=== PATIENT | male | born 1935 | race Caucasian/White ===

== ENCOUNTER 2020-01-28 09:06 | Inpatient (IN) | payer MEDICARE, OTHER ==
[2020-01-28] MEDS ORDERED: hydrALAZINE HCL 20 MG/ML 1 ML VIAL IVP STA ×2 (09:13→09:15)
--- NOTE | 2020-01-28 09:18 | ED ---
General Adult HPI - General Stated complaint: Hypertension Time Seen by Provider: 01/28/20 09:06 Source: patient, RN notes reviewed, old records reviewed - History of Present Illness Initial comments: This is an 84-year-old male who [facility] Patient was sent in because of blood pressures high. Patient was started on midodrine yesterday. Patient was also given that medicine this morning along with hydralazine and then they noted his blood pressure was 200/100 and decided to send him to the emergency department. Patient denies any headache. Patient denies numbness weakness. Patient denies blurred vision. Patient denies any chest pain difficult breathing shortest breath. Patient states he is completely asymptomatic except for the fact that his blood pressures elevated. - Related Data Allergies Allergy/AdvReac Type Severity Reaction Status Date / Time No Known Allergies Allergy Verified 01/28/20 09:20 Review of Systems ROS Statement: Those systems with pertinent positive or pertinent negative responses have been documented in the HPI. ROS Other: All systems not noted in ROS Statement are negative. General Exam - General Exam Comments Initial Comments: GENERAL: Patient is well-developed and well-nourished. Patient is nontoxic and well- hydrated and is in no acute distress. ENT: Neck is soft and supple. No significant lymphadenopathy is noted. Oropharynx is clear. Moist mucous membranes. Neck has full range of motion without eliciting any pain. EYES: The sclera were anicteric and conjunctiva were pink and moist. Extraocular movements were intact and pupils were equal round and reactive to light. Eyelids were unremarkable. PULMONARY: Unlabored respirations. Good breath sounds bilaterally. No audible rales rhonchi or wheezing was noted. CARDIOVASCULAR: There is a regular rate and rhythm without any murmurs gallops or rubs. ABDOMEN: Soft and nontender with normal bowel sounds. No palpable organomegaly was noted. There is no palpable pulsatile mass. SKIN: Skin is clear with no lesions or rashes and otherwise unremarkable. NEUROLOGIC: Patient is alert and oriented x3. Cranial nerves II through XII are grossly intact. Motor and sensory are also intact. Normal speech, volume and content. Symmetrical smile. MUSCULOSKELETAL: Normal extremities with adequate strength and full range of motion. No lower extremity swelling or edema. No calf tenderness. LYMPHATICS: No significant lymphadenopathy is noted PSYCHIATRIC: Normal psychiatric evaluation. Course Vital Signs 01/28/20 01/28/20 01/28/20 09:20 09:31 09:42 Temperature 98.1 F Pulse Rate 77 72 Pulse Rate [ 77 Left Sitting] Pulse Rate [ 79 Left Standing] Pulse Rate [ 75 Left Supine] Respiratory 18 18 16 Rate Blood Pressure 201/97 116/84 Blood Pressure 168/81 [Right Arm Sitting] Blood Pressure 111/56 [Right Arm Standing] Blood Pressure 202/95 [Right Arm Supine] O2 Sat by Pulse 98 98 99 Oximetry Medical Decision Making - Medical Decision Making The EKG shows sinus rhythm with a first-degree AV block at 74 bpm NC interval is 09/22/1943 QRS is 106 QT interval is 432 QTC is 479. Patient's EKG shows no ST segment elevation Patient's orthostatic strapped 80 point from lying to standing and then while laying in bed he was normal blood pressure and about half an hour later he was over 200 again. Because of the labile blood pressure along with an elevated troponin I spoke with Dr. Ibarra she agreed to admit the patient I admitted the patient I wrote admitting orders - Lab Data Result diagrams: 01/28/20 09:17 01/28/20 09:17 Lab Results 01/28/20 01/28/20 01/28/20 Range/Units 09:17 09:17 09:17 WBC 6.1 (3.8-10.6) k/uL RBC 3.22 L (4.30-5.90) m/uL Hgb 10.0 L (13.0-17.5) gm/dL Hct 30.3 L (39.0-53.0) % MCV 94.1 (80.0-100.0) fL MCH 31.0 (25.0-35.0) pg MCHC 32.9 (31.0-37.0) g/dL RDW 14.1 (11.5-15.5) % Plt Count 170 (150-450) k/uL Neutrophils % 70 % Lymphocytes % 21 % Monocytes % 5 % Eosinophils % 2 % Basophils % 1 % Neutrophils # 4.2 (1.3-7.7) k/uL Lymphocytes # 1.3 (1.0-4.8) k/uL Monocytes # 0.3 (0-1.0) k/uL Eosinophils # 0.1 (0-0.7) k/uL Basophils # 0.0 (0-0.2) k/uL PT 11.0 (9.0-12.0) sec INR 1.1 (<1.2) APTT 24.2 (22.0-30.0) sec Sodium 138 (137-145) mmol/L Potassium 3.5 (3.5-5.1) mmol/L Chloride 104 (98-107) mmol/L Carbon Dioxide 28 (22-30) mmol/L Anion Gap 6 mmol/L BUN 18 (9-20) mg/dL Creatinine 0.97 (0.66-1.25) mg/dL Est GFR (CKD-EPI)AfAm 83 (>60 ml/min/1.73 sqM) Est GFR (CKD-EPI)NonAf 72 (>60 ml/min/1.73 sqM) Glucose 144 H (74-99) mg/dL Calcium 8.6 (8.4-10.2) mg/dL Magnesium 1.7 (1.6-2.3) mg/dL Total Bilirubin 0.4 (0.2-1.3) mg/dL AST 31 (17-59) U/L ALT 21 (4-49) U/L Alkaline Phosphatase 87 (38-126) U/L Troponin I (0.000-0.034) ng/mL Total Protein 6.3 (6.3-8.2) g/dL Albumin 3.5 (3.5-5.0) g/dL 01/28/20 Range/Units 09:17 WBC (3.8-10.6) k/uL RBC (4.30-5.90) m/uL Hgb (13.0-17.5) gm/dL Hct (39.0-53.0) % MCV (80.0-100.0) fL MCH (25.0-35.0) pg MCHC (31.0-37.0) g/dL RDW (11.5-15.5) % Plt Count (150-450) k/uL Neutrophils % % Lymphocytes % % Monocytes % % Eosinophils % % Basophils % % Neutrophils # (1.3-7.7) k/uL Lymphocytes # (1.0-4.8) k/uL Monocytes # (0-1.0) k/uL Eosinophils # (0-0.7) k/uL Basophils # (0-0.2) k/uL PT (9.0-12.0) sec INR (<1.2) APTT (22.0-30.0) sec Sodium (137-145) mmol/L Potassium (3.5-5.1) mmol/L Chloride (98-107) mmol/L Carbon Dioxide (22-30) mmol/L Anion Gap mmol/L BUN (9-20) mg/dL Creatinine (0.66-1.25) mg/dL Est GFR (CKD-EPI)AfAm (>60 ml/min/1.73 sqM) Est GFR (CKD-EPI)NonAf (>60 ml/min/1.73 sqM) Glucose (74-99) mg/dL Calcium (8.4-10.2) mg/dL Magnesium (1.6-2.3) mg/dL Total Bilirubin (0.2-1.3) mg/dL AST (17-59) U/L ALT (4-49) U/L Alkaline Phosphatase (38-126) U/L Troponin I 0.056 H* (0.000-0.034) ng/mL Total Protein (6.3-8.2) g/dL Albumin (3.5-5.0) g/dL Disposition Clinical Impression: Labile hypertension, Elevated troponin Disposition: ADMITTED IP TO THIS HOSP Referrals: Roberto Coles MD [STAFF PHYSICIAN] - 1-2 days Time of Disposition: 10:48
[2020-01-28 09:34] LABS: Basophils % (A) 1 %; Eosinophils # (A) 0.1 k/uL (0-0.7); Eosinophils % (A) 2 %; HCT 30.3 % (39.0-53.0); Lymphocytes # (A) 1.3 k/uL (1.0-4.8); Lymphocytes % (A) 21 %; MCHC 32.9 g/dL (31.0-37.0); MCV 94.1 fL (80.0-100.0); Mean Platelet Volume 7.5; Monocytes # (A) 0.3 k/uL (0-1.0); Monocytes % (A) 5 %; Neutrophils # (A) 4.2 k/uL (1.3-7.7); Neutrophils % (A) 70 %; Platelet Count 170 k/uL (150-450); RBC 3.22 m/uL (4.30-5.90); RDW 14.1 % (11.5-15.5); WBC 6.1 k/uL (3.8-10.6)
[2020-01-28 09:43] LABS: Albumin 3.5 g/dL (3.5-5.0); Calcium 8.6 mg/dL (8.4-10.2); Magnesium 1.7 mg/dL (1.6-2.3); Potassium 3.5 mmol/L (3.5-5.1); Total Bilirubin 0.4 mg/dL (0.2-1.3); Total Protein 6.3 g/dL (6.3-8.2)
[2020-01-28 09:45] LABS: INR 1.1 (<1.2); Partial Thromboplastin Time 24.2 sec (22.0-30.0)
--- NOTE | 2020-01-28 09:52 | XR ---
EXAMINATION TYPE: XR chest 2V DATE OF EXAM: 01/28/2020 HISTORY: Chest Pain. REFERENCE: NONE. FINDINGS: There has been a midline sternotomy. There is apparent elevation right hemidiaphragm. There is mild atelectasis at the lung bases. Lungs o therwise clear. Pleural spaces are clear. The heart is not enlarged. IMPRESSION: BIBASILAR ATELECTASIS.
[2020-01-28] MEDS ORDERED: BISACODYL 10 MG SUPP RECTAL PRN (15:44)
[2020-01-28] MEDS ORDERED: FLUTICASONE 50MCG/SPRAY NASAL 16GM EA NOSTRIL PRN (15:44)
[2020-01-28] MEDS ORDERED: MAGNESIUM HYDROXIDE 2,400 MG/10 ML CUP PO PRN (15:44)
[2020-01-28] MEDS ORDERED: NA PHOS,M-B/NA PHOS,DI-BA 133 ML ENEMA RECTAL PRN (15:44)
[2020-01-28] MEDS ORDERED: ALBUTEROL HFA INHALER INHALATION PRN (15:44)
--- NOTE | 2020-01-28 16:19 | P.HPIM ---
History of Present Illness H&P Date: 01/28/20 Chief Complaint: Dizziness Mr. Porter is a 84-year-old male, who is a patient of Dr. Rush, with a past medical history of coronary artery disease, COPD, CVA/TIA, hypertension, hyperlipidemia, idiopathic orthostatic hypotension sent in from [facility] for uncontrolled hypertension along with dizziness. Patient has a known history of profound orthostatic hypotension. He states he was recently admitted at [facility] for the same complaint. He states he had an MRI Scan of the head and they did multiple tests over the and later discharged [facility] checked [facility] blood pressure 200 /100 and it was high and so they sent him here. The patient's only complaint is that he feels dizzy when he stands up. Patient denies having any loss of consciousness because of this. He states that he has been dealing with this issue for the past 3-4 years. In the emergency room patient had his blood pressure checked and it was In the emergency room the patient was checked for orthostatics and it was positive for a deep points. Patient's blood pressure was normal and he bed but often elevated in the checked it was, the systolic pressure was about 200. So because of the lab I'll blood pressure readings and mildly elevated troponins patient has been admitted to the hospital. Patient denies having any chest pain or palpitations. His only complaint is dizziness. Patient denies having any loss of consciousness. He states that when he stands and walks few steps he feels dizzy and this is his baseline. So no new complaints per se. Patient denies having any difficulty in breathing or cough. No exposure to coronavirus patients. Patient denies having abdominal pain nausea vomiting or diarrhea. Patient states that he was using compression stockings in the past that helped him, but lately as the stockings were old and not working he stopped using them for the past few months. He has records from December 2018 admission from [facility] which [facility]. At that time patient was recommended an abdominal binder and JOON hose for his orthostatic hypotension. During that visit patient had an MRI, EMG and neurology evaluation. Review of Systems REVIEW OF SYSTEMS: PSYCH: Anxious because of dizziness NEURO:No c/o weakness of the extremties, No facial droop, No speech abnormalities. VASCULAR: no edema HEMATOLOGIC: No history of easy bleeding and bruising . No recent infections . RESPIRATORY: No cough, No SOB, No chest discomfort. IMMUNE: No infections INTEGUMENT: no rashes OPHTHALMOLOGIC: No blurry vision and no eye discharge : No dysuria or hematuria CARDIAC: No chest pain , shortness of breath , paroxysmal nocturnal dyspnea MUSCULOSKELETAL : No Aches or pains in the joints or muscles. GI: No abdominal pain, Nausea or vomiting. No constipation or diarrhea. All 13 review of systems are negative except for the ones mentioned above Past Medical History Past Medical History: Coronary Artery Disease (CAD), COPD, CVA/TIA, Eye Disorder, Hyperlipidemia, Osteoarthritis (OA) Additional Past Medical History / Comment(s): anemia, idiopathic hypotension, macular degeneration, carpal tunnel syndrome, multiple mini strokes, orthostatic hypotension being managed by Dr. Campoverde anaesthetic technician for the past 4 years. Changed dosing of midodrine and fludrocortisone around over the years. History of Any Multi-Drug Resistant Organisms: None Reported Past Surgical History: Appendectomy, Coronary Bypass/CABG, Hernia Repair, Joint Replacement, Tonsillectomy Additional Past Surgical History / Comment(s): vasectomy, umbilical/hiatal hernia, bilateral knee, pinched nerve in neck surgically repaired. Additional Past Anesthesia/Blood Transfusion Reaction / Comment(s): No history of blood transfusion. Past Psychological History: No Psychological Hx Reported Smoking Status: Former smoker Past Alcohol Use History: None Reported Past Drug Use History: None Reported Medications and Allergies Home Medications Medication Instructions Recorded Confirmed Type Acetaminophen [Tylenol Arthritis] 650 mg PO Q4H PRN 01/28/20 01/28/20 History Albuterol Inhaler [Ventolin Hfa 1 puff INHALATION Q6H PRN 01/28/20 01/28/20 History Inhaler] Aspirin EC [Ecotrin Low Dose] 81 mg PO DAILY@169901/28/20 01/28/20 History Bisacodyl 10 mg RECTAL ONCE PRN 01/28/20 01/28/20 History Fludrocortisone Acetate 0.2 mg PO DAILY@0801/28/20 01/28/20 History Fluticasone Nasal [place] [Flonase 1 spr EA NOSTRIL DAILY PRN 01/28/20 01/28/20 History Nasal [place]] Lutein 20 mg PO DAILY@169901/28/20 01/28/20 History Magnesium Hydroxide [Milk of 2,400 mg PO ONCE PRN 01/28/20 01/28/20 History Magnesia] Midodrine HCl 15 mg PO AC-TID 01/28/20 01/28/20 History Multivitamins, Thera [Multivitamin 1 tab PO DAILY@1700 01/28/20 01/28/20 History (formulary)] Na Phos,M-B/Na Phos,Di-Ba [Fleet 133 ml RECTAL ONCE PRN 01/28/20 01/28/20 Hist ory Adult] Sertraline HCl [Zoloft] 50 mg PO DAILY@0800 01/28/20 01/28/20 History Simvastatin 40 mg PO HS@2100 01/28/20 01/28/20 History hydrALAZINE HCL [Apresoline] 25 mg PO Q8HR 01/28/20 01/28/20 History Allergies Allergy/AdvReac Type Severity Reaction Status Date / Time No Known Allergies Allergy Verified 01/28/20 11:41 Physical Exam Vitals: Vital Signs Temp Pulse Pulse Pulse Pulse Resp BP 01/28/20 12:16 01/28/20 12:09 97.6 F 70 16 01/28/20 11:49 71 16 211/98 01/28/20 10:51 71 16 189/97 01/28/20 09:42 72 16 116/84 01/28/20 09:31 77 79 75 18 01/28/20 09:20 98.1 F 77 18 201/97 BP BP BP BP BP Pulse Ox 01/28/20 12:16 102/53 01/28/20 12:09 235/99 97 01/28/20 11:49 97 01/28/20 10:51 99 01/28/20 09:42 99 01/28/20 09:31 168/81 111/56 202/95 98 01/28/20 09:20 98 Intake and Output 01/28/20 01/28/20 01/28/20 06:59 14:59 22:59 Other: Weight 80.286 kg PHYSICAL EXAM GEN. APPEARANCE: alert, in no apparent distress HEAD EXAM: atraumatic, normocephalic, normal inspection EYE EXAM: normal appearance, PERRL, EOMI. Absent: scleral icterus, conjunctival injection, periorbital swelling ENT EXAM: normal exam, mucous membranes moist NECK EXAM: normal inspection. Absent: tenderness, meningismus, full ROM, lymphadenopathy RESPIRATORY EXAM: normal lung sounds bilaterally. Absent: respiratory distress, wheezes, rales, rhonchi, stridor CARDIOVASCULAR EXAM: regular rate, normal rhythm, normal heart sounds. GI/ABDOMINAL EXAM: soft, normal bowel sounds. Absent: distended, tenderness, guarding, rebound, rigid EXTREMITIES EXAM: normal inspection, full ROM, normal capillary refill. Absent: tenderness, pedal edema, joint swelling, calf tenderness NEUROLOGICAL EXAM: alert, oriented X3, no focal neurological deficits PSYCHIATRIC EXAM: normal affect, normal mood SKIN EXAM: warm, dry, intact, normal color. Absent: rash Results CBC & Chem 7: 01/28/20 09:17 01/28/20 09:17 Labs: Abnormal Lab Results - Last 24 Hours (Table) 01/28/20 01/28/20 01/28/20 Range/Units 09:17 09:17 09:17 RBC 3.22 L (4.30-5.90) m/uL Hgb 10.0 L (13.0-17.5) gm/dL Hct 30.3 L (39.0-53.0) % Glucose 144 H (74-99) mg/dL Troponin I 0.056 H* (0.000-0.034) ng/mL Thrombosis Risk Factor Assmnt - Choose All That Apply Other Risk Factors: Yes Each Risk Factor Represents 3 Points: Age 75 years or older Thrombosis Risk Factor Assessment Total Risk Factor Score: 3 Thrombosis Risk Factor Assessment Level: Moderate Risk Assessment and Plan Assessment: ASSESSMENT Dizziness due to Profound orthostatic hypotension Elevated troponin Known history of idiopathic orthostatic hypotension History of coronary artery disease CVA/TIA Hyperlipidemia Multiple joint osteoarthritis History of joint replacement PLAN: Patient orthostatics have been repeated, with sleeping patient's blood pressure was 1 80 x 80 and after making him stand for 2 minutes he was dizzy, repeat blood pressure was 140 x 70. Patient has workup done recently at [facility] for the same so we will try to get the records from [facility]. Patient has mild elevation in troponins, cardiology has been consulted. We will hold off Midodrin and hydralazine for now. We will have thigh-high compression stockings to help with the blood pressure. Patient to continue with fall precautions as he is at increased risk to have a fall due to his dizziness. Rest of his home medications have been restarted. Further recommendations to follow depending on the progress of the patient.
[2020-01-28] MEDS: ASPIRIN 81 MG PO SCH (18:38)
[2020-01-28] MEDS: MULTIVITAMINS, THERA 1 EACH TAB PO SCH (18:38)
[2020-01-28] MEDS: ATORVASTATIN 20 MG TAB PO SCH (20:29)
[2020-01-29 06:13] LABS: Basophils % (A) 1 %; Eosinophils # (A) 0.1 k/uL (0-0.7); Eosinophils % (A) 3 %; HCT 28.6 % (39.0-53.0); HGB 9.7 gm/dL (13.0-17.5); Lymphocytes # (A) 1.3 k/uL (1.0-4.8); Lymphocytes % (A) 26 %; MCH 31.7 pg (25.0-35.0); MCHC 33.9 g/dL (31.0-37.0); MCV 93.4 fL (80.0-100.0); Mean Platelet Volume 8.7; Monocytes # (A) 0.3 k/uL (0-1.0); Monocytes % (A) 7 %; Neutrophils # (A) 3.1 k/uL (1.3-7.7); Neutrophils % (A) 62 %; Platelet Count 167 k/uL (150-450); RBC 3.06 m/uL (4.30-5.90); RDW 14.3 % (11.5-15.5)
[2020-01-29 06:31] LABS: Calcium 8.7 mg/dL (8.4-10.2); Potassium 3.8 mmol/L (3.5-5.1)
[2020-01-29] MEDS: ENOXAPARIN 40 MG/0.4 ML SYRINGE SQ SCH (08:27)
[2020-01-29] MEDS: SERTRALINE 50 MG TAB PO SCH (08:27)
[2020-01-29] MEDS: FLUDROCORTISONE 0.1 MG TAB PO SCH (10:47)
--- NOTE | 2020-01-29 11:40 | P.PN ---
Subjective Progress Note Date: 01/29/20 Principal diagnosis: Dizziness Mr. Porter is a 84-year-old male, who is a patient of Dr. Rush, with a past medical history of coronary artery disease, COPD, CVA/TIA, hypertension, hyperlipidemia, idiopathic orthostatic hypotension sent in from [facility] for uncontrolled hypertension along with dizziness. Patient has a known history of profound orthostatic hypotension. He states he was recently admitted at [facility] for the same complaint. He states he had an MRI Scan of the head and they did multiple tests over the and later discharged him to [facility]. [facility] they checked his blood pressure 200 /100 and it was high and so they sent him here. The patient's only complaint is that he feels dizzy when he stands up. Patient denies having any loss of consciousness because of this. He states that he has been dealing with this issue for the past 3-4 years. In the emergency room patient had his blood pressure checked and it was In the emergency room the patient was checked for orthostatics and it was positive for a deep points. Patient's blood pressure was normal and he bed but often elevated in the checked it was, the systolic pressure was about 200. So because of the lab I'll blood pressure readings and mildly elevated troponins patient has been admitted to the hospital. Patient denies having any chest pain or palpitations. His only complaint is dizziness. Patient denies having any loss of consciousness. He states that when he stands and walks few steps he feels dizzy and this is his baseline. So no new complaints per se. Patient denies having any difficulty in breathing or cough. No exposure to coronavirus patients. Patient denies having abdominal pain nausea vomiting or diarrhea. Patient states that he was using compression stockings in the past that helped him, but lately as the stockings were old and not working he stopped using them for the past few months. On 01/29/2020 - patient is comfortably sitting in a chair by the bedside. He still complains of the dizziness which happens when he changes his position. Patient complains of pain in the right side of his face and around the temporomandibular joint that started this morning. Patient denies having any ear ache. Patient denies having any fevers chills or rigors. No headache or visual changes. She states that his tremors are worsening gradually. Patient denies having any chest pain or palpitations. No cough or difficulty in br eathing.Pain denies having nausea vomiting or diarrhea. No dysuria or hematuria. On reviewing his vitals patient's blood pressure sitting 155/93 and supine 200 / 1 05. Troponins have been 0.056, 0.068, 0.06. Active Medications Albuterol Sulfate (Ventolin Hfa Inhaler) 1 puff INHALATION Q6H PRN PRN Reason: Shortness Of Breath Aspirin (Aspirin) 81 mg PO DAILY@1700 [facility] Last Admin: 01/28/20 18:38 Dose: 81 mg Documented by: Atorvastatin Calcium (Lipitor) 20 mg PO HS@2100 [facility] Last Admin: 01/28/20 20:29 Dose: 20 mg Documented by: Bisacodyl (Dulcolax) 10 mg RECTAL ONCE PRN PRN Reason: Constipation Enoxaparin Sodium (Lovenox) 40 mg SQ DAILY [facility] Last Admin: 01/29/20 08:27 Dose: 40 mg Documented by: Fludrocortisone Acetate (Florinef) 0.2 mg PO DAILY@0800 [facility] Last Admin: 01/29/20 10:47 Dose: Not Given Documented by: Fluticasone Propionate (Flonase Nasal [place]) 1 spray EA NOSTRIL DAILY PRN PRN Reason: Allergy Symptoms Magnesium Hydroxide (Milk Of Magnesia) 2,400 mg PO ONCE PRN PRN Reason: Constipation Multivitamins (Theragran) 1 each PO DAILY@1700 [facility] Last Admin: 01/28/20 18:38 Dose: 1 each Documented by: Sertraline HCl (Zoloft) 50 mg PO DAILY@0800 [facility] Last Admin: 01/29/20 08:27 Dose: 50 mg Documented by: Sodium Biphosphate/Sodium Phosphate (Fleet Adult) 133 ml RECTAL ONCE PRN PRN Reason: Constipation Objective - Vital Signs Vital signs: Vital Signs Temp 98.2 F 01/29/20 10:54 Pulse 74 01/29/20 10:54 Resp 16 01/29/20 10:54 BP 130/74 01/29/20 10:54 Pulse Ox 98 01/29/20 08:00 Intake & Output 01/28/20 01/29/20 01/29/20 18:59 06:59 18:59 Intake Total 417 120 Output Total 400 400 250 Balance 17 -280 -250 Weight 80.286 kg 80.4 kg Intake: Oral 417 120 Output: Urine 400 400 250 Other: Voiding Method Urinal Urinal # Voids 2 - Exam PHYSICAL EXAM GEN. APPEARANCE: alert, in no apparent distress HEAD EXAM: atraumatic, normocephalic, normal inspection; mild tenderness over the right-sided temporomandibular joint. EYE EXAM: normal appearance, PERRL, EOMI. Absent: scleral icterus, conjunctival injection, periorbital swelling NECK EXAM: normal inspection. No JVD. No thyromegaly. RESPIRATORY EXAM: normal lung sounds bilaterally. No wheeze or crackles. CARDIOVASCULAR EXAM: regular rate, normal rhythm, normal heart sounds. GI/ABDOMINAL EXAM: soft, normal bowel sounds. Nondistended. Nontender. No guarding or rigidity. EXTREMITIES EXAM: No pedal edema. NEUROLOGICAL EXAM: alert, oriented X3, no focal neurological deficits PSYCHIATRIC EXAM: normal affect, normal mood - Labs CBC & Chem 7: 01/29/20 05:55 01/29/20 05:55 Labs: Abnormal Lab Results - Last 24 Hours (Table) 01/28/20 01/28/20 01/29/20 Range/Units 14:50 20:53 05:55 RBC 3.06 L (4.30-5.90) m/uL Hgb 9.7 L (13.0-17.5) gm/dL Hct 28.6 L (39.0-53.0) % Carbon Dioxide (22-30) mmol/L Troponin I 0.068 H* 0.062 H* (0.000-0.034) ng/mL 01/29/20 Range/Units 05:55 RBC (4.30-5.90) m/uL Hgb (13.0-17.5) gm/dL Hct (39.0-53.0) % Carbon Dioxide 33 H (22-30) mmol/L Troponin I (0.000-0.034) ng/mL Assessment and Plan Assessment: ASSESSMENT Dizziness due to Profound orthostatic hypotension Elevated troponin Pain over the right temporomandibular joint Known history of idiopathic orthostatic hypotension History of coronary artery disease CVA/TIA Hyperlipidemia Multiple joint osteoarthritis History of joint replacement PLAN: Patient orthostatics have been repeated and is still positive. Patient has workup done recently at [facility] for the same. Patient has mild elevation in troponins. We will hold off Midodrin and hydralazine for now. Patient has thigh-high compression stockings in place. Still waiting for reports from [facility]. Tylenol when necessary for pain over the temporomandibular joint. Patient to continue with fall precautions as he is at increased risk to have a fall due to his dizziness. Rest of his home medications have been restarted. Further recommendations to follow depending on the progress of the patient.
--- NOTE | 2020-01-29 11:51 | CONS ---
SARITA Tiernye is an 84-year-old gentleman who is admitted to hospital secondary to severe uncontrolled hypertension. The patient has had issues with dizziness for the last several years and has had idiopathic orthostatic hypotension and had recently been worked up at [facility]. I do not have all the records on him. He was told essentially that his workup was negative. He is at the [facility], apparently for inpatient rehab for dizziness. He has had elevated blood pressures for several days in a row due to which he is sent to the hospital. He denies chest pain, difficulty breathing, leg edema, palpitations, or syncope. There is no history of PND or orthopnea. The patient was worked up at [facility] and was told that he needed to use JOON hoses, which he stopped using for unclear reasons. At the time of my evaluation, he does have uncontrolled hypertension and does have orthostatic changes. But is able to sit in bed and seems comfortable at rest. Patient has known coronary artery disease and apparently underwent bypass surgery many years ago. Has COPD, CVA and dyslipidemia. PAST SURGICAL HISTORY: Significant for bypass surgery, anemia, idiopathic hypertension, macular degeneration. MEDICATIONS: At home include Tylenol, aspirin, Florinef, simvastatin, hydralazine, and Zoloft. ALLERGIES: There are no known drug allergies. FAMILY HISTORY: Negative for premature coronary artery disease. SOCIAL HISTORY: Negative for current smoking, EtOH abuse, or drug abuse. REVIEW OF SYSTEMS: HEENT: Unremarkable. CARDIAC: As described above. RESPIRATORY: As described above. GI: Negative. GENITOURINARY: Negative. ALLERGY/IMMUNOLOGY: Negative. SKIN: Negative. MUSCULOSKELETAL: As described above. PSYCHOSOCIAL: Negative. ENDOCRINE: Negative. DERMATOLOGICAL: Negative. ONCOLOGICAL Negative. EXPENDITURE REQUISITION CLERK: Negative. PHYSICAL EXAMINATION: On exam, patient is comfortable at rest. Afebrile. Heart rate is 66 beats per minute. Blood pressure is 200/105 and drops to 137/66 on standing up without any significant change in the heart rate. There is no jugular venous distention. Carotid upstroke is normal. Chest exam reveals good air entry bilaterally. Heart exam reveals first and second heart sounds. No gallop. No murmur. Abdomen is soft. Exam of extremities did not reveal any edema. Peripheral pulses are palpable. LABS: Show that the potassium is 3.8, creatinine is 0.9, hemoglobin is 9.7. The EKG showed sinus rhythm with nonspecific ST-T wave changes. Tropes are in the donaldson zone at 0.05, 0.06 and 0.06 without any definite pattern to it. Hodge virus is negative. ASSESSMENT: 1. Uncontrolled hypertension. 2. Idiopathic orthostatic hypotension. 3. Coronary artery disease, status post angioplasty. PLAN: I am going to resume the medications that the patient was on at home. I am going to resume the hydralazine that he was on and increase the dose as needed and we have to continue with the Florinef that he is on and if necessary, will resume the midodrine. We really have to carefully balance orthostatic hypotension and uncontrolled hypertension. I am going to accept elevated systolic blood pressures on him, so that he does not have significant orthostatic orthostatic symptoms, especially given the fact that the patient has had multiple falls. YANI / JOSHUA: [id number] /
[2020-01-29 13:02] VITALS: BMI 26.2
[2020-01-29] MEDS: MULTIVITAMINS, THERA 1 EACH TAB PO SCH (16:58)
[2020-01-29] MEDS: ASPIRIN 81 MG PO SCH (16:58)
[2020-01-29] MEDS: hydrALAZINE HCL 25 MG TAB PO SCH ×2 (16:58→21:01)
[2020-01-29] MEDS: ATORVASTATIN 20 MG TAB PO SCH (21:01)
[2020-01-30] MEDS: FLUDROCORTISONE 0.1 MG TAB PO SCH (09:23)
[2020-01-30] MEDS: hydrALAZINE HCL 25 MG TAB PO SCH ×3 (09:23→21:50)
[2020-01-30] MEDS: SERTRALINE 50 MG TAB PO SCH (09:23)
[2020-01-30] MEDS: ENOXAPARIN 40 MG/0.4 ML SYRINGE SQ SCH (09:23)
--- NOTE | 2020-01-30 11:40 | PN ---
PROGRESS NOTE Niall is an an 84-year-old gentleman that is admitted to hospital with orthostatic hypotension. He continues to feel dizzy when he gets up and walks around and continues to have orthostatic changes. This morning his blood pressure is around 157/75. He is currently on aspirin, Lipitor, Florinef, hydralazine 25 t.i.d. PHYSICAL EXAM: Shows that he continues to have orthostatic changes. There is no jugular venous distention. Chest exam reveals good air entry bilaterally. Heart exam reveals first and second heart sounds. No gallop. Exam of the extremities did not reveal any edema. Peripheral pulses are felt. ASSESSMENT: Orthostatic hypotension syndrome. PLAN: I will continue him on his current medications. Will accept poorly-controlled blood pressures given the orthostatic hypotension. Ambulate him. Continue physical therapy. Hopefully home tomorrow. YANI / HOLLYN: [id number] /
[2020-01-30] MEDS: ACETAMINOPHEN TAB 325 MG TAB PO PRN ×2 (12:01→21:50)
--- NOTE | 2020-01-30 15:28 | P.PN ---
Subjective Progress Note Date: 01/30/20 Principal diagnosis: Dizziness Mr. Porter is a 84-year-old male, who is a patient of Dr. Rush, with a past medical history of coronary artery disease, COPD, CVA/TIA, hypertension, hyperlipidemia, idiopathic orthostatic hypotension sent in from [facility] for uncontrolled hypertension along with dizziness. Patient has a known history of profound orthostatic hypotension. He states he was recently admitted at [facility] for the same complaint. He states he had an MRI Scan of the head and they did multiple tests over the and later discharged him to [facility]. In the intermediate they checked his blood pressure 200 /100 and it was high and so they sent him here. The patient's only complaint is that he feels dizzy when he stands up. Patient denies having any loss of consciousness because of this. He states that he has been dealing with this issue for the past 3-4 years. In the emergency room patient had his blood pressure checked and it was In the emergency room the patient was checked for orthostatics and it was positive for a deep points. Patient's blood pressure was normal and he bed but often elevated in the checked it was, the systolic pressure was about 200. So because of the lab I'll blood pressure readings and mildly elevated troponins patient has been admitted to the hospital. Patient denies having any chest pain or palpitations. His only complaint is dizziness. Patient denies having any loss of consciousness. He states that when he stands and walks few steps he feels dizzy and this is his baseline. So no new complaints per se. Patient denies having any difficulty in breathing or cough. No exposure to coronavirus patients. Patient denies having abdominal pain nausea vomiting or diarrhea. Patient states that he was using compression stockings in the past that helped him, but lately as the stockings were old and not working he stopped using them for the past few months. On 01/29/2020 - patient is comfortably sitting in a chair by the bedside. He still complains of the dizziness which happens when he changes his position. Patient complains of pain in the right side of his face and around the temporomandibular joint that started this morning. Patient denies having any ear ache. Patient denies having any fevers chills or rigors. No headache or visual changes. She states that his tremors are worsening gradually. Patient denies having any chest pain or palpitations. No cough or difficulty in br eathing.Pain denies having nausea vomiting or diarrhea. No dysuria or hematuria. On reviewing his vitals patient's blood pressure sitting 155/93 and supine 200 / 1 05. Troponins have been 0.056, 0.068, 0.06. 01/30/2020 Patient is seen and evaluated in follow-up and continues to have some dizziness and orthostatic changes along with hypertension. Patient was reinitiated on Florinef and hydralazine. Cardiology following closely. Patient denies any right-sided facial pain this morning. No reports of chest pain, shortness of breath, or palpitations. Is afebrile. No reports of nausea or vomiting and patient is tolerating diet. Patient states he was at [facility] recently to receive continued PT/OT therapy although was unable to initiate the therapy due to fluctuations in blood pressure. Patient states he believes he will be returning there upon discharge to resume the physical therapy orders previously noted. Patient was evaluated by PT/OT recommending continued subacute rehab to increase strength and mobility for ADLs. Social work is following to assist with discharge planning needs back to [facility] once stabilized and discharged. Will continue to monitor closely. Objective - Vital Signs Vital signs: Vital Signs Temp 97.6 F 01/30/20 08:00 Pulse 78 01/30/20 08:00 Resp 18 01/30/20 08:00 BP 186/93 01/30/20 08:00 Pulse Ox 97 01/30/20 08:00 Intake & Output 01/29/20 01/30/20 01/30/20 18:59 06:59 18:59 Intake Total 640 240 240 Output Total 250 1050 Balance 390 -810 240 Weight 80.4 kg 85 kg Intake: Oral 640 240 240 Output: Urine 250 1050 Other: Voiding Method Urinal Urinal # Voids 1 - Exam GEN. APPEARANCE: alert, in no apparent distress HEAD EXAM: atraumatic, normocephalic, normal inspection EYE EXAM: normal appearance, PERRL, EOMI. Absent: scleral icterus, conjunctival injection, periorbital swelling NECK EXAM: normal inspection. No JVD. No thyromegaly. RESPIRATORY EXAM: normal lung sounds bilaterally. No wheeze or crackles. CARDIOVASCULAR EXAM: regular rate, normal rhythm, normal heart sounds. GI/ABDOMINAL EXAM: soft, normal bowel sounds. Nondistended. Nontender. No guarding or rigidity. EXTREMITIES EXAM: No pedal edema. NEUROLOGICAL EXAM: alert, oriented X3, no focal neurological deficits PSYCHIATRIC EXAM: normal affect, normal mood - Labs CBC & Chem 7: 01/29/20 05:55 01/29/20 05:55 Assessment and Plan Assessment: Dizziness due to Profound orthostatic hypotension Elevated troponin Pain over the right temporomandibular joint, improved Known history of idiopathic orthostatic hypotension History of coronary artery disease CVA/TIA Hyperlipidemia Multiple joint osteoarthritis History of joint replacement PLAN: Patient orthostatics have been repeated and is still positive. Patient has workup done recently at [facility] for the same. Patient has mild elevation in troponins. We will hold off Midodrine for now. Florinef and hydralazine reinitiated. Patient has thigh-high compression stockings in place. Still waiting for reports from [facility]. Tylenol when necessary for pain over the temporomandibular joint. Patient to continue with fall precaut ions as he is at increased risk to have a fall due to his dizziness. Rest of his home medications have been restarted. Patient was seen and evaluated by PT/OT recommending return to subacute rehab for physical therapy for strength and mobility. Social work following. Further recommendations to follow depending on the progress of the patient. Possible discharge in 24-48 hours.
[2020-01-30] MEDS: MULTIVITAMINS, THERA 1 EACH TAB PO SCH (17:36)
[2020-01-30] MEDS: ASPIRIN 81 MG PO SCH (17:36)
[2020-01-30] MEDS: ATORVASTATIN 20 MG TAB PO SCH (21:50)
[2020-01-31 08:04] VITALS: PULSE 78; RESP 16; TEMP 98.3
[2020-01-31] MEDS: SERTRALINE 50 MG TAB PO SCH (08:08)
[2020-01-31] MEDS: FLUDROCORTISONE 0.1 MG TAB PO SCH (08:08)
[2020-01-31] MEDS: ACETAMINOPHEN TAB 325 MG TAB PO PRN (08:08)
[2020-01-31] MEDS: ENOXAPARIN 40 MG/0.4 ML SYRINGE SQ SCH (08:53)
[2020-01-31] MEDS: hydrALAZINE HCL 25 MG TAB PO SCH (08:54)
--- NOTE | 2020-01-31 11:14 | P.DS ---
Providers Date of admission: 01/28/20 10:49 Expected date of discharge: 01/31/20 Attending physician: Lashell Ibarra Consults: 01/28/20 10:48 Consult Physician Urgent Consulting Provider: [facility] Consult Reason/Comments: Labile hypertension, elevated troponin Do you want consulting provider notified?: Yes Primary care physician: [facility] Course: Final diagnosis Dizziness due to Profound orthostatic hypotension Elevated troponin Pain over the right temporomandibular joint, improved Known history of idiopathic orthostatic hypotension History of coronary artery disease CVA/TIA Hyperlipidemia Multiple joint osteoarthritis History of joint replacement Discharge disposition Patient is being discharged in a stable condition with guarded prognosis to [facility] for continued PT/OT therapy. Patient will need to follow-up with Dr. Coles in the outpatient setting. Patient will also need to follow-up with cardiology in the outpatient setting upon discharge. Total time taken is 35 minutes. History of present illness This is a 84-year-old male who was recently admitted with uncontrolled hypertension along with dizziness and was being closely monitored. Patient was found to have profound orthostatic hypotension. Patient recently underwent a full workup at [facility] and was ultimately discharged to [facility] for physical therapy for strength and mobility due to his dizziness. Cardiology evaluating the patient here. She was resumed on hydralazine and Florinef. Midodrine was discontinued. Patient continues to have fluctuations in his blood pressure although more controlled at this time and will be returning to [facility] for continued PT/OT therapy. Patient will need to follow- up with cardiology in the outpatient setting. Currently no reports of chest pain, shortness of breath, or palpitations. Patient has intermittent periods of dizziness only when standing but has improved when sitting up at the bedside first for 1-2 minutes and then proceeding with getting up. Patient is afebrile. No reports of nausea or vomiting and patient is tolerating diet. Discussed with the patient at length about getting up slowly with position changes and sitting at the side of the bilateral in the chair prior to standing to minimize the dizziness. Patient will be going to [facility] today. On exam vital signs are stable. Temp is 98.3 F, pulse is 78, respirations are 16, blood pressure 104/59, oxygen saturation is 99% on room air. Cardio S1, S2 are present. Respiratory system shows clear to auscultation. Abdomen is soft and nontender. Nervous system shows mild diffuse weakness. Please refer to medication reconciliation sheet for a list of medications. Patient Condition at Discharge: Stable Plan - Discharge Summary Discharge Rx Participant: No New Discharge Prescriptions: Continue Fluticasone Nasal [place] [Flonase Nasal [place]] 1 spr EA NOSTRIL DAILY PRN PRN Reason: Allergy Symptoms Na Phos,M-B/Na Phos,Di-Ba [Fleet Adult] 133 ml RECTAL ONCE PRN PRN Reason: Constipation Bisacodyl 10 mg RECTAL ONCE PRN PRN Reason: Constipation Albuterol Inhaler [Ventolin Hfa Inhaler] 1 puff INHALATION Q6H PRN PRN Reason: Shortness Of Breath Acetaminophen [Tylenol Arthritis] 650 mg PO Q4H PRN PRN Reason: Pain hydrALAZINE HCL [Apresoline] 25 mg PO Q8HR Simvastatin 40 mg PO HS@2100 Sertraline HCl [Zoloft] 50 mg PO DAILY@0800 Multivitamins, Thera [Multivitamin (formulary)] 1 tab PO DAILY@1700 Lutein 20 mg PO DAILY@1700 Fludrocortisone Acetate 0.2 mg PO DAILY@0800 Aspirin EC [Ecotrin Low Dose] 81 mg PO DAILY@1700 Magnesium Hydroxide [Milk of Magnesia] 2,400 mg PO ONCE PRN PRN Reason: Constipation Discontinued Midodrine HCl 15 mg PO AC-TID Discharge Medication List Acetaminophen [Tylenol Arthritis] 650 mg PO Q4H PRN 01/28/20 [History] Albuterol Inhaler [Ventolin Hfa Inhaler] 1 puff INHALATION Q6H PRN 01/28/20 [History] Aspirin EC [Ecotrin Low Dose] 81 mg PO DAILY@169901/28/20 [History] Bisacodyl 10 mg RECTAL ONCE PRN 01/28/20 [History] Fludrocortisone Acetate 0.2 mg PO DAILY@0800 01/28/20 [History] Fluticasone Nasal [place] [Flonase Nasal [place]] 1 spr EA NOSTRIL DAILY PRN 0 [History] Lutein 20 mg PO DAILY@1700 01/28/20 [History] Magnesium Hydroxide [Milk of Magnesia] 2,400 mg PO ONCE PRN 01/28/20 [History] Multivitamins, Thera [Multivitamin (formulary)] 1 tab PO DAILY@1700 01/28/20 [History] Na Phos,M-B/Na Phos,Di-Ba [Fleet Adult] 133 ml RECTAL ONCE PRN 01/28/20 [History] Sertraline HCl [Zoloft] 50 mg PO DAILY@0800 01/28/20 [History] Simvastatin 40 mg PO HS@2100 01/28/20 [History] hydrALAZINE HCL [Apresoline] 25 mg PO Q8HR 01/28/20 [History] Follow up Appointment(s)/Referral(s): Roberto Coles MD [STAFF PHYSICIAN] - 1-2 days Landon Baldwin MD [STAFF PHYSICIAN] - 1 Week Activity/Diet/Wound Care/Special Instructions: Patient is going to [facility] for continued PT/OT therapy Activity as tolerated Continue current diet Follow-up with primary care provider Follow-up with verification rep Discharge Disposition: TRANSFER TO SNF/F
[2020-01-31 12:55] VITALS: BP 163/94
--- NOTE | 2020-01-31 15:37 | PN ---
PROGRESS NOTE The patient is feeling better. He does not have orthostatic changes. Blood pressure is somewhat low in the 110 systolic. He is ambulating inside the room. Will be discharged back to the retirement. PHYSICAL EXAM: Comfortable at rest. Vital signs are stable. Chest exam reveals good air entry bilaterally. Heart exam reveals first and second heart sounds, no gallop. Exam of extremities did not reveal any edema. Peripheral pulses are felt. ASSESSMENT: Orthostatic hypotension. PLAN: Of discharge I want the patient to get the hydralazine only if his systolic blood pressure is around 140. Otherwise, hold the dose. We have to accept that this patient is going to have elevated blood pressures and not try to control the blood pressure too aggressively. He is on Florinef, which I am going to continue. If necessary, we can use midodrine also. Arrange follow up with his own geothermal electrical engineer in the outpatient center. Will be happy to see the patient in the office if the need arises. MMODL / IJN: [id number] /
== END 2020-01-31 14:19 | DRG 312 ==
LOC: EC 09:06 → 3SCARD 10:49
PROVIDERS: ADMIT Internal Medicine; ATTEND Internal Medicine
DX: I95.1 Orthostatic hypotension (principal); Z11.59 Encounter for screening for other viral diseases; J44.9 Chronic obstructive pulmonary disease, unspecified; I25.10 Atherosclerotic heart disease of native coronary artery without angina pectoris; E78.5 Hyperlipidemia, unspecified; I10 Essential (primary) hypertension; I44.0 Atrioventricular block, first degree; M19.90 Unspecified osteoarthritis, unspecified site; H35.30 Unspecified macular degeneration; G56.00 Carpal tunnel syndrome, unspecified upper limb; K59.00 Constipation, unspecified; R79.89 Other specified abnormal findings of blood chemistry; R25.1 Tremor, unspecified; M26.621 Arthralgia of right temporomandibular joint; Z71.3 Dietary counseling and surveillance; Z79.899 Other long term (current) drug therapy; Z79.82 Long term (current) use of aspirin; Z86.73 Personal history of transient ischemic attack (TIA), and cerebral infarction without residual deficits; Z95.1 Presence of aortocoronary bypass graft; Z90.49 Acquired absence of other specified parts of digestive tract; Z98.890 Other specified postprocedural states; Z96.653 Presence of artificial knee joint, bilateral; Z87.891 Personal history of nicotine dependence; Z98.61 Coronary angioplasty status
CPT/HCPCS: 36415; 71046; 80048; 80053; 83735; 84484; 85025; 85610; 85730; 87635; 93005; 99285

== ENCOUNTER 2020-04-18 04:27 | Emergency (ER) | payer MEDICARE, OTHER ==
--- NOTE | 2020-04-18 04:32 | ED ---
Fall HPI - General Stated Complaint: Fall Time Seen by Provider: 04/18/20 04:32 Source: RN notes reviewed, old records reviewed Limitations: no limitations - History of Present Illness Initial Comments: This is an 85-year-old male status post fall not on blood thinners. Patient, lightheaded after going to the bathroom tonight and fell was getting into bed and land on his right shoulder denies losing consciousness. No current chest pain or abdominal pain no headache or nausea and vomiting. 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 Fall Witnessed: yes, by family Place Fall Occurred: home Loss of Consciousness: none Prolonged Down Time?: no Symptoms Prior to Fall: none Location - Extremities: Right: Shoulder Severity: moderate Severity scale (1-10): 4 Quality: sharp Context: tripped/slipped Associated Symptoms: denies - Related Data Home Medications Medication Instructions Recorded Confirmed Acetaminophen [Tylenol Arthritis] 650 mg PO Q4H PRN 01/28/20 01/28/20 Albuterol Inhaler [Ventolin Hfa 1 puff INHALATION Q6H PRN 01/28/20 01/28/20 Inhaler] Aspirin EC [Ecotrin Low Dose] 81 mg PO DAILY@169901/28/20 01/28/20 Fludrocortisone Acetate 0.2 mg PO DAILY@0801/28/20 01/28/20 Fluticasone Nasal [place] [Flonase 1 spr EA NOSTRIL DAILY PRN 01/28/20 01/28/20 Nasal [place]] Lutein 20 mg PO DAILY@169901/28/20 01/28/20 Magnesium Hydroxide [Milk of 2,400 mg PO ONCE PRN 01/28/20 01/28/20 Magnesia] Multivitamins, Thera [Multivitamin 1 tab PO DAILY@169901/28/20 01/28/20 (formulary)] Na Phos,M-B/Na Phos,Di-Ba [Fleet 133 ml RECTAL ONCE PRN 01/28/20 01/28/20 Adult] Sertraline HCl [Zoloft] 50 mg PO DAILY@0801/28/20 01/28/20 Simvastatin 40 mg PO HS@2100 01/28/20 01/28/20 bisacodyL [Bisacodyl] 10 mg RECTAL ONCE PRN 01/28/20 01/28/20 hydrALAZINE HCL [Apresoline] 25 mg PO Q8HR 01/28/20 01/28/20 Allergies Allergy/AdvReac Type Severity Reaction Status Date / Time No Known Allergies Allergy Verified 04/18/20 04:53 Review of Systems ROS Statement: Those systems with pertinent positive or pertinent negative responses have been documented in the HPI. ROS Other: All systems not noted in ROS Statement are negative. Past Medical History Past Medical History: Coronary Artery Disease (CAD), COPD, CVA/TIA, Eye Disorder, Hyperlipidemia, Osteoarthritis (OA) Additional Past Medical History / Comment(s): anemia, idiopathic hypotension, macular degeneration, carpal tunnel syndrome, multiple mini strokes, orthostatic hypotension being managed by Dr. Campoverde clay artisan for the past 4 years. C hanged dosing of midodrine and fludrocortisone around over the years. History of Any Multi-Drug Resistant Organisms: None Reported Past Surgical History: Appendectomy, Coronary Bypass/CABG, Hernia Repair, Joint Replacement, Tonsillectomy Additional Past Surgical History / Comment(s): vasectomy, umbilical/hiatal hernia, bilateral knee, pinched nerve in neck surgically repaired. Additional Past Anesthesia/Blood Transfusion Reaction / Comment(s): No history of blood transfusion. Past Psychological History: No Psychological Hx Reported Past Alcohol Use History: None Reported Past Drug Use History: None Reported General Exam General appearance: alert, in no apparent distress Head exam: Present: atraumatic, normocephalic, normal inspection Eye exam: Present: normal appearance, PERRL, EOMI. Absent: scleral icterus, conjunctival injection, periorbital swelling ENT exam: Present: normal exam, mucous membranes moist Neck exam: Present: normal inspection. Absent: tenderness, meningismus, lymphadenopathy Respiratory exam: Present: normal lung sounds bilaterally. Absent: respiratory distress, wheezes, rales, rhonchi, stridor Cardiovascular Exam: Present: regular rate, normal rhythm, normal heart sounds. Absent: systolic murmur, diastolic murmur, rubs, gallop, clicks GI/Abdominal exam: Present: soft, normal bowel sounds. Absent: distended, tenderness, guarding, rebound, rigid Extremities exam: Present: normal inspection, full ROM, normal capillary refill, other (Mild the formation to right upper extremity right shoulder). Absent: tenderness, pedal edema, joint swelling, calf tenderness Back exam: Present: normal inspection Neurological exam: Present: alert, oriented X3, CN II-XII intact Psychiatric exam: Present: normal affect, normal mood Skin exam: Present: warm, dry, intact, normal color. Absent: rash Course Vital Signs 04/18/20 04/18/20 04:50 05:14 Temperature 97.7 F Pulse Rate 61 68 Respiratory 18 16 Rate Blood Pressure 172/96 171/91 O2 Sat by Pulse 97 98 Oximetry - Reevaluation(s) Reevaluation #1: 04/18/20 06:04 Medical records reviewed Reevaluation #2: 04/18/20 06:04 Patient's pain is improved Reevaluation #3: 04/18/20 06:05 patient able ambulate with no difficulty Medical Decision Making - Medical Decision Making 85 male status post fall. Patient has right before meals joint separation, no other injury. Patient can be discharged - Radiology Data Radiology results: report reviewed (CT brain C-spine chest x-ray x-ray of right hip and abdomen and pelvis and x-ray right shoulder show before meals separation no other traumatic injury), image reviewed Disposition Clinical Impression: Separation of right acromioclavicular joint, Fall Disposition: HOME SELF-CARE Condition: Good Instructions (If sedation given, give patient instructions): Fall Prevention for Older Adults (ED), Acromioclavicular Separation (ED) Is patient prescribed a controlled substance at d/c from ED?: No Referrals: Chinmay Martin MD [Primary Care Provider] - 1-2 days
[2020-04-18 04:53] VITALS: TEMP 97.7
[2020-04-18] MEDS ORDERED: HYDROcodone/APAP 5-325MG 1 EACH TAB PO STA (05:09)
[2020-04-18 05:15] VITALS: RESP 16
--- NOTE | 2020-04-18 05:25 | CT ---
EXAMINATION TYPE: CT brain tracee wo con DATE OF EXAM: 04/18/2020 COMPARISON: None HISTORY: fall CT DLP: 1335.5 mGycm Automated exposure control for dose reduction was used. Multiple axial sections were obtained of the brain without contrast. Multiple axial sections were obt ained from the skull base to T1 vertebra without contrast. FINDINGS: There is some cerebral cortical atrophy. There is no mass effect nor midline shift. There is no sign of intracranial hemorrhage. There is mild hypodensity in the periventricular white matter. Calvarium is intact. There is anterior bridging osteophyte formation throughout the cervical spine. There is large anterio r hypertrophic spurring at C4-5. There is no compression fracture. Vertebra have normal alignment. Th ere is mild hypertrophic cervical facet arthropathy. There is normal aeration of the temporal bones. The skull base is intact. 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 No fracture. Cerebral atrophy. No acute intracranial abnormality.
--- NOTE | 2020-04-18 05:26 | XR ---
EXAMINATION TYPE: XR chest 1V DATE OF EXAM: 04/18/2020 COMPARISON: NONE HISTORY: Fall. Pain. TECHNIQUE: Single view FINDINGS: Heart and mediastinum are within normal limits. Lungs are clear. There are sternal wires. C ostophrenic angles are clear. There is no pleural effusion or pneumothorax. IMPRESSION: No active cardiopulmonary disease.
--- NOTE | 2020-04-18 05:27 | XR ---
EXAMINATION TYPE: XR clavicle RT DATE OF EXAM: 04/18/2020 COMPARISON: NONE HISTORY: Pain TECHNIQUE: 2 views FINDINGS: There is malalignment at the right AC joint. There is 10 mm superior subluxation of the lat eral and of the right clavicle. I see no fracture. IMPRESSION: There is evidence of tear of the AC ligament and also the coracoclavicular ligament which is a change compared to the chest x-ray of 01/28/2020.
--- NOTE | 2020-04-18 05:29 | XR ---
EXAMINATION TYPE: XR shoulder complete RT DATE OF EXAM: 04/18/2020 COMPARISON: NONE HISTORY: Fall. Shoulder pain TECHNIQUE: 3 views FINDINGS: There is moderate narrowing of the glenohumeral joint space. There is malalignment of the A C joint related to ligamentous tear and 1 cm inferior displacement of the acromion. The scapula appea rs intact. The right upper ribs appear intact. IMPRESSION: Osteoarthritis. AC ligament tear.
--- NOTE | 2020-04-18 06:01 | XR ---
EXAMINATION TYPE: XR Hip RT and AP Pelvis DATE OF EXAM: 04/18/2020 COMPARISON: NONE HISTORY: Fall. Pain. TECHNIQUE: 3 views FINDINGS: Pelvic ring is intact. The proximal right femur is intact. There is acetabular hypertrophic spurring. Sacroiliac joints are intact. IMPRESSION: No acute abnormality of the pelvis and right hip. No fracture seen.
[2020-04-18 06:32] VITALS: BP 176/89; PULSE 61
== END 2020-04-18 07:32 | disposition home or self-care (01) ==
LOC: EC 04:27
DX: S43.101A Unspecified dislocation of right acromioclavicular joint, initial encounter (principal); I25.10 Atherosclerotic heart disease of native coronary artery without angina pectoris; J44.9 Chronic obstructive pulmonary disease, unspecified; E78.5 Hyperlipidemia, unspecified; M19.90 Unspecified osteoarthritis, unspecified site; H35.30 Unspecified macular degeneration; Z79.82 Long term (current) use of aspirin; Z96.653 Presence of artificial knee joint, bilateral; Z79.899 Other long term (current) drug therapy; Z79.51 Long term (current) use of inhaled steroids; Z86.73 Personal history of transient ischemic attack (TIA), and cerebral infarction without residual deficits; Z95.1 Presence of aortocoronary bypass graft; W06.XXXA Fall from bed, initial encounter
CPT/HCPCS: 70450; 71045; 72125; 73502; 99284

== ENCOUNTER 2021-03-07 12:55 | Inpatient (IN) | payer MEDICARE, OTHER ==
[2021-03-07] MEDS ORDERED: SODIUM CHLORIDE 0.9% 1,000 ML IV STA (13:15)
--- NOTE | 2021-03-07 13:19 | ED ---
General Adult HPI - General Stated complaint: Dizziness Time Seen by Provider: 03/07/21 12:56 Source: patient, RN notes reviewed Limitations: no limitations - History of Present Illness Initial comments: Patient is a pleasant 85-year-old male presenting to the emergency department following near syncopal episode. Patient states he has some chronic dizziness that is fairly unchanged for him. Patient did have an episode today where he fell gently onto the bed. Patient states that occasionally does happen as well. Patient had physical therapist at his house who check blood pressure and was concerned that it was low. Patient states no change in oral intake. No isolated area of weakness. Patient states he did feel like she was about to pass out earlier. Patient never lost consciousness. No headache or confusion. No isolated area of weakness. No chest pain or dyspnea. No abdominal or back pain - Related Data Home Medications Medication Instructions Recorded Confirmed Aspirin EC [Ecotrin Low Dose] 81 mg PO HS 01/28/20 03/07/21 Lutein 20 mg PO HS 01/28/20 03/07/21 Multivitamins, Thera [Multivitamin 1 tab PO DAILY 01/28/20 03/07/21 (formulary)] Sertraline HCl [Zoloft] 50 mg PO DAILY 01/28/20 03/07/21 Simvastatin 40 mg PO HS@2100 01/28/20 03/07/21 hydrALAZINE HCL [Apresoline] 12.5 - 25 mg PO DAILY PRN 01/28/20 03/07/21 Ferrous Sulfate [Feosol] 325 mg PO HS 03/07/21 03/07/21 NIFEdipine [NIFEdipine ER] 30 mg PO DIRECTED 03/07/21 03/07/21 Super Vitamin C 1 tab PO DAILY 03/07/21 03/07/21 carvediloL [Coreg] 6.25 mg PO BID 03/07/21 03/07/21 hydroCHLOROthiazide [Hydrodiuril] 12.5 mg PO BID 03/07/21 03/07/21 Allergies Allergy/AdvReac Type Severity Reaction Status Date / Time No Known Allergies Allergy Verified 03/07/21 14:05 Review of Systems ROS Statement: Those systems with pertinent positive or pertinent negative responses have been documented in the HPI. ROS Other: All systems not noted in ROS Statement are negative. Constitutional: Denies: fever Eyes: Denies: eye pain ENT: Denies: ear pain Respiratory: Denies: cough Cardiovascular: Denies: chest pain Endocrine: Denies: fatigue Gastrointestinal: Denies: abdominal pain, vomiting Genitourinary: Denies: dysuria Musculoskeletal: Denies: back pain Skin: Denies: rash Neurological: Reports: as per HPI. 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 Changed dosing of midodrine and fludrocortisone around over the years. History of Any Multi-Drug Resistant Organisms: None Reported Past Surgical History: Appendectomy, Coronary Bypass/CABG, Hernia Repair, Joint Replacement, Tonsillectomy Additional Past Surgical History / Comment(s): vasectomy, umbilical/hiatal hernia, bilateral knee, pinched nerve in neck surgically repaired. Additional Past Anesthesia/Blood Transfusion Reaction / Comment(s): No history of blood transfusion. Past Psychological History: No Psychological Hx Reported Past Alcohol Use History: None Reported Past Drug Use History: None Reported General Exam Limitations: no limitations General appearance: alert, in no apparent distress Head exam: Present: normocephalic Eye exam: Present: normal appearance, PERRL, EOMI. Absent: nystagmus ENT exam: Present: normal oropharynx Neck exam: Present: normal inspection Respiratory exam: Present: normal lung sounds bilaterally Cardiovascular Exam: Present: regular rate, normal rhythm Expanded Peripheral pulses: 2+: Radial (R), Radial (L), Dorsalis Pedis (R), Dorsalis Pedis (L) GI/Abdominal exam: Present: soft. Absent: tenderness Extremities exam: Present: normal inspection Neurological exam: Present: alert, oriented X3, CN II-XII intact. Absent: motor sensory deficit Expanded Neurological exam: Present: protecting the airway Speech: Present: fluid speech Motor strength exam: RUE: 5, LUE: 5, RLE: 5, LLE: 5 Eye Response: (4) open spontaneously Motor Response: (6) obeys commands Verbal Response: (5) oriented Psychiatric exam: Present: normal affect, normal mood Skin exam: Present: normal color Course Vital Signs 03/07/21 03/07/21 03/07/21 13:00 13:26 14:00 Temperature 98.2 F Pulse Rate 63 59 L Respiratory 18 18 Rate Blood Pressure 164/84 174/83 Blood Pressure 130/69 [Left Arm Sitting] Blood Pressure 97/49 [Left Arm Standing] Blood Pressure 164/84 [Left Arm Supine] O2 Sat by Pulse 99 99 Oximetry 03/07/21 14:44 Temperature Pulse Rate Respiratory Rate Blood Pressure Blood Pressure 172/83 [Left Arm Sitting] Blood Pressure 94/50 [Left Arm Standing] Blood Pressure 200/87 [Left Arm Supine] O2 Sat by Pulse Oximetry - Reevaluation(s) Reevaluation #1: 03/07/21 13:15 Patient is orthostatic positive. 1 L fluid bolus ordered EKG Findings - EKG Comments: EKG Findings:: Sinus rhythm with a rate of 62. For screening AV block with a WA of 370. QRS 100. QT 440. QTc 446. Normal axis. Normal QRS. No acute ST change. Medical Decision Making - Medical Decision Making Patient remains significantly orthostatic following fluid bolus. Patient reevaluated and updated. Case discussed with Dr. Sierra, covering hospital call, who will admit. Cardiology consult will be placed. - Lab Data Result diagrams: 03/07/21 12:59 03/07/21 12:59 Lab Results 03/07/21 03/07/21 03/07/21 Range/Units 12:59 12:59 12:59 WBC 6.7 (3.8-10.6) k/uL RBC 3.36 L (4.30-5.90) m/uL Hgb 9.8 L (13.0-17.5) gm/dL Hct 30.0 L (39.0-53.0) % MCV 89.4 (80.0-100.0) fL MCH 29.2 (25.0-35.0) pg MCHC 32.7 (31.0-37.0) g/dL RDW 15.6 H (11.5-15.5) % Plt Count 189 (150-450) k/uL MPV 6.7 Neutrophils % 66 % Lymphocytes % 25 % Monocytes % 6 % Eosinophils % 1 % Basophils % 1 % Neutrophils # 4.4 (1.3-7.7) k/uL Lymphocytes # 1.7 (1.0-4.8) k/uL Monocytes # 0.4 (0-1.0) k/uL Eosinophils # 0.1 (0-0.7) k/uL Basophils # 0.0 (0-0.2) k/uL PT 11.3 (9.0-12.0) sec INR 1.1 (<1.2) APTT 24.6 (22.0-30.0) sec Sodium 137 (137-145) mmol/L Potassium 4.2 (3.5-5.1) mmol/L Chloride 103 (98-107) mmol/L Carbon Dioxide 27 (22-30) mmol/L Anion Gap 7 mmol/L BUN 26 H (9-20) mg/dL Creatinine 1.06 (0.66-1.25) mg/dL Est GFR (CKD-EPI)AfAm 74 (>60 ml/min/1.73 sqM) Est GFR (CKD-EPI)NonAf 64 (>60 ml/min/1.73 sqM) Glucose 107 H (74-99) mg/dL Calcium 8.6 (8.4-10.2) mg/dL Magnesium 1.8 (1.6-2.3) mg/dL Total Bilirubin 0.2 (0.2-1.3) mg/dL AST 20 (17-59) U/L ALT 12 (4-49) U/L Alkaline Phosphatase 88 (38-126) U/L Troponin I (0.000-0.034) ng/mL Total Protein 6.1 L (6.3-8.2) g/dL Albumin 3.4 L (3.5-5.0) g/dL 03/07/21 Range/Units 12:59 WBC (3.8-10.6) k/uL RBC (4.30-5.90) m/uL Hgb (13.0-17.5) gm/dL Hct (39.0-53.0) % MCV (80.0-100.0) fL MCH (25.0-35.0) pg MCHC (31.0-37.0) g/dL RDW (11.5-15.5) % Plt Count (150-450) k/uL MPV Neutrophils % % Lymphocytes % % Monocytes % % Eosinophils % % Basophils % % Neutrophils # (1.3-7.7) k/uL Lymphocytes # (1.0-4.8) k/uL Monocytes # (0-1.0) k/uL Eosinophils # (0-0.7) k/uL Basophils # (0-0.2) k/uL PT (9.0-12.0) sec INR (<1.2) APTT (22.0-30.0) sec Sodium (137-145) mmol/L Potassium (3.5-5.1) mmol/L Chloride (98-107) mmol/L Carbon Dioxide (22-30) mmol/L Anion Gap mmol/L BUN (9-20) mg/dL Creatinine (0.66-1.25) mg/dL Est GFR (CKD-EPI)AfAm (>60 ml/min/1.73 sqM) Est GFR (CKD-EPI)NonAf (>60 ml/min/1.73 sqM) Glucose (74-99) mg/dL Calcium (8.4-10.2) mg/dL Magnesium (1.6-2.3) mg/dL Total Bilirubin (0.2-1.3) mg/dL AST (17-59) U/L ALT (4-49) U/L Alkaline Phosphatase (38-126) U/L Troponin I <0.012 (0.000-0.034) ng/mL Total Protein (6.3-8.2) g/dL Albumin (3.5-5.0) g/dL - Radiology Data Radiology results: report reviewed (Computed tomography scan of the brain shows atrophy, stable findings.), image reviewed (Chest x-ray shows no acute process) Disposition Clinical Impression: Orthostatic hypotension, Near syncope Disposition: ADMITTED IP TO THIS HOSP Is patient prescribed a controlled substance at d/c from ED?: No Referrals: Chinmay Martin MD [Primary Care Provider] - 1-2 days Decision Time: 15:11
[2021-03-07 13:45] LABS: Albumin 3.4 g/dL (3.5-5.0); Calcium 8.6 mg/dL (8.4-10.2); INR 1.1 (<1.2); Magnesium 1.8 mg/dL (1.6-2.3); Partial Thromboplastin Time 24.6 sec (22.0-30.0); Potassium 4.2 mmol/L (3.5-5.1); Prothrombin Time 11.3 sec (9.0-12.0); Total Bilirubin 0.2 mg/dL (0.2-1.3); Total Protein 6.1 g/dL (6.3-8.2)
--- NOTE | 2021-03-07 13:46 | CT ---
EXAMINATION TYPE: CT brain wo con DATE OF EXAM: 03/07/2021 COMPARISON: 04/18/2020 INDICATION: Weakness and Hypertension per patient. DLP: 1161.4 mGycm, Automated exposure control for dose reduction was used. CONTRAST: None CT of the brain is performed utilizing 3 mm thick sections through the posterior fossa and 3 mm thick sections through the remaining calvarium. Study is performed within 24 hours of arrival to the hosp ital. No abnormal hyperdensity is present to suggest an acute intracranial hemorrhage. No mass lesion is evident. No acute infarcts are evident. Mild periventricular white matter hypodensity is present likely on the basis of chronic white matter ischemic changes. Ventricles and sulci are minimally prominent for the patient age. Paranasal sinuses and mastoid air cells within the [id number] are clear. IMPRESSIONS: 1. Mild age-related atrophy with periventricular white matter ischemic changes. Findings appear sta ble from comparison.
--- NOTE | 2021-03-07 13:48 | XR ---
EXAMINATION TYPE: XR chest 2V DATE OF EXAM: 03/07/2021 COMPARISON: 04/18/2020 INDICATION: Syncope TECHNIQUE: Frontal and lateral views of the chest are obtained. FINDINGS: The heart size is normal. The pulmonary vasculature is normal. The lungs are clear. There is chronic elevation of the right diaphragm. Sternotomy wires are in the midline. Chronic separation of the right acromioclavicular junction is evident. IMPRESSION: 1. No acute pulmonary process.
[2021-03-07 14:12] LABS: Basophils % (A) 1 %; Eosinophils # (A) 0.1 k/uL (0-0.7); Eosinophils % (A) 1 %; HGB 9.8 gm/dL (13.0-17.5); Lymphocytes # (A) 1.7 k/uL (1.0-4.8); Lymphocytes % (A) 25 %; MCH 29.2 pg (25.0-35.0); MCHC 32.7 g/dL (31.0-37.0); MCV 89.4 fL (80.0-100.0); Mean Platelet Volume 6.7; Monocytes # (A) 0.4 k/uL (0-1.0); Monocytes % (A) 6 %; Neutrophils # (A) 4.4 k/uL (1.3-7.7); Neutrophils % (A) 66 %; Platelet Count 189 k/uL (150-450); RBC 3.36 m/uL (4.30-5.90); RDW 15.6 % (11.5-15.5); WBC 6.7 k/uL (3.8-10.6)
[2021-03-07] MEDS ORDERED: NALOXONE 0.4 MG/ML 1 ML VIAL IV PRN (15:11)
[2021-03-07] MEDS: SODIUM CHLORIDE 0.9% 1,000 ML IV SCH (15:23)
[2021-03-07 15:26] LABS: Appearance,Urine Clear (Clear); Bilirubin,Urine Negative (Negative); Blood,Urine Negative (Negative); Color,Urine Yellow; Glucose,Urine (UA) Negative (Negative); Ketones,Urine Negative (Negative); Leukocyte Esterase,Urine Negative (Negative); Nitrite,Urine Negative (Negative); PH, Urine 6.5 (5.0-8.0); Protein,Urine Trace (Negative); Specific Gravity,Urine 1.011 (1.001-1.035); Urobilinogen,Urine <2.0 mg/dL (<2.0)
[2021-03-07] MEDS: ATORVASTATIN 20 MG TAB PO SCH (20:02)
[2021-03-07] MEDS: carvediloL 6.25 MG TAB PO SCH (20:02)
[2021-03-07] MEDS: FERROUS SULFATE 325 MG TAB PO SCH (20:02)
[2021-03-07] MEDS: ASPIRIN 81 MG PO SCH (20:02)
--- NOTE | 2021-03-07 22:55 | HP ---
HISTORY AND PHYSICAL DATE OF SERVICE: 03/07/2021 CHIEF COMPLAINT: Dizziness and fall. HISTORY OF PRESENT ILLNESS: This 85-year-old gentleman with a past medical history of long-standing orthostatic hypotension, history of CAD, COPD, CVA, TIA, hypertension, hyperlipidemia, being followed Dr. Martin in the outpatient setting was recently admitted with syncope and orthostatic hypotension. Currently the patient was sitting outside not in the sun, but the patient got up and had felt dizziness and patient passed out almost for 3-4 minutes. He was [facility] to [facility] and was admitted for further evaluation and treatment. There is no history of any fever, rigors, chills. There is no history any headache. No history of seizures at this time. The blood pressure on admission was found to be 170/83 on lying and falling to 94/50 on standing up. There is no history of chest pain or palpitation. PAST MEDICAL HISTORY: History of orthostatic hypotension, history of CAD, COPD, CVA, TIA, hypertension, hyperlipidemia. MEDICATIONS ARE: HydroDIURIL 12.5 mg b.i.d. Apresoline, Coreg, vitamin C, simvastatin, Zoloft, multivitamins, lutein, iron sulfate, Ecotrin. ALLERGIES: None. FAMILY HISTORY: No history of any heart disease or strokes in the family. SOCIAL HISTORY: Previous history of smoking. No history of current smoking or alcohol intake. REVIEW OF SYSTEMS: ENT No history of diminished hearing or vision. CARDIOVASCULAR As mentioned earlier. RESPIRATORY As mentioned earlier. GI No nausea, vomiting, or diarrhea. No dysuria or hematuria. NERVOUS As mentioned earlier. ALLERGY/IMMUNOLOGY No asthma or hayfever. MUSCULOSKELETAL As mentioned earlier. HEMATOLOGY/ONCOLOGY Negative. ENDOCRINE As mentioned earlier. CONSTITUTIONAL As mentioned earlier. DERMATOLOGY Negative. RHEUMATOLOGY Negative, PSYCHIATRY Negative. PHYSICAL EXAMINATION: Patient is alert, oriented x2. Pulse 56, blood pressure 170/83 on lying and 94/50 on standing. HEENT: Conjunctivae normal. Oral mucosa moist. NECK: No jugular venous distention. No lymph node enlargement. CARDIOVASCULAR: S1, S2, muffled. No S3, no S4, RESPIRATORY: Diminished breath sounds at the bases. A few rhonchi, no crackles. ABDOMEN: Soft, nontender. No mass palpable. LEGS: No edema, no swelling. NERVOUS SYSTEM: Higher functions mentioned earlier. Moves all four limbs. No focal motor or sensory deficits. LYMPHATICS: No lymph node in neck or axilla. SKIN: No rash. JOINTS: No active deforming arthropathy. LABS: WBC 6.7, hemoglobin 9.8, sodium 137, potassium 4.2, glucose 107, albumin 3.4. ASSESSMENT: 1. Dizziness and syncope possibly secondary to orthostatic hypotension. 2. Hypertension. 3. History of coronary artery disease. 4. Chronic obstructive pulmonary disease. 5. Cerebrovascular accident, transient ischemic attack. 6. Hyperlipidemia. 7. History of DJD. 8. History of macular degeneration. 9. History of carpal tunnel syndrome. 10.History of TIAs. 11.History of appendectomy. 12.First degree AV block. 13.History of CAD, CABG. RECOMMENDATIONS: In this 85-year-old gentleman who presented with multiple complex medical issues, at this time I recommend to continue the current management and symptomatic treatment. Otherwise, I recommend hold nifedipine as well as vasodilators and diuretics. I would recommend to add Florinef to the current regimen and continue to monitor. Cardiology consultation. Resume the rest of medications. Cautious IV fluids. Prognosis guarded because of multiple complex medical issues. Further recommendations to follow. The patient also had a CT brain and chest x-ray which were both unremarkable. The EKG which I reviewed personally, also showed some sinus rhythm with 1st degree AV block. MMODL / IJN: [id number] /
[2021-03-07] MEDS: ACETAMINOPHEN TAB 325 MG TAB PO PRN (23:18)
[2021-03-07] MEDS: amLODIPine 5 MG TAB PO SCH (23:18)
[2021-03-08] MEDS: PANTOPRAZOLE 40 MG TABLET PO SCH (06:23)
[2021-03-08] MEDS: SODIUM CHLORIDE 0.9% 1,000 ML IV SCH ×2 (06:23→16:27)
[2021-03-08] MEDS: carvediloL 6.25 MG TAB PO SCH ×2 (06:23→16:26)
[2021-03-08 08:34] LABS: Basophils % (A) 0 %; Eosinophils # (A) 0.1 k/uL (0-0.7); Eosinophils % (A) 2 %; HCT 26.2 % (39.0-53.0); HGB 9.1 gm/dL (13.0-17.5); Lymphocytes # (A) 1.2 k/uL (1.0-4.8); Lymphocytes % (A) 23 %; MCH 30.8 pg (25.0-35.0); MCHC 34.6 g/dL (31.0-37.0); MCV 89.2 fL (80.0-100.0); Mean Platelet Volume 7.1; Monocytes # (A) 0.3 k/uL (0-1.0); Monocytes % (A) 5 %; Neutrophils # (A) 3.6 k/uL (1.3-7.7); Neutrophils % (A) 68 %; Platelet Count 171 k/uL (150-450); RBC 2.94 m/uL (4.30-5.90); RDW 15.3 % (11.5-15.5); WBC 5.2 k/uL (3.8-10.6)
[2021-03-08 08:51] LABS: African American GFR (CKD) >90 (>60 ml/min/1.73 sqM); Anion Gap 4 mmol/L; Blood Urea Nitrogen 19 mg/dL (9-20); Calcium 8.3 mg/dL (8.4-10.2); Carbon Dioxide 26 mmol/L (22-30); Chloride 107 mmol/L (98-107); Glucose 117 mg/dL (74-99); Non-African American GFR(CKD) 80 (>60 ml/min/1.73 sqM); Potassium 4.3 mmol/L (3.5-5.1); Sodium 137 mmol/L (137-145)
[2021-03-08] MEDS: amLODIPine 5 MG TAB PO SCH (09:31)
[2021-03-08] MEDS: SERTRALINE 50 MG TAB PO SCH (09:31)
[2021-03-08] MEDS: ASCORBIC ACID 500 MG TAB PO SCH (09:31)
[2021-03-08] MEDS: MULTIVITAMINS, THERA 1 EACH TAB PO SCH (09:31)
--- NOTE | 2021-03-08 10:54 | P.CRDCN ---
History of Present Illness Consult date: 03/08/21 Consult reason: sycope Chief complaint: Dizziness, syncope History of present illness: This is a pleasant 85-year-old gentleman with documented history of coronary artery disease and prior bypass surgery, hypertension, anemia, orthostatic hypotension for several years, prior CVA, hyperlipidemia, presented to the hospital following a syncopal episode. According to the patient, he was standing up beside his bed, became dizzy and fell forward onto the bed. Woke up very shortly after. Patient denies having any chest discomfort, he denies hurting himself with a fall. His EKG on presentation here showed a normal sinus rhythm with a first-degree AV block. Chest x-ray did not reveal any acute process. CAT scan of the brain showed mild age-related atrophy, no acute changes noted. Orthostatic blood pressures were obtained, blood pressure 168/70 lying 130/78 sitting 86/45 standing heart rate in the 50s to 60s during that time. He is afebrile. Laboratory data was reviewed admission labs, white blood cell count 6.7, hemoglobin 9.6, platelet count 203. Sodium 140, potassium 4.5, BUN 25 and creatinine 1.2. This morning's labs, white blood cell count 5.2, hemoglobin 9.1, platelet count 171. Sodium 137, potassium 4.3, BUN 19, creatinine 0.8. At the time of my examination this morning, patient is quite comfortable, denies any dizziness or lightheadedness. 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 Changed dosing of midodrine and fludrocortisone around over the years. History of Any Multi-Drug Resistant Organisms: None Reported Past Surgical History: Appendectomy, Coronary Bypass/CABG, Hernia Repair, Joint Replacement, Tonsillectomy Additional Past Surgical History / Comment(s): vasectomy, umbilical/hiatal hernia, bilateral knee, pinched nerve in neck surgically repaired, aneurysm repair Additional Past Anesthesia/Blood Transfusion Reaction / Comment(s): No history of blood transfusion. Past Psychological History: No Psychological Hx Reported Smoking Status: Never smoker Past Alcohol Use History: None Reported Past Drug Use History: None Reported Medications and Allergies Home Medications Medication Instructions Recorded Confirmed Type Aspirin EC [Ecotrin Low Dose] 81 mg PO HS 01/28/20 03/07/21 History Lutein 20 mg PO HS 01/28/20 03/07/21 History Multivitamins, Thera [Multivitamin 1 tab PO DAILY 01/28/20 03/07/21 History (formulary)] Sertraline HCl [Zoloft] 50 mg PO DAILY 01/28/20 03/07/21 History Simvastatin 40 mg PO HS@2100 01/28/20 03/07/21 History hydrALAZINE HCL [Apresoline] 12.5 - 25 mg PO DAILY PRN 01/28/20 03/07/21 History Ferrous Sulfate [Feosol] 325 mg PO HS 03/07/21 03/07/21 History NIFEdipine [NIFEdipine ER] 30 mg PO DIRECTED 03/07/21 03/07/21 History Super Vitamin C 1 tab PO DAILY 03/07/21 03/07/21 History carvediloL [Coreg] 6.25 mg PO BID 03/07/21 03/07/21 History hydroCHLOROthiazide [Hydrodiuril] 12.5 mg PO BID 03/07/21 03/07/21 History Allergies Allergy/AdvReac Type Severity Reaction Status Date / Time No Known Allergies Allergy Verified 03/07/21 14:05 Physical Exam Vitals: Vital Signs Temp Pulse Pulse Resp BP BP BP 03/08/21 09:29 147/70 88/54 03/08/21 09:25 98.2 F 58 L 16 147/70 03/08/21 04:00 98.1 F 66 16 03/08/21 02:00 16 03/07/21 23:05 62 16 130/78 86/45 03/07/21 20:00 97.6 F 62 16 03/07/21 14:44 172/83 94/50 03/07/21 14:00 59 L 18 174/83 03/07/21 13:26 130/69 97/49 03/07/21 13:00 98.2 F 63 18 164/84 BP Pulse Ox 03/08/21 09:29 03/08/21 09:25 99 06/19/21 04:00 145/64 99 06/19/21 02:00 03/07/21 23:05 168/70 03/07/21 20:00 175/79 95 03/07/21 14:44 200/87 03/07/21 14:00 99 03/07/21 13:26 164/84 03/07/21 13:00 99 Intake and Output 03/07/21 03/08/21 03/08/21 22:59 06:59 14:59 Intake Total 465 240 Output Total 200 1400 Balance 265 -1400 240 Intake: Intake, IV Titration 75 Amount Sodium Chloride 0.9% 1, 75 000 ml @ 75 mls/hr IV . [id number] MARTÍN Rx#:[id number] Oral 390 240 Output: Urine 200 1400 Other: Voiding Method Urinal Weight 70.307 kg 72 kg PHYSICAL EXAMINATION: GENERAL: 85-year-old gentleman in no acute distress at the time of my examination HEENT: Head is atraumatic, normocephalic. Pupils equal, round. Sclera anicteric. Conjunctiva are clear. Mucous membranes of the mouth are moist. Neck is supple. There is no elevated jugular venous pressure. No carotid bruit is heard. HEART EXAMINATION: Heart S1, S2 normal. No murmur or gallop heard. CHEST EXAMINATION: Lungs are clear to auscultation and precussion. No chest wall tenderness is noted on palpation or with deep breathing. ABDOMEN: Soft, nontender. Bowel sounds are heard. No organomegaly noted. EXTREMITIES: 2+ peripheral pulses with no evidence of peripheral edema and no calf tenderness noted. NEUROLOGIC patient is awake, alert and oriented 3 . . Results 03/08/21 08:01 03/08/21 08:01 Cardiac Enzymes 03/07/21 03/07/21 Range/Units 12:59 12:59 AST 20 (17-59) U/L Troponin I <0.012 (0.000-0.034) ng/mL Coagulation 03/07/21 Range/Units 12:59 PT 11.3 (9.0-12.0) sec APTT 24.6 (22.0-30.0) sec CBC 03/07/21 03/08/21 Range/Units 12:59 08:01 WBC 6.7 5.2 (3.8-10.6) k/uL RBC 3.36 L 2.94 L (4.30-5.90) m/uL Hgb 9.8 L 9.1 L (13.0-17.5) gm/dL Hct 30.0 L 26.2 L (39.0-53.0) % Plt Count 189 171 (150-450) k/uL Comprehensive Metabolic Panel 03/07/21 03/08/21 Range/Units 12:59 08:01 Sodium 137 137 (137-145) mmol/L Potassium 4.2 4.3 (3.5-5.1) mmol/L Chloride 103 107 (98-107) mmol/L Carbon Dioxide 27 26 (22-30) mmol/L BUN 26 H 19 (9-20) mg/dL Creatinine 1.06 0.85 (0.66-1.25) mg/dL Glucose 107 H 117 H (74-99) mg/dL Calcium 8.6 8.3 L (8.4-10.2) mg/dL AST 20 (17-59) U/L ALT 12 (4-49) U/L Alkaline Phosphatase 88 (38-126) U/L Total Protein 6.1 L (6.3-8.2) g/dL Albumin 3.4 L (3.5-5.0) g/dL Current Medications Generic Name Dose Route Start Last Admin Trade Name Freq PRN Reason Stop Dose Admin Acetaminophen 650 mg 03/07/21 23:03 03/07/21 23:18 Acetaminophen Tab 325 Mg Tab PO 650 mg Q6HR PRN Administration Fever and/ or Pain Amlodipine Besylate 5 mg 03/07/21 21:30 03/08/21 09:31 Amlodipine 5 Mg Tab PO 5 mg DAILY MARTÍN Administration Ascorbic Acid 500 mg 03/08/21 09:00 03/08/21 09:31 Ascorbic Acid 500 Mg Tab PO 500 mg DAILY MARTÍN Administration Aspirin 81 mg 03/07/21 21:00 03/07/21 20:02 Aspirin 81 Mg PO 81 mg HS MARTÍN Administration Atorvastatin Calcium 20 mg 03/07/21 21:00 03/07/21 20:02 Atorvastatin 20 Mg Tab PO 20 mg HS@2100 MARTÍN Administration Carvedilol 6.25 mg 03/07/21 20:00 03/08/21 06:23 Carvedilol 6.25 Mg Tab PO 6.25 mg BID-W/MEALS MARTÍN Administration Ferrous Sulfate 325 mg 06/18/21 21:00 03/07/21 20:02 Ferrous Sulfate 325 Mg Tab PO 325 mg HS MARTÍN Administration Folic Acid 1 mg 03/08/21 12:00 Folic Acid 1 Mg Tab PO DAILY@1200 MARTÍN Sodium Chloride 1,000 mls @ 75 mls/hr 03/07/21 15:15 03/08/21 06:23 Saline 0.9% IV 75 mls/hr .[id number] MARTÍN Administration Multivitamins 1 each 03/08/21 09:00 03/08/21 09:31 Multivitamins, Thera 1 Each Tab PO 1 each DAILY MARTÍN Administration Naloxone HCl 0.2 mg 03/07/21 15:11 Naloxone 0.4 Mg/Ml 1 Ml Vial IV Q2M PRN Opioid Reversal Pantoprazole Sodium 40 mg 03/08/21 07:30 03/08/21 06:23 Pantoprazole 40 Mg Tablet PO 40 mg [id number] MARTÍN Administration Sertraline HCl 50 mg 03/08/21 09:00 03/08/21 09:31 Sertraline 50 Mg Tab PO 50 mg DAILY MARTÍN Administration Thiamine HCl 100 mg 03/08/21 12:00 Thiamine 100 Mg Tab PO DAILY@1200 MARTÍN Intake and Output 03/07/21 03/08/21 03/08/21 22:59 06:59 14:59 Intake Total 465 240 Output Total 200 1400 Balance 265 -1400 240 Intake: Intake, IV Titration 75 Amount Sodium Chloride 0.9% 1, 75 000 ml @ 75 mls/hr IV . [id number] MARTÍN Rx#:[id number] Oral 390 240 Output: Urine 200 1400 Other: Voiding Method Urinal Weight 70.307 kg 72 kg 03/08/21 08:01 03/08/21 08:01 EKG Interpretations (text) EKG shows normal sinus rhythm with first-degree AV block Assessment and Plan Plan: Assessment and plan #1 syncope, likely secondary to orthostatic hypotension #2 history of orthostatic hypotension for which the patient had a workup and follows at [facility] #3 coronary artery disease with prior bypass surgery #4 COPD #5 prior CVA #6 hyperlipidemia Plan From cardiology's perspective, we'll recommend to start the patient on Florinef, he had been on previously with a good effect. We'll also encourage the patient to wear bilateral JOON hose stockings during the day, and to occasionally increase the salt intake. We will also obtain an echocardiogram with Doppler study. Further recommendations to follow. DNP note has been reviewed, I agree with a documented findings and plan of care. Patient was seen and examined.
[2021-03-08 12:10] VITALS: BMI 23.4
[2021-03-08] MEDS: FOLIC ACID 1 MG TAB PO SCH (12:43)
[2021-03-08] MEDS: THIAMINE 100 MG TAB PO SCH (12:43)
[2021-03-08] MEDS: FLUDROCORTISONE 0.1 MG TAB PO SCH (12:44)
--- NOTE | 2021-03-08 16:16 | PN ---
PROGRESS NOTE DATE OF SERVICE: 03/08/2021 INTERVAL HISTORY: This 84-year-old gentleman admitted with dizziness and fall has significant orthostatic hypotension. The blood pressure is actually falling almost like 50 points. Hemoglobin 9.1 from 9.8 yesterday. The patient is dehydrated. The patient was given IV fluids and Florinef was being initiated. Added salt was also recommended. The medication being adjusted. has been held at this time. PAST MEDICAL HISTORY: Reviewed. REVIEW OF SYSTEMS: CARDIOVASCULAR: No angina. RESPIRATORY: As mentioned earlier. GI: As mentioned earlier. : No dysuria. NERVOUS SYSTEM: No numbness or weakness. CURRENT MEDICATIONS: Reviewed include Tylenol, Norvasc, vitamin C, aspirin, Lipitor, Coreg, iron sulfate. Doses reviewed. PHYSICAL EXAMINATION: GENERAL: Patient is alert and oriented times three. VITAL SIGNS: Pulse 62, blood pressure 145/78, respirations 16, temperature 97.9, pulse ox 100% on room air. HEENT: Conjunctivae normal. NECK: No jugular venous distention. No carotid bruits. No lymph node enlargement. RESPIRATORY: Breath sounds diminished at the bases. No rhonchi, no crackles. HEART: S1 and S2, muffled. ABDOMEN: Soft, no tenderness. No masses palpable. EXTREMITIES: No edema, no swelling. NERVOUS: No focal deficits. LABS: WBC 5.9, hemoglobin 9.1. ASSESSMENT: 1. Syncope and dizziness secondary to severe orthostatic hypotension with failure of outpatient treatment. 2. Hypertension. 3. History of coronary artery disease. 4. Chronic obstructive pulmonary disease. 5. Anemia, normocytic anemia of chronic disease, rule out blood loss anemia. 6. Cerebrovascular accident, transient ischemic attack. 7. Hyperlipidemia. 8. History of degenerative joint disease. 9. History of macular degeneration. 10.History of carpal tunnel syndrome. 11.History of TIA. 12.History of appendectomy. 13.First-degree AV block in the EKG. 14.History of CAD, CABG. 15.NO CODE, NO CPR, NO VENT. RECOMMENDATIONS AND DISCUSSION: I recommend to continue current management and continue symptomatic treatment. Otherwise at this time, add Florinef to the current regimen. Monitor blood pressure closely. Continue with cautious IV fluids and 2D echo has been taken. Closely follow with Cardiology. Guarded prognosis. Further recommendations to follow. MMODL / IJN: [id number] / YASHIRA
[2021-03-08] MEDS: ATORVASTATIN 20 MG TAB PO SCH (19:44)
[2021-03-08] MEDS: FERROUS SULFATE 325 MG TAB PO SCH (19:44)
[2021-03-08] MEDS: ASPIRIN 81 MG PO SCH (19:44)
[2021-03-09] MEDS: PANTOPRAZOLE 40 MG TABLET PO SCH (06:34)
[2021-03-09] MEDS: carvediloL 6.25 MG TAB PO SCH (06:34)
[2021-03-09] MEDS: SODIUM CHLORIDE 0.9% 1,000 ML IV SCH (06:35)
[2021-03-09] MEDS: SERTRALINE 50 MG TAB PO SCH (08:52)
[2021-03-09] MEDS: MULTIVITAMINS, THERA 1 EACH TAB PO SCH (08:52)
[2021-03-09] MEDS: FLUDROCORTISONE 0.1 MG TAB PO SCH (08:52)
[2021-03-09] MEDS: amLODIPine 5 MG TAB PO SCH (08:52)
[2021-03-09] MEDS: ASCORBIC ACID 500 MG TAB PO SCH (08:52)
--- NOTE | 2021-03-09 09:00 | ECHOF ---
Referral Reason:syncope MEASUREMENTS -------- HEIGHT: 175.3 cm WEIGHT: 71.7 kg BP: 147/70 RVIDd: 4.2 cm (< 3.3) IVSd: 1.6 cm (0.6 - 1.1) LVIDd: 4.6 cm (3.9 - 5.3) LVPWd: 1.5 cm (0.6 - 1.1) IVSs: 1.8 cm LVIDs: 3.3 cm LVPWs: 1.7 cm LAESV Index (A-L): 37.15 ml/m Ao Diam: 3.0 cm (2.0 - 3.7) AV Cusp: 2.0 cm (1.5 - 2.6) LA Diam: 4.5 cm (2.7 - 3.8) MV EXCURSION: 14.991 mm (> 18.000) MV EF SLOPE: 68 mm/s (70 - 150) EPSS: 1.3 cm MV E Bill: 0.58 m/s MV DecT: 290 ms MV A Bill: 1.20 m/s MV E/A Ratio: 0.48 RAP: 5.00 mmHg RVSP: 34.18 mmHg FINDINGS -------- Sinus rhythm. This was a technically good study. The left ventricular size is normal. There is moderate concentric left ventricular hypertrophy. O verall left ventricular systolic function is normal with, an EF between 55 - 60 %. The right ventricle is moderately enlarged. LA is moderately dilated 34-39 ml/m2 The right atrial size is normal. Interatrial and interventricular septum intact. There is mild aortic valve sclerosis. There is no evidence of aortic regurgitation. There is no e vidence of aortic stenosis. [id number] mitral regurgitation is present. Mild tricuspid regurgitation present. There is no evidence of pulmonary hypertension. The right v entricular systolic pressure, as measured by Doppler, is 34.18mmHg. There is no pulmonic regurgitation present. The aortic root size is normal. IVC Not well visulized. There is no pericardial effusion. CONCLUSIONS -------- 1. The left ventricular size is normal. 2. There is moderate concentric left ventricular hypertrophy. 3. Overall left ventricular systolic function is normal with, an EF between 55 - 60 %. 4. The right ventricle is moderately enlarged. 5. LA is moderately dilated 34-39 ml/m2 6. There is mild aortic valve sclerosis. 7. Gxwb-qw-bxclxdvy mitral regurgitation is present. 8. Mild tricuspid regurgitation present. [employer] SAL[employer]: Era Dyson RDCS
[2021-03-09] MEDS: FOLIC ACID 1 MG TAB PO SCH (11:48)
[2021-03-09] MEDS: THIAMINE 100 MG TAB PO SCH (11:48)
--- NOTE | 2021-03-09 13:35 | P.PN ---
Subjective Progress Note Date: 03/09/21 HISTORY OF PRESENT ILLNESS: This is a pleasant 85-year-old gentleman with documented history of coronary artery disease and prior bypass surgery, hypertension, anemia, ort hostatic hypotension for several years, prior CVA, hyperlipidemia, presented to the hospital following a syncopal episode. According to the patient, he was standing up beside his bed, became dizzy and fell forward onto the bed. Woke up very shortly after. Patient denies having any chest discomfort, he denies hurting himself with a fall. His EKG on presentation here showed a normal sinus rhythm with a first-degree AV block. Chest x-ray did not reveal any acute process. CAT scan of the brain showed mild age-related atrophy, no acute changes noted. Orthostatic blood pressures were obtained, blood pressure 168/70 lying 130/78 sitting 86/45 standing heart rate in the 50s to 60s during that time. He is afebrile. Laboratory data was reviewed admission labs, white blood cell count 6.7, hemoglobin 9.6, platelet count 203. Sodium 140, potassium 4.5, BUN 25 and creatinine 1.2. This morning's labs, white blood cell count 5.2, hemoglobin 9.1, platelet count 171. Sodium 137, potassium 4.3, BUN 19, creatinine 0.8. At the time of my examination this morning, patient is quite comfortable, denies any dizziness or lightheadedness. 03/09/2021 Patient examined this morning at the bedside. Patient denies chest pain or pressure. He denies shortness of breath. He denies any further dizziness or lightheadedness. Echocardiogram reveals ejection fraction 55-60%, [id number] mitral regurgitation, and mild tricuspid regurgitation. Orthostatic blood pressures obtained today are unremarkable. PHYSICAL EXAM: VITAL SIGNS: Reviewed. GENERAL: Well-developed in no acute distress. NECK: Supple. No JVD or thyromegaly LUNGS: Respirations even and unlabored. Lungs essentially clear to auscultation bilaterally. HEART: Regular rate and rhythm. S1 and S2 heard. EXTREMITIES: Normal range of motion. No clubbing or cyanosis. Peripheral pulses intact. No lower extremity edema ASSESSMENT: Syncope, likely secondary to orthostatic hypotension History of orthostatic hypotension Coronary artery disease with previous CABG COPD History of CVA Hyperlipidemia PLAN: Patient has been started on Florinef. Continue additional cardiac medications Bilateral knee-high JOON hose May increase salt intake Continue to monitor orthostatic blood pressures Further recommendations pending patient course Nurse practitioner note has been reviewed by physician. Signing provider agrees with the documented findings, assessment, and plan of care. Objective - Vital Signs Vital signs: Vital Signs Temp 97.9 F 03/09/21 08:50 Pulse 63 03/09/21 11:42 Resp 16 03/09/21 11:42 BP 187/81 03/09/21 11:42 Pulse Ox 100 03/09/21 11:42 Intake & Output 03/08/21 03/09/21 03/09/21 18:59 06:59 18:59 Intake Total 480 240 Output Total 1000 2100 600 Balance -520 -2100 -360 Weight 72 kg 73.3 kg Intake: Oral 480 240 Output: Urine 1000 2100 600 Other: Voiding Method Urinal Urinal Urinal # Voids 2 # Bowel Movements 1 3 - Labs CBC & Chem 7: 03/08/21 08:01 03/08/21 08:01
--- NOTE | 2021-03-09 15:16 | PN ---
PROGRESS NOTE DATE OF SERVICE: 03/09/2021 INTERVAL HISTORY: This 85-year-old gentleman admitted with syncope and dizziness, significant orthostatic hypotension. Currently the blood pressure is 187/70 on standing and dropping to 163 on standing. The patient was closely monitored at this time. Hemoglobin is 9.1, 9.8 on admission. Patient closely monitored. Cardiology following the patient closely. Medication adjustments are being carried out. PAST MEDICAL HISTORY: Reviewed. REVIEW OF SYSTEMS: Cardiovascular system as mentioned. ( ). CURRENT MEDICATIONS: Reviewed include Tylenol, Norvasc, vitamin C, aspirin, Lipitor, Coreg, iron sulfate p.r.n., folic acid, multivitamins and Narcan. PHYSICAL EXAMINATION: GENERAL: Patient is alert, oriented x3. VITAL SIGNS: Pulse is 60, blood pressure 187/70 as mentioned earlier, orthostatic hypotension, respiration 18, temperature 97.2 pulse ox 100% on room air. LUNGS: Normal respirations in the bases. No rhonchi, no crackles. ABDOMEN: Soft, nontender. EXTREMITIES: No edema. LAB STUDIES: WBC 5.2, hemoglobin 10.1. ASSESSMENT: 1. Syncope with dizziness secondary to severe orthostatic hypotension with failure of outpatient treatment. 2. Hypertension. 3. History of coronary artery disease. 4. Chronic obstructive pulmonary disease. 5. Anemia, normocytic anemia of chronic disease. Rule out acute blood loss anemia. 6. Cerebrovascular accident, transient ischemic attack. 7. Hyperlipidemia. 8. History of degenerative joint disease. 9. History of macular edema. 10.Complex history of transient ischemic attack. 11.First-degree AV block in the ED. 12.History of coronary artery disease, chronic artery bypass graft. PLAN: NO CPR, NO VENT. Continue current management and treatment. I would increase the dose of Norvasc to 10 mg daily and Coreg to 12.5 mg b.i.d. p.o. b.i.d. IV fluids will be continued and the patient is on IV fluids also. We will stop the IV fluids. Closely follow with Cardiology. Guarded prognosis because of multiple complex medical issues. Further recommendations to follow. Anemia needs some workup which can be done as an outpatient. The patient is extremely keen on going home at this time but however explained the diagnosis and because of present prognosis implications to the patient and if the patient is stable, could be discharged in the next 24 hours. MMODL / IJN: [id number] /
[2021-03-09] MEDS: carvediloL 12.5 MG TAB PO SCH (16:53)
[2021-03-09] MEDS: ACETAMINOPHEN TAB 325 MG TAB PO PRN (20:07)
[2021-03-09] MEDS: ATORVASTATIN 20 MG TAB PO SCH (20:07)
[2021-03-09] MEDS: ASPIRIN 81 MG PO SCH (20:07)
[2021-03-09] MEDS: FERROUS SULFATE 325 MG TAB PO SCH (20:07)
[2021-03-10 03:21] VITALS: RESP 18
[2021-03-10] MEDS: PANTOPRAZOLE 40 MG TABLET PO SCH (06:13)
[2021-03-10] MEDS: carvediloL 12.5 MG TAB PO SCH (06:13)
[2021-03-10] MEDS: ASCORBIC ACID 500 MG TAB PO SCH (08:40)
[2021-03-10] MEDS: MULTIVITAMINS, THERA 1 EACH TAB PO SCH (08:40)
[2021-03-10] MEDS: FLUDROCORTISONE 0.1 MG TAB PO SCH (08:40)
[2021-03-10] MEDS: SERTRALINE 50 MG TAB PO SCH (08:40)
[2021-03-10] MEDS ORDERED: amLODIPine 10 MG TAB PO SCH (09:00)
[2021-03-10] MEDS ORDERED: amLODIPine 5 MG TAB PO SCH (09:00)
--- NOTE | 2021-03-10 10:12 | P.PN ---
Subjective This is a pleasant 85-year-old male past medical history significant for coronary artery disease s/p bypass grafting 2001, hypertension, chronic orthostatic hypotension, CVA, dyslipidemia and chronic anemia. He follows with a senior developer out of town. He is seen and examined sitting up in bed in no acute distress. He denies symptoms of chest pain, shortness of breath, dizziness or palpitations. Blood pressure 136/62 heart rate 75 afebrile maintaining oxygen saturation on room air. Currently maintained on amlodipine 10 mg daily, aspirin 81 mg daily, florinef 01. mg daily and carvedilol 12.5 mg twice a day. Telemetry tracings reveal sinus mechanism. Pt is agitated and demanding to go home today. GENERAL: Well-appearing, well-nourished and in no acute distress. NECK: Supple without JVD or thyromegaly. LUNGS: Breath sounds clear to auscultation bilaterally. Respiration equal and unlabored. No wheezes, rales or rhonchi. HEART: Regular rate and rhythm with systolic ejection murmur at the base, no rubs or gallops. S1 and S2 heard. EXTREMITIES: Normal range of motion, no edema. No clubbing or cyanosis. Peripheral pulses intact. ASSESSMENT Syncope Orthostatic hypotension Coronary artery disease status post bypass grafting 2001 Hypertension Dyslipidemia COPD Mitral regurgitation PLAN Decrease amlodipine to 5 mg daily. Decrease Coreg to 6.25 mg twice a day. Encourage JOON hose use and rising slowly from sitting to standing. Clinically stable from a cardiac perspective. Follow up with his primary senior developer upon discharge. Nurse Practitioner note has been reviewed, I agree with a documented findings and plan of care. Patient was seen and examined. Objective - Vital Signs Vital signs: Vital Signs Temp 98.4 F 03/10/21 03:20 Pulse 75 03/10/21 03:20 Resp 18 03/10/21 03:20 BP 136/62 03/10/21 03:20 Pulse Ox 98 03/10/21 03:20 Intake & Output 03/09/21 03/10/21 03/10/21 18:59 06:59 18:59 Intake Total 720 600 Output Total 600 500 Balance 120 -500 600 Weight 71.9 kg Intake: Oral 720 600 Output: Urine 600 500 Other: Voiding Method Urinal Urinal # Voids 1 # Bowel Movements 3 - Labs CBC & Chem 7: 03/08/21 08:01 03/08/21 08:01
[2021-03-10 10:33] VITALS: BP 163/77; PULSE 65; TEMP 98.9
--- NOTE | 2021-03-10 14:46 | P.DS ---
Providers Date of admission: 03/07/21 15:11 Expected date of discharge: 03/10/21 Attending physician: David Sierra Consults: 03/07/21 15:11 Consult Physician Urgent Consulting Provider: Sobeida Yeboah Consult Reason/Comments: near syncope, orthostatic Do you want consulting provider notified?: Yes Primary care physician: Chinmay Martin Hospital Course: Final diagnosis Syncope with dizziness secondary to severe orthostatic hypotension with failure of outpatient treatment Hypertension History of coronary artery disease Chronic obstructive pulmonary disease Anemia, normocytic anemia of chronic disease. Ruled out acute blood loss anemia Cerebrovascular accident, transient ischemic attack Hyperlipidemia history of degenerative joint disease history of macular edema Complex history of transient ischemic attack First-degree AV block in the ED History of coronary artery disease, coronary artery bypass graft No code Discharge disposition Patient is being discharged in a stable condition with guarded prognosis to home. Patient will follow-up with Dr. Chinmay Martin upon discharge. Patient will also be following up with his shield cleaner upon discharge. Total time taken is greater than 35 minutes. Hospital course This is an 85-year-old male who was recently admitted with syncope and dizziness, significant orthostatic hypotension and was being closely monitored. Patient was seen and evaluated by cardiology making medication adjustments and patient will continue on Norvasc 5 mg daily along with Coreg twice daily. Patient instructed to obtain orthostatic vitals in the home setting and keep a diary for primary care along with cardiology follow-up. Patient is adamant about leaving and would like to be discharged today. Patient instructed to get up slowly when lying and sit at the side of the bed or out of the chair before getting up. Currently no reports of chest pain, shortness of breath, or palpitations. Patient is afebrile. No reports of nausea or vomiting and patient is tolerating diet. Patient will be discharged to home today. On exam vital signs are stable. Cardio S1, S2 are muffled. Respiratory shows diminished breath sounds at the bases with no wheezing or rhonchi noted. Abdomen is soft and nontender. Nervous system shows no focal deficits. Please refer to medication reconciliation sheet for a list of medications. Patient Condition at Discharge: Stable Plan - Discharge Summary Discharge Rx Participant: No New Discharge Prescriptions: New amLODIPine [Norvasc] 5 mg PO DAILY 30 Days #30 tab Acetaminophen Tab [Tylenol] 650 mg PO Q6HR PRN tab PRN Reason: Fever And/ Or Pain Thiamine [Vitamin B-1] 100 mg PO DAILY@1200 30 Days #30 tab Fludrocortisone [Florinef] 0.1 mg PO DAILY 30 Days #30 tab Folic Acid 1 mg PO DAILY@1200 30 Days #30 tab Continue hydrALAZINE HCL [Apresoline] 12.5 - 25 mg PO DAILY PRN PRN Reason: Blood Pressure - High Simvastatin 40 mg PO HS@2100 Sertraline HCl [Zoloft] 50 mg PO DAILY Multivitamins, Thera [Multivitamin (formulary)] 1 tab PO DAILY Lutein 20 mg PO HS Aspirin EC [Ecotrin Low Dose] 81 mg PO HS Ferrous Sulfate [Iron (65 MG Elemental)] 325 mg PO HS Super Vitamin C 1 tab PO DAILY carvediloL [Coreg] 6.25 mg PO BID Discontinued NIFEdipine [NIFEdipine ER] 30 mg PO DIRECTED hydroCHLOROthiazide [Hydrodiuril] 12.5 mg PO BID Discharge Medication List Aspirin EC [Ecotrin Low Dose] 81 mg PO HS 01/28/20 [History] Lutein 20 mg PO HS 01/28/20 [History] Multivitamins, Thera [Multivitamin (formulary)] 1 tab PO DAILY 01/28/20 [History] Sertraline HCl [Zoloft] 50 mg PO DAILY 01/28/20 [History] Simvastatin 40 mg PO HS@2100 01/28/20 [History] hydrALAZINE HCL [Apresoline] 12.5 - 25 mg PO DAILY PRN 01/28/20 [History] Ferrous Sulfate [Iron (65 MG Elemental)] 325 mg PO HS 03/07/21 [History] Super Vitamin C 1 tab PO DAILY 03/07/21 [History] carvediloL [Coreg] 6.25 mg PO BID 03/07/21 [History] Acetaminophen Tab [Tylenol] 650 mg PO Q6HR PRN tab 03/10/21 [Rx] Fludrocortisone [Florinef] 0.1 mg PO DAILY 30 Days #30 tab 03/10/21 [Rx] Folic Acid 1 mg PO DAILY@1200 30 Days #30 tab 03/10/21 [Rx] Thiamine [Vitamin B-1] 100 mg PO DAILY@1200 30 Days #30 tab 03/10/21 [Rx] amLODIPine [Norvasc] 5 mg PO DAILY 30 Days #30 tab 03/10/21 [Rx] Follow up Appointment(s)/Referral(s): [facility], [NON-STAFF] - Chinmay Martin MD [Primary Care Provider] - 1-2 days (please call office when you get home to make follow up appointment) Patient Instructions/Handouts: Hypotension (ED) Activity/Diet/Wound Care/Special Instructions: Follow-up with primary care provider upon discharge Activity Limited until follow-up follow up with a shield cleaner outpatient contiue current medications Continue heart healthy diet Discharge Disposition: HOME SELF-CARE
[2021-03-10] MEDS ORDERED: carvediloL 6.25 MG TAB PO SCH (17:30)
== END 2021-03-10 13:10 | disposition home or self-care (01) | DRG 312 ==
LOC: EC 12:55 → 3SCARD 15:11
PROVIDERS: ADMIT Internal Medicine; ATTEND Internal Medicine
DX: I95.1 Orthostatic hypotension (principal); E86.0 Dehydration; I25.10 Atherosclerotic heart disease of native coronary artery without angina pectoris; J44.9 Chronic obstructive pulmonary disease, unspecified; Z86.73 Personal history of transient ischemic attack (TIA), and cerebral infarction without residual deficits; M19.90 Unspecified osteoarthritis, unspecified site; H35.30 Unspecified macular degeneration; Z87.891 Personal history of nicotine dependence; Z95.1 Presence of aortocoronary bypass graft; Z20.822 Contact with and (suspected) exposure to COVID-19; I44.0 Atrioventricular block, first degree; E78.5 Hyperlipidemia, unspecified; D63.8 Anemia in other chronic diseases classified elsewhere; I10 Essential (primary) hypertension; I34.0 Nonrheumatic mitral (valve) insufficiency; Z90.49 Acquired absence of other specified parts of digestive tract; Z79.82 Long term (current) use of aspirin; Z79.899 Other long term (current) drug therapy
CPT/HCPCS: 36415; 70450; 71046; 80048; 80053; 81003; 83735; 84484; 85025; 85610; 85730; 87635; 93005; 93306; 96360; 96361; 99285

== ENCOUNTER → 2021-06-17 | Outpatient (CLI) | payer MEDICARE, OTHER ==
--- NOTE | 2021-06-17 14:25 | CT ---
EXAMINATION TYPE: CT cervical spine wo con DATE OF EXAM: 06/17/2021 COMPARISON: 04/18/2020 HISTORY: cervicalgia CT DLP: [address] of the cervical spine was performed with bone and soft tissue window settings submitted . Coronal and sagittal reconstruction is obtained. There is normal alignment and prevertebral soft tissues. I do not see evidence for fracture or subluxation. Severe multilevel degenerative disc dise ase extending from C3-4 through C7-T1. There is fusion at C5-6 which may be postoperative in nature o r congenital. Large anterior osteophytes are noted. Posterior disc bulge with hard disc noted at C3-4 and C4-5 resulting in mild central stenosis and bilateral foraminal encroachment at each of these le vels. The lung apices are clear IMPRESSION: No evidence for fracture or subluxation of the cervical spine. Degenerative changes as n oted.
== END | disposition home or self-care (01) ==
LOC: RADCTMAIN 13:55
PROVIDERS: ATTEND Physical Medicine & Rehabilitation
DX: M50.221 Other cervical disc displacement at C4-C5 level (principal); M47.812 Spondylosis without myelopathy or radiculopathy, cervical region
CPT/HCPCS: 72125

== ENCOUNTER → 2021-10-20 | Outpatient (CLI) | payer MEDICARE, OTHER ==
[2021-10-20 09:32] VITALS: BP 159/78; PULSE 80; RESP 18; TEMP 97.4
--- NOTE | 2021-10-20 09:38 | P.PN ---
Subjective Progress Note Date: 10/20/21 Principal diagnosis: A 86 yr old male with a history of severe and chronic neck pain secondary to cervical degenerative disc diseases and spondylosis with facet arthropathy presents today for evaluation . Pain level is 5-6/10 but waxes and wanes in intensity to 10/10. Pain is dull/ achy/ sharp/ shooting in the lower half of his cervical spine without radiation . No provocative factors. Pain is alleviated with medications like Tylenol, topicals, injections, heat, physical therapy, rest and a home-based exercise regimen. Interventional pain procedures completed include ABRAHAM Patient denies any side effects of the medication(s), denies excessive drowsiness or sleepiness, denies suicidal ideation and reports that the current pain medication is helping to control the pain and improve activities of daily living. Patient denies any motor or sensory deficits. Patient denies any fever or night sweats, denies any change in the bowel movements or urination. Physical Examination: -Constitutional: Cooperative. Not in acute distress . -HEENT: Neck is supple. No lymphadenopathy. No thyromegaly. Normal thyroid size. Eyes: No ptosis , no icterus, no photophobia. ENT: No auditory deficits. Normal oropharynx. No Thrush. - Respiratory: Chest clear to auscultations bilaterally. No wheezing. No rhonchi. - Cardiovascular: Regular rate and rhythm. S1 / S2 , no S3 , no S4. - Gastrointestinal: Abdomen soft no tenderness. Bowel sounds positive in all four quadrants. No organomegaly. - Genitourinary: Deferred. - Neurologic: Cranial nerve II to XII intact. No focal neurological deficits. - Psychatric: Alert & oriented x 3. Matching mood & appropriate affect. Judgment and insight intact. - Lymphatic: No Lymphadenopathy. - Musculoskeletal: Cervical spine: Muscle bulk/ tone/ strength in the bilateral upper extremities age appropriate Lateral flexion grossly limited bilaterally due to pain and stiffness Vertebral body tenderness over C4 to C7 Facet loading test cervical area positive. Spurling test positive Distraction test positive Lumbar spine: Motor bulk/ tone/ strength lower extremities , thigh and legs : 5/5 Deep tendon reflexes : Normal Knee Jerk. Normal Ankle Jerk . Lumbar Facet Loading Test positive Straight Leg Raise: positive at 30 degree right side/ left side Kd test: positive right side / left side Range of motion: Range of motion in flexion of the lumbar spine <60 degrees Range of motion: Extension of the lumbar spine <20 degrees Severe tenderness over the Sacroiliac joint: right side / left side Assessment and plan: Chronic neck pain secondary to cervical degenerative disc disease , spondylosis with facet arthropathy without myelopathy Recommendation of ABRAHAM C4 to C5 and C5 to C6 Risk benefits of procedure discussed and patient verbalized understanding May need a series of 3 based on response to procedure Stop taking aspirin 3 days prior to procedure All patient questions answered MAPS reviewed and it was appropriate. I have spent 31 minutes on patient care today. Dr Wills was available by phone for the evaluation of this patient. The time was used to review the medical records including relevant urine studies and Prescription history (MAPs), review of the available imaging, evaluation and examination of the patient, coordination of care with the medical staff and if applicable referring physicians, as well as creation of the medical record Objective - Vital Signs Vital signs: Vital Signs Temp 97.4 F L 10/20/21 09:26 Pulse 80 10/20/21 09:26 Resp 18 10/20/21 09:26 BP 159/78 10/20/21 09:26 Pulse Ox 98 10/20/21 09:26 PQRS Measure Charge Sheet Mode of Arrival: Ambulatory, Walker - Pain Location Neck Non-Pharmacological Interventions: Home Exercise, Inactivity, Stretching Pharmacological Interventions: PRN Medication PQRS Narrative: Smoking Status Former smoker Blood Pressure 159/78 Pain Intensity [Neck] 6 Scale Used Numeric (1 - 10) Hx Alcohol Use (MH) No Home Medications: Ambulatory Orders Aspirin EC [Ecotrin Low Dose] 81 mg PO HS 01/28/20 Lutein 20 mg PO HS 01/28/20 Sertraline HCl [Zoloft] 50 mg PO DAILY 01/28/20 Simvastatin 40 mg PO HS 01/28/20 Ferrous Sulfate [Iron (65 MG Elemental)] 325 mg PO HS 03/07/21 Acetaminophen Tab [Tylenol] 650 mg PO Q6HR PRN tab 03/10/21 Folic Acid 1 mg PO DAILY@1200 30 Days #30 tab 03/10/21 Thiamine [Vitamin B-1] 100 mg PO DAILY@1200 30 Days #30 tab 03/10/21 amLODIPine [Norvasc] 5 mg PO DAILY 30 Days #30 tab 03/10/21 Ascorbic Acid [Vitamin C] 500 mg PO DAILY 10/14/21 Hydralazine (Unknown Dose) 1 tab PO DIRECTED PRN 10/14/21 Multivit-Min/FA/Lycopen/Lutein [Centrum Silver Tablet] 1 each PO DAILY 10/14/21
== END ==
LOC: PNWHC3 08:47
PROVIDERS: ATTEND Physician Assistant Medical
DX: G89.29 Other chronic pain (principal); M50.30 Other cervical disc degeneration, unspecified cervical region; M47.812 Spondylosis without myelopathy or radiculopathy, cervical region; I25.10 Atherosclerotic heart disease of native coronary artery without angina pectoris; J44.9 Chronic obstructive pulmonary disease, unspecified; Z86.73 Personal history of transient ischemic attack (TIA), and cerebral infarction without residual deficits; E78.5 Hyperlipidemia, unspecified; M19.90 Unspecified osteoarthritis, unspecified site; Z87.891 Personal history of nicotine dependence; Z95.1 Presence of aortocoronary bypass graft; Z79.82 Long term (current) use of aspirin; Z79.899 Other long term (current) drug therapy
CPT/HCPCS: 99211

== ENCOUNTER → 2021-11-18 | Day surgery (SDC) | payer MEDICARE, OTHER ==
[~2021-11-18] MED LIST: DEXAMETHASONE SOD PHOSPHATE 10 MG/ML 1 ML VIAL ONE; IOPAMIDOL M200 10 ML VIAL ONE; IV FLUID CONTINUATION 1,000 ML IV ONE; LACTATED RINGERS 1,000 ML IV ONE; LACTATED RINGERS 1,000 ML IV SCH; LIDOCAINE 1% (10MG/ML) FOR IV START INTRADERMA ONE; MIDAZOLAM 2 MG/2 ML VIAL ONE; fentaNYL (PF) 50 MCG/ML 2 ML AMP ONE
[2021-11-18 11:19] VITALS: RESP 16; TEMP 97.6
--- NOTE | 2021-11-18 11:52 | P.PCN ---
Date of Procedure: 11/18/21 Description of Procedure: Pre- and Post-operative Diagnosis: Cervical radiculopathy Procedure: C5-C6 Inter-Laminar Cervical Epidural Steroid Injection under biplanar fluoroscopy Surgeon: Beth Angulo Anesthesia: Local: 1% Lidocaine, IV sedation : Midazolam 1 mg, and fentanyl 50 g. Complications: None. Estimated blood loss: None Specimens removed: None Fluoroscopic image: saved to electronic medical records. Indications for Procedure: The patient has been suffering from neck pain and pain radiating to the upper extremity . Inadequate pain control with pharmacologic regimen. An inter-laminar approach cervical epidural steroid injection was scheduled for the patient. Procedure and Findings: The patient was seen and examined in the holding area. The written informed consent was obtained after explaining the risks, benefits, alternatives of the procedure to the patient. The patient was brought to the procedure room and was placed in the prone position on the operating table. A pillow was placed under the upper chest. Standard anesthesia monitoring was done through out the procedure. Timeout was completed. The skin preparation was done with ChloraPrep 1 and draping was done in usual sterile fashion. Sterile technique was observed throughout the procedure. Under fluoroscopic guidance, the C5-C6 inter-laminar space was identified. 3 ml of 1% Lidocaine was injected with a 25 gauge needle to achieve adequate local anesthesia of the skin and subcutaneous tissue. A 18 gauge, 3.5 inch Tuohy type epidural needle was placed and gradually advanced up to the epidural space using loss of resistance technique and fluoroscopic guidance. Lateral, oblique fluoroscopic views confirm the needle position. No paresthesia was noted. A negative aspiration was confirmed and then 1 ml of Isovue-200 was injected. A good dye spread was seen in the epidural space and it was negative for any intrathecal, intraneural or intravascular spread. A total of 5 ml solution containing 10 mg Dexamethasone, and 4 ml preservative-free Normal Saline was injected slowly with intermittent aspiration. The needle was removed intact, area was cleaned and bandage was applied. Disposition : The patient tolerated the procedure very well. The patient was transferred to the recovery room and remained stable until discharged home. The patient was given detailed discharge instructions for bleeding, infection, increased pain at the injection site, and was advised to seek immediate medical attention should significant side effects develop. The patient will be followed up with our Pain [facility] within 4 weeks for follow-up visit.
[2021-11-18 12:34] VITALS: BP 188/81; PULSE 61
--- NOTE | 2021-11-18 13:12 | FL ---
Fluoroscopy HISTORY: Pain 8 seconds fluoroscopy time supplied to the referring clinician. 4 intraoperative C-arm images docume nt the procedure. See dictated report from anesthesia.
== END | disposition home or self-care (01) ==
LOC: ORPAIN 10:56
DX: M54.12 Radiculopathy, cervical region (principal)
CPT/HCPCS: 62321; J2250; J1100; J3010; Q9966; 99152

== ENCOUNTER → 2021-12-04 | Outpatient (CLI) | payer MEDICARE, OTHER ==
[2021-12-04 10:25] VITALS: BP 167/81; PULSE 67; RESP 18; TEMP 97.9
--- NOTE | 2021-12-04 10:28 | P.PN ---
Subjective Progress Note Date: 12/04/21 Principal diagnosis: A 86 yr old male with a history of severe and chronic neck pain secondary to cervical degenerative disc diseases and spondylosis with facet arthropathy presents today for evaluation status post ABRAHAM C4-C5, C5-C6 #1. She states he expressively 2% pain relief for one day status post procedure. Neck pain has been present for 3 years, currently at 5 out of 10 in intensity, constant, sharp, pressure, achy-type sensation in the top of his neck with radiation of pain to the shoulders bilaterally and the upper extremities. Pain has no provocative factors per patient. Pain is alleviated with medication, injections, heat, wearing a soft c-collar, massage therapy which was ineffective and rest. Patient has not tried physical therapy and does not want to try chiropractic treatments. Interventional pain procedures completed include ABRAHAM C4-C5, C5-C6 #1 Patient is currently on Tylenol PM Patient denies any side effects of the medication(s), denies excessive drowsiness or sleepiness, denies suicidal ideation and reports that the current pain medication is helping to control the pain and improve activities of daily living. Patient denies any motor or sensory deficits. Patient denies any fever or night sweats, denies any change in the bowel movements or urination. Physical Examination: -Constitutional: Cooperative. Not in acute distress . -HEENT: Neck is supple. No lymphadenopathy. No thyromegaly. Normal thyroid size. Eyes: No ptosis , no icterus, no photophobia. ENT: No auditory deficits. Normal oropharynx. No Thrush. - Respiratory: Chest clear to auscultations bilaterally. No wheezing. No rhonchi. - Cardiovascular: Regular rate and rhythm. S1 / S2 , no S3 , no S4. - Gastrointestinal: Abdomen soft no tenderness. Bowel sounds positive in all four quadrants. No organomegaly. - Genitourinary: Deferred. - Neurologic: Cranial nerve II to XII intact. No focal neurological deficits. - Psychatric: Alert & oriented x 3. Matching mood & appropriate affect. Judgment and insight intact. - Lymphatic: No Lymphadenopathy. - Musculoskeletal: Cervical spine: Muscle bulk/ tone/ strength in the bilateral upper extremities normal. Jump reflex over BL C4-C5, C5-C6 with accompanying mild muscle spasms Facet loading test cervical area positive. Lumbar spine: Motor bulk/ tone/ strength lower extremities , thigh and legs : 5/5 Deep tendon reflexes : Normal Knee Jerk. Normal Ankle Jerk . Vertebral body tenderness to palpation over Lumbar Facet Loading Test positive Straight Leg Raise: positive at 30 degrees right side/ left side Gaenslen's Test positive Sacral spine : Severe tenderness over the Sacroiliac joint: right side / left side Range of motion: Flexion of the lumbar spine <60 degrees Range of motion: Extension of the lumbar spine <20 degrees Gaenslen's Test positive Kd test: positive right side / left side Assessment and plan: Chronic neck pain secondary to cervical degenerative disc disease , spondylosis with facet arthropathy without myelopathy Recommendation of FB/ MBB of BL C3-C5. May need a series of injections, up through RFA if indicated, to maintain optimal pain relief. Risks, benefits of procedure discussed and pt verbalized understanding. Denies anticoagulant use a medical history of diabetes. All patient questions answered MAPS reviewed and it was appropriate. I have spent 31 minutes on patient care today. Dr Wills was available by phone for the evaluation of this patient. The time was used to review the medical records including relevant urine studies and Prescription history (MAPs), review of the available imaging, evaluation and examination of the patient, coordination of care with the medical staff and if applicable referring physicians, as well as creation of the medical record PQRS Measure Charge Sheet Mode of Arrival: Ambulatory, Walker PQRS Narrative: Smoking Status Former smoker Blood Pressure 167/81 Pain Intensity [Bilateral 5 Upper Neck] Scale Used Numeric (1 - 10) Hx Alcohol Use (MH) No Home Medications: Ambulatory Orders Aspirin EC [Ecotrin Low Dose] 81 mg PO HS 01/28/20 Lutein 20 mg PO HS 01/28/20 Sertraline HCl [Zoloft] 50 mg PO HS 01/28/20 Simvastatin 40 mg PO HS 01/28/20 Ferrous Sulfate [Iron (65 MG Elemental)] 325 mg PO HS 03/07/21 Acetaminophen Tab [Tylenol] 650 mg PO Q6HR PRN tab 03/10/21 Folic Acid 1 mg PO DAILY@1200 30 Days #30 tab 03/10/21 Thiamine [Vitamin B-1] 100 mg PO DAILY@1200 30 Days #30 tab 03/10/21 Ascorbic Acid [Vitamin C] 500 mg PO DAILY 10/14/21 Hydralazine (Unknown Dose) 1 tab PO DIRECTED PRN 10/14/21 Multivit-Min/FA/Lycopen/Lutein [Centrum Silver Tablet] 1 each PO DAILY 10/14/21
== END ==
LOC: PNWHC3 09:07
PROVIDERS: ATTEND Specialist
DX: M50.30 Other cervical disc degeneration, unspecified cervical region (principal); M47.812 Spondylosis without myelopathy or radiculopathy, cervical region; E11.9 Type 2 diabetes mellitus without complications; Z87.891 Personal history of nicotine dependence
CPT/HCPCS: 99211

== ENCOUNTER 2021-12-25 09:20 | Day surgery (SDC) | payer MEDICARE, OTHER ==
[2021-12-23 15:45] VITALS: BMI 23.6
[2021-12-25] MEDS ORDERED: LACTATED RINGERS 1,000 ML IV SCH (09:22)
[2021-12-25] MEDS ORDERED: LIDOCAINE 1% (10MG/ML) FOR IV START INTRADERMA PRN (09:22)
[2021-12-25 09:34] VITALS: TEMP 97.5
[2021-12-25] MEDS ORDERED: LACTATED RINGERS 1,000 ML IV ONE (09:34)
[2021-12-25] MEDS ORDERED: hydrALAZINE HCL 20 MG/ML 1 ML VIAL ONE (10:52)
[2021-12-25] MEDS ORDERED: MIDAZOLAM 2 MG/2 ML VIAL ONE (10:52)
[2021-12-25] MEDS ORDERED: fentaNYL (PF) 50 MCG/ML 2 ML AMP ONE (10:52)
[2021-12-25] MEDS ORDERED: methylPREDNISolone ACETATE 40 MG/ML 1 ML VIAL ONE (10:52)
[2021-12-25] MEDS ORDERED: ROPIVACAINE 5MG/ML 20ML VIAL ONE (10:52)
--- NOTE | 2021-12-25 11:22 | P.PCN ---
Date of Procedure: 12/25/21 Procedure(s) Performed: PREOPERATIVE DIAGNOSIS: 1-Cervical Spondylosis with Facet Arthropathy.without myelopathy. 2-cervical degenerative disc disease POSTOPERATIVE DIAGNOSIS: Same as preoperative diagnosis. PROCEDURES: Diagnostic bilateral C3, C4 , C5 , medial branch blocks, with fl uoroscopic guidance (fluoroscopy images available in radiology department ) ( to target the facet joint at bilateral C3-4 , C4- 5 )#1 st ANESTHESIA: moderate sedation with Versed 1 mg , and fentanyl 50 micrograms EBL: Minimal PROCEDURE INDICATION: The patient with neck pain secondary to cervical arthropathy unresponsive to more conservative treatments. PROCEDURE DESCRIPTION / TECHNIQUE: The patient was seen and identified in the preoperative area. Risks, benefits, complications, and alternatives were discuss ed with the patient, the patient agreed to proceed with the procedure and signed the consent. IV was started. Vital signs remained stable throughout the procedure. Patient was taken to the OR and time out was completed. The patient was placed in the prone position on the procedure table. A pillow was placed under the patients chest to increase the cervical interlaminar space. The cervical area w as prepped and draped in the usual sterile fashion. Critical pause was taken. Vital signs were closely monitored during the procedure. Conscious sedation was used during the procedure to decrease patients anxiety. Using cross-table lateral fluoroscopy, the centroid of the trapezoid of right C3, C4 , C5 was identified, marked, and localized with 1% lidocaine 1 ml at each level for skin and Sub Q infiltrations . Subsequently, a 25G 3 spinal needle was advanced guided by fluoroscopy to the centroid of the trapezoid of Right C3, C4 , C5, . [place] tip position was confirmed at the centroid of the trapezoids of Right C3 , C4 , C5 with anteroposterior fluoroscopy. Subsequently, 1.5 ml of preservative-free Ropivacaine 0.5% mixed with Depo- Medrol 20 mg and half ml of the mixture was injected after negative aspiration for blood and CSF. [place] was then removed intact the same procedure was repeated at the left C3 , C4 , C5 levels. COMPLICATIONS: No acute complications. DISPOSITION / PLANS: The patient was placed in a supine position and transferred to the recovery area in a stable condition for observation and was discharged from the recovery room after meeting discharge criteria. Home discharge instructions given to the patient by the staff. The patient was reexamined prior to discharge. The patient will schedule a follow up in the clinic in 2-4 weeks.
[2021-12-25] MEDS ORDERED: IV FLUID CONTINUATION 1,000 ML IV ONE ×2 (11:24)
--- NOTE | 2021-12-25 11:46 | FL ---
EXAMINATION TYPE: FL guided pain mgmt statistic DATE OF EXAM: 12/25/2021 HISTORY: Fluoroscopy time 7 seconds of fluoroscopy provided. IMPRESSION: 1. Fluoroscopy time.
[2021-12-25 12:01] VITALS: BP 162/74; PULSE 74; RESP 16
== END 2021-12-25 12:22 | disposition home or self-care (01) ==
LOC: ORPAIN 09:20
PROVIDERS: ATTEND Specialist
DX: M47.812 Spondylosis without myelopathy or radiculopathy, cervical region (principal); M50.30 Other cervical disc degeneration, unspecified cervical region
CPT/HCPCS: 64490; 64491; J2250; J0360; J1030; J3010; J2795; 99152

== ENCOUNTER → 2022-01-15 | Outpatient (CLI) | payer MEDICARE, OTHER ==
[2022-01-15 09:33] VITALS: BP 135/73; PULSE 72; RESP 18; TEMP 97.5
--- NOTE | 2022-01-15 09:40 | P.PN ---
Subjective Progress Note Date: 01/15/22 Principal diagnosis: A 86 yr old male with a history of severe and chronic neck pain secondary to cervical degenerative disc diseases and spondylosis with facet arthropathy presents today for evaluation status post facet blocks of the medial branches bilateral C4-C5, C5-C6 #1. He states he experienced 20% pain relief status post procedure. Pain level waxes and wanes throughout the day based on activity but is currently at 6 out of 10, dull, achy in the mid to lower aspects of his cervical spine and has been unchanged for the last 4 years. Denies radiation of pain. Pain is provoked by extension. Pain is alleviated with medications, injections, heat, massage therapy 1 month ago, repositioning and rest. Interventional pain procedures completed include ABRAHAM, FB of the MBs C3-5 #1. Patient is currently on Tylenol OTC. Patient denies any side effects of the medication(s), denies excessive drowsiness or sleepiness, denies suicidal ideation and reports that the current pain medication is helping to control the pain and improve activities of daily living. Patient denies any motor or sensory deficits. Patient denies any fever or night sweats, denies any change in the bowel movements or urination. Physical Examination: -Constitutional: Cooperative. Not in acute distress . -HEENT: Neck is supple. No lymphadenopathy. No thyromegaly. Normal thyroid size. Eyes: No ptosis , no icterus, no photophobia. ENT: No auditory deficits. Normal oropharynx. No Thrush. - Respiratory: Chest clear to auscultations bilaterally. No wheezing. No rhonchi. - Cardiovascular: Regular rate and rhythm. S1 / S2 , no S3 , no S4. - Gastrointestinal: Abdomen soft no tenderness. Bowel sounds positive in all four quadrants. No organomegaly. - Genitourinary: Deferred. - Neurologic: Cranial nerve II to XII intact. No focal neurological deficits. - Psychatric: Alert & oriented x 3. Matching mood & appropriate affect. Judgment and insight intact. - Lymphatic: No Lymphadenopathy. - Musculoskeletal: Cervical spine: Muscle bulk/ tone/ strength in the bilateral upper extremities normal. Vertebral body tenderness to palpation over C5 Facet loading test cervical area positive. Lumbar spine: Motor bulk/ tone/ strength lower extremities , thigh and legs : 5/5 Deep tendon reflexes : Normal Knee Jerk. Normal Ankle Jerk . Vertebral body tenderness to palpation over Lumbar Facet Loading Test positive Straight Leg Raise: positive at 30 degrees right side/ left side Gaenslen's Test positive Sacral spine : Severe tenderness over the Sacroiliac joint: right side / left side Range of motion: Flexion of the lumbar spine <60 degrees Range of motion: Extension of the lumbar spine <20 degrees Gaenslen's Test positive Kd test: positive right side / left side Assessment and plan: Chronic neck pain secondary to cervical degenerative disc disease , spondylosis with facet arthropathy without myelopathy Patient exhibited non-optimal pain relief status post procedure. We will not recommend repeat of procedure at this time. Recommendation of CLAIRE TFESI C4-C5 #1. Risks, benefits of procedure discussed and patient verbalized understanding. Denies anticoagulant use and medical history of diabetes. All patient questions answered MAPS reviewed and it was appropriate. I have spent 31 minutes on patient care today. Dr Wills was available by phone for the evaluation of this patient. The time was used to review the medical records including relevant urine studies and Prescription history (MAPs), review of the available imaging, evaluation and examination of the patient, coordination of care with the medical staff and if applicable referring physicians, as well as creation of the medical record Objective - Vital Signs Vital signs: Vital Signs Temp 97.5 F L 01/15/22 09:22 Pulse 72 01/15/22 09:22 Resp 18 01/15/22 09:22 BP 135/73 01/15/22 09:22 Pulse Ox 97 01/15/22 09:22 PQRS Measure Charge Sheet Mode of Arrival: Walker - Pain Location Bilateral Lower Neck Non-Pharmacological Interventions: Elevation, Heat, Massage Pharmacological Interventions: Block, PRN Medication PQRS Narrative: Smoking Status Former smoker Blood Pressure 135/73 Pain Intensity [Bilateral 5 Lower Neck] Scale Used Numeric (1 - 10) Hx Alcohol Use (MH) No Home Medications: Ambulatory Orders Aspirin EC [Ecotrin Low Dose] 81 mg PO HS 01/28/20 Lutein 20 mg PO HS 01/28/20 Sertraline HCl [Zoloft] 50 mg PO HS 01/28/20 Simvastatin 40 mg PO HS 01/28/20 Ferrous Sulfate [Iron (65 MG Elemental)] 325 mg PO HS 03/07/21 Acetaminophen Tab [Tylenol] 650 mg PO Q6HR PRN tab 03/10/21 Folic Acid 1 mg PO DAILY@1200 30 Days #30 tab 03/10/21 Thiamine [Vitamin B-1] 100 mg PO DAILY@1200 30 Days #30 tab 03/10/21 Ascorbic Acid [Vitamin C] 500 mg PO DAILY 10/14/21 Multivit-Min/FA/Lycopen/Lutein [Centrum Silver Tablet] 1 each PO DAILY 10/14/21 Fludrocortisone [Florinef] 0.1 mg PO DAILY 12/23/21 Midodrine HCl 5 mg PO TID 12/23/21
== END ==
LOC: PNWHC3 09:06
PROVIDERS: ATTEND Specialist
DX: M47.812 Spondylosis without myelopathy or radiculopathy, cervical region (principal); M50.30 Other cervical disc degeneration, unspecified cervical region; G89.29 Other chronic pain; Z87.891 Personal history of nicotine dependence
CPT/HCPCS: 99211

== ENCOUNTER 2022-01-22 08:57 | Inpatient (IN) | payer MEDICARE, OTHER ==
[2022-01-22] MEDS ORDERED: SODIUM CHLORIDE 0.9% 500 ML 500 ML IV ONE (09:48)
--- NOTE | 2022-01-22 10:09 | ED ---
General Adult HPI - General Chief complaint: Dizziness Stated complaint: Dizzines, Fall Time Seen by Provider: 01/22/22 09:35 Source: patient, family, EMS, RN notes reviewed, old records reviewed Mode of arrival: EMS Limitations: no limitations - History of Present Illness Initial comments: This is an 86-year-old male presents emergency Department with a past medical history significant for hypotension. Patient's been recently started on Minodrine. Patient states yesterday he was very wobbly on his feet a little bit dizzy today continued fell. Patient states hit the right side of his head. Patient states he has a little bit of right-sided neck pain as well per patient denies any numbness weakness. Patient denies chest pain palpitations difficulty breathing shortness of breath per patient. His any abdominal pain patient denies any nausea vomiting diarrhea per patient states he has no extremity pain. - Related Data Home Medications Medication Instructions Recorded Confirmed Aspirin EC [Ecotrin Low Dose] 81 mg PO DAILY 01/28/20 01/22/22 Lutein 20 mg PO DAILY 01/28/20 01/22/22 Sertraline HCl [Zoloft] 50 mg PO DAILY 01/28/20 01/22/22 Simvastatin 40 mg PO HS 01/28/20 01/22/22 Ferrous Sulfate [Iron (65 MG 325 mg PO DAILY 03/07/21 01/22/22 Elemental)] Ascorbic Acid [Vitamin C] 500 mg PO DAILY 10/14/21 01/22/22 Multivit-Min/FA/Lycopen/Lutein 1 tab PO DAILY 10/14/21 01/22/22 [Centrum Silver Tablet] Fludrocortisone [Florinef] 0.1 mg PO DAILY 12/23/21 01/22/22 Midodrine HCl 15 mg PO TID 12/23/21 01/22/22 Cholecalciferol [Vitamin D3 (25 25 mcg PO DAILY 01/22/22 01/22/22 Mcg = 1000 Iu)] Folic Acid 1 mg PO DAILY 01/22/22 01/22/22 Allergies Allergy/AdvReac Type Severity Reaction Status Date / Time No Known Allergies Allergy Verified 01/22/22 11:18 Review of Systems ROS Statement: Those systems with pertinent positive or pertinent negative responses have been documented in the HPI. ROS Other: All systems not noted in ROS Statement are negative. Past Medical History Past Medical History: Coronary Artery Disease (CAD), COPD, CVA/TIA, Eye Disorder, Hyperlipidemia, Osteoarthritis (OA) Additional Past Medical History / Comment(s): Anemia, idiopathic/orthostatic hypotension, macular degeneration, carpal tunnel syndrome, multiple mini strokes. ooc. lightheadness, AAA History of Any Multi-Drug Resistant Organisms: None Reported Past Surgical History: Appendectomy, Coronary Bypass/CABG, Hernia Repair, Joint Replacement, Tonsillectomy Additional Past Surgical History / Comment(s): CABG X1, vasectomy, umbilical/hiatal hernia repairs, bilateral knee replacements, pinched nerve in neck surgically repaired, abdominal aortic aneurysm repair. Past Anesthesia/Blood Transfusion Reactions: No Reported Reaction Additional Past Anesthesia/Blood Transfusion Reaction / Comment(s): No reactions to previous blood transfusion. Past Psychological History: No Psychological Hx Reported Smoking Status: Never smoker Past Alcohol Use History: None Reported Past Drug Use History: None Reported - Past Family History Mother Family Medical History: No Reported History General Exam - General Exam Comments Initial Comments: GENERAL: Patient is well-developed and well-nourished. Patient is nontoxic and well- hydrated and is in mild distress. ENT: Neck is soft and supple. No significant lymphadenopathy is noted. Oropharynx is clear. Moist mucous membranes. Neck has full range of motion without eliciting any pain. EYES: The sclera were anicteric and conjunctiva were pink and moist. Extraocular movements were intact and pupils were equal round and reactive to light. Eyelids were unremarkable. PULMONARY: Unlabored respirations. Good breath sounds bilaterally. No audible rales rhonchi or wheezing was noted. CARDIOVASCULAR: There is a regular rate and rhythm without any murmurs gallops or rubs. ABDOMEN: Soft and nontender with normal bowel sounds. SKIN: Skin is clear with no lesions or rashes and otherwise unremarkable. NEUROLOGIC: Patient is alert and oriented x3. Cranial nerves II through XII are grossly intact. Motor and sensory are also intact. Normal speech, volume and content. Symmetrical smile. Finger to nose testing is normal bilaterally MUSCULOSKELETAL: Normal extremities with adequate strength and full range of motion. No lower extremity swelling or edema. No calf tenderness. LYMPHATICS: No significant lymphadenopathy is noted PSYCHIATRIC: Normal psychiatric evaluation. Limitations: no limitations Course Vital Signs 01/22/22 01/22/22 01/22/22 09:34 09:48 10:51 Temperature 98.7 F Pulse Rate 66 62 Pulse Rate [ 68 Right Sitting Pulse Oximetery ] Pulse Rate [ 74 Right Standing Pulse Oximetery ] Pulse Rate [ 68 Right Supine Pulse Oximetery ] Respiratory 16 16 Rate Blood Pressure 145/77 206/91 Blood Pressure 146/72 [Right Arm Sitting] Blood Pressure 97/57 [Right Arm Standing] Blood Pressure 201/85 [Right Arm Supine] O2 Sat by Pulse 100 98 Oximetry 01/22/22 11:15 Temperature Pulse Rate 60 Pulse Rate [ Right Sitting Pulse Oximetery ] Pulse Rate [ Right Standing Pulse Oximetery ] Pulse Rate [ Right Supine Pulse Oximetery ] Respiratory 16 Rate Blood Pressure 185/88 Blood Pressure [Right Arm Sitting] Blood Pressure [Right Arm Standing] Blood Pressure [Right Arm Supine] O2 Sat by Pulse 98 Oximetry Medical Decision Making - Medical Decision Making EKG shows sinus rhythm at 66 bpm IN interval 340 QRS is 93 QT intervals 416 QTC is 429. Patient's EKG shows no ST segment elevation however there is some ST segment depression in leads V3 V4 V5 and V6. CT of brain and C-spine are negative. Chest x-ray shows no acute abnormality [facility] the [facility] admitted the patient wrote admitting orders - Lab Data Result diagrams: 01/22/22 09:50 01/22/22 09:50 Lab Results 01/22/22 01/22/22 01/22/22 Range/Units 09:50 09:50 09:50 WBC 6.1 (3.8-10.6) k/uL RBC 4.27 L (4.30-5.90) m/uL Hgb 13.4 (13.0-17.5) gm/dL Hct 40.9 (39.0-53.0) % MCV 95.9 (80.0-100.0) fL MCH 31.5 (25.0-35.0) pg MCHC 32.8 (31.0-37.0) g/dL RDW 14.3 (11.5-15.5) % Plt Count 148 L (150-450) k/uL MPV 7.1 Neutrophils % 81 % Lymphocytes % 12 % Monocytes % 4 % Eosinophils % 1 % Basophils % 1 % Neutrophils # 4.9 (1.3-7.7) k/uL Lymphocytes # 0.7 L (1.0-4.8) k/uL Monocytes # 0.2 (0-1.0) k/uL Eosinophils # 0.0 (0-0.7) k/uL Basophils # 0.0 (0-0.2) k/uL PT (9.0-12.0) sec INR (<1.2) APTT (22.0-30.0) sec Sodium 142 (137-145) mmol/L Potassium 3.5 (3.5-5.1) mmol/L Chloride 106 (98-107) mmol/L Carbon Dioxide 28 (22-30) mmol/L Anion Gap 8 mmol/L BUN 26 H (9-20) mg/dL Creatinine 1.52 H (0.66-1.25) mg/dL Est GFR (CKD-EPI)AfAm 48 (>60 ml/min/1.73 sqM) Est GFR (CKD-EPI)NonAf 41 (>60 ml/min/1.73 sqM) Glucose 112 H (74-99) mg/dL Calcium 8.6 (8.4-10.2) mg/dL Magnesium 1.9 (1.6-2.3) mg/dL Total Bilirubin 0.6 (0.2-1.3) mg/dL AST 24 (17-59) U/L ALT 15 (4-49) U/L Alkaline Phosphatase 85 (38-126) U/L Troponin I 0.025 (0.000-0.034) ng/mL Total Protein 6.9 (6.3-8.2) g/dL Albumin 3.8 (3.5-5.0) g/dL 01/22/22 Range/Units 10:48 WBC (3.8-10.6) k/uL RBC (4.30-5.90) m/uL Hgb (13.0-17.5) gm/dL Hct (39.0-53.0) % MCV (80.0-100.0) fL MCH (25.0-35.0) pg MCHC (31.0-37.0) g/dL RDW (11.5-15.5) % Plt Count (150-450) k/uL MPV Neutrophils % % Lymphocytes % % Monocytes % % Eosinophils % % Basophils % % Neutrophils # (1.3-7.7) k/uL Lymphocytes # (1.0-4.8) k/uL Monocytes # (0-1.0) k/uL Eosinophils # (0-0.7) k/uL Basophils # (0-0.2) k/uL PT 11.8 (9.0-12.0) sec INR 1.1 (<1.2) APTT 20.6 L (22.0-30.0) sec Sodium (137-145) mmol/L Potassium (3.5-5.1) mmol/L Chloride (98-107) mmol/L Carbon Dioxide (22-30) mmol/L Anion Gap mmol/L BUN (9-20) mg/dL Creatinine (0.66-1.25) mg/dL Est GFR (CKD-EPI)AfAm (>60 ml/min/1.73 sqM) Est GFR (CKD-EPI)NonAf (>60 ml/min/1.73 sqM) Glucose (74-99) mg/dL Calcium (8.4-10.2) mg/dL Magnesium (1.6-2.3) mg/dL Total Bilirubin (0.2-1.3) mg/dL AST (17-59) U/L ALT (4-49) U/L Alkaline Phosphatase (38-126) U/L Troponin I (0.000-0.034) ng/mL Total Protein (6.3-8.2) g/dL Albumin (3.5-5.0) g/dL Disposition Clinical Impression: Orthostatic hypotension, Renal insufficiency Disposition: ADMITTED IP TO THIS HOSP Referrals: Chinmay Martin MD [Primary Care Provider] - 1-2 days Time of Disposition: 12:05
--- NOTE | 2022-01-22 10:17 | CT ---
EXAMINATION TYPE: CT brain tracee lowery DATE OF EXAM: 01/22/2022 COMPARISON: 06/17/21 HISTORY: dizziness, fall CT DLP: 1360.[address] of the brain was performed. The ventricles, basal cisterns and sulci overlying the cerebral convexities demonstrate enlargement. There is no evidence for intracranial hemorrhage or sulcal effacement. There is decreased attenuatio n about the periventricular white matter and deep white matter of both cerebral hemispheres, compatib le with chronic small vessel ischemia. No mass effects are seen. If symptoms persist consider MRI. Osseous calvarium is intact. IMPRESSION: 1. Age related atrophic and chronic small vessel ischemic change without acute intracranial process seen at this time. CT Cervical Spine: Unenhanced CT of the cervical spine was performed with bone and soft tissue window settings submitted . Coronal and sagittal reconstruction is obtained. There is normal alignment and prevertebral soft tissues. No evidence for acute cervical fracture . Scattered degenerative disc disease and spondylosis. Biapical scarring. IMPRESSION: 1. No evidence for acute fracture or subluxation of the cervical spine.
[2022-01-22 10:18] LABS: Basophils % (A) 1 %; Eosinophils % (A) 1 %; HCT 40.9 % (39.0-53.0); HGB 13.4 gm/dL (13.0-17.5); Lymphocytes # (A) 0.7 k/uL (1.0-4.8); Lymphocytes % (A) 12 %; MCH 31.5 pg (25.0-35.0); MCHC 32.8 g/dL (31.0-37.0); MCV 95.9 fL (80.0-100.0); Mean Platelet Volume 7.1; Monocytes # (A) 0.2 k/uL (0-1.0); Monocytes % (A) 4 %; Neutrophils # (A) 4.9 k/uL (1.3-7.7); Neutrophils % (A) 81 %; Platelet Count 148 k/uL (150-450); RBC 4.27 m/uL (4.30-5.90); RDW 14.3 % (11.5-15.5); WBC 6.1 k/uL (3.8-10.6)
--- NOTE | 2022-01-22 10:21 | XR ---
EXAMINATION TYPE: XR chest 2V DATE OF EXAM: 01/22/2022 COMPARISON: Chest x-ray March 07, 2021 HISTORY: Fall injury with right-sided pain. TECHNIQUE: Frontal and lateral views of the chest are obtained. FINDINGS: Overlying sternal wires and mediastinal clips are redemonstrated. There is chronic parench ymal change without suspicious focal air space opacity, pleural effusion, or pneumothorax seen. Calci fication lateral left mid lung redemonstrated. The cardiac silhouette size is stable and within amara l limits. The osseous structures are demineralized. Advanced degenerative changes right glenohumera l joint redemonstrated. Numerous surgical clips epigastric region posteriorly extending inferiorly ar e redemonstrated. Chronic right AC joint separation redemonstrated. IMPRESSION: Chronic changes without acute pulmonary process. No significant change from prior.
[2022-01-22 10:30] LABS: Albumin 3.8 g/dL (3.5-5.0); Calcium 8.6 mg/dL (8.4-10.2); Magnesium 1.9 mg/dL (1.6-2.3); Potassium 3.5 mmol/L (3.5-5.1); Total Bilirubin 0.6 mg/dL (0.2-1.3); Total Protein 6.9 g/dL (6.3-8.2)
[2022-01-22 11:28] LABS: INR 1.1 (<1.2); Prothrombin Time 11.8 sec (9.0-12.0)
[2022-01-22 11:36] LABS: Partial Thromboplastin Time 20.6 sec (22.0-30.0)
[2022-01-22] MEDS ORDERED: SODIUM CHLORIDE 0.9% 1,000 ML IV ONE ×2 (11:53→12:05)
--- NOTE | 2022-01-22 13:55 | HP ---
HISTORY AND PHYSICAL CHIEF COMPLAINTS: Dizziness and fall and orthostatic hypotension. HISTORY OF PRESENT ILLNESS: This 86-year-old gentleman with a past medical history of CAD and COPD is also obtaining treatment for orthostatic hypotension. The patient apparently had significant dizziness and had a fall. The patient recently started on midodrine. The patient also complains of some right-sided neck pain and shoulder pain. The patient came to [facility] and was admitted for further evaluation and treatment. His blood pressure was found to be 146/72 and was dropping to 97/57. Supine blood pressure was actually 201/85. There is no history of any fever, rigors or chills. No history of , palpitations. PAST MEDICAL HISTORY: COPD, hypertension, orthostatic hypotension. MEDICATIONS: Medications prior to admission are reviewed and include simvastatin, Zoloft. Doses and the rest of the medications are reviewed. ALLERGIES: NONE. FAMILY HISTORY: No history of any heart disease or stroke in the family. SOCIAL HISTORY: No history of smoking. REVIEW OF SYSTEMS: Fourteen-point review of systems negative except as mentioned earlier. PHYSICAL EXAMINATION: Blood pressure as mentioned earlier. Pulse 68, respiration 20. HEENT: Conjunctivae normal. Oral mucosa moist. NECK: No jugular venous distention. CARDIOVASCULAR: S1, S2 muffled. RESPIRATION: Breath sounds diminished at the bases. A few scattered rhonchi. ABDOMEN: Soft, nontender. LEGS: No edema. No swelling. NERVOUS SYSTEM: Diffusely weak. SKIN: No ulcer, rash, bleeding. JOINTS: No active deforming arthropathy. LABS: Creatinine is 1.52. ASSESSMENT: 1. Severe orthostatic hypotension and syncope. 2. Orthostatic hypotension. 3. Chronic obstructive pulmonary disease. 4. History of cerebrovascular accident. RECOMMENDATIONS AND DISCUSSION: In this 86-year-old gentleman who presented with multiple complex medical issues, we will monitor the patient closely. Continue the IV fluids. I would also recommend cardiology consultation. Monitor blood pressure closely. Resume the home medications. Prognosis guarded. Discussed with the patient and family, who understand and agree. Further recommendations to follow. MMPABLOL / HOLLYN: [id number] / YASHIRA
[2022-01-22] MEDS: SERTRALINE 50 MG TAB PO SCH (14:10)
--- NOTE | 2022-01-22 14:30 | P.CRDCN ---
History of Present Illness Consult date: 01/22/22 History of present illness: HISTORY OF PRESENT ILLNESS: This is a 86 year old male with a past medical history significant for coronary artery disease with previous CABG, hypertension, orthostatic hypotension for several years, CVA, hyperlipidemia and syncope. Patient follows in the office with Dr. Baldwin but was last seen in the office in January 2020. We have been asked to see the patient in consultation for orthostatic hypotension and fall. Patient examined at the bedside. * EKG reveals sinus mechanism with ST depression in precordial leads, similar to EKG from 2020 * Chest xray chronic changes without acute pulmonary process. * Laboratory data: WBC 6.1. Hemoglobin 13.4. Platelet count 148. Sodium 142. Potassium 3.5. BUN 26. Creatinine 1.52. Magnesium 1.9. * Current home cardiac medications include aspirin 81mg daily, Florinef 0.1mg daily, midodrine 15mg TID, simvastatin 40mg HS * Most recent echocardiogram obtained in February 2021 revealed ejection fraction 55-60%, mild to moderate mitral regurgitation, mild tricuspid regurgitation REVIEW OF SYSTEMS: At the time of my exam: CONSTITUTIONAL: Denies fever or chills. HEENT: Denies blurred vision, vision changes, or eye pain. Denies hemoptysis CARDIOVASCULAR: Denies chest pain. Denies orthopnea. Denies PND. Denies palpitations RESPIRATORY: Denies shortness of breath. GASTROINTESTINAL: Denies abdominal pain. Denies nausea or vomiting. HEMATOLOGIC: Denies bleeding disorders. GENITOURINARY: Denies any blood in urine. SKIN: Denies pruitis. Denies rash. PHYSICAL EXAM: VITAL SIGNS: Reviewed. GENERAL: Well-developed in no acute distress. HEENT: Head is normocephalic. Pupils are equal, round. Sclerae anicteric. Mucous membranes of the mouth are moist. Neck supple. No JVD or thyromegaly LUNGS: Respirations even and unlabored. Lungs essentially clear to auscultation bilaterally. HEART: Regular rate and rhythm. S1 and S2 heard. ABDOMEN: Soft. Nondistended. Nontender. EXTREMITIES: Normal range of motion. No clubbing or cyanosis. Peripheral pulses intact. No lower extremity edema NEUROLOGIC: Awake and alert. Oriented x 3. ASSESSMENT: S/P Fall Chronic orthostatic hypotension Hypertension History of CVA Hyperlipidemia History of syncope PLAN: [] Nurse practitioner note has been reviewed by physician. Signing provider agrees with the documented findings, assessment, and plan of care. Past Medical History Past Medical History: Coronary Artery Disease (CAD), COPD, CVA/TIA, Eye Disorder, Hyperlipidemia, Osteoarthritis (OA) Additional Past Medical History / Comment(s): Anemia, idiopathic/orthostatic hypotension, macular degeneration, carpal tunnel syndrome, multiple mini strokes. ooc. lightheadness, AAA History of Any Multi-Drug Resistant Organisms: None Reported Past Surgical History: Appendectomy, Coronary Bypass/CABG, Hernia Repair, Joint Replacement, Tonsillectomy Additional Past Surgical History / Comment(s): CABG X1, vasectomy, umbilical/hiatal hernia repairs, bilateral knee replacements, pinched nerve in neck surgically repaired, abdominal aortic aneurysm repair. Past Anesthesia/Blood Transfusion Reactions: No Reported Reaction Additional Past Anesthesia/Blood Transfusion Reaction / Comment(s): No reactions to previous blood transfusion. Past Psychological History: No Psychological Hx Reported Smoking Status: Never smoker Past Alcohol Use History: None Reported Past Drug Use History: None Reported - Past Family History Mother Family Medical History: No Reported History Medications and Allergies Home Medications Medication Instructions Recorded Confirmed Type Aspirin EC [Ecotrin Low Dose] 81 mg PO DAILY 01/28/20 01/22/22 History Lutein 20 mg PO DAILY 01/28/20 01/22/22 History Sertraline HCl [Zoloft] 50 mg PO DAILY 01/28/20 01/22/22 History Simvastatin 40 mg PO HS 01/28/20 01/22/22 History Ferrous Sulfate [Iron (65 MG 325 mg PO DAILY 03/07/21 01/22/22 History Elemental)] Ascorbic Acid [Vitamin C] 500 mg PO DAILY 10/14/21 01/22/22 History Multivit-Min/FA/Lycopen/Lutein 1 tab PO DAILY 10/14/21 01/22/22 History [Centrum Silver Tablet] Fludrocortisone [Florinef] 0.1 mg PO DAILY 12/23/21 01/22/22 History Midodrine HCl 15 mg PO TID 12/23/21 01/22/22 History Cholecalciferol [Vitamin D3 (25 25 mcg PO DAILY 01/22/22 01/22/22 History Mcg = 1000 Iu)] Folic Acid 1 mg PO DAILY 01/22/22 01/22/22 History Allergies Allergy/AdvReac Type Severity Reaction Status Date / Time No Known Allergies Allergy Verified 01/22/22 11:18 Physical Exam Vitals: Vital Signs Temp Pulse Pulse Pulse Pulse Resp BP 01/22/22 11:15 60 16 185/88 01/22/22 10:51 62 16 206/91 01/22/22 09:48 68 74 68 01/22/22 09:34 98.7 F 66 16 145/77 BP BP BP Pulse Ox 01/22/22 11:15 98 01/22/22 10:51 98 01/22/22 09:48 146/72 97/57 201/85 01/22/22 09:34 100 Intake and Output 01/21/22 01/22/22 01/22/22 22:59 06:59 14:59 Other: Weight 72.575 kg Results 01/22/22 09:50 01/22/22 09:50 Cardiac Enzymes 01/22/22 01/22/22 Range/Units 09:50 09:50 AST 24 (17-59) U/L Troponin I 0.025 (0.000-0.034) ng/mL Coagulation 01/22/22 Range/Units 10:48 PT 11.8 (9.0-12.0) sec APTT 20.6 L (22.0-30.0) sec CBC 01/22/22 Range/Units 09:50 WBC 6.1 (3.8-10.6) k/uL RBC 4.27 L (4.30-5.90) m/uL Hgb 13.4 (13.0-17.5) gm/dL Hct 40.9 (39.0-53.0) % Plt Count 148 L (150-450) k/uL Comprehensive Metabolic Panel 01/22/22 Range/Units 09:50 Sodium 142 (137-145) mmol/L Potassium 3.5 (3.5-5.1) mmol/L Chloride 106 (98-107) mmol/L Carbon Dioxide 28 (22-30) mmol/L BUN 26 H (9-20) mg/dL Creatinine 1.52 H (0.66-1.25) mg/dL Glucose 112 H (74-99) mg/dL Calcium 8.6 (8.4-10.2) mg/dL AST 24 (17-59) U/L ALT 15 (4-49) U/L Alkaline Phosphatase 85 (38-126) U/L Total Protein 6.9 (6.3-8.2) g/dL Albumin 3.8 (3.5-5.0) g/dL Current Medications Generic Name Dose Route Start Last Admin Trade Name Freq PRN Reason Stop Dose Admin Ascorbic Acid 500 mg 01/23/22 09:00 Ascorbic Acid 500 Mg Tab PO DAILY [facility] Aspirin 81 mg 01/23/22 09:00 Aspirin 81 Mg PO DAILY [facility] Atorvastatin Calcium 20 mg 01/22/22 21:00 Atorvastatin 20 Mg Tab PO HS [facility] Cholecalciferol 25 mcg 01/23/22 09:00 Cholecalciferol 25 Mcg (1000 Iu) Tablet PO DAILY [facility] Ferrous Sulfate 325 mg 01/23/22 09:00 Ferrous Sulfate 325 Mg Tab PO DAILY [facility] Fludrocortisone Acetate 0.1 mg 01/23/22 09:00 Fludrocortisone 0.1 Mg Tab PO DAILY [facility] Folic Acid 1 mg 01/23/22 09:00 Folic Acid 1 Mg Tab PO DAILY [facility] Sodium Chloride 1,000 mls @ 75 mls/hr 01/22/22 12:05 Saline 0.9% IV 01/23/22 01:24 .[id number] Midodrine 15 mg 01/22/22 17:30 Midodrine 5 Mg Tab PO AC-TID [facility] Multivitamins 1 each 01/23/22 09:00 Multivitamins, Thera 1 Each Tab PO DAILY [facility] Sertraline HCl 50 mg 01/22/22 13:45 Sertraline 50 Mg Tab PO DAILY [facility] Intake and Output 01/21/22 01/22/22 01/22/22 22:59 06:59 14:59 Other: Weight 72.575 kg Patient Weight 01/23/22 06:59 Weight 72.575 kg 01/22/22 09:50 01/22/22 09:50
[2022-01-22] MEDS: MIDODRINE 5 MG TAB PO SCH (18:55)
--- NOTE | 2022-01-22 19:45 | CA ---
Transthoracic Echo Report Name: Niall Porter Age: 86 Gender: M : 1935 Exam Date: 01/22/2022 14:56 Exam Location: [facility] Ht (in): 69 Wt (lb): 160 Ordering Physician: Zoltan Wynn MD Attending/Referring Phys: Housing Case Manager Lina Guerrero RDCS Procedure CPT: Indications: Hypotension Cardiac Hx: COPD, CAD, CVA, TIA Technical Quality: Good Contrast 1: N/A Total Dose (mL): Contrast 2: Total Dose (mL): MEASUREMENTS (Male / Female) Normal Values 2D ECHO LV Diastolic Diameter PLAX 4.9 cm 4.2 - 5.9 / 3.9 - 5.3 cm LV Systolic Diameter PLAX 4.1 cm IVS Diastolic Thickness 1.4 cm 0.6 - 1.0 / 0.6 - 0.9 cm LVPW Diastolic Thickness 1.3 cm 0.6 - 1.0 / 0.6 - 0.9 cm LV Relative Wall Thickness 0.6 RV Internal Dim ED PLAX 3.3 cm LA Systolic Diameter LX 3.8 cm 3.0 - 4.0 / 2.7 - 3.8 cm LA Volume 82.0 cm??? 18 - 58 / 22 - 52 cm??? M-MODE Aortic Root Diameter MM 2.9 cm LA Systolic Diameter MM 4.9 cm LA Ao Ratio MM 1.7 MV E Point Septal Separation 1.1 cm AV Cusp Separation MM 1.6 cm DOPPLER MV E' Velocity 2.7 cm/s TR Peak Velocity 269.7 cm/s TR Peak Gradient 29.1 mmHg Right Ventricular Systolic Press 32.9 mmHg FINDINGS Left Ventricle Left ventricular ejection fraction is estimated at 50-55%. Moderately increased left ventricular wall thickness. Right Ventricle Normal right ventricular size and function. Right ventricular systolic pressure within normal limits. Right Atrium Normal right atrial size. Left Atrium Severely increased left atrial volume. Mitral Valve Mild mitral regurgitation. Aortic Valve Trileaflet aortic valve. Tricuspid Valve [id number] tricuspid regurgitation. Pulmonic Valve Pulmonic valve not well visualized. Pericardium Normal pericardium. Aorta Normal size aortic root and proximal ascending aorta. CONCLUSIONS Left ventricular hypertrophy with preserved systolic function Previewed by: Dr. German Hinton MD (Electronically Signed) Final Date: 22 Jan 2022 19:44
[2022-01-22] MEDS: ATORVASTATIN 20 MG TAB PO SCH (21:32)
[2022-01-22] MEDS ORDERED: amLODIPine 2.5 MG TAB PO STA (22:21)
[2022-01-22] MEDS: ACETAMINOPHEN TAB 325 MG TAB PO PRN (22:30)
[2022-01-23 07:38] LABS: Basophils % (A) 0 %; Eosinophils # (A) 0.1 k/uL (0-0.7); Eosinophils % (A) 1 %; HCT 31.1 % (39.0-53.0); Lymphocytes # (A) 1.1 k/uL (1.0-4.8); Lymphocytes % (A) 20 %; MCH 31.7 pg (25.0-35.0); MCHC 33.1 g/dL (31.0-37.0); MCV 95.9 fL (80.0-100.0); Mean Platelet Volume 7.8; Monocytes # (A) 0.3 k/uL (0-1.0); Monocytes % (A) 6 %; Neutrophils # (A) 4.1 k/uL (1.3-7.7); Neutrophils % (A) 71 %; Platelet Count 153 k/uL (150-450); RBC 3.24 m/uL (4.30-5.90); RDW 14.1 % (11.5-15.5); WBC 5.7 k/uL (3.8-10.6)
[2022-01-23 07:43] LABS: HGB 10.3 gm/dL (13.0-17.5)
[2022-01-23] MEDS: CHOLECALCIFEROL 25 MCG (1000 IU) TABLET PO SCH (08:40)
[2022-01-23] MEDS: ASCORBIC ACID 500 MG TAB PO SCH (08:40)
[2022-01-23] MEDS: FLUDROCORTISONE 0.1 MG TAB PO SCH (08:40)
[2022-01-23] MEDS: FOLIC ACID 1 MG TAB PO SCH (08:40)
[2022-01-23] MEDS: FERROUS SULFATE 325 MG TAB PO SCH (08:40)
[2022-01-23] MEDS: SERTRALINE 50 MG TAB PO SCH (08:40)
[2022-01-23] MEDS: MULTIVITAMINS, THERA 1 EACH TAB PO SCH (08:41)
[2022-01-23] MEDS: ASPIRIN 81 MG PO SCH (08:41)
[2022-01-23] MEDS ORDERED: NON FORMULARY DRUG (Lutein [Lutein] 20 MG Capsule) PO SCH (09:00)
[2022-01-23] MEDS: MIDODRINE 5 MG TAB PO SCH ×2 (09:19→17:21)
[2022-01-23 10:13] LABS: Albumin 3.4 g/dL (3.5-5.0); Calcium 8.2 mg/dL (8.4-10.2); Potassium 3.8 mmol/L (3.5-5.1); Total Bilirubin 0.8 mg/dL (0.2-1.3); Total Protein 6.1 g/dL (6.3-8.2)
--- NOTE | 2022-01-23 11:38 | P.CRDCN ---
History of Present Illness History of present illness: HISTORY OF PRESENT ILLNESS: This is a 86 year old male with a past medical history significant for coronary artery disease with previous CABG, hypertension, orthostatic hypotension for several years, TIA, hyperlipidemia and syncope. Patient used to follow with Dr. Galicia in [place], currently follows with his group. We have been asked to see the patient in consultation for orthostatic hypotension and fall. Patient presents the emergency department with complaints of falls at home. He states that he has been dealing with this for 4+ years. He states 5/4 night, he was walking around his house, felt lightheaded and fell. He did not lose consciousness. He had 2 more episodes of this the next day and presented to the ER. Patient with severe orthostatic hypotension, has been treated with midodrine, Florinef, Lutein at home. He has been managing this outpatient for many years. Also has been seen at [facility] but he states nothing was done at that time. He denies any chest pain, palpitations, nausea, vomiting, diaphoresis, fever, cough, chills. Continues to have falls. On admission, patient found to be in acute kidney injury, improved with IV fluids. DIAGNOSTICS: * EKG reveals sinus mechanism with ST depression in precordial leads, similar to EKG from 2020 * Chest xray chronic changes without acute pulmonary process. * Laboratory data: WBC 6.1. Hemoglobin 13.4. Platelet count 148. Sodium 142. Potassium 3.5. BUN 26. Creatinine 1.52. Magnesium 1.9. * Current home cardiac medications include aspirin 81mg daily, Florinef 0.1mg daily, midodrine 15mg TID, simvastatin 40mg HS * Most recent echocardiogram obtained in February 2021 revealed ejection fraction 55-60%, mild to moderate mitral regurgitation, mild tricuspid regurgitation * Echocardiogram this admission revealed an EF of 5055%, mild mitral regurgitation, severely increased left atrial volume, mild to moderate tricuspid regurgitation REVIEW OF SYSTEMS: At the time of my exam: CONSTITUTIONAL: Denies fever or chills. HEENT: Denies blurred vision, vision changes, or eye pain. Denies hemoptysis CARDIOVASCULAR: Denies chest pain. Denies orthopnea. Denies PND. Denies palpitations RESPIRATORY: Denies shortness of breath. GASTROINTESTINAL: Denies abdominal pain. Denies nausea or vomiting. HEMATOLOGIC: Denies bleeding disorders. GENITOURINARY: Denies any blood in urine. SKIN: Denies pruitis. Denies rash. PHYSICAL EXAM: VITAL SIGNS: Reviewed. GENERAL: Well-developed in no acute distress. HEENT: Head is normocephalic. Pupils are equal, round. Sclerae anicteric. Mucous membranes of the mouth are moist. Neck supple. No JVD LUNGS: Respirations even and unlabored. Lungs essentially clear to auscultation bilaterally. HEART: Regular rate and rhythm. S1 and S2 heard. ABDOMEN: Soft. Nondistended. Nontender. EXTREMITIES: Normal range of motion. No clubbing or cyanosis. Peripheral pulses intact. No lower extremity edema NEUROLOGIC: Awake and alert. Oriented x 3. ASSESSMENT: S/P Fall Acute kidney injury, improved Chronic severe orthostatic hypotension Hypertension History of TIA Hyperlipidemia History of syncope PLAN: Recommend decrease midodrine to 10mg TID Continue home cardiac medications JOON Hose Unfortunately if we add and try to control his blood pressures more tightly, there is a concern that patient will have worsening hypotension Increase activity as tolerated If patient remains stable, ok to discharge per primary Follow up closely either with Dr. Galicia group, or Dr. Baldwin in the office who he has seen in 2020. Nurse practitioner note has been reviewed by physician. Signing provider agrees with the documented findings, assessment, and plan of care. Past Medical History Past Medical History: Coronary Artery Disease (CAD), COPD, CVA/TIA, Eye Disorder, Hyperlipidemia, Osteoarthritis (OA) Additional Past Medical History / Comment(s): Anemia, idiopathic/orthostatic hypotension, macular degeneration, carpal tunnel syndrome, multiple mini strokes. ooc. lightheadness, AAA History of Any Multi-Drug Resistant Organisms: None Reported Past Surgical History: Appendectomy, Coronary Bypass/CABG, Hernia Repair, Joint Replacement, Tonsillectomy Additional Past Surgical History / Comment(s): CABG X1, vasectomy, umbilical/hiatal hernia repairs, bilateral knee replacements, pinched nerve in neck surgically repaired, abdominal aortic aneurysm repair. Past Anesthesia/Blood Transfusion Reactions: No Reported Reaction Additional Past Anesthesia/Blood Transfusion Reaction / Comment(s): No reactions to previous blood transfusion. Past Psychological History: No Psychological Hx Reported Smoking Status: Never smoker Past Alcohol Use History: None Reported Past Drug Use History: None Reported - Past Family History Mother Family Medical History: No Reported History Medications and Allergies Home Medications Medication Instructions Recorded Confirmed Type Aspirin EC [Ecotrin Low Dose] 81 mg PO DAILY 01/28/20 01/22/22 History Lutein 20 mg PO DAILY 01/28/20 01/22/22 History Sertraline HCl [Zoloft] 50 mg PO DAILY 01/28/20 01/22/22 History Simvastatin 40 mg PO HS 01/28/20 01/22/22 History Ferrous Sulfate [Iron (65 MG 325 mg PO DAILY 03/07/21 01/22/22 History Elemental)] Ascorbic Acid [Vitamin C] 500 mg PO DAILY 10/14/21 01/22/22 History Multivit-Min/FA/Lycopen/Lutein 1 tab PO DAILY 10/14/21 01/22/22 History [Centrum Silver Tablet] Fludrocortisone [Florinef] 0.1 mg PO DAILY 12/23/21 01/22/22 History Midodrine HCl 15 mg PO TID 12/23/21 01/22/22 History Cholecalciferol [Vitamin D3 (25 25 mcg PO DAILY 01/22/22 01/22/22 History Mcg = 1000 Iu)] Folic Acid 1 mg PO DAILY 01/22/22 01/22/22 History Allergies Allergy/AdvReac Type Severity Reaction Status Date / Time No Known Allergies Allergy Verified 01/22/22 11:18 Physical Exam Vitals: Vital Signs Temp Pulse Pulse Pulse Pulse Resp BP 01/22/22 11:15 60 16 185/88 01/22/22 10:51 62 16 206/91 01/22/22 09:48 68 74 68 01/22/22 09:34 98.7 F 66 16 145/77 BP BP BP Pulse Ox 01/22/22 11:15 98 01/22/22 10:51 98 01/22/22 09:48 146/72 97/57 201/85 01/22/22 09:34 100 Intake and Output 01/21/22 01/22/22 01/22/22 22:59 06:59 14:59 Other: Weight 72.575 kg Results 01/23/22 07:11 01/23/22 07:11 Cardiac Enzymes 01/22/22 01/22/22 Range/Units 09:50 09:50 AST 24 (17-59) U/L Troponin I 0.025 (0.000-0.034) ng/mL Coagulation 01/22/22 Range/Units 10:48 PT 11.8 (9.0-12.0) sec APTT 20.6 L (22.0-30.0) sec CBC 01/22/22 Range/Units 09:50 WBC 6.1 (3.8-10.6) k/uL RBC 4.27 L (4.30-5.90) m/uL Hgb 13.4 (13.0-17.5) gm/dL Hct 40.9 (39.0-53.0) % Plt Count 148 L (150-450) k/uL Comprehensive Metabolic Panel 01/22/22 Range/Units 09:50 Sodium 142 (137-145) mmol/L Potassium 3.5 (3.5-5.1) mmol/L Chloride 106 (98-107) mmol/L Carbon Dioxide 28 (22-30) mmol/L BUN 26 H (9-20) mg/dL Creatinine 1.52 H (0.66-1.25) mg/dL Glucose 112 H (74-99) mg/dL Calcium 8.6 (8.4-10.2) mg/dL AST 24 (17-59) U/L ALT 15 (4-49) U/L Alkaline Phosphatase 85 (38-126) U/L Total Protein 6.9 (6.3-8.2) g/dL Albumin 3.8 (3.5-5.0) g/dL Current Medications Generic Name Dose Route Start Last Admin Trade Name Freq PRN Reason Stop Dose Admin Ascorbic Acid 500 mg 01/23/22 09:00 Ascorbic Acid 500 Mg Tab PO DAILY [facility] Aspirin 81 mg 01/23/22 09:00 Aspirin 81 Mg PO DAILY [facility] Atorvastatin Calcium 20 mg 01/22/22 21:00 Atorvastatin 20 Mg Tab PO [facility] Cholecalciferol 25 mcg 01/23/22 09:00 Cholecalciferol 25 Mcg (1000 Iu) Tablet PO DAILY [facility] Ferrous Sulfate 325 mg 01/23/22 09:00 Ferrous Sulfate 325 Mg Tab PO DAILY [facility] Fludrocortisone Acetate 0.1 mg 01/23/22 09:00 Fludrocortisone 0.1 Mg Tab PO DAILY [facility] Folic Acid 1 mg 01/23/22 09:00 Folic Acid 1 Mg Tab PO DAILY [facility] Sodium Chloride 1,000 mls @ 75 mls/hr 01/22/22 12:05 01/22/22 14:11 Saline 0.9% IV 01/23/22 01:24 75 mls/hr .[id number] ONE Administration Midodrine 15 mg 01/22/22 17:30 Midodrine 5 Mg Tab PO AC-TID [facility] Multivitamins 1 each 01/23/22 09:00 Multivitamins, Thera 1 Each Tab PO DAILY [facility] Sertraline HCl 50 mg 01/22/22 13:45 01/22/22 14:10 Sertraline 50 Mg Tab PO 50 mg DAILY [facility] Administration Intake and Output 01/21/22 01/22/22 01/22/22 22:59 06:59 14:59 Other: Weight 72.575 kg Patient Weight 01/23/22 06:59 Weight 72.575 kg 01/22/22 09:50 01/22/22 09:50
--- NOTE | 2022-01-23 15:51 | P.PN ---
Subjective Progress Note Date: 01/23/22 This is a pleasant 86-year-old male who was recently admitted with significant orthostatic hypotension. Patient had significant dizziness and fall and had been recently started on midodrine. Patient's blood pressures continued to be extremely elevated with readings 200 systolic and then will drop significantly when performing orthostatics. PT/OT to evaluate the patient. Patient also being evaluated by cardiology and 2-D echo is ordered. Patient is afebrile and denies chest pain or shortness of breath. Patient continues with some extreme hypertension and recommending possible beta marco. Patient does follow with Dr. Galicia out of [facility] cardiology and has been being followed for quite some time for this. Orthostatic hypotension. Recommend repeat labs in a.m. Review of systems: Constitutional: No reports of fatigue, fever, or chills Cardiovascular: No reports of chest pain or palpitations Respiratory: No reports of shortness of breath or cough GI: No reports of nausea, no reports of of vomiting : No reports of dysuria or retention Neurovascular: reports of generalized weakness All medications have been reviewed Active Medications Acetaminophen (Acetaminophen Tab 325 Mg Tab) 650 mg PO Q6HR PRN PRN Reason: Fever and/ or Pain Last Admin: 01/22/22 22:30 Dose: 650 mg Documented by: Ascorbic Acid (Ascorbic Acid 500 Mg Tab) 500 mg PO DAILY [facility] Last Admin: 01/23/22 08:40 Dose: 500 mg Documented by: Aspirin (Aspirin 81 Mg) 81 mg PO DAILY [facility] Last Admin: 01/23/22 08:41 Dose: 81 mg Documented by: Atorvastatin Calcium (Atorvastatin 20 Mg Tab) 20 mg PO HS [facility] Last Admin: 01/22/22 21:32 Dose: 20 mg Documented by: Cholecalciferol (Cholecalciferol 25 Mcg (1000 Iu) Tablet) 25 mcg PO DAILY [facility] Last Admin: 01/23/22 08:40 Dose: 25 mcg Documented by: Ferrous Sulfate (Ferrous Sulfate 325 Mg Tab) 325 mg PO DAILY [facility] Last Admin: 01/23/22 08:40 Dose: 325 mg Documented by: Fludrocortisone Acetate (Fludrocortisone 0.1 Mg Tab) 0.1 mg PO DAILY [facility] Last Admin: 01/23/22 08:40 Dose: 0.1 mg Documented by: Folic Acid (Folic Acid 1 Mg Tab) 1 mg PO DAILY [facility] Last Admin: 01/23/22 08:40 Dose: 1 mg Documented by: Midodrine (Midodrine 5 Mg Tab) 10 mg PO AC-TID MARTÍN Multivitamins (Multivitamins, Thera 1 Each Tab) 1 each PO DAILY [facility] Last Admin: 01/23/22 08:41 Dose: 1 each Documented by: Sertraline HCl (Sertraline 50 Mg Tab) 50 mg PO DAILY [facility] Last Admin: 01/23/22 08:40 Dose: 50 mg Documented by: PHYSICAL EXAMINATION: GENERAL: The patient is alert and oriented x3, Well developed, well nourished. HEENT: Pupils are round and equally reacting to light. EOMI. no scleral icterus. No conjunctival pallor. Normocephalic, atraumatic. No pharyngeal erythema. No thyromegaly. CARDIOVASCULAR: S1 and S2 muffled PULMONARY: diminished breath sounds bilaterally with no wheezing or rhonchi noted. ABDOMEN: soft. Nontender on exam. obese. non-distended, normoactive bowel sounds. No palpable organomegaly. MUSCULOSKELETAL: No joint swelling or deformity. EXTREMITIES: No cyanosis, clubbing, or pedal edema. NEUROLOGICAL: Gross neurological examination did not reveal any focal deficits. Diffuse weakness SKIN: No rashes. Assessment: Severe orthostatic hypotension and syncope. Orthostatic hypotension Chronic obstructive pulmonary disease Gait dysfunction with falls. History of CVA GI prophylaxis DVT prophylaxis No code Plan: Recommend to continue with current medications and management. Patient has been seen and evaluated by PT/OT therapy. Cardiology also following and ordered a 2- D echo which shows left ventricular hypertrophy with preserved systolic function, some mild to moderate tricuspid regurgitation, mild mitral regurgitation, severely increased left atrial volume, EF estimated at 50-55%. Patient continues with extreme hypertension and cardiology following and recommending to hold hypertensive medications at this time as they are concerned with worsening hypotension. Patient does follow with Dr. Galicia out of [place] for cardiology. Recommend repeat labs and close monitoring. Due to multiple complex medical issues, prognosis is guarded. Further recommendations to follow based on the clinical course of the patient. The impression and plan of care has been dictated by Maryanne Whittaker, nurse practitioner as directed. MD Amber I have performed a history and examination and MDM of this patient, discussed the same with the dictator, and agree with the dictator's assessment and plan as written ,documented as a scribe. Based on total visit time, I have performed more than 50% of the visit. Any additional findings or plans will be noted. Objective - Vital Signs Vital signs: Vital Signs Temp 98.0 F 01/23/22 07:53 Pulse 68 01/23/22 08:00 Resp 18 01/23/22 08:00 BP 233/98 01/23/22 07:50 Pulse Ox 100 01/23/22 07:53 Intake & Output 01/22/22 01/23/22 01/23/22 18:59 06:59 18:59 Intake Total 660 Output Total 1250 770 Balance -1250 -110 Weight 72.575 kg 72.575 kg Intake: Oral 660 Output: Urine 1250 770 Other: Voiding Method Toilet Toilet Urinal Urinal - Labs CBC & Chem 7: 01/23/22 07:11 01/23/22 07:11 Labs: Abnormal Lab Results - Last 24 Hours (Table) 01/23/22 01/23/22 Range/Units 07:11 07:11 RBC 3.24 L (4.30-5.90) m/uL Hgb 10.3 L D (13.0-17.5) gm/dL Hct 31.1 L (39.0-53.0) % Calcium 8.2 L (8.4-10.2) mg/dL Total Protein 6.1 L (6.3-8.2) g/dL Albumin 3.4 L (3.5-5.0) g/dL
[2022-01-23] MEDS: ATORVASTATIN 20 MG TAB PO SCH (20:10)
[2022-01-23 21:16] VITALS: RESP 18
[2022-01-23] MEDS: ACETAMINOPHEN TAB 325 MG TAB PO PRN (21:42)
[2022-01-24 08:48] VITALS: BP 172/76; TEMP 98.5
[2022-01-24] MEDS: ASCORBIC ACID 500 MG TAB PO SCH (08:49)
[2022-01-24] MEDS: CHOLECALCIFEROL 25 MCG (1000 IU) TABLET PO SCH (08:49)
[2022-01-24] MEDS: MULTIVITAMINS, THERA 1 EACH TAB PO SCH (08:49)
[2022-01-24] MEDS: FOLIC ACID 1 MG TAB PO SCH (08:49)
[2022-01-24] MEDS: SERTRALINE 50 MG TAB PO SCH (08:49)
[2022-01-24] MEDS: FLUDROCORTISONE 0.1 MG TAB PO SCH (08:49)
[2022-01-24] MEDS: FERROUS SULFATE 325 MG TAB PO SCH (08:49)
[2022-01-24] MEDS: ASPIRIN 81 MG PO SCH (08:50)
--- NOTE | 2022-01-24 09:28 | P.PN ---
Subjective Progress Note Date: 01/24/22 Principal diagnosis: Syncope The patient is an 86-year-old gentleman with a past medical history significant for recurrent fall as well as known chronic severe orthostatic hypotension was admitted to the hospital with a fall. He was seen this morning. He seems to be stable overall. The pressure continues to be elevated. For that reason moderate and was on hold. He reports no pain in the chest and no shortness of breath. He has been maintaining normal sinus mechanism. He underwent an echo which revealed normal left ventricular systolic function with no significant valvular abnormalities. I did have a discussion with the patient about his condition and I told him that this is very heart condition to treat and there is no medication can cure it. At this point the patient Discharged home with holding midodrine and he needs to follow-up with his money manager as an outpatient. Objective - Vital Signs Vital signs: Vital Signs Temp 98.5 F 01/24/22 08:00 Pulse 68 01/24/22 08:00 Resp 18 01/24/22 08:00 BP 172/76 01/24/22 08:00 Pulse Ox 98 01/24/22 08:00 Intake & Output 01/23/22 01/24/22 01/24/22 18:59 06:59 18:59 Intake Total 1260 10 Output Total 770 175 Balance 490 -165 Intake: IV 10 0.9 10 Oral 1260 Output: Urine 770 175 Other: Voiding Method Toilet Toilet Urinal Urinal # Voids 1 1 - Constitutional General appearance: Present: no acute distress - Respiratory Respiratory: bilateral: diminished - Cardiovascular Rhythm: regular Heart sounds: normal: S1, S2 - Labs CBC & Chem 7: 01/23/22 07:11 01/23/22 07:11 Labs: Abnormal Lab Results - Last 24 Hours (Table) 01/23/22 Range/Units 07:11 Calcium 8.2 L (8.4-10.2) mg/dL Total Protein 6.1 L (6.3-8.2) g/dL Albumin 3.4 L (3.5-5.0) g/dL Assessment and Plan Assessment: Assessment #1 chronic severe orthostatic hypotension #2 history of TIA #3 multiple comorbid conditions Plan #1 the patient is stable to be discharged and follow-up with his money manager #2 hold midodrine in view of the elevated blood pressure
[2022-01-24 09:40] VITALS: PULSE 70
--- NOTE | 2022-01-24 20:03 | DS ---
DISCHARGE SUMMARY FINAL DIAGNOSIS: 1. Severe orthostatic hypotension and syncope. 2. Orthostatic hypotension history. 3. Chronic obstructive pulmonary disease. 4. Gait dysfunction. 5. History of cerebrovascular accident. DISCHARGE DISPOSITION: The patient will be discharged in stable condition with guarded prognosis. Cardiology cleared the patient for discharge. HISTORY OF PRESENT ILLNESS: This 86-year-old gentleman with a past medical history of multiple medical problems was admitted with significant orthostatic hypotension and hypertension. Midodrine was stopped, treated symptomatically. Patient improved significantly. On exam, vitals are stable. CARDIOVASCULAR: S1, S2 muffled. ABDOMEN: Soft. NERVOUS SYSTEM: No focal deficit. Please refer to the discharge medication reconciliation sheet for left of home medications. Cardiology recommended stopping the midodrine. Follow up with primary physician. Follow up with Cardiology as recommended. Once again, the patient will be discharged in stable condition with guarded prognosis. YANI / JOSHUA: [id number] /
== END 2022-01-24 13:35 | disposition home or self-care (01) | DRG 312 ==
LOC: EC 08:57 → 5NMEDONC 12:06 → 3SCARD 13:44
PROVIDERS: ADMIT Hospitalist; ATTEND Hospitalist
DX: I95.1 Orthostatic hypotension (principal); N17.9 Acute kidney failure, unspecified; E78.5 Hyperlipidemia, unspecified; J44.9 Chronic obstructive pulmonary disease, unspecified; I10 Essential (primary) hypertension; I25.10 Atherosclerotic heart disease of native coronary artery without angina pectoris; D64.9 Anemia, unspecified; M19.90 Unspecified osteoarthritis, unspecified site; G56.00 Carpal tunnel syndrome, unspecified upper limb; H35.30 Unspecified macular degeneration; M54.2 Cervicalgia; R29.6 Repeated falls; M25.511 Pain in right shoulder; R26.9 Unspecified abnormalities of gait and mobility; Z79.82 Long term (current) use of aspirin; Z79.52 Long term (current) use of systemic steroids; Z79.899 Other long term (current) drug therapy; Z90.49 Acquired absence of other specified parts of digestive tract; Z87.19 Personal history of other diseases of the digestive system; Z86.73 Personal history of transient ischemic attack (TIA), and cerebral infarction without residual deficits; Z95.1 Presence of aortocoronary bypass graft; Z96.653 Presence of artificial knee joint, bilateral; Z90.89 Acquired absence of other organs; Z98.52 Vasectomy status; Z95.828 Presence of other vascular implants and grafts; Z86.79 Personal history of other diseases of the circulatory system; Z98.890 Other specified postprocedural states; W19.XXXA Unspecified fall, initial encounter
CPT/HCPCS: 36415; 70450; 71046; 72125; 80053; 82533; 83735; 84484; 85025; 85610; 85730; 93005; 93306; 96360; 96361; 99285

== ENCOUNTER 2022-02-19 09:16 | Day surgery (SDC) | payer MEDICARE, OTHER ==
[2022-02-18 10:27] VITALS: BMI 23.6
[~2022-02-19 09:16] MED LIST changes: -DEXAMETHASONE SOD PHOSPHATE 10 MG/ML 1 ML VIAL ONE; -IOPAMIDOL M200 10 ML VIAL ONE; -IV FLUID CONTINUATION 1,000 ML IV ONE; -LACTATED RINGERS 1,000 ML IV ONE; -LIDOCAINE 1% (10MG/ML) FOR IV START INTRADERMA ONE; +LIDOCAINE 1% (10MG/ML) FOR IV START INTRADERMA PRN; -MIDAZOLAM 2 MG/2 ML VIAL ONE; -fentaNYL (PF) 50 MCG/ML 2 ML AMP ONE
[2022-02-19 09:54] VITALS: RESP 16; TEMP 98.3
[2022-02-19] MEDS ORDERED: IOPAMIDOL M200 10 ML VIAL ONE (09:54)
[2022-02-19] MEDS ORDERED: MIDAZOLAM 2 MG/2 ML VIAL ONE (09:54)
[2022-02-19] MEDS ORDERED: fentaNYL (PF) 50 MCG/ML 2 ML AMP ONE (09:54)
[2022-02-19] MEDS ORDERED: hydrALAZINE HCL 20 MG/ML 1 ML VIAL ONE (09:54)
[2022-02-19] MEDS ORDERED: DEXAMETHASONE SOD PHOSPHATE 10 MG/ML 1 ML VIAL ONE (09:54)
--- NOTE | 2022-02-19 10:21 | P.PCN ---
Date of Procedure: 02/19/22 Procedure(s) Performed: PREOPERATIVE DIAGNOSIS: 1-cervical radiculopathy .2-cervical spondylosis with cervical facet arthropathy. 3-cervical degenerative disc disease POSTOPERATIVE DIAGNOSIS: Same as preoperative diagnoses. PROCEDURE 1. Transforaminal epidural steroid injection under fluoroscopic guidance at bilateral C4-5 level. (Fluoroscopy images stored on file in the radiology Department ) 2. Cervical epidurogram . ANESTHESIA: Local with 1% lidocaine 3 ml , moderate sedation with intravenous Versed 1 mg and fentanyle 50 micrograms. EBL: Minimal PROCEDURE INDICATION: The patient with low back pain and radiculopathy symptoms unresponsive to conservative treatment. PROCEDURE DESCRIPTION / TECHNIQUE: The patient was seen and identified in the preoperative area. Risks, benefits, complications, and alternatives were discussed with the patient. The patient agreed to proceed with the procedure and signed the consent. IV was started, and vital signs were stable. Patient was taken to the OR and time out was completed. The patient was placed in the supine position on procedure table . The neck area was prepped and draped in the usual sterile fashion. Critical pause was taken. Vital signs were closely monitored during the procedure. Conscious sedation was used during the procedure to decrease patient s anxiety. Using oblique fluoroscopy, the chin of the `Jacky dog at right C4-5 level was identified, and the skin and deeper tissues just below was localized with 1% lidocaine. Subsequently, a 25-gauge 2.5-inch spinal needle was advanced under a tunneled view fluoroscopic guidance just underneath the chin of the `Mingo dog at the right C 4-5 Under lateral fluoroscopy, the needle was then advanced to the posterior border of the interforaminal space. After negative aspiration of CSF and blood and with no paresthesias, 1 mL Isovue 200 contrast dye was injected excellent epidurogram and outlining of the nerve root Subsequently, 2 mL of block solution containing 7.5 mg Dexamethasone and 1 mL of 0.9% normal saline PF was injected. Needle was removed and the same procedure was repeated at the left C4-5 level . At the end of the procedure, skin was cleansed, and bandages were applied. COMPLICATIONS:none DISPOSITION / PLANS: The patient was placed in a supine position and transferred to the recovery area in a stable condition for observation. There was no evidence of lower extremity motor or sensory deficit after the procedure. Patient was discharged from the recovery room after meeting discharge criteria. Home discharge instructions were given to the patient by the staff. The patient was reexamined prior to discharge.
[2022-02-19] MEDS ORDERED: IV FLUID CONTINUATION 1,000 ML IV ONE (10:37)
[2022-02-19 10:52] VITALS: BP 152/71; PULSE 69
--- NOTE | 2022-02-19 22:20 | FL ---
Fluoroscopy HISTORY: Pain 20 seconds fluoroscopy time supplied to the referring clinician. 3 intraoperative C-arm images docum ent the procedure. See dictated report from anesthesia.
== END 2022-02-19 10:55 | disposition home or self-care (01) ==
LOC: ORPAIN 09:16
PROVIDERS: ATTEND Specialist
DX: M47.22 Other spondylosis with radiculopathy, cervical region (principal); M47.812 Spondylosis without myelopathy or radiculopathy, cervical region
CPT/HCPCS: 64483; J2250; J0360; J1100; J3010; Q9966; 99152

== ENCOUNTER → 2022-03-12 | Outpatient (CLI) | payer MEDICARE, OTHER ==
[2022-03-12 11:13] VITALS: BP 200/100; PULSE 67; RESP 18
--- NOTE | 2022-03-12 11:21 | P.PAINPG ---
PQRS Measure Charge Sheet Comment: A 86 yr old male with a history of severe and chronic neck pain secondary to cervical degenerative disc diseases and spondylosis with facet arthropathy presents today for evaluation s/p BL TFESI C4-C5. He states he experienced 50% pain relief for 2 days status post procedure. Pain level is currently at 4 out of 10 in intensity, lifting, achy in the mid to lower aspects of his cervical spine which is accompanied with cracking and grinding with movements such as flexion, rotation and extension. Pain shoots towards the bilateral shoulders. Pain is alleviated with medications, injections, home stretching regimen, use of a walker for ambulation, use of a soft cervical collar at bedtime, repositioning and rest. Patient also has elevated blood pressure reading today initially at 200/100. Patient denies dizziness, headache or vision changes. He states he does follow up with a ear specialist and is on blood pressure medication but is unaware of the name of it. States he does take it daily. Advised patient to go downstairs to the ER for hypertensive urgency. Dangers of elevated blood pressure discussed and patient acknowledged understanding. Interventional pain procedures completed include ABRAHAM C4-C5, C5-C6 x 1. BL TFESI C4-C5 x 1. Patient is currently on Tylenol OTC Patient denies any side effects of the medication(s), denies excessive drowsiness or sleepiness, denies suicidal ideation and reports that the current pain medication is helping to control the pain and improve activities of daily living. Patient denies any motor or sensory deficits. Patient denies any fever or night sweats, denies any change in the bowel movements or urination. Physical Examination: -Constitutional: Cooperative. Not in acute distress . - Neurologic: Cranial nerve II to XII intact. No focal neurological deficits. - Psychatric: Alert & oriented x 3. Matching mood & appropriate affect. Judgment and insight intact. - Musculoskeletal: Cervical spine: Muscle bulk/ tone/ strength in the bilateral upper extremities normal Vertebral body tenderness to palpation over C3-C7 as well as paraspinal TTP R>L Spurling test positive Distraction test positive Facet loading test positive Thoracic spine Muscle bulk / tone/ strength in the bilateral paraspinal muscles normal Vertebral body tender to palpation over Facet loading test positive Lumbar spine: Motor bulk/ tone/ strength lower extremities , thigh and legs : 5/5 Deep tendon reflexes : Normal Knee Jerk. Normal Ankle Jerk . Vertebral body tenderness to palpation over Lumbar Facet Loading Test positive Straight Leg Raise: positive at 30 degrees right side/ left side Gaenslen's Test positive Sacral spine : Severe tenderness over the Sacroiliac joint: right side / left side Range of motion: Flexion of the lumbar spine <60 degrees Range of motion: Extension of the lumbar spine <20 degrees Gaenslen's Test positive Apollo's Test positive Kd test: positive right side / left side Thigh Thrust Test Sacral Thrust Test Assessment and plan: Chronic low back pain secondary to lumbar degenerative disc disease , lumbar spondylosis with facet arthropathy without myelopathy Recommendation of TPIs of the BL C2-C7. Risks, benefits of procedure discussed and pt verbalized understanding. Denies anticoagulant use or medical history of diabetes. Also advised pt that he should consider following up with his orthopedic surgeon for additional treatment options. All patient questions answered I have spent less than 30 minutes on patient care today. Dr Wills was available by phone for the evaluation of this patient. The time was used to review the medical records including relevant urine studies and Prescription history (MAPs), review of the available imaging, evaluation and examination of the patient, coordination of care with the medical staff and if applicable referring physicians, as well as creation of the medical record PQRS Narrative: Smoking Status Former smoker Hx Alcohol Use (MH) No Home Medications: Ambulatory Orders Aspirin EC [Ecotrin Low Dose] 81 mg PO DAILY 01/28/20 Lutein 20 mg PO DAILY 01/28/20 Sertraline HCl [Zoloft] 50 mg PO DAILY 01/28/20 Simvastatin 40 mg PO HS 01/28/20 Ferrous Sulfate [Iron (65 MG Elemental)] 325 mg PO DAILY 03/07/21 Ascorbic Acid [Vitamin C] 1,000 mg PO DAILY 10/14/21 Multivit-Min/FA/Lycopen/Lutein [Centrum Silver Tablet] 1 tab PO DAILY 10/14/21 Fludrocortisone [Florinef] 0.1 mg PO DAILY 12/23/21 Cholecalciferol [Vitamin D3 (25 Mcg = 1000 Iu)] 25 mcg PO DAILY 01/22/22 Folic Acid 1 mg PO DAILY 01/22/22 Thiamine [Vitamin B-1] 100 mg PO DAILY 02/18/22 Controlled Substance Measures - Controlled Substance Measures Is patient prescribed a controlled substance at discharge?: No
== END ==
LOC: PNWHC3 09:32
PROVIDERS: ATTEND Specialist
DX: M51.36 Other intervertebral disc degeneration, lumbar region (principal); M47.816 Spondylosis without myelopathy or radiculopathy, lumbar region; G89.29 Other chronic pain; Z87.891 Personal history of nicotine dependence
CPT/HCPCS: 99211

== ENCOUNTER 2022-04-21 08:34 | Day surgery (SDC) | payer MEDICARE, OTHER ==
[2022-04-21 09:07] VITALS: TEMP 97.4
[2022-04-21] MEDS ORDERED: MIDAZOLAM 2 MG/2 ML VIAL ONE (09:43)
[2022-04-21] MEDS ORDERED: ROPIVACAINE 5MG/ML 20ML VIAL ONE (09:43)
[2022-04-21] MEDS ORDERED: fentaNYL (PF) 50 MCG/ML 2 ML AMP ONE (09:43)
[2022-04-21] MEDS ORDERED: methylPREDNISolone ACETATE 40 MG/ML 1 ML VIAL ONE (09:43)
[2022-04-21] MEDS ORDERED: IV FLUID CONTINUATION 1,000 ML IV ONE (10:00)
--- NOTE | 2022-04-21 10:02 | P.PCN ---
Date of Procedure: 04/21/22 Procedure(s) Performed: PREOPERATIVE DIAGNOSIS: 1-Cervical Spondylosis with Facet Arthropathy.without myelopathy. 2-cervical degenerative disc disease. 3-myofascial pain syndrome cervical paraspinal muscles POSTOPERATIVE DIAGNOSIS: Same as preoperative diagnosis. PROCEDURES: Trigger point injections cervical paraspinal muscles C2 to C7 Billaterally ( 5 trigger points injected on the right side cervical paraspinal muscles and 5 on the left side cervical paraspinal muscles ANESTHESIA: moderate sedation with Versed 1 mg , and fentanyl 50 micrograms (sedation started at 09:45, and finished at 09:56 ) EBL: Minimal PROCEDURE INDICATION: The patient with neck pain secondary to cervical arthropathy unresponsive to more conservative treatments. PROCEDURE DESCRIPTION / TECHNIQUE: The patient was seen and identified in the preoperative area. Risks, benefits, complications, and alternatives were discussed with the patient, the patient agreed to proceed with the procedure and signed the consent. IV was started. Vital signs remained stable throughout the procedure. Patient taken to the procedure room placed in sitting position all the standard monitors applied, then total of 5 trigger point injected on the right side cervical paraspinal muscles from C2 to C7 ,and 5 trigger point injected on the left side cervical paraspinal muscles from C2 to C7, using 25-gauge needle and 2 mL of the mixture of ropivacaine 0.5% mixed with 40 mg of Depo-Medrol mixed together and 2 mL of the mixture was injected at each trigger point total of 20 ML of the medication was used, injection done after negative aspiration and there was no paresthesia during the injection COMPLICATIONS: No acute complications. DISPOSITION / PLANS: The patient was placed in a supine position and transferred to the recovery area in a stable condition for observation and was discharged from the recovery room after meeting discharge criteria. Home discharge instructions given to the patient by the staff. The patient was reexamined prior to discharge. The patient will schedule a follow up in the clinic in 2-4 weeks.
[2022-04-21] MEDS ORDERED: hydrALAZINE HCL 20 MG/ML 1 ML VIAL ONE (10:38)
[2022-04-21] MEDS ORDERED: hydrALAZINE HCL 20 MG/ML 1 ML VIAL IVP ONE (10:39)
[2022-04-21 10:41] VITALS: RESP 17
[2022-04-21 11:10] VITALS: BP 181/75; PULSE 60
== END 2022-04-21 11:25 | disposition home or self-care (01) ==
LOC: ORPAIN 08:34
PROVIDERS: ATTEND Specialist
DX: M79.18 Myalgia, other site (principal); M47.812 Spondylosis without myelopathy or radiculopathy, cervical region; M50.30 Other cervical disc degeneration, unspecified cervical region; I10 Essential (primary) hypertension
CPT/HCPCS: 96374; 20553; J2250; J0360; J1030; J3010; J2795; 99152

== ENCOUNTER → 2022-05-21 | Outpatient (CLI) | payer MEDICARE, OTHER ==
[2022-05-21 14:45] VITALS: BP 125/74; PULSE 71; RESP 18
--- NOTE | 2022-05-21 15:05 | P.PAINPG ---
PQRS Measure Charge Sheet Comment: A 87 yr old male with a history of severe and chronic neck pain secondary to cervical degenerative disc diseases and spondylosis with facet arthropathy without myelopathy presents today for evaluation s/p TPIs of BL C2-C7. Pt states he received 60% pain relief x 4 days s/p procedure. Pain level is currently at 6/10 in intensity, constant, localized in mid cervical spine, dull/ achy in character w shooting towards the shoulders BL. Pain is provoked by hyperextension. Pain is alleviated with medications (Tylenol), heat, injections in the past, home stretching regimen, repositioning and rest. Interventional pain procedures completed include TPIs BL C2-C7. Patient is currently on Tylenol OTC Patient denies any side effects of the medication(s), denies excessive drowsiness or sleepiness, denies suicidal ideation and reports that the current pain medication is helping to control the pain and improve activities of daily living. Patient denies any motor or sensory deficits. Patient denies any fever or night sweats, denies any change in the bowel movements or urination. Physical Examination: -Constitutional: Cooperative. Not in acute distress . - Neurologic: Cranial nerve II to XII intact. No focal neurological deficits. - Psychatric: Alert & oriented x 3. Matching mood & appropriate affect. Judgment and insight intact. - Musculoskeletal: Cervical spine: Muscle bulk/ tone/ strength in the bilateral upper extremities normal Vertebral body tenderness to palpation over C6 Spurling test positive Distraction test positive Facet loading test positive Thoracic spine Muscle bulk / tone/ strength in the bilateral paraspinal muscles normal Vertebral body tender to palpation over Facet loading test positive Lumbar spine: Motor bulk/ tone/ strength lower extremities , thigh and legs : 5/5 Deep tendon reflexes : Normal Knee Jerk. Normal Ankle Jerk . Vertebral body tenderness to palpation over Lumbar Facet Loading Test positive Straight Leg Raise: positive at 30 degrees right side/ left side Gaenslen's Test positive Sacral spine : Severe tenderness over the Sacroiliac joint: right side / left side Range of motion: Flexion of the lumbar spine <60 degrees Range of motion: Extension of the lumbar spine <20 degrees Gaenslen's Test positive Apollo's Test positive Kd test: positive right side / left side Thigh Thrust Test Sacral Thrust Test Assessment and plan: Chronic neck pain secondary to cervical degenerative disc disease , spondylosis with facet arthropathy without myelopathy Recommendation of Spinal neurostimulator placement. Pt watching video on implantable device. Made aware that he will need a behavioral health evaluation to determine if device is the right choice for him. Pt states he had an implantable device in his "back about a year ago" which was ineffective and it was subsequently removed. Also discussed with pt that he may need to follow up with his orthopedic surgeon for additional treatment options. Discussed medication management but pt was disinterested at this time. Risks, benefits of procedure discussed and pt verbalized understanding. Denies anticoagulant use or medical history of diabetes. Pt watched instructional video but was disinterested at this time. Stated he will try massage therapy and may return to our clinic on an as needed basis. All patient questions answered MAPS reviewed and it was appropriate. I have spent less than 30 minutes on patient care today. Dr Wills was available by phone for the evaluation of this patient. The time was used to review the medical records including relevant urine studies and Prescription history (MAPs), review of the available imaging, evaluation and examination of the patient, coordination of care with the medical staff and if applicable referring physicians, as well as creation of the medical record - Pain Location Neck Non-Pharmacological Interventions: Heat, Home Exercise, Inactivity, Position/Reposition, Stretching Pharmacological Interventions: Block, Epidural, PRN Medication PQRS Narrative: Smoking Status Former smoker Hx Alcohol Use (MH) No Home Medications: Ambulatory Orders Aspirin EC [Ecotrin Low Dose] 81 mg PO DAILY 01/28/20 Lutein 20 mg PO DAILY 01/28/20 Sertraline HCl [Zoloft] 50 mg PO DAILY 01/28/20 Simvastatin 40 mg PO HS 01/28/20 Ferrous Sulfate [Iron (65 MG Elemental)] 325 mg PO DAILY 03/07/21 Ascorbic Acid [Vitamin C] 1,000 mg PO DAILY 10/14/21 Multivit-Min/FA/Lycopen/Lutein [Centrum Silver Tablet] 1 tab PO DAILY 10/14/21 Cholecalciferol [Vitamin D3 (25 Mcg = 1000 Iu)] 25 mcg PO DAILY 01/22/22 Folic Acid 1 mg PO DAILY 01/22/22 Thiamine [Vitamin B-1] 100 mg PO DAILY 02/18/22 Controlled Substance Measures - Controlled Substance Measures Is patient prescribed a controlled substance at discharge?: No
== END ==
LOC: PNWHC3 14:14
PROVIDERS: ATTEND Specialist
DX: M50.30 Other cervical disc degeneration, unspecified cervical region (principal); M47.812 Spondylosis without myelopathy or radiculopathy, cervical region; G89.29 Other chronic pain; Z87.891 Personal history of nicotine dependence
CPT/HCPCS: 99211

== ENCOUNTER → 2022-10-13 | Outpatient (CLI) | payer MEDICARE, OTHER ==
--- NOTE | 2022-10-13 13:11 | CT ---
EXAMINATION TYPE: CT lumbar spine wo con DATE OF EXAM: 10/13/2022 12:56 PM COMPARISON: None HISTORY: Spondylosis without myelopathy or radiculopathy CT DLP: 498.50 mGycm Automated exposure control for dose reduction was used. Unenhanced CT of the lumbar spine was performed. Bone and soft tissue window settings are submitted as well as coronal and sagittal reconstructions. L1-L2: Mild degenerative disc space narrowing. No significant disc bulging. No central stenosis or di sc herniation. Mild facet joint arthropathy. No foraminal encroachment. Ventral spondylosis identifie d. L2-L3: Moderate degenerative disc space narrowing. Circumferential disc bulge greatest posteriorly. E ffacement of the ventral thecal sac with hypertrophy of the ligamentum flavum and facet joint arthrop athy resulting in mild central stenosis. Mild bilateral neural foraminal encroachment. Large ventral spurs. L3-L4: Moderate degenerative disc space narrowing. Circumferential disc bulge greatest posteriorly. E ffacement of the ventral thecal sac with hypertrophy of the ligamentum flavum and facet joint arthrop athy resulting in mild central stenosis. Mild bilateral neural foraminal encroachment. Large ventral spurs. L4-L5: Severe degenerative disc space narrowing. Posterior disc bulge. Effacement ventral thecal sac with hypertrophy of the ligamentum flavum and moderate to severe facet joint arthropathy resulting in [id number] central stenosis. Bilateral neural foraminal encroachment. Ventral spondylosis. L5-S1: Moderate to severe degenerative disc space narrowing. Large anterior bridging spur. Posterior disc bulge with encapsulating spur resulting in disc endplate complex. Bilateral lateral recess steno sis without central stenosis. Mild bilateral neural foraminal encroachment. No evidence for fracture or malalignment. Aortic stent graft in place. IMPRESSION: 1. Multilevel degenerative disc disease. 2. Multilevel central stenosis as discussed above.
== END | disposition home or self-care (01) ==
LOC: RADCTMAIN 12:17
PROVIDERS: ATTEND Physical Medicine & Rehabilitation
DX: M51.36 Other intervertebral disc degeneration, lumbar region (principal); M48.061 Spinal stenosis, lumbar region without neurogenic claudication; M47.816 Spondylosis without myelopathy or radiculopathy, lumbar region; M47.812 Spondylosis without myelopathy or radiculopathy, cervical region; M48.02 Spinal stenosis, cervical region
CPT/HCPCS: 72131

== ENCOUNTER 2023-05-02 17:52 | Inpatient (IN) | payer MEDICARE, OTHER ==
[2023-05-02] MEDS ORDERED: KETOROLAC 15 MG/ML 1 ML VIAL IM STA (18:05)
[2023-05-02] MEDS ORDERED: KETOROLAC 15 MG/ML 1 ML VIAL IVP STA (18:05)
[2023-05-02] MEDS ORDERED: ACETAMINOPHEN TAB 500 MG TAB PO STA (19:00)
--- NOTE | 2023-05-02 19:20 | XR ---
EXAMINATION TYPE: XR knee complete bilateral DATE OF EXAM: 05/02/2023 6:40 PM INDICATION: Patient age:Male; 88 years old; Reason for study: nahum knee pain; PHH. COMPARISON: None. TECHNIQUE: The Bilateral knee(s) was examined in Frontal, lateral and oblique projections. FINDINGS: Bilateral knee arthroplasty changes. Hardware appears intact. No evidence for fracture. The re is a fabella bilaterally. Atherosclerosis of the arterial vasculature. Moderate Left knee joint ef fusion. Small right knee joint effusion. IMPRESSION: Post arthroplasty changes bilaterally without evidence of fracture or hardware loosening. There are joint effusions bilaterally.
--- NOTE | 2023-05-02 19:37 | CT ---
EXAMINATION TYPE: CT ChestAbdPelvis wo con CT DLP: 609.6 mGycm, Automated exposure control for dose reduction was used. DATE OF EXAM: 05/02/2023 6:55 PM COMPARISON: CT 10/13/2022 CLINICAL INDICATION:Male, 88 years old with history of fall, chest pain with cough; PHH, rib pain fol lowing fall Technique: Multiple axial images of the chest, abdomen, and pelvis were obtained. Two-dimensional cor onal and sagittal reconstructions were obtained. Contrast used: None Oral contrast used: without Oral Contrast Findings: CHEST: LUNGS/ PLEURA: Scattered calcified granulomas are seen throughout the lungs. No evidence for focal co nsolidation, pneumothorax or pleural effusion. There is an elevated right diaphragm. Calcified plaqui ng noted along the pleura bilaterally. Trachea atelectasis in the right lung base AIRWAY: Patent and unremarkable. HEART: Size within normal limits. Atherosclerosis of the coronary arteries. MEDIASTINUM: No gross evidence of adenopathy. VASCULATURE: No aortic aneurysm. MUSCULOSKELETAL: There is degeneration changes of the shoulders with joint joint bone articulation of the right shoulder. Wires are present. No displaced rib fracture visualized. SOFT TISSUES/LYMPH NODES: Unremarkable. LOWER NECK: No significant findings. ABDOMEN: ABDOMEN LIVER: Suspected granulomas within the liver. GALLBLADDER AND BILE DUCTS: Gallstones are present. PANCREAS: Unremarkable. SPLEEN: Unremarkable. ADRENAL GLANDS: Unremarkable. KIDNEYS AND URETERS: Right lower renal pole 14 mm indeterminate cysts measuring 43 Hounsfield units. PELVIS BLADDER: Unremarkable REPRODUCTIVE: Unremarkable. ABDOMEN & PELVIS STOMACH AND BOWEL: No evidence of bowel obstruction. Colonic diverticula. Surgical clips in the upper abdomen are present. PERITONEUM: No evidence of pneumoperitoneum or free fluid. High density material seen within the left pelvis is unchanged from priors CT. Unclear if this is a vascular structure and now measures up to 5 .0 cm, previously 4.5 cm on 10/13/2022. VASCULATURE: Aortobiiliac stent graft present. A forementioned possible vascular structure in the pel vis is mildly increased in size from September 2022. MUSCULOSKELETAL: Multilevel degeneration changes of the spine with disc space narrowing osteophytes, Schmorl's nodes and facet joint arthropathy. Pseudoarticulation of the spinous processes in the lumba r spine. LYMPH NODES: No gross evidence for lymphadenopathy. SOFT TISSUE/ABDOMINAL WALL: Left upper anterior abdominal wall edema. IMPRESSION: 1. No evidence for acute fracture 2. Edema in the left upper abdomen subcutaneous tissues anteriorly correlate for point of trauma. 3. Calcifications along the pulmonary pleura. Correlate for asbestos exposure. 4. Aortobiiliac stent graft in place. 5. Cholelithiasis. 6. Colonic diverticulosis. 7. Metallic density within the left pelvis with round morphology which may represent a vascular stru cture in the pelvis. If not recently performed consider outpatient nonemergent CTA of the pelvis. Cor relation prior imaging at outside institution is recommended. This is mildly increased from 10/13/2022 . 8. Indeterminate right renal cyst measuring complaint 4 cm. MRI renal mass protocol recommended for complete characterization.
--- NOTE | 2023-05-02 19:43 | ED ---
General Adult HPI - General Chief complaint: Extremity Injury, Lower Stated complaint: Bilateral knee pain Time Seen by Provider: 05/02/23 18:00 Source: patient, EMS Mode of arrival: EMS Limitations: no limitations - History of Present Illness Initial comments: 8-year-old male presenting to the ED with a chief complaint of bilateral knee pain. Patient states yesterday twisted his R knee and route to the ground. Was able to catch himself. Denies head injury at this time. Now notes pain of the right knee. Denies any other injury at this time. Today, states that he stood up too fast while getting [place] of the car [place] and he started to get dizzy twisted his opposite knee. At this time, family was able to catch him and he did not fall to the ground. Now notes pain of bilateral. Also notes chest pain when he coughs. Notes history of dizziness when standing up too fast and notes that this is not new. Denies chest pain or shortness of breath. No other complaints. - Related Data Home Medications Medication Instructions Recorded Confirmed Aspirin EC [Ecotrin Low Dose] 81 mg PO DAILY 01/28/20 05/21/22 Lutein 20 mg PO DAILY 01/28/20 05/21/22 Sertraline HCl [Zoloft] 50 mg PO DAILY 01/28/20 05/21/22 Simvastatin 40 mg PO HS 01/28/20 05/21/22 Ferrous Sulfate [Iron (65 MG 325 mg PO DAILY 03/07/21 05/21/22 Elemental)] Ascorbic Acid [Vitamin C] 1,000 mg PO DAILY 10/14/21 05/21/22 Multivit-Min/FA/Lycopen/Lutein 1 tab PO DAILY 10/14/21 05/21/22 [Centrum Silver Tablet] Cholecalciferol [Vitamin D3 (25 25 mcg PO DAILY 01/22/22 05/21/22 Mcg = 1000 Iu)] Folic Acid 1 mg PO DAILY 01/22/22 05/21/22 Thiamine [Vitamin B-1] 100 mg PO DAILY 02/18/22 05/21/22 Previous Rx's Medication Instructions Recorded Ibuprofen [Motrin] 600 mg PO Q8HR PRN #20 tab 05/02/23 Allergies Allergy/AdvReac Type Severity Reaction Status Date / Time No Known Allergies Allergy Verified 05/21/22 14:47 Review of Systems ROS Statement: Those systems with pertinent positive or pertinent negative responses have been documented in the HPI. ROS Other: All systems not noted in ROS Statement are negative. Past Medical History Past Medical History: Coronary Artery Disease (CAD), COPD, CVA/TIA, Eye Disorder, Hyperlipidemia, Osteoarthritis (OA) Additional Past Medical History / Comment(s): Anemia, idiopathic/orthostatic hypotension, macular degeneration, carpal tunnel syndrome, multiple mini strokes. occ. lightheadness., some sob., AAA with surgery (2020)., hospitalized 01/22/22 to 01/24/22 for hypotension and fall. History of Any Multi-Drug Resistant Organisms: None Reported Past Surgical History: Appendectomy, Coronary Bypass/CABG, Hernia Repair, Joint Replacement, Tonsillectomy Additional Past Surgical History / Comment(s): CABG X1 2001, vasectomy, umbilical/hiatal hernia repairs, bilateral knee replacements, pinched nerve in neck surgically repaired, abdominal aortic aneurysm repair-january 2021 Past Anesthesia/Blood Transfusion Reactions: No Reported Reaction Additional Past Anesthesia/Blood Transfusion Reaction / Comment(s): HX BLOOD TRANSFUSION JANUARY 2021 WITH AAA SURGERY-NO REACTION Past Psychological History: No Psychological Hx Reported Smoking Status: Former smoker Past Alcohol Use History: None Reported Past Drug Use History: None Reported - Past Family History Mother Family Medical History: No Reported History General Exam Limitations: no limitations General appearance: alert, in no apparent distress Head exam: Present: atraumatic, normocephalic Neck exam: Present: normal inspection, other (No Midline cervical spinal tenderness to palpation.) Respiratory exam: Present: normal lung sounds bilaterally Cardiovascular Exam: Present: regular rate, normal rhythm GI/Abdominal exam: Present: soft Extremities exam: Present: normal inspection (No obvious deformities.), other (Strength and Sensation intact of bilateral lower extremity.) Neurological exam: Present: alert, oriented X3 Skin exam: Present: warm, dry Course Vital Signs 05/02/23 17:56 Temperature 98.3 F Pulse Rate 75 Respiratory 20 Rate Blood Pressure 155/79 O2 Sat by Pulse 100 Oximetry Medical Decision Making - Medical Decision Making Was pt. sent in by a medical professional or institution (, PA, MORTGAGE LOAN CLOSER, urgent care, hospital, or half-way...) When possible be specific @ -No Did you speak to anyone other than the patient for history (EMS, parent, family, police, friend...)? What history was obtained from this source @ -No Did you review nursing and triage notes (agree or disagree)? Why? @ -I reviewed and agree with nursing and triage notes Were old charts reviewed (outside hosp., previous admission, EMS record, old EKG, old radiological studies, urgent care reports/EKG's, half-way records)? Report findings @ -No old charts were reviewed Differential Diagnosis (chest pain, altered mental status, abdominal pain women, abdominal pain men, vaginal bleeding, weakness, fever, dyspnea, syncope, headache, dizziness, GI bleed, back pain, seizure, CVA, palpatations, mental health, musculoskeletal)? @ -Differential Musculoskeletal Muscular strain, contusion, ligament sprain, fracture, arthritis, septic arthritis, bursitis, cellulitis, muscle spasm, nerve compression, DVT, arterial occlusion, herpes zoster, electrolyte abnormality, tumor.... This is not meant to be in all inclusive list EKG interpreted by me (3pts min.). @ -As above X-rays interpreted by me (1pt min.). @ -X-ray bilateral knees show bilateral effusions, no evidence of other acute process. CT interpreted by me (1pt min.). @ -CT chest abdomen and pelvis showed no acute process. U/S interpreted by me (1pt. min.). @ -None done What testing was considered but not performed or refused? (CT, X-rays, U/S, labs)? Why? @ -None What meds were considered but not given or refused? Why? @ -None Did you discuss the management of the patient with other professionals (professionals i.e. , PA, MORTGAGE LOAN CLOSER, lab, RT, psych nurse, social work instructor, river transportation worker, teacher, stream control officer, leather case finisher)? Give summary @ -No Was smoking cessation discussed for >3mins.? @ -No Was critical care preformed (if so, how long)? @ -No Were there social determinants of health that impacted care today? How? (Homelessness, low income, unemployed, alcoholism, drug addiction, transportation, low edu. Level, literacy, decrease access to med. care, intermediate, rehab)? @ -No Was there de-escalation of care discussed even if they declined (Discuss DNR or withdrawal of care, Hospice)? DNR status @ -No What co-morbidities impacted this encounter? (DM, HTN, Smoking, COPD, CAD, Cancer, CVA, ARF, Chemo, Hep., AIDS, mental health diagnosis, sleep apnea, morbid obesity)? @ -None Was patient admitted / discharged? Hospital course, mention meds given and route, prescriptions, significant lab abnormalities, going to OR and other pertinent info. @ -Discharge. CT chest and pelvis unremarkable. X-ray shows bilateral effusions no other acute process. Patient had improvement of pain here. Discharged home in stable condition. Discussed return precautions with patient verbalizes agreement. Undiagnosed new problem with uncertain prognosis? @ -No Drug Therapy requiring intensive monitoring for toxicity (Heparin, Nitro, Insulin, Cardizem)? @ -No Were any procedures done? @ -No Diagnosis/symptom? @ -Knee Effusion, bilateral Acute, or Chronic, or Acute on Chronic? @ -Acute Uncomplicated (without systemic symptoms) or Complicated (systemic symptoms)? @ -Uncomplicated Side effects of treatment? @ -No Exacerbation, Progression, or Severe Exacerbation? @ -No Poses a threat to life or bodily function? How? (Chest pain, USA, ID, pneumonia, PE, COPD, DKA, ARF, appy, cholecystitis, CVA, Diverticulitis, Homicidal, Suicidal, threat to staff... and all critical care pts) @ -No - EKG Data EKG Comments: EKG shows a sinus rhythm at 77 bpm with first-degree AV block with MS interval at [address] and T-wave changes. Unchanged from prior EKG. QRS 89, QT/QTc 363/394. Disposition Clinical Impression: Knee effusion, Fall Disposition: HOME SELF-CARE Condition: Good Instructions (If sedation given, give patient instructions): Knee Pain (ED) Additional Instructions: Please return to the Emergency Department if symptoms worsen or any other concerns. Prescriptions: Ibuprofen [Motrin] 600 mg PO Q8HR PRN #20 tab PRN Reason: Pain Is patient prescribed a controlled substance at d/c from ED?: No Referrals: Nonstaff,Physician [Primary Care Provider] - 1-2 days Time of Disposition: 21:09
[2023-05-02] MEDS ORDERED: MORPHINE SULFATE 4 MG/ML SYRINGE IM STA (19:55)
[2023-05-02] MEDS ORDERED: MORPHINE SULFATE 4 MG/ML SYRINGE IVP STA (19:55)
[2023-05-02] MEDS ORDERED: IBUPROFEN 600 MG STARTER PACK 4 TAB BTL PO STA (21:07)
[2023-05-02] MEDS ORDERED: ACET/COD 300 MG/30 MG STARTER PACK 6 TAB BTL PO STA (21:07)
[2023-05-02] MEDS ORDERED: HYDROmorphone 0.5 MG/0.5 ML SYRINGE IVP PRN (22:20)
[2023-05-02] MEDS ORDERED: ONDANSETRON 4 MG/2 ML VIAL IVP PRN (22:20)
[2023-05-02] MEDS ORDERED: NALOXONE 0.4 MG/ML 1 ML VIAL IV PRN (22:20)
[2023-05-02] MEDS ORDERED: HYDROmorphone 1 MG/ML 1 ML SYRINGE IVP PRN (22:20)
[2023-05-02] MEDS ORDERED: KETOROLAC 15 MG/ML 1 ML VIAL IVP PRN (22:20)
[2023-05-02] MEDS: SODIUM CHLORIDE 0.9% 1,000 ML IV SCH (22:32)
--- NOTE | 2023-05-03 02:37 | P.HPIM ---
History of Present Illness H&P Date: 05/02/23 Patient is a 88-year-old male with a PMH of CAD, COPD, history of CVA, hyperlipidemia, and history of abdominal aortic aneurysm status post repair who presents to the emergency room for bilateral knee pain and dizziness. The patient reports that he has been experiencing gradually worsening bilateral knee pain, which is causing difficulties with his ADLs. Yesterday, the patient reports he accidentally twisted his right knee while walking, although he was able to avoid a fall. He reports that earlier today, he had stood up too quickly while getting out of a car, causing him to lose his balance and twisting his left knee. The patient's family was nearby and were able to help him avoid a fall. He reports minimal pain at rest but 10 out of 10 pain with any weightbearing of both his knees. He reports that as a result, he has been unable to ambulate very states that the dizziness upon standing up has been happening over the past 3 years for which he has seen multiple providers with no avail. Patient had experienced chest discomfort or shortness of breath. Also denied nausea, vomiting, abdominal pain. In the emergency room a CT chest/abdomen/pelvis revealed findings consistent with diverticulosis and a L metallic dentisty in L pelvis unchanged from prior, and indeterminate R renal cyst 4 cm with MRI renal mass protocol recommended for complete characterization. EKG had revealed sinus rhythm with first-degree AV block at [address] segment depression noted in leads 2, 3, and aVF. Vital signs upon presentation were BP 155/79 with pulse 75. ED documentation reviewed and case discussed with ED provider. Review of systems: Pertinent positives and negatives as discussed in HPI, a complete review of systems was performed and all other systems are negative. Physical examination: Vital signs reviewed General: non toxic, no distress, appears at stated age, normal weight Derm: no unusual rashes/lesions, warm Head: atraumatic, normocephalic, symmetric Eyes: EOMI, no lid lag, anicteric sclera, pupils equal round reactive to light ENT: Nose and ears atraumatic Neck: No cervical lymphadenopathy, trachea midline, supple Mouth: no lip lesion, mucus membranes moist Cardiovascular: S1S2 reg, no murmur, positive dorsalis pedis pulse bilateral, no edema Lungs: CTA bilateral, no rhonchi, no rales, no accessory muscle use Abdominal: soft, nontender to palpation, no guarding Ext: muscle strength 3 out of 5 in all 4 extremities grossly, Real bandages over both knees, no gross muscle atrophy, no contractures, Neuro: CN II-XI grossly intact, no gross focal neuro deficits Psych: Alert, oriented, appropriate affect Assessment: Dizziness, suspect orthostatic as patient has a long-standing history and previously admitted in 2021 for similar complaints Bilateral knee pain Chronic conditions: CAD, COPD, hyperlipidemia, history of CVA Imaging: In the emergency room a CT chest/abdomen/pelvis revealed findings consistent with diverticulosis and a L metallic dentisty in L pelvis unchanged from prior, and indeterminate R renal cyst 4 cm with MRI renal mass protocol recommended for complete characterization. EKG had revealed sinus rhythm with first-degree AV block at [address] segment depression noted in leads 2, 3, and aVF. Data Review: Vital signs upon presentation were BP 155/79 with pulse 75 Plan: General orthostatic vital signs PT consult Fall precautions DVT prophylaxis: Lovenox subcu The patient is admitted with an anticipated less than 2 midnight stay for evaluation of dizziness CODE STATUS: Full Code Discussed with: Patient Anticipated discharge place: Home Past Medical History Past Medical History: Coronary Artery Disease (CAD), COPD, CVA/TIA, Eye Disorder, Hyperlipidemia, Osteoarthritis (OA) Additional Past Medical History / Comment(s): Anemia, idiopathic/orthostatic hypotension, macular degeneration, carpal tunnel syndrome, multiple mini strokes. occ. lightheadness., some sob., AAA with surgery (2020)., hospitalized 01/22/22 to 01/24/22 for hypotension and fall. History of Any Multi-Drug Resistant Organisms: None Reported Past Surgical History: Appendectomy, Coronary Bypass/CABG, Hernia Repair, Joint Replacement, Tonsillectomy Additional Past Surgical History / Comment(s): CABG X1 2001, vasectomy, umbilical/hiatal hernia repairs, bilateral knee replacements, pinched nerve in neck surgically repaired, abdominal aortic aneurysm repair-january 2021 Past Anesthesia/Blood Transfusion Reactions: No Reported Reaction Additional Past Anesthesia/Blood Transfusion Reaction / Comment(s): HX BLOOD TRANSFUSION JANUARY 2021 WITH AAA SURGERY-NO REACTION Past Psychological History: No Psychological Hx Reported Smoking Status: Former smoker Past Alcohol Use History: None Reported Past Drug Use History: None Reported - Past Family History Mother Family Medical History: Hyperlipidemia Medications and Allergies Home Medications Medication Instructions Recorded Confirmed Type Aspirin EC [Ecotrin Low Dose] 81 mg PO DAILY 01/28/20 05/21/22 History Lutein 20 mg PO DAILY 01/28/20 05/21/22 History Sertraline HCl [Zoloft] 50 mg PO DAILY 01/28/20 05/21/22 History Simvastatin 40 mg PO HS 01/28/20 05/21/22 History Ferrous Sulfate [Iron (65 MG 325 mg PO DAILY 03/07/21 05/21/22 History Elemental)] Ascorbic Acid [Vitamin C] 1,000 mg PO DAILY 10/14/21 05/21/22 History Multivit-Min/FA/Lycopen/Lutein 1 tab PO DAILY 10/14/21 05/21/22 History [Centrum Silver Tablet] Cholecalciferol [Vitamin D3 (25 25 mcg PO DAILY 01/22/22 05/21/22 History Mcg = 1000 Iu)] Folic Acid 1 mg PO DAILY 01/22/22 05/21/22 History Thiamine [Vitamin B-1] 100 mg PO DAILY 02/18/22 05/21/22 History Ibuprofen [Motrin] 600 mg PO Q8HR PRN #20 tab 05/02/23 Rx Allergies Allergy/AdvReac Type Severity Reaction Status Date / Time No Known Allergies Allergy Verified 05/21/22 14:47 Physical Exam Vitals: Vital Signs Temp Pulse Resp BP Pulse Ox 05/02/23 22:25 65 18 104/51 99 05/02/23 17:56 98.3 F 75 20 155/79 100 Intake and Output 05/02/23 05/02/23 05/03/23 14:59 22:59 06:59 Other: Weight 70.307 kg
[2023-05-03 03:24] LABS: INR 1.6 (<1.2); Prothrombin Time 15.7 sec (9.0-12.0)
[2023-05-03 03:29] LABS: HCT 23.9 % (39.0-53.0); HGB 7.9 gm/dL (13.0-17.5); MCH 31.5 pg (25.0-35.0); MCHC 33.2 g/dL (31.0-37.0); MCV 94.8 fL (80.0-100.0); Mean Platelet Volume 8.7; Platelet Count 75 k/uL (150-450); RBC 2.52 m/uL (4.30-5.90); RDW 14.6 % (11.5-15.5); WBC 6.7 k/uL (3.8-10.6)
[2023-05-03 04:12] LABS: African American GFR (CKD) 29 (>60 ml/min/1.73 sqM); Anion Gap 6 mmol/L; Blood Urea Nitrogen 46 mg/dL (9-20); Calcium 8.2 mg/dL (8.4-10.2); Carbon Dioxide 25 mmol/L (22-30); Chloride 105 mmol/L (98-107); Glucose 129 mg/dL (74-99); Non-African American GFR(CKD) 25 (>60 ml/min/1.73 sqM); Potassium 5.3 mmol/L (3.5-5.1); Sodium 136 mmol/L (137-145)
--- NOTE | 2023-05-03 08:55 | P.PN ---
Subjective Progress Note Date: 05/03/23 Hospital course: Patient is a very pleasant 88-year-old male with a past medical history of CAD status post CABG, AAA status post repair in 2020, hyperlipidemia, recurrent TIAs, and orthostatic hypotension. He presented to the emergency department overnight with a chief complaint of worsening dizziness/lightheadedness along with bilateral knee pain. He underwent full evaluation in the emergency department. EKG completed showing normal sinus rhythm at 77 bpm with a first- degree AV block with CT interval increased to [address] depression noted in inferior lateral leads 2, 3, aVF, and V4 through V6 upon personal review and interpretation. When comparison to EKG completed in January 2022 first- degree block was previously present however slight depression in inferior leads this new finding that was previously present in V4 through V6. Labs completed and reviewed. CBC showing acute on chronic normocytic anemia with hemoglobin of 7.9 with baseline hemoglobin around 9.5. Coagulation profile showing elevated PT of 15.7 and INR 1.6. BMP revealing hypernatremia with sodium 126, hyperkalemia with potassium of 5.3, and in acute kidney injury with BUN of 46, creatinine 2.24, and GFR of 25 along with hyperkalemia with potassium of 5.3. CT chest abdomen and pelvis was completed showing no evidence of acute fractures, erythema and left upper abdomen subcutaneous tissues anteriorly correlating for point of trauma, calcifications along the pulmonary pleura correlating for asbestos exposure, aortobiiliac stent graft in place, cholelithiasis, colonic diverticulosis, and metallic density within the left pelvis with round morphology possibly representing a vascular structure in the pelvis recommending outpatient nonemergent CTA of the pelvis, correlation prior imaging at outside institution as recommended this is mildly increased from 10/13/22, and an indeterminate right renal cyst measuring 4 cm, recommending MRI renal mass protocol for complete characterization X-ray right and left knee were completed showing post-arthroplasty changes bilaterally without evidence of fracture or hardware loosening and joint effusions bilaterally. Patient was admitted under our services to general medical unit with telemetry. Consult placed to cardiol ogy, nephrology, and orthopedic surgery. Physical exam: Patient seen and fully evaluated at the bedside this morning. He reports significant pain in bilateral knees and dizziness with standing. Patient also reports pain to left rib. In addition patient reports he has had decreased urinary output times approximately one month. Vital signs reviewed and stable. General: Nontoxic, no distress and appears stated age. Derm: Skin warm and dry, normal coloration for ethnicity. Multiple areas of Bruising on bilateral upper extremities. Moderate sized bruised left rib region. Head: Atraumatic, normocephalic and symmetric. Eyes: EOMs intact, no lid lag, and anicteric sclera Mouth: no lip lesions, mucus membranes moist Cardiovascular: regular rate and rhythm with normal S1S2, systolic murmur, positive posterior tibial pulses bilaterally, and cap refill < 2 seconds. Lungs: Respirations even, regular, and unlabored on room air. Lungs CTA bila terally, no rhonchi, no rales, no wheezing, and no accessory muscle usage. Abdominal: soft, nontender to palpation, no guarding, no appreciable organomegaly Ext: ROM intact. No gross muscle atrophy, scant edema to bilateral examination, no contractures. Moderate swelling bilateral knee is worse on right. Neuro: Speech clear, face symmetrical and CN II-XII grossly intact with no noted focal neuro deficits Psych: Alert and oriented to person, place, time, and situation. Appropriate and pleasant affect. Assessment and Plan of Care: Acute kidney injury with oliguria Hyperkalemia Acute on chronic anemia Dizziness/lightheadedness History of CAD status post CABG AAA status post repair Hyperlipidemia History of TIAs Orthostatic hypotension -Order placed for orthostatic vitals. -Order placed a consult cardiology. -Order placed for consult to nephrology. -Order placed for stat repeat labs including CBC to follow-up on acute on chronic anemia with current hemoglobin of 7.9 and baseline hemoglobin around 9.5 Along with repeat BMP to follow up on renal function as BUN 46, creatinine 2.24 and GFR of 25 with baseline creatinine of 0.9. -Order placed for bladder management to monitor for postvoid residuals/retention along with STAT urinalysis. -Order placed for renal ultrasound -Telemetry monitoring -Echocardiogram -Patient to continue with daily cardiac medication regimen with atorvastatin 20 mg daily, and midodrine 10 mg 3 times daily. Bilateral knee pain resulting in difficulty ambulating Bilateral knee effusions -Consult placed orthopedic surgery for further evaluation and possible knee aspiration. -Symptomatic care and pain management. -Consult placed PT/OT -Continue fall precautions. Data review: -EKG completed showing normal sinus rhythm at 77 bpm with a first-degree AV block with CT interval increased to [address] depression noted in inferior lateral leads 2, 3, aVF, and V4 through V6 upon personal review and interpretation. When comparison to EKG completed in January 2022 first-degree block was previously present however slight depression in inferior leads this new finding that was previously present in V4 through V6. Labs completed and reviewed. -CBC showing acute on chronic normocytic anemia with hemoglobin of 7.9 with baseline hemoglobin around 9.5. Coagulation profile showing elevated PT of 15.7 and INR 1.6. BMP revealing hypernatremia with sodium 126, hyperkalemia with potassium of 5.3, and in acute kidney injury with BUN of 46, creatinine 2.24, and GFR of 25 along with hyperkalemia with potassium of 5.3. Imaging reviewed: -CT chest abdomen and pelvis was completed showing no evidence of acute fractures, erythema and left upper abdomen subcutaneous tissues anteriorly correlating for point of trauma, calcifications along the pulmonary pleura correlating for asbestos exposure, aortobiiliac stent graft in place, cholelithiasis, colonic diverticulosis, and metallic density within the left pelvis with round morphology possibly representing a vascular structure in the pelvis recommending outpatient nonemergent CTA of the pelvis, correlation prior imaging at outside institution as recommended this is mildly increased from , and an indeterminate right renal cyst measuring 4 cm, recommending MRI renal mass protocol for complete characterization -X-ray right and left knee were completed showing post-arthroplasty changes bilaterally without evidence of fracture or hardware loosening and joint effusions bilaterally. 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 This document was prepared using boo-box dictation software. Please allow for errors in doctor assistant, while rare they do occur. I reviewed the documentation as provided by the SHELLY above, who is the original author of this note. I agree with the documented assessment and plan, with the following changes: none Objective - Vital Signs Vital signs: Vital Signs Temp 97.8 F 05/03/23 02:00 Pulse 64 05/03/23 02:00 Resp 16 05/03/23 02:00 BP 162/71 05/03/23 02:00 Pulse Ox 98 05/03/23 02:00 FiO2 Intake & Output 05/02/23 05/03/23 05/03/23 18:59 06:59 18:59 Output Total 150 Balance -150 Weight 70.307 kg 70.307 kg Output: Urine 150 - Labs CBC & Chem 7: 05/03/23 08:48 05/03/23 08:48 Labs: Abnormal Lab Results - Last 24 Hours (Table) 05/03/23 05/03/23 05/03/23 Range/Units 02:57 02:57 02:57 RBC 2.52 L (4.30-5.90) m/uL Hgb 7.9 L (13.0-17.5) gm/dL Hct 23.9 L (39.0-53.0) % Plt Count 75 L (150-450) k/uL PT 15.7 H (9.0-12.0) sec INR 1.6 H (<1.2) Sodium 136 L (137-145) mmol/L Potassium 5.3 H (3.5-5.1) mmol/L BUN 46 H (9-20) mg/dL Creatinine 2.24 H (0.66-1.25) mg/dL Glucose 129 H (74-99) mg/dL Calcium 8.2 L (8.4-10.2) mg/dL
[2023-05-03] MEDS ORDERED: ENOXAPARIN 40 MG/0.4 ML SYRINGE SQ SCH (09:00)
[2023-05-03] MEDS ORDERED: MIDODRINE 5 MG TAB PO SCH (09:00)
[2023-05-03 09:01] LABS: HCT 24.2 % (39.0-53.0); HGB 8.1 gm/dL (13.0-17.5); MCH 31.6 pg (25.0-35.0); MCHC 33.5 g/dL (31.0-37.0); MCV 94.5 fL (80.0-100.0); Mean Platelet Volume 10.4; RBC 2.56 m/uL (4.30-5.90); RDW 14.5 % (11.5-15.5); WBC 7.4 k/uL (3.8-10.6)
[2023-05-03 09:23] LABS: Platelet Count 73 k/uL (150-450)
[2023-05-03 09:30] LABS: ALT 16 U/L (4-49); AST 28 U/L (17-59); African American GFR (CKD) 27 (>60 ml/min/1.73 sqM); Albumin 3.2 g/dL (3.5-5.0); Albumin/Globulin Ratio 1.2; Alkaline Phosphatase 66 U/L (38-126); Anion Gap 3 mmol/L; Blood Urea Nitrogen 47 mg/dL (9-20); Carbon Dioxide 27 mmol/L (22-30); Chloride 105 mmol/L (98-107); Globulin 2.6 g/dL; Glucose 133 mg/dL (74-99); Non-African American GFR(CKD) 23 (>60 ml/min/1.73 sqM); Potassium 4.6 mmol/L (3.5-5.1); Sodium 135 mmol/L (137-145); Total Bilirubin 0.8 mg/dL (0.2-1.3); Total Protein 5.8 g/dL (6.3-8.2)
--- NOTE | 2023-05-03 10:14 | US ---
EXAMINATION TYPE: US renals and bladder DATE OF EXAM: 05/03/2023 Exam done portable COMPARISON: CT 2022 CLINICAL INDICATION: Male, 88 years old with history of urinary cyst, RADHA; EXAM MEASUREMENTS: Right Kidney: 8.8 x 5.2 x 4.7 cm Left Kidney: 10.2 x 5.2 x 4.2 cm Right Kidney: 1.7cm exophytic cystic area inferior pole Left Kidney: no hydronephrosis or masses seen Bladder: wnl Bilateral Jets seen: no Gallbladder: hydropic with 2.4cm stone. There is increased cortical echogenicity with decreased cortical medullary differentiation. There is no evidence for hydronephrosis at this point in time. No nephrolithiasis is seen. Simple 1. 7 cm right renal cyst.. The urinary bladder is anechoic. Bilateral ureteral jets are seen. IMPRESSION: 1. 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 2. Gallbladder is hydropic with a large gallstone. Correlate clinically for biliary obstruction.
[2023-05-03] MEDS: HEPARIN SODIUM,PORCINE 5,000 UNIT/ML 1 ML VIAL SQ SCH ×2 (10:28→20:47)
[2023-05-03] MEDS: SERTRALINE 50 MG TAB PO SCH (10:29)
[2023-05-03 11:13] LABS: Appearance,Urine Cloudy (Clear); Bilirubin,Urine Negative (Negative); Blood,Urine Moderate (Negative); Glucose,Urine (UA) Negative (Negative); Ketones,Urine Negative (Negative); Leukocyte Esterase,Urine Negative (Negative); Mucus,Urine Rare /hpf; Nitrite,Urine Negative (Negative); Protein,Urine 4+ (Negative); RBC,Urine 4 /hpf (0-5); Specific Gravity,Urine 1.024 (1.001-1.035); Urobilinogen,Urine <2.0 mg/dL (<2.0); WBC,Urine 3 /hpf (0-5)
[2023-05-03 11:14] LABS: Color,Urine Yellow
--- NOTE | 2023-05-03 11:56 | P.CRDCN ---
History of Present Illness History of present illness: HISTORY OF PRESENT ILLNESS: This is a 88-year-old male with a past medical history significant for coronary artery disease with previous CABG, AAA with previous repair in 2020, hyperlipidemia, recurrent TIAs, and orthostatic hypotension. 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 We have been asked to see the patient in consultation for dizziness and orthostatic hypotension. Patient examined at the bedside. Patient initially presented to the hospital secondary to bilateral knee pain. Patient was found to have acute kidney injury with a creatinine of 2.24. He also reports feeling dizzy. The patient has a long-standing history of orthostatic hypotension for the last 4 years. Patient has been on many different medications including Florinef and Midodine. Orthostatic blood pressures obtained reveal supine 145/67, sitting 110/60, and standing 87/46. * EKG reveals sinus mechanism with first degree AV block. ST depression noted in inferior leads and V3V6. * Laboratory data: WBC 7.4. Hemoglobin 8.1. Platelet count 73. Sodium 135. Potassium 4.6. BUN 47. Creatinine 2.38. Troponin negative 1. * Current home cardiac medications include simvastatin 40 mg at night and Midodrine 5mg TID. * Most recent echocardiogram obtained in January 2022 revealed ejection fraction 50- 55%, [id number] tricuspid regurgitation and mild mitral regurgitation REVIEW OF SYSTEMS: At the time of my exam: CONSTITUTIONAL: Denies fever or chills. HEENT: Denies blurred vision, vision changes, or eye pain. Denies hemoptysis CARDIOVASCULAR: Denies chest pain. Denies orthopnea. Denies PND. Denies palpitations RESPIRATORY: Denies shortness of breath. GASTROINTESTINAL: Denies abdominal pain. Denies nausea or vomiting. HEMATOLOGIC: Denies bleeding disorders. GENITOURINARY: Denies any blood in urine. SKIN: Denies pruitis. Denies rash. PHYSICAL EXAM: VITAL SIGNS: Reviewed. GENERAL: Well-developed in no acute distress. HEENT: Head is normocephalic. Pupils are equal, round. Sclerae anicteric. Mucous membranes of the mouth are moist. Neck supple. No JVD or thyromegaly LUNGS: Respirations even and unlabored. Lungs essentially clear to auscultation bilaterally. HEART: Regular rate and rhythm. S1 and S2 heard. Systolic murmur noted. ABDOMEN: Soft. Nondistended. Nontender. EXTREMITIES: Normal range of motion. No clubbing or cyanosis. Peripheral pulses intact. No lower extremity edema NEUROLOGIC: Awake and alert. Oriented x 3. ASSESSMENT: Bilateral knee pain Acute kidney injury Chronic severe orthostatic hypotension Dizziness Hyperlipidemia History of TIA Thrombocytopenia Anemia, etiology unknown PLAN: Obtain 2-D echo to assess cardiac structure and function Resume home cardiac medications. Hold off on adding aspirin (due to CAD) second lucia to thrombocytopenia and anemia Increase Midodrine to 10mg TID Add Florinef 0.2mg daily JOON hose to bilateral lower extremities Recommend discontinuing narcotics as they may worsen hypotension Further recommendations pending patient's course Nurse practitioner note has been reviewed by physician. Signing provider agrees with the documented findings, assessment, and plan of care. Past Medical History Past Medical History: Coronary Artery Disease (CAD), COPD, CVA/TIA, Eye Disorder, Hyperlipidemia, Osteoarthritis (OA) Additional Past Medical History / Comment(s): Anemia, idiopathic/orthostatic hypotension, macular degeneration, carpal tunnel syndrome, multiple mini strokes. occ. lightheadness., some sob., AAA with surgery (2020)., hospitalized 01/22/22 to 01/24/22 for hypotension and fall. History of Any Multi-Drug Resistant Organisms: None Reported Past Surgical History: Appendectomy, Coronary Bypass/CABG, Hernia Repair, Joint Replacement, Tonsillectomy Additional Past Surgical History / Comment(s): CABG X1 2001, vasectomy, umbilical/hiatal hernia repairs, bilateral knee replacements, pinched nerve in neck surgically repaired, abdominal aortic aneurysm repair-january 2021 Past Anesthesia/Blood Transfusion Reactions: No Reported Reaction Additional Past Anesthesia/Blood Transfusion Reaction / Comment(s): HX BLOOD TRANSFUSION JANUARY 2021 WITH AAA SURGERY-NO REACTION Past Psychological History: No Psychological Hx Reported Smoking Status: Former smoker Past Alcohol Use History: None Reported Past Drug Use History: None Reported - Past Family History Mother Family Medical History: Hyperlipidemia Medications and Allergies Home Medications Medication Instructions Recorded Confirmed Type Sertraline HCl [Zoloft] 50 mg PO DAILY 01/28/20 05/03/23 History Simvastatin 40 mg PO HS 01/28/20 05/03/23 History Ferrous Sulfate [Iron (65 MG 325 mg PO DAILY 03/07/21 05/03/23 History Elemental)] Ascorbic Acid [Vitamin C] 1,000 mg PO DAILY 10/14/21 05/03/23 History Multivit-Min/FA/Lycopen/Lutein 1 tab PO DAILY 10/14/21 05/03/23 History [Centrum Silver Tablet] Cholecalciferol [Vitamin D3 (25 25 mcg PO DAILY 01/22/22 05/03/23 History Mcg = 1000 Iu)] Ibuprofen [Motrin] 600 mg PO Q8HR PRN #20 tab 05/02/23 Rx Midodrine [ProAmatine] 5 mg PO TID 05/03/23 05/03/23 History Nitroglycerin Sl Tabs [Nitrostat] 0.4 mg SUBLINGUAL Q5M PRN 05/03/23 05/03/23 History Allergies Allergy/AdvReac Type Severity Reaction Status Date / Time No Known Allergies Allergy Verified 05/03/23 08:00 Physical Exam Vitals: Vital Signs Temp Pulse Pulse Resp BP BP Pulse Ox 05/03/23 07:00 98.0 F 61 16 117/62 100 05/03/23 02:00 97.8 F 64 16 162/71 98 05/02/23 22:25 65 18 104/51 99 05/02/23 17:56 98.3 F 75 20 155/79 100 Intake and Output 05/02/23 05/03/23 05/03/23 22:59 06:59 14:59 Intake Total 1005 Output Total 150 Balance -150 1005 Intake: Oral 1005 Output: Urine 150 Other: Weight 70.307 kg 70.307 kg Results 05/03/23 08:48 05/03/23 08:48 Cardiac Enzymes 05/03/23 05/03/23 Range/Units 08:48 08:48 AST 28 (17-59) U/L Troponin I 0.017 (0.000-0.034) ng/mL Coagulation 05/03/23 Range/Units 02:57 PT 15.7 H (9.0-12.0) sec CBC 05/03/23 05/03/23 Range/Units 02:57 08:48 WBC 6.7 7.4 (3.8-10.6) k/uL RBC 2.52 L 2.56 L (4.30-5.90) m/uL Hgb 7.9 L 8.1 L (13.0-17.5) gm/dL Hct 23.9 L 24.2 L (39.0-53.0) % Plt Count 75 L 73 L (150-450) k/uL Comprehensive Metabolic Panel 05/03/23 05/03/23 Range/Units 02:57 08:48 Sodium 136 L 135 L (137-145) mmol/L Potassium 5.3 H 4.6 (3.5-5.1) mmol/L Chloride 105 105 (98-107) mmol/L Carbon Dioxide 25 27 (22-30) mmol/L BUN 46 H 47 H (9-20) mg/dL Creatinine 2.24 H 2.38 H (0.66-1.25) mg/dL Glucose 129 H 133 H (74-99) mg/dL Calcium 8.2 L 8.0 L (8.4-10.2) mg/dL AST 28 (17-59) U/L ALT 16 (4-49) U/L Alkaline Phosphatase 66 (38-126) U/L Total Protein 5.8 L (6.3-8.2) g/dL Albumin 3.2 L (3.5-5.0) g/dL Current Medications Generic Name Dose Route Start Last Admin Trade Name Freq PRN Reason Stop Dose Admin Acetaminophen 650 mg 05/02/23 22:20 Acetaminophen Tab 325 Mg Tab PO Q6HR PRN Mild Pain or Fever > 100.5 Atorvastatin Calcium 20 mg 05/03/23 21:00 Atorvastatin 20 Mg Tab PO HS MARTÍN Heparin Sodium (Porcine) 5,000 unit 05/03/23 09:00 05/03/23 10:28 Heparin Sodium,Porcine 5,000 Unit/Ml 1 Ml Vial SQ 5,000 unit Q12HR MARTÍN Administration Hydromorphone HCl 1 mg 05/02/23 22:20 Hydromorphone 1 Mg/Ml 1 Ml Syringe IVP Q3HR PRN Severe Pain (Scale 7 to 10) Hydromorphone HCl 0.5 mg 05/02/23 22:20 Hydromorphone 0.5 Mg/0.5 Ml Syringe IVP Q3HR PRN Moderate Pain (Scale 4 to 6) Sodium Chloride 1,000 mls @ 100 mls/hr 05/02/23 22:30 05/02/23 22:32 Saline 0.9% IV 75 mls/hr .Q10H MARTÍN Administration Midodrine 5 mg 05/03/23 09:00 Midodrine 5 Mg Tab PO TID MARTÍN Naloxone HCl 0.2 mg 05/02/23 22:20 Naloxone 0.4 Mg/Ml 1 Ml Vial IV Q2M PRN Opioid Reversal Ondansetron HCl 4 mg 05/02/23 22:20 Ondansetron 4 Mg/2 Ml Vial IVP Q8HR PRN Nausea And Vomiting Sertraline HCl 50 mg 05/03/23 09:00 05/03/23 10:29 Sertraline 50 Mg Tab PO 50 mg DAILY MARTÍN Administration Intake and Output 05/02/23 05/03/23 05/03/23 22:59 06:59 14:59 Intake Total 1005 Output Total 150 Balance -150 1005 Intake: Oral 1005 Output: Urine 150 Other: Weight 70.307 kg 70.307 kg 05/03/23 08:48 05/03/23 08:48
[2023-05-03] MEDS: MIDODRINE 5 MG TAB PO SCH ×2 (12:23→17:44)
--- NOTE | 2023-05-03 12:56 | P.PN ---
Subjective Progress Note Date: 05/03/23 Objective - Vital Signs Vital signs: Vital Signs Temp 98.0 F 05/03/23 07:00 Pulse 61 05/03/23 07:00 Resp 16 05/03/23 07:00 BP 145/67 05/03/23 11:00 Pulse Ox 95 05/03/23 11:00 FiO2 Intake & Output 05/02/23 05/03/23 05/03/23 18:59 06:59 18:59 Intake Total 1005 Output Total 150 Balance -150 1005 Weight 70.307 kg 70.307 kg Intake: Oral 1005 Output: Urine 150 - Labs CBC & Chem 7: 05/03/23 08:48 05/03/23 08:48 Labs: Abnormal Lab Results - Last 24 Hours (Table) 05/03/23 05/03/23 05/03/23 Range/Units 02:57 02:57 02:57 RBC 2.52 L (4.30-5.90) m/uL Hgb 7.9 L (13.0-17.5) gm/dL Hct 23.9 L (39.0-53.0) % Plt Count 75 L (150-450) k/uL PT 15.7 H (9.0-12.0) sec INR 1.6 H (<1.2) Sodium 136 L (137-145) mmol/L Potassium 5.3 H (3.5-5.1) mmol/L BUN 46 H (9-20) mg/dL Creatinine 2.24 H (0.66-1.25) mg/dL Glucose 129 H (74-99) mg/dL Calcium 8.2 L (8.4-10.2) mg/dL Total Protein (6.3-8.2) g/dL Albumin (3.5-5.0) g/dL Urine Protein (Negative) Urine Blood (Negative) Urine Mucus (None) /hpf 05/03/23 05/03/23 05/03/23 Range/Units 08:48 08:48 10:38 RBC 2.56 L (4.30-5.90) m/uL Hgb 8.1 L (13.0-17.5) gm/dL Hct 24.2 L (39.0-53.0) % Plt Count 73 L (150-450) k/uL PT (9.0-12.0) sec INR (<1.2) Sodium 135 L (137-145) mmol/L Potassium (3.5-5.1) mmol/L BUN 47 H (9-20) mg/dL Creatinine 2.38 H (0.66-1.25) mg/dL Glucose 133 H (74-99) mg/dL Calcium 8.0 L (8.4-10.2) mg/dL Total Protein 5.8 L (6.3-8.2) g/dL Albumin 3.2 L (3.5-5.0) g/dL Urine Protein 4+ H (Negative) Urine Blood Moderate H (Negative) Urine Mucus Rare H (None) /hpf
[2023-05-03] MEDS: FLUDROCORTISONE 0.1 MG TAB PO SCH (13:14)
--- NOTE | 2023-05-03 16:49 | P.CNOR ---
History of Present Illness - [facility] Consult date: 05/03/23 Consult reason: other (Bilateral knee pain and swelling) History of present illness: The patient is an 88 y/o male who presented to the ER yesterday with dizziness and knee pain. He states he twisted his right knee. The patient is post left [place] [address] Dumont and right total knee arthro[place] [address] Dumont. He does see Dr. Lanier occasionally of his knees and has had his knee drained before. The patient states the pain in his knees are minimal at this time. He has not been out of bed yet due to the dizziness. Physical therapy has been consulted. Review of Systems Constitutional: Denies chills, Denies fatigue, Denies fever Cardiovascular: Denies shortness of breath Gastrointestinal: Denies diarrhea, Denies nausea, Denies vomiting Musculoskeletal: bilateral: knee pain, knee stiffness, knee swelling Past Medical History Past Medical History: Coronary Artery Disease (CAD), COPD, CVA/TIA, Eye Disorder, Hyperlipidemia, Osteoarthritis (OA) Additional Past Medical History / Comment(s): Anemia, idiopathic/orthostatic hypotension, macular degeneration, carpal tunnel syndrome, multiple mini strokes. occ. lightheadness., some sob., AAA with surgery (2020)., hospitalized 01/22/22 to 01/24/22 for hypotension and fall. History of Any Multi-Drug Resistant Organisms: None Reported Past Surgical History: Appendectomy, Coronary Bypass/CABG, Hernia Repair, Joint Replacement, Tonsillectomy Additional Past Surgical History / Comment(s): CABG X1 2001, vasectomy, umbilical/hiatal hernia repairs, bilateral knee replacements, pinched nerve in neck surgically repaired, abdominal aortic aneurysm repair-january 2021 Past Anesthesia/Blood Transfusion Reactions: No Reported Reaction Additional Past Anesthesia/Blood Transfusion Reaction / Comm: HX BLOOD TRANSFUSION JANUARY 2021 WITH AAA SURGERY-NO REACTION Past Psychological History: No Psychological Hx Reported Smoking Status: Former smoker Past Alcohol Use History: None Reported Past Drug Use History: None Reported - Past Family History Mother Family Medical History: Hyperlipidemia Medications and Allergies Home Medications Medication Instructions Recorded Confirmed Type Sertraline HCl [Zoloft] 50 mg PO DAILY 01/28/20 05/03/23 History Simvastatin 40 mg PO HS 01/28/20 05/03/23 History Ferrous Sulfate [Iron (65 MG 325 mg PO DAILY 03/07/21 05/03/23 History Elemental)] Ascorbic Acid [Vitamin C] 1,000 mg PO DAILY 10/14/21 05/03/23 History Multivit-Min/FA/Lycopen/Lutein 1 tab PO DAILY 10/14/21 05/03/23 History [Centrum Silver Tablet] Cholecalciferol [Vitamin D3 (25 25 mcg PO DAILY 01/22/22 05/03/23 History Mcg = 1000 Iu)] Ibuprofen [Motrin] 600 mg PO Q8HR PRN #20 tab 05/02/23 Rx Midodrine [ProAmatine] 5 mg PO TID 05/03/23 05/03/23 History Nitroglycerin Sl Tabs [Nitrostat] 0.4 mg SUBLINGUAL Q5M PRN 05/03/23 05/03/23 History Allergies Allergy/AdvReac Type Severity Reaction Status Date / Time No Known Allergies Allergy Verified 05/03/23 08:00 Physical Examination The patient is a 88 y/o male in no acute distress. He is oriented and alerted x3. Exam of the bilateral knees reveals no open wounds. 2-3+ effusion present to the bilateral knees. Slightly limited ROM bilaterally due to swelling and guarding. No calf pain or swelling. Good foot and ankle motion bilaterally. Circulatory and neurological status is intact. Results X-rays of the bilateral knees reveal good position and alignment of the total knee arthroplasties. No acute fractures seen. - Labs Labs: Abnormal Lab Results - Last 24 Hours (Table) 05/03/23 05/03/23 05/03/23 Range/Units 02:57 02:57 02:57 RBC 2.52 L (4.30-5.90) m/uL Hgb 7.9 L (13.0-17.5) gm/dL Hct 23.9 L (39.0-53.0) % Plt Count 75 L (150-450) k/uL PT 15.7 H (9.0-12.0) sec INR 1.6 H (<1.2) Sodium 136 L (137-145) mmol/L Potassium 5.3 H (3.5-5.1) mmol/L BUN 46 H (9-20) mg/dL Creatinine 2.24 H (0.66-1.25) mg/dL Glucose 129 H (74-99) mg/dL Calcium 8.2 L (8.4-10.2) mg/dL Total Protein (6.3-8.2) g/dL Albumin (3.5-5.0) g/dL Urine Protein (Negative) Urine Blood (Negative) Urine Mucus (None) /hpf 05/03/23 05/03/23 05/03/23 Range/Units 08:48 08:48 10:38 RBC 2.56 L (4.30-5.90) m/uL Hgb 8.1 L (13.0-17.5) gm/dL Hct 24.2 L (39.0-53.0) % Plt Count 73 L (150-450) k/uL PT (9.0-12.0) sec INR (<1.2) Sodium 135 L (137-145) mmol/L Potassium (3.5-5.1) mmol/L BUN 47 H (9-20) mg/dL Creatinine 2.38 H (0.66-1.25) mg/dL Glucose 133 H (74-99) mg/dL Calcium 8.0 L (8.4-10.2) mg/dL Total Protein 5.8 L (6.3-8.2) g/dL Albumin 3.2 L (3.5-5.0) g/dL Urine Protein 4+ H (Negative) Urine Blood Moderate H (Negative) Urine Mucus Rare H (None) /hpf H & H 05/03/23 05/03/23 Range/Units 02:57 08:48 Hgb 7.9 L 8.1 L (13.0-17.5) gm/dL Hct 23.9 L 24.2 L (39.0-53.0) % Coagulation 05/03/23 Range/Units 02:57 INR 1.6 H (<1.2) Result Diagrams: 05/03/23 08:48 05/03/23 08:48 Assessment and Plan (1) Status post knee replacement Current Visit: Yes Status: Acute Code(s): Z96.659 - PRESENCE OF UNSPECIFIED ARTIFICIAL KNEE JOINT SNOMED Code(s): 887617677 (2) Knee effusion Current Visit: Yes Status: Acute Code(s): M25.469 - EFFUSION, UNSPECIFIED KNEE SNOMED Code(s): 391203289 Plan: The clinical and x-ray findings were discussed with patient. The case was discussed with Dr. Cedeño. His pain is minimal at this time. He will work with physical therapy when cleared by medicine. If his pain increases with ambulation, we will consider aspirating his knees if needed. We will reevaluate the patient tomorrow.
--- NOTE | 2023-05-03 16:58 | CA ---
Transthoracic Echo Report Name: Niall Porter Age: 88 Gender: M : 1935 Exam Date: 05/03/2023 13:03 Exam Location: [facility] Ht (in): 69 Wt (lb): 155 Ordering Physician: Lissa Aranda Attending/Referring Phys: [id number], Rosi Inter Com Servicer Irais Sims [facility] Procedure CPT: Indications: dizziness Cardiac Hx: Technical Quality: Fair Contrast 1: Total Dose (mL): Contrast 2: Total Dose (mL): MEASUREMENTS (Male / Female) Normal Values 2D ECHO LV Diastolic Diameter PLAX 4.1 cm 4.2 - 5.9 / 3.9 - 5.3 cm LV Systolic Diameter PLAX 3.1 cm IVS Diastolic Thickness 1.3 cm 0.6 - 1.0 / 0.6 - 0.9 cm LVPW Diastolic Thickness 1.3 cm 0.6 - 1.0 / 0.6 - 0.9 cm LV Relative Wall Thickness 0.6 LVOT Diameter 2.1 cm Ascending Aorta Diameter 2.8 cm M-MODE Aortic Root Diameter MM 3.0 cm LA Systolic Diameter MM 3.9 cm LA Ao Ratio MM 1.3 AV Cusp Separation MM 2.3 cm DOPPLER AV Peak Velocity 165.9 cm/s AV Peak Gradient 11.0 mmHg AV Mean Velocity 125.5 cm/s AV Mean Gradient 6.8 mmHg AV Velocity Time Integral 34.3 cm LVOT Peak Velocity 133.7 cm/s LVOT Peak Gradient 7.1 mmHg LVOT Velocity Time Integral 25.9 cm LVOT Stroke Volume 89.1 cm??? LVOT Stroke Volume Index 48.1 ml/m??? LVOT Cardiac Index 3753.5 cm???/min???m??? AV Area Cont Eq vti 2.6 cm??? AV Area Cont Eq pk 2.8 cm??? LV E' Septal Velocity 11.8 cm/s TR Peak Velocity 311.3 cm/s TR Peak Gradient 38.8 mmHg Right Atrial Pressure 3.0 mmHg Pulmonary Artery Systolic Pressu 41.8 mmHg Right Ventricular Systolic Press 41.8 mmHg FINDINGS Left Ventricle Moderately increased left ventricular wall thickness. Left ventricular cavity size normal. Left ventricular ejection fraction is estimated at 50-55%. Hypokinetic basal inferoseptal wall. Hypokinetic basal inferior wall. Right Ventricle Normal right ventricular size and function. Mild pulmonary hypertension. Right Atrium Mild right atrial dilatation. Left Atrium Severe left atrial dilatation. Interatrial septal aneurysm. Mitral Valve Structurally normal mitral valve. Trace mitral regurgitation. Aortic Valve Trileaflet aortic valve. Trace aortic regurgitation. Tricuspid Valve Structurally normal tricuspid valve. Mild tricuspid regurgitation. Pulmonic Valve Structurally normal pulmonic valve. No pulmonic regurgitation. Pericardium No pericardial effusion. Aorta Normal size aortic root and proximal ascending aorta. CONCLUSIONS Normal LV function Hypokinesis involving basilar inferior wall and inferoseptum Aneurysmal interatrial septum Previewed by: Dr. Landon Baldwin MD (Electronically Signed) Final Date: 03 May 2023 16:57
[2023-05-03] MEDS: SODIUM CHLORIDE 0.9% 1,000 ML IV SCH ×2 (19:37→22:41)
[2023-05-03] MEDS: ATORVASTATIN 20 MG TAB PO SCH (20:47)
[2023-05-04] MEDS: MIDODRINE 5 MG TAB PO SCH ×3 (05:40→18:48)
[2023-05-04] MEDS: SODIUM CHLORIDE 0.9% 1,000 ML IV SCH ×2 (05:40→18:48)
[2023-05-04] MEDS: FLUDROCORTISONE 0.1 MG TAB PO SCH (07:12)
[2023-05-04] MEDS: SERTRALINE 50 MG TAB PO SCH (09:13)
[2023-05-04] MEDS: FERROUS SULFATE 325 MG TAB PO SCH (09:13)
[2023-05-04] MEDS: amLODIPine 5 MG TAB PO SCH (09:13)
[2023-05-04] MEDS: HEPARIN SODIUM,PORCINE 5,000 UNIT/ML 1 ML VIAL SQ SCH ×3 (09:14→20:41)
--- NOTE | 2023-05-04 09:41 | P.PN ---
Subjective HISTORY OF PRESENT ILLNESS: This is a 88-year-old male with a past medical history significant for coronary artery disease with previous CABG, AAA with previous repair in 2020, hyperlipidemia, recurrent TIAs, and orthostatic hypotension. 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 We have been asked to see the patient in consultation for dizziness and orthostatic hypotension. Patient examined at the bedside. Patient initially presented to the hospital secondary to bilateral knee pain. Patient was found to have acute kidney injury with a creatinine of 2.24. He also reports feeling dizzy. The patient has a long-standing history of orthostatic hypotension for the last 4 years. Patient has been on many dif ferent medications including Florinef and Midodine. Orthostatic blood pressures obtained reveal supine 145/67, sitting 110/60, and standing 87/46. * EKG reveals sinus mechanism with first degree AV block. ST depression noted in inferior leads and V3V6. * Laboratory data: WBC 7.4. Hemoglobin 8.1. Platelet count 73. Sodium 135. Potassium 4.6. BUN 47. Creatinine 2.38. Troponin negative 1. * Current home cardiac medications include simvastatin 40 mg at night and Midodrine 5mg TID. * Most recent echocardiogram obtained in January 2022 revealed ejection fraction 50- 55%, [id number] tricuspid regurgitation and mild mitral regurgitation 05/04/2023 Patient examined this morning at the bedside. Patient denies chest pain or pressure. He denies shortness of breath. He reports his dizziness has improved from yesterday. Patient remains orthostatic this morning. He is also hypertensive this morning with a systolic of 202. Echocardiogram completed revealing ejection fraction 50-55%, hypokinesis involving basilar inferior wall and inferior septum, aneurysmal intra-atrial septum. PHYSICAL EXAM: VITAL SIGNS: Reviewed. GENERAL: Well-developed in no acute distress. HEENT: Head is normocephalic. Pupils are equal, round. Sclerae anicteric. Mucous membranes of the mouth are moist. Neck supple. No JVD or thyromegaly LUNGS: Respirations even and unlabored. Lungs essentially clear to auscultation bilaterally. HEART: Regular rate and rhythm. S1 and S2 heard. Systolic murmur noted. ABDOMEN: Soft. Nondistended. Nontender. EXTREMITIES: Normal range of motion. No clubbing or cyanosis. Peripheral pulses intact. No lower extremity edema NEUROLOGIC: Awake and alert. Oriented x 3. ASSESSMENT: Bilateral knee pain Acute kidney injury Chronic severe orthostatic hypotension Dizziness Hyperlipidemia History of TIA Thrombocytopenia Anemia, etiology unknown PLAN: Continue current cardiac medications. Hold off on adding aspirin (due to CAD) secondary to thrombocytopenia and anemia Continue Midodrine and Florinef Add Norvasc 5mg dailt JOON hose to bilateral lower extremities Further recommendations pending patient's course Nurse practitioner note has been reviewed by physician. Signing provider agrees with the documented findings, assessment, and plan of care. Objective - Vital Signs Vital signs: Vital Signs Temp 98.2 F 05/04/23 06:55 Pulse 73 05/04/23 09:07 Resp 18 05/04/23 06:55 BP 202/88 05/04/23 09:07 Pulse Ox 95 05/04/23 06:55 FiO2 Intake & Output 05/03/23 05/04/23 05/04/23 18:59 06:59 18:59 Intake Total 1123 240 Output Total 200 300 Balance 923 -300 240 Intake: Oral 1123 240 Output: Urine 200 300 Other: Voiding Method Urinal # Voids 3 - Labs CBC & Chem 7: 05/03/23 08:48 05/03/23 08:48 Labs: Abnormal Lab Results - Last 24 Hours (Table) 05/03/23 Range/Units 10:38 Urine Protein 4+ H (Negative) Urine Blood Moderate H (Negative) Urine Mucus Rare H (None) /hpf
[2023-05-04 11:57] LABS: HCT 21.4 % (39.6-50.0); HGB 7.1 d/dL (13.0-17.0); MCH 31.7 pg (27.0-32.0); MCHC 33.2 d/dL (32.0-37.0); MCV 95.5 FL (80.0-97.0); Mean Platelet Volume 9.8 FL (9.5-12.2); NRBC Per 100 WBC 0 X 10*3/uL (0.00-0.01); Platelet Count 90 X 10*3/uL (140-440); RBC 2.24 X 10*6/uL (4.40-5.60); RDW 14.2 % (11.5-14.5); WBC 8.58 X 10*3/uL (4.50-10.00)
[2023-05-04 12:25] LABS: ALT 15 U/L (10-49); AST 20 U/L (14-35); Albumin 3.4 d/dL (3.8-4.9); Albumin/Globulin Ratio 1.89 Ratio (1.60-3.17); Alkaline Phosphatase 69 U/L (41-126); BUN/Creat Ratio 20.17 Ratio (12.00-20.00); Blood Urea Nitrogen 46.4 mg/dL (9.0-27.0); Calcium 8.3 mg/dL (8.7-10.3); Carbon Dioxide 24.2 mmol/L (21.6-31.8); Chloride 105 mmol/L (96-109); Globulin 1.8 d/dL (1.6-3.3); Glucose 107 mg/dL (70-110); Magnesium 2.1 mg/dL (1.5-2.4); Potassium 4.5 mmol/L (3.5-5.5); Sodium 139 mmol/L (135-145); Total Bilirubin 0.3 mg/dL (0.3-1.2); Total Protein 5.2 d/dL (6.2-8.2)
[2023-05-04] MEDS ORDERED: LIDOCAINE 2% INJ 20 MG/ML (20 ML MDV) SQ STA (12:56)
--- NOTE | 2023-05-04 13:12 | P.PN ---
Subjective Progress Note Date: 05/04/23 Principal diagnosis: Bilateral knee pain and swelling The patient is an 88 y/o male who presented to the ER yesterday with dizziness and knee pain. He states he twisted his right knee. The patient is post left [place] [address] Dumont and right total knee arthroplasty [place] [address] Dumont. He does see Dr. Lanier occasionally of his knees and has had his knee drained before. The patient states the pain in his knees are minimal at this time. He has not been out of bed yet due to the dizziness. Physical therapy has been consulted. Today, the patient states he got out of bed by himself and ripped out his IV. He states he is still dizzy. His knees are about the same today and he would like them aspirated. He denies fever and chills. Objective - Vital Signs Vital signs: Vital Signs Temp 98.2 F 05/04/23 06:55 Pulse 73 05/04/23 09:07 Resp 18 05/04/23 06:55 BP 202/88 05/04/23 09:07 Pulse Ox 95 05/04/23 06:55 FiO2 Intake & Output 05/03/23 05/04/23 05/04/23 18:59 06:59 18:59 Intake Total 1123 240 Output Total 200 300 Balance 923 -300 240 Intake: Oral 1123 240 Output: Urine 200 300 Other: Voiding Method Urinal # Voids 3 - Exam The patient is a 88 y/o male in no acute distress. He is oriented and alerted x3. Exam of the bilateral knees reveals no open wounds. 2-3+ effusion present to the bilateral knees. Slightly limited ROM bilaterally due to swelling and guarding. No calf pain or swelling. Good foot and ankle motion bilaterally. Circulatory and neurological status is intact. - Labs CBC & Chem 7: 05/04/23 06:17 05/04/23 06:17 Labs: Abnormal Lab Results - Last 24 Hours (Table) 05/04/23 05/04/23 Range/Units 06:17 06:17 RBC 2.24 L (4.40-5.60) X 10*6/uL Hgb 7.1 L (13.0-17.0) d/dL Hct 21.4 L (39.6-50.0) % Plt Count 90 L (140-440) X 10*3/uL BUN 46.4 H (9.0-27.0) mg/dL Creatinine 2.3 H (0.6-1.5) mg/dL Est GFR (CKD-EPI) 27 L (>=60) BUN/Creatinine Ratio 20.17 H (12.00-20.00) Ratio Calcium 8.3 L (8.7-10.3) mg/dL Total Protein 5.2 L (6.2-8.2) d/dL Albumin 3.4 L (3.8-4.9) d/dL Assessment and Plan (1) Status post knee replacement Current Visit: Yes Status: Acute Code(s): Z96.659 - PRESENCE OF UNSPECIFIED ARTIFICIAL KNEE JOINT SNOMED Code(s): 446061956 (2) Knee effusion Current Visit: Yes Status: Acute Code(s): M25.469 - EFFUSION, UNSPECIFIED KNEE SNOMED Code(s): 324909228 Plan: The clinical and x-ray findings were discussed with the patient. The case was discussed with Dr. Cedeño. He is still experiencing knee pain and swelling. He would like his knees aspirated today. Procedure Note: Bedside bilateral knee joint aspiration The patient agreed to the bilateral knee joint aspirations and confirmed bilateral knees. The patient's skin was cleansed with Chloraprep. 3 mL of 2% lidocaine was injected into each of the bilateral knee joints without difficulty. 18cc of bloody fluid was aspirated from the right knee and 5cc of bloody fluid was aspirated from the left knee. The patient tolerated well. A bandaid was applied to aspiration sites. Ice may be applied to the knee if he experiences pain later this evening or tomorrow. Fluid was not sent to the lab for analysis, no signs of infection noted. He will follow up with Dr. Lanier upon discharge from the hospital if he knee pain and swelling continues.
--- NOTE | 2023-05-04 13:42 | P.NPCON ---
History of Present Illness - Reason for Consult acute renal failure - History of Present Illness Patient is an 88-year-old male with history of coronary artery disease, COPD, history of CVA who was admitted to the hospital with bilateral knee pain and increased weakness and dizziness. Patient admitted to having had falls over the last few weeks on and off. No previous history of kidney diseases. Serum creatinine was 2.2 on admission and it is at 2.3 today. Previous creatinine 0.9 on 04/15/2022. Patient has history of significant orthostatic hypotension and is maintained on midodrine and Florinef. Systolic blood pressure drops from 207 on sitting to 122 on standing. Patient has had episodes of lightheadedness and falls prior to admission. Patient has been voiding. Currently with an external catheter. Ultrasound on 05/03/2023 shows no evidence of obstructive uropathy. Review of Systems As per HPI. Past Medical History Past Medical History: Coronary Artery Disease (CAD), COPD, CVA/TIA, Eye Disorder, Hyperlipidemia, Osteoarthritis (OA) Additional Past Medical History / Comment(s): Anemia, idiopathic/orthostatic hypotension, macular degeneration, carpal tunnel syndrome, multiple mini strokes. occ. lightheadness., some sob., AAA with surgery (2020)., hospitalized 01/22/22 to 01/24/22 for hypotension and fall. History of Any Multi-Drug Resistant Organisms: None Reported Past Surgical History: Appendectomy, Coronary Bypass/CABG, Hernia Repair, Joint Replacement, Tonsillectomy Additional Past Surgical History / Comment(s): CABG X1 2001, vasectomy, umbilical/hiatal hernia repairs, bilateral knee replacements, pinched nerve in neck surgically repaired, abdominal aortic aneurysm repair-january 2021 Past Anesthesia/Blood Transfusion Reactions: No Reported Reaction Additional Past Anesthesia/Blood Transfusion Reaction / Comment(s): HX BLOOD TRANSFUSION JANUARY 2021 WITH AAA SURGERY-NO REACTION Past Psychological History: No Psychological Hx Reported Smoking Status: Former smoker Past Alcohol Use History: None Reported Past Drug Use History: None Reported - Past Family History Mother Family Medical History: Hyperlipidemia Medications and Allergies Home Medications Medication Instructions Recorded Confirmed Type Sertraline HCl [Zoloft] 50 mg PO DAILY 01/28/20 05/03/23 History Simvastatin 40 mg PO HS 01/28/20 05/03/23 History Ferrous Sulfate [Iron (65 MG 325 mg PO DAILY 03/07/21 05/03/23 History Elemental)] Ascorbic Acid [Vitamin C] 1,000 mg PO DAILY 10/14/21 05/03/23 History Multivit-Min/FA/Lycopen/Lutein 1 tab PO DAILY 10/14/21 05/03/23 History [Centrum Silver Tablet] Cholecalciferol [Vitamin D3 (25 25 mcg PO DAILY 01/22/22 05/03/23 History Mcg = 1000 Iu)] Ibuprofen [Motrin] 600 mg PO Q8HR PRN #20 tab 05/02/23 Rx Midodrine [ProAmatine] 5 mg PO TID 05/03/23 05/03/23 History Nitroglycerin Sl Tabs [Nitrostat] 0.4 mg SUBLINGUAL Q5M PRN 05/03/23 05/03/23 History Allergies Allergy/AdvReac Type Severity Reaction Status Date / Time No Known Allergies Allergy Verified 05/03/23 08:00 Physical Exam Vitals: Vital Signs Temp Pulse Pulse Pulse Pulse Resp BP 05/04/23 09:07 76 73 77 05/04/23 06:55 98.2 F 82 18 05/04/23 03:03 98.0 F 87 18 185/76 05/04/23 02:08 70 16 05/03/23 20:47 70 16 05/03/23 19:39 98.3 F 69 18 05/03/23 15:00 98.3 F 70 16 117/59 BP BP BP Pulse Ox 05/04/23 09:07 207/86 122/56 202/88 05/04/23 06:55 213/89 95 05/04/23 03:03 96 05/04/23 02:08 05/03/23 20:47 05/03/23 19:39 115/63 98 05/03/23 15:00 98 Intake and Output 05/03/23 05/04/23 05/04/23 22:59 06:59 14:59 Intake Total 240 Output Total 300 Balance -300 240 Intake: Oral 240 Output: Urine 300 Other: Voiding Method Urinal Urinal # Voids 3 Patient is awake him a comfortable, no acute distress Alert oriented 3 Examination of the heart S1 and S2 Examination of the lungs bilateral breath sounds are heard Abdomen is soft nontender Examination of lower extremity shows no significant edema [employer] SUPER[employer]OR exam grossly intact Results - Lab Results Most recent lab results Calcium 8.3 mg/dL (8.7-10.3) L 05/04/23 06:17 Magnesium 2.1 mg/dL (1.5-2.4) 05/04/23 06:17 05/04/23 06:17 05/04/23 06:17 Assessment and Plan Assessment: 1. Acute kidney injury most likely related to hemodynamic instability and severe orthostatic hypotension. UA shows 4+ protein and moderate blood. Need to rule out underlying acute GN. No evidence of obstruction noted on ultrasound. Rule out urine retention. No nephrotoxic agents identified. 2. Severe orthostatic hypotension, check random cortisol level. Currently maintained on midodrine and Florinef 3. Status post fall 4. Bilateral knee effusions 5. Hyperkalemia associated with acute kidney injury, currently improved. Rule out urine retention Plan: Check bladder scan Continue with Florinef and midodrine Check random cortisol level Agree with amlodipine as well as given the significant high blood pressure on sitting and laying Check baseline serologies Thank you for the consultation. We will continue to follow the patient with you during his hospitalization.
--- NOTE | 2023-05-04 18:33 | P.PN ---
Subjective Progress Note Date: 05/04/23 Hospital course: Patient is a very pleasant 88-year-old male with a past medical history of CAD status post CABG, AAA status post repair in 2020, hyperlipidemia, recurrent TIAs, and orthostatic hypotension. He presented to the emergency department overnight with a chief complaint of worsening dizziness/lightheadedness along with bilateral knee pain. He underwent full evaluation in the emergency department. EKG completed showing normal sinus rhythm at 77 bpm with a first- degree AV block with WA interval increased to [address] depression noted in inferior lateral leads 2, 3, aVF, and V4 through V6 upon personal review and interpretation. When comparison to EKG completed in January 2022 first- degree block was previously present however slight depression in inferior leads this new finding that was previously present in V4 through V6. Labs completed and reviewed. CBC showing acute on chronic normocytic anemia with hemoglobin of 7.9 with baseline hemoglobin around 9.5. Coagulation profile showing elevated PT of 15.7 and INR 1.6. BMP revealing hypernatremia with sodium 126, hyperkalemia with potassium of 5.3, and in acute kidney injury with BUN of 46, creatinine 2.24, and GFR of 25 along with hyperkalemia with potassium of 5.3. CT chest abdomen and pelvis was completed showing no evidence of acute fractures, erythema and left upper abdomen subcutaneous tissues anteriorly correlating for point of trauma, calcifications along the pulmonary pleura correlating for asbestos exposure, aortobiiliac stent graft in place, cholelithiasis, colonic diverticulosis, and metallic density within the left pelvis with round morphology possibly representing a vascular structure in the pelvis recommending outpatient nonemergent CTA of the pelvis, correlation prior imaging at outside institution as recommended this is mildly increased from 10/13/22, and an indeterminate right renal cyst measuring 4 cm, recommending MRI renal mass protocol for complete characterization X-ray right and left knee were completed showing post-arthroplasty changes bilaterally without evidence of fracture or hardware loosening and joint effusions bilaterally. Patient was admitted under our services to general medical unit with telemetry. Consult placed to cardiol ogy, nephrology, and orthopedic surgery. Physical exam: Patient seen and fully evaluated at the bedside this morning. He states he pretty much feels the same. He continues to feel weak and tired with significant dizziness upon movement and persistent bilateral knee pain. Vital signs reviewed and stable. General: Nontoxic, no distress and appears stated age. Derm: Skin warm and dry, normal coloration for ethnicity. Multiple areas of Bruising on bilateral upper extremities. Moderate sized bruised left rib region. Head: Atraumatic, normocephalic and symmetric. Eyes: EOMs intact, no lid lag, and anicteric sclera Mouth: no lip lesions, mucus membranes moist Cardiovascular: regular rate and rhythm with normal S1S2, systolic murmur, positive posterior tibial pulses bilaterally, and cap refill < 2 seconds. Lungs: Respirations even, regular, and unlabored on room air. Lungs CTA bilaterally, no rhonchi, no rales, no wheezing, and no accessory muscle usage. Abdominal: soft, nontender to palpation, no guarding, no appreciable organomega ly Ext: ROM intact. No gross muscle atrophy, scant edema to bilateral examination, no contractures. Moderate swelling bilateral knee is worse on right. Neuro: Speech clear, face symmetrical and CN II-XII grossly intact with no noted focal neuro deficits Psych: Alert and oriented to person, place, time, and situation. Appropriate and pleasant affect. Assessment and Plan of Care: Acute kidney injury with oliguria Hyperkalemia Bicytopenia Severe orthostatic hypotension with Dizziness/lightheadedness and recurrent falls History of CAD status post CABG AAA status post repair Hyperlipidemia History of TIAs Orthostatic hypotension -Orthostatic vitals positive for significant orthostatic hypotension. -Cardiology following and started patient on Florinef 0.2 mg daily along with increasing midodrine to 10 mg 3 times daily. -This morning patient very hypertensive with blood pressure 213/89. He continues to have significant orthostatic hypotension with blood pressure dropping from 202/88 supine, to 207/86 sitting, and 122/56 upon standing. Discussed with cardiology BUTCHER ALL ROUND the possibility of decreasing Florinef, but she reports energy derivatives trader wants to continue and added on Norvasc 5 mg daily. -Patient on strict I's and O secondary to acute kidney injury with oliguria. Patient has documented output of 500 mL over the past 24 hours. -Urinalysis reviewed and was positive for protein and blood negative for i nfection. -Patient has external catheter in place, recommending continuation of bladder scans to monitor for postvoid residuals. -Nephrology consulted and appreciate recommendations. -Continue with Telemetry monitoring Bilateral knee pain resulting in difficulty ambulating Bilateral knee effusions -Consult placed orthopedic surgery for further evaluation and possible knee aspiration. -Symptomatic care and pain management. -Consult placed PT/OT -Continue fall precautions. Data review: -Morning labs reviewed. CBC showing bicytopenia with hemoglobin of 7.1 and platelet count of 90. BMP showing BUN of 46.4, creatinine 2.3, and GFR of 27. Magnesium normal findings at 2.1. -Urinalysis reviewed positive for protein and blood. -This morning patient very hypertensive with blood pressure 213/89 with continued orthostatic hypotension with blood pressure dropping from 202/88 supine, to 207/86 sitting, and 122/56 upon standing. Imaging reviewed: Renal ultrasound reviewed showing increased cortical echogenicity with reduced cortical medullary differentiation compatible with chronic medical renal disease, gallbladder hypotrophic with large gallstone. -Continue with Telemetry monitoring -Echocardiogram completed an echocardiogram report reviewed showing an EF of 50- 55% with hypokinetic basal inferior septal wall and hypokinetic basal inferior wall with aneurysmal interatrial septum. CODE STATUS: Full code DVT prophylaxis: Heparin Discussed with: Patient, RN, and cardiology BUTCHER ALL ROUND Anticipated discharge date: Clinical course to determine Anticipated discharge place: Home Patient was seen independently by Nurse Pracitioner. This document was prepared using [employer] dictation software. Please allow for errors in weight loss sales consultant, while rare they do occur. I reviewed the documentation as provided by the SHELLY above, who is the original author of this note. I agree with the documented assessment and plan, with the following changes: none Objective - Vital Signs Vital signs: Vital Signs Temp 98.2 F 05/04/23 06:55 Pulse 73 05/04/23 09:07 Resp 18 05/04/23 06:55 BP 202/88 05/04/23 09:07 Pulse Ox 95 05/04/23 06:55 FiO2 Intake & Output 05/03/23 05/04/23 05/04/23 18:59 06:59 18:59 Intake Total 1123 240 Output Total 200 300 Balance 923 -300 240 Intake: Oral 1123 240 Output: Urine 200 300 Other: Voiding Method Urinal # Voids 3 - Labs CBC & Chem 7: 05/04/23 06:17 05/04/23 06:17 Labs: Abnormal Lab Results - Last 24 Hours (Table) 05/03/23 05/03/23 05/03/23 Range/Units 08:48 08:48 10:38 RBC 2.56 L (4.30-5.90) m/uL Hgb 8.1 L (13.0-17.5) gm/dL Hct 24.2 L (39.0-53.0) % Plt Count 73 L (150-450) k/uL Sodium 135 L (137-145) mmol/L BUN 47 H (9-20) mg/dL Creatinine 2.38 H (0.66-1.25) mg/dL Glucose 133 H (74-99) mg/dL Calcium 8.0 L (8.4-10.2) mg/dL Total Protein 5.8 L (6.3-8.2) g/dL Albumin 3.2 L (3.5-5.0) g/dL Urine Protein 4+ H (Negative) Urine Blood Moderate H (Negative) Urine Mucus Rare H (None) /hpf
[2023-05-04] MEDS: ATORVASTATIN 20 MG TAB PO SCH (20:41)
[2023-05-04 21:12] LABS: Anti-DNA, DS unit <1.0 IU/mL; DNA Double-Stranded Negative (Negative)
[2023-05-04 22:28] LABS: Hepatitis B Surface Antigen Nonreactive; Hepatitis C IgG Antibody Nonreactive
[2023-05-04 22:50] LABS: % Iron Saturation 11.11 (15.00-50.00)
[2023-05-05] MEDS: SODIUM CHLORIDE 0.9% 1,000 ML IV SCH ×3 (02:44→23:44)
[2023-05-05] MEDS: MIDODRINE 5 MG TAB PO SCH ×3 (05:24→17:41)
[2023-05-05] MEDS: FERROUS SULFATE 325 MG TAB PO SCH (08:37)
[2023-05-05] MEDS: amLODIPine 5 MG TAB PO SCH (08:37)
[2023-05-05] MEDS: SERTRALINE 50 MG TAB PO SCH (08:37)
[2023-05-05] MEDS: HEPARIN SODIUM,PORCINE 5,000 UNIT/ML 1 ML VIAL SQ SCH ×2 (08:37→20:09)
--- NOTE | 2023-05-05 09:22 | P.PN ---
Subjective HISTORY OF PRESENT ILLNESS: This is a 88-year-old male with a past medical history significant for coronary artery disease with previous CABG, AAA with previous repair in 2020, hyperlipidemia, recurrent TIAs, and orthostatic hypotension. Patient follows with product marketing manager in [place]. We have been asked to see the patient in consultation for dizziness and orthostatic hypotension. Patient examined at the bedside. Patient initially presented to the hospital secondary to bilateral knee pain. Patient was found to have acute kidney injury with a creatinine of 2.24. He also reports feeling dizzy. The patient has a long-standing history of orthostatic hypotension for the last 4 years. Patient has been on many dif ferent medications including Florinef and Midodine. Orthostatic blood pressures obtained reveal supine 145/67, sitting 110/60, and standing 87/46. * EKG reveals sinus mechanism with first degree AV block. ST depression noted in inferior leads and V3V6. * Laboratory data: WBC 7.4. Hemoglobin 8.1. Platelet count 73. Sodium 135. Potassium 4.6. BUN 47. Creatinine 2.38. Troponin negative 1. * Current home cardiac medications include simvastatin 40 mg at night and Midodrine 5mg TID. * Most recent echocardiogram obtained in January 2022 revealed ejection fraction 50- 55%, [id number] tricuspid regurgitation and mild mitral regurgitation 05/04/2023 Patient examined this morning at the bedside. Patient denies chest pain or pressure. He denies shortness of breath. He reports his dizziness has improved from yesterday. Patient remains orthostatic this morning. He is also hypertensive this morning with a systolic of 202. Echocardiogram completed revealing ejection fraction 50-55%, hypokinesis involving basilar inferior wall and inferior septum, aneurysmal intra-atrial septum. 05/05/2023 Patient examined this morning at the bedside. Patient denies chest pain or pressure. He denies shortness of breath. Patient reports mild improvement in his dizziness. He remains hypertensive this morning with a blood pressure of 203/85. PHYSICAL EXAM: VITAL SIGNS: Reviewed. GENERAL: Well-developed in no acute distress. HEENT: Head is normocephalic. Pupils are equal, round. Sclerae anicteric. Mucous membranes of the mouth are moist. Neck supple. No JVD or thyromegaly LUNGS: Respirations even and unlabored. Lungs essentially clear to auscultation bilaterally. HEART: Regular rate and rhythm. S1 and S2 heard. Systolic murmur noted. ABDOMEN: Soft. Nondistended. Nontender. EXTREMITIES: Normal range of motion. No clubbing or cyanosis. Peripheral pulses intact. No lower extremity edema NEUROLOGIC: Awake and alert. Oriented x 3. ASSESSMENT: Bilateral knee pain Acute kidney injury Chronic severe orthostatic hypotension Dizziness Hyperlipidemia History of TIA Thrombocytopenia Anemia, etiology unknown PLAN: Continue current cardiac medications. Hold off on adding aspirin (due to CAD) secondary to thrombocytopenia and anemia Continue Midodrine and Florinef. Decrease Midodrine to 5mg TID Add Norvasc 5mg daily Daily orthostatic blood pressures JOON hose to bilateral lower extremities Further recommendations pending patient's course Nurse practitioner note has been reviewed by physician. Signing provider agrees with the documented findings, assessment, and plan of care. Objective - Vital Signs Vital signs: Vital Signs Temp 98.3 F 05/05/23 07:00 Pulse 71 05/05/23 07:00 Resp 16 05/05/23 07:00 BP 203/85 05/05/23 07:00 Pulse Ox 95 05/05/23 07:00 FiO2 Intake & Output 05/04/23 05/05/23 05/05/23 18:59 06:59 18:59 Intake Total 590 Output Total 700 2125 Balance -110 -2125 Intake: Oral 590 Output: Urine 700 2125 Other: Voiding Method External Catheter - Labs CBC & Chem 7: 05/04/23 06:17 05/04/23 06:17 Labs: Abnormal Lab Results - Last 24 Hours (Table) 05/04/23 05/04/23 05/04/23 Range/Units 06:17 06:17 14:00 RBC 2.24 L (4.40-5.60) X 10*6/uL Hgb 7.1 L (13.0-17.0) d/dL Hct 21.4 L (39.6-50.0) % Plt Count 90 L (140-440) X 10*3/uL BUN 46.4 H (9.0-27.0) mg/dL Creatinine 2.3 H (0.6-1.5) mg/dL Est GFR (CKD-EPI) 27 L (>=60) BUN/Creatinine Ratio 20.17 H (12.00-20.00) Ratio Calcium 8.3 L (8.7-10.3) mg/dL Iron 23 L (65-175) UG/DL TIBC 207 L (228-460) UG/DL % Saturation 11.11 L (15.00-50.00) Transferrin 148.0 L (204.0-354.0) mg/dL Total Protein 5.2 L (6.2-8.2) d/dL Albumin 3.4 L (3.8-4.9) d/dL Hep Bs Antibody (Negative) 05/04/23 Range/Units 14:14 RBC (4.40-5.60) X 10*6/uL Hgb (13.0-17.0) d/dL Hct (39.6-50.0) % Plt Count (140-440) X 10*3/uL BUN (9.0-27.0) mg/dL Creatinine (0.6-1.5) mg/dL Est GFR (CKD-EPI) (>=60) BUN/Creatinine Ratio (12.00-20.00) Ratio Calcium (8.7-10.3) mg/dL Iron (65-175) UG/DL TIBC (228-460) UG/DL % Saturation (15.00-50.00) Transferrin (204.0-354.0) mg/dL Total Protein (6.2-8.2) d/dL Albumin (3.8-4.9) d/dL Hep Bs Antibody A (Negative)
[2023-05-05 09:31] LABS: ALT 15 U/L (10-49); AST 19 U/L (14-35); Albumin 3.3 d/dL (3.8-4.9); Albumin/Globulin Ratio 1.83 Ratio (1.60-3.17); Alkaline Phosphatase 66 U/L (41-126); BUN/Creat Ratio 18.05 Ratio (12.00-20.00); Blood Urea Nitrogen 39.7 mg/dL (9.0-27.0); Calcium 8.3 mg/dL (8.7-10.3); Carbon Dioxide 23.9 mmol/L (21.6-31.8); Chloride 108 mmol/L (96-109); Globulin 1.8 d/dL (1.6-3.3); Glucose 106 mg/dL (70-110); Potassium 4.6 mmol/L (3.5-5.5); Sodium 141 mmol/L (135-145); Total Bilirubin 0.5 mg/dL (0.3-1.2); Total Protein 5.1 d/dL (6.2-8.2)
[2023-05-05 09:48] LABS: HCT 20.1 % (39.6-50.0); HGB 6.7 d/dL (13.0-17.0); MCH 31.2 pg (27.0-32.0); MCHC 33.3 d/dL (32.0-37.0); MCV 93.5 FL (80.0-97.0); Mean Platelet Volume 9.7 FL (9.5-12.2); NRBC Per 100 WBC 0 X 10*3/uL (0.00-0.01); Platelet Count 103 X 10*3/uL (140-440); RBC 2.15 X 10*6/uL (4.40-5.60); WBC 6.61 X 10*3/uL (4.50-10.00)
[2023-05-05] MEDS: FLUDROCORTISONE 0.1 MG TAB PO SCH (09:54)
[2023-05-05 10:47] LABS: Reticulocyte % 2.5 % (0.5-2.0)
[2023-05-05 11:00] LABS: HCT 21.4 % (39.0-53.0); MCH 30.9 pg (25.0-35.0); MCHC 32.6 g/dL (31.0-37.0); MCV 94.9 fL (80.0-100.0); Mean Platelet Volume 9.3; Platelet Count 107 k/uL (150-450); RBC 2.26 m/uL (4.30-5.90); RDW 14.7 % (11.5-15.5); WBC 6.3 k/uL (3.8-10.6)
[2023-05-05 11:56] LABS: Anti-Glomerular Basement Memb <1.5 U/mL (<7.0)
[2023-05-05 13:39] LABS: Immunoglobulin M <35.0 mg/dL (40.0-280.0)
[2023-05-05] MEDS ORDERED: cloNIDine HCL 0.1 MG TAB PO STA (13:44)
--- NOTE | 2023-05-05 13:48 | P.PN ---
Subjective Progress Note Date: 05/05/23 Patient is an 80-year-old male with coronary artery disease status post CABG, AAA repair in 2020, hypertension, recurrent TIAs, and orthostatic hypotension who presented to the emergency department with worsening of his dizziness and lightheadedness and bilateral knee pain. In the ER he underwent extensive evaluation. EKG demonstrated normal sinus rhythm with an increased [place] interval and mild ST segment depression, laboratory analysis was remarkable for hemoglobin 7.9 (baseline 9.5), INR 1.6, sodium 136, potassium 5.3, BUN 46, and creatinine 2.24. He was admitted and was started on IV fluids. Cardiology, nephrology, and orthopedics were consulted. He was noted to have significant orthostatic hypotension. He was also found to have bilateral knee effusions and underwent aspiration on 05/04/23. Nephrology recommended continue with Florinef and Midodrine as well as checking cortisol levels. He was found to have significant anemia. Imaging: CT chest abdomen and pelvis: No acute fracture, edema left upper abdomen, calcifications in the pulmonary pleura, aortobiiliac stent, cholelithiasis, chronic diverticulosis, metallic density in the left pelvis, indeterminate right renal cyst measuring 4 cm Renal ultrasound: Increased echogenicity consistent with medical renal disease, gallbladder is hypertrophic with large gallstones simple 1.7 cm renal cyst on the right Echocardiogram: Ejection fraction 50-55%, hypokinetic inferior septal wall, hypokinetic basilar segment, intra-atrial septum is aneurysmal. Patient seen and examined at bedside. He has struggled with orthostatic hypotension for the last 4 years, but it has never been this bad. He denies any chest pain, SOB, nausea or vomiting. Vital signs reviewed General: nontoxic, no distress, appears at stated age Cardiovascular: S1S2 reg, no murmur, positive posterior tibial pulse bilateral, Lungs: CTA bilateral, no rhonchi, no rales , no accessory muscle use Abdominal: soft, nontender to palpation, no guarding, no appreciable organomegaly Ext: no gross muscle atrophy, no edema b/l lower extremities, no contractures Neuro: CN II-XI grossly intact, no focal neuro deficits Psych: Alert, oriented, appropriate affect Assessment/Plan: Anemia him about thrombocytopenia -Baseline hemoglobin is from one year ago and is 10.2 - suspect iron deficiency - 1 unit pRBC - follow CBC - Check Retic, folate, and Vit B 12 - patient denies bleeding/blood in stool -Continue with oral iron Acute kidney injury Hyperkalemia, resolved Severe orthostatic hypotension and falls -Nephrology and cardiology recommendations -Continue Norvasc 5 mg daily secondary to severe hypertension in the supine position -Continue with Florinef 0.2 mg daily and Midrin 5 mg 3 times daily due to significant orthostatic component -Asked nursing to ensure that Johnny hose get placed on patient -Continue to follow orthostatic blood pressures -Cardiology note reviewed: Continue with Midrin, Florinef, and Norvasc -Nephrology consultation reviewed: Agree with Norvasc, check random cortisol level -IgG, IgA, ARCHIE, myeloperoxidase, double-stranded DNA, [id number] -Continue normal saline at 100 mL/h -Avoid additional nephrotoxic agents -Follow creatinine Bilateral knee pain secondary to effusions -Status post knee aspiration -PT/OT recommendations -Pain control Chronic: Lipidemia History of TIAs AAA status post repair Imaging: None review for review Data Review: Vitals reviewed from today and supine blood pressure was 192/79, standing blood pressure was 111/45. Labs reviewed remarkable for hemoglobin 6.7 (down from 7.1), platelets 107, creatinine 2.2, iron 23, TIBC 207, iron sat 11.1 DVT prophylaxis: Heparin Discussed with: Patient, nursing Anticipated discharge date: Pending Clinical Course Anticipated discharge place: [facility] This dictation was prepared using [employer] voice recognition software. Though every attempt is made to correct errors during dictation some may still exist. Objective - Vital Signs Vital signs: Vital Signs Temp 97.6 F 05/05/23 13:38 Pulse 84 05/05/23 13:38 Resp 16 05/05/23 13:38 BP 220/77 05/05/23 13:38 Pulse Ox 100 05/05/23 13:38 FiO2 Intake & Output 05/04/23 05/05/23 05/05/23 18:59 06:59 18:59 Intake Total 590 0 Output Total 700 2125 Balance -110 -2125 0 Intake: Oral 590 Blood Product 0 Unit 0 Output: Urine 700 2125 Other: Voiding Method External Catheter External Catheter - Labs CBC & Chem 7: 05/05/23 10:21 05/05/23 05:56 Labs: Abnormal Lab Results - Last 24 Hours (Table) 08/05/04/23 05/05/23 Range/Units 14:00 14:14 05:56 RBC 2.15 L (4.40-5.60) X 10*6/uL Hgb 6.7 H* (13.0-17.0) d/dL Hct 20.1 L (39.6-50.0) % Plt Count 103 L (140-440) X 10*3/uL Retic Count (0.5-2.0) % BUN (9.0-27.0) mg/dL Creatinine (0.6-1.5) mg/dL Est GFR (CKD-EPI) (>=60) Calcium (8.7-10.3) mg/dL Iron 23 L (65-175) UG/DL TIBC 207 L (228-460) UG/DL % Saturation 11.11 L (15.00-50.00) Transferrin 148.0 L (204.0-354.0) mg/dL Total Protein (6.2-8.2) d/dL Albumin (3.8-4.9) d/dL IgM <35.0 L (40.0-280.0) mg/dL Hep Bs Antibody A (Negative) Crossmatch 05/05/23 05/05/23 05/05/23 Range/Units 05:56 10:21 10:21 RBC (4.40-5.60) X 10*6/uL Hgb (13.0-17.0) d/dL Hct (39.6-50.0) % Plt Count (140-440) X 10*3/uL Retic Count 2.5 H (0.5-2.0) % BUN 39.7 H (9.0-27.0) mg/dL Creatinine 2.2 H (0.6-1.5) mg/dL Est GFR (CKD-EPI) 28 L (>=60) Calcium 8.3 L (8.7-10.3) mg/dL Iron (65-175) UG/DL TIBC (228-460) UG/DL % Saturation (15.00-50.00) Transferrin (204.0-354.0) mg/dL Total Protein 5.1 L (6.2-8.2) d/dL Albumin 3.3 L (3.8-4.9) d/dL IgM (40.0-280.0) mg/dL Hep Bs Antibody (Negative) Crossmatch See Detail 05/05/23 Range/Units 10:21 RBC 2.26 L (4.40-5.60) X 10*6/uL Hgb 7.0 L (13.0-17.0) d/dL Hct 21.4 L (39.6-50.0) % Plt Count 107 L (140-440) X 10*3/uL Retic Count (0.5-2.0) % BUN (9.0-27.0) mg/dL Creatinine (0.6-1.5) mg/dL Est GFR (CKD-EPI) (>=60) Calcium (8.7-10.3) mg/dL Iron (65-175) UG/DL TIBC (228-460) UG/DL % Saturation (15.00-50.00) Transferrin (204.0-354.0) mg/dL Total Protein (6.2-8.2) d/dL Albumin (3.8-4.9) d/dL IgM (40.0-280.0) mg/dL Hep Bs Antibody (Negative) Crossmatch
[2023-05-05 13:50] LABS: C-ANCA <1:20 Titer (<1:20)
--- NOTE | 2023-05-05 14:29 | P.PN ---
Subjective Patient is seen for follow-up for acute kidney injury. He has history of significant orthostatic hypotension and was admitted with history of falls and bilateral knee pain with increased weakness and dizziness. Patient is currently maintained on IV fluids. He is also maintained on midodrine and Florinef. Overall patient states he is feeling better. Serum creatinine staying at about 2.2 mg/dL. Previous creatinine as low as 0.9 on 04/15/2022. Hemoglobin was 6.7 g/dL. Status post 1 unit packed RBCs transfusion. Objective - Vital Signs Vital signs: Vital Signs Temp 97.9 F 05/05/23 14:08 Pulse 80 05/05/23 14:08 Resp 80 H 05/05/23 14:08 BP 201/83 05/05/23 14:08 Pulse Ox 97 05/05/23 14:08 FiO2 Intake & Output 05/04/23 05/05/23 05/05/23 18:59 06:59 18:59 Intake Total 590 118 Output Total 700 2125 445 Balance -110 -9974 -004 Intake: Oral 590 118 Blood Product 0 Unit 0 Output: Urine 700 2125 445 Other: Voiding Method External Catheter External Catheter - Exam Patient is awake him a comfortable, no acute distress Alert oriented 3 Examination of the heart S1 and S2 Examination of the lungs bilateral breath sounds are heard Abdomen is soft nontender Examination of lower extremity shows no significant edema 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 grossly intact - Labs CBC & Chem 7: 05/05/23 10:21 05/05/23 05:56 Labs: Abnormal Lab Results - Last 24 Hours (Table) 05/04/23 05/04/23 05/05/23 Range/Units 14:00 14:14 05:56 RBC 2.15 L (4.40-5.60) X 10*6/uL Hgb 6.7 H* (13.0-17.0) d/dL Hct 20.1 L (39.6-50.0) % Plt Count 103 L (140-440) X 10*3/uL Retic Count (0.5-2.0) % BUN (9.0-27.0) mg/dL Creatinine (0.6-1.5) mg/dL Est GFR (CKD-EPI) (>=60) Calcium (8.7-10.3) mg/dL Iron 23 L (65-175) UG/DL TIBC 207 L (228-460) UG/DL % Saturation 11.11 L (15.00-50.00) Transferrin 148.0 L (204.0-354.0) mg/dL Total Protein (6.2-8.2) d/dL Albumin (3.8-4.9) d/dL IgM <35.0 L (40.0-280.0) mg/dL Hep Bs Antibody A (Negative) Crossmatch 05/05/23 05/05/23 05/05/23 Range/Units 05:56 10:21 10:21 RBC (4.40-5.60) X 10*6/uL Hgb (13.0-17.0) d/dL Hct (39.6-50.0) % Plt Count (140-440) X 10*3/uL Retic Count 2.5 H (0.5-2.0) % BUN 39.7 H (9.0-27.0) mg/dL Creatinine 2.2 H (0.6-1.5) mg/dL Est GFR (CKD-EPI) 28 L (>=60) Calcium 8.3 L (8.7-10.3) mg/dL Iron (65-175) UG/DL TIBC (228-460) UG/DL % Saturation (15.00-50.00) Transferrin (204.0-354.0) mg/dL Total Protein 5.1 L (6.2-8.2) d/dL Albumin 3.3 L (3.8-4.9) d/dL IgM (40.0-280.0) mg/dL Hep Bs Antibody (Negative) Crossmatch See Detail 05/05/23 Range/Units 10:21 RBC 2.26 L (4.40-5.60) X 10*6/uL Hgb 7.0 L (13.0-17.0) d/dL Hct 21.4 L (39.6-50.0) % Plt Count 107 L (140-440) X 10*3/uL Retic Count (0.5-2.0) % BUN (9.0-27.0) mg/dL Creatinine (0.6-1.5) mg/dL Est GFR (CKD-EPI) (>=60) Calcium (8.7-10.3) mg/dL Iron (65-175) UG/DL TIBC (228-460) UG/DL % Saturation (15.00-50.00) Transferrin (204.0-354.0) mg/dL Total Protein (6.2-8.2) d/dL Albumin (3.8-4.9) d/dL IgM (40.0-280.0) mg/dL Hep Bs Antibody (Negative) Crossmatch Assessment and Plan Assessment: 1. Acute kidney injury most likely related to hemodynamic instability and severe orthostatic hypotension. UA shows 4+ protein and moderate blood. Need to rule out underlying acute GN. Baseline serologies negative thus far. No evidence of obstruction noted on ultrasound. Rule out urine retention. No nephrotoxic agents identified. 2. Severe orthostatic hypotension, check random cortisol level. Currently maintained on midodrine and Florinef 3. Status post fall 4. Bilateral knee effusions 5. Hyperkalemia associated with acute kidney injury, currently improved. Rule out urine retention Plan: Check bladder scan Continue with Florinef and midodrine Consider cosyntropin stimulation test as cortisone was 8.3 Agree with amlodipine as well as given the significant high blood pressure on sitting and laying
[2023-05-05] MEDS: ATORVASTATIN 20 MG TAB PO SCH (20:09)
[2023-05-06] MEDS: MIDODRINE 5 MG TAB PO SCH ×3 (05:52→18:46)
[2023-05-06 07:00] LABS: Anisocytosis Slight; HCT 23.9 % (39.0-53.0); HGB 8.1 gm/dL (13.0-17.5); MCH 31.2 pg (25.0-35.0); MCV 91.7 fL (80.0-100.0); Mean Platelet Volume 8.6; Platelet Count 116 k/uL (150-450); RBC 2.61 m/uL (4.30-5.90); RDW 16.2 % (11.5-15.5); WBC 5.7 k/uL (3.8-10.6)
[2023-05-06 07:14] LABS: African American GFR (CKD) 44 (>60 ml/min/1.73 sqM); Anion Gap 4 mmol/L; Blood Urea Nitrogen 36 mg/dL (9-20); Carbon Dioxide 27 mmol/L (22-30); Chloride 108 mmol/L (98-107); Glucose 96 mg/dL (74-99); Non-African American GFR(CKD) 38 (>60 ml/min/1.73 sqM); Potassium 4.5 mmol/L (3.5-5.1); Sodium 139 mmol/L (137-145)
[2023-05-06] MEDS: amLODIPine 5 MG TAB PO SCH (09:11)
[2023-05-06] MEDS: SERTRALINE 50 MG TAB PO SCH (09:11)
[2023-05-06] MEDS: FLUDROCORTISONE 0.1 MG TAB PO SCH (09:11)
[2023-05-06] MEDS: FERROUS SULFATE 325 MG TAB PO SCH (09:11)
[2023-05-06] MEDS: HEPARIN SODIUM,PORCINE 5,000 UNIT/ML 1 ML VIAL SQ SCH ×2 (09:12→20:52)
[2023-05-06] MEDS: SODIUM CHLORIDE 0.9% 1,000 ML IV SCH ×2 (09:12→18:46)
[2023-05-06] MEDS: ACETAMINOPHEN TAB 325 MG TAB PO PRN ×2 (09:24→22:13)
[2023-05-06] MEDS ORDERED: amLODIPine 5 MG TAB PO STA (09:35)
--- NOTE | 2023-05-06 10:29 | P.PN ---
Subjective HISTORY OF PRESENT ILLNESS: This is a 88-year-old male with a past medical history significant for coronary artery disease with previous CABG, AAA with previous repair in 2020, hyperlipidemia, recurrent TIAs, and orthostatic hypotension. Patient follows with requirements manager in [place]. We have been asked to see the patient in consultation for dizziness and orthostatic hypotension. Patient examined at the bedside. Patient initially presented to the hospital secondary to bilateral knee pain. Patient was found to have acute kidney injury with a creatinine of 2.24. He also reports feeling dizzy. The patient has a long-standing history of orthostatic hypotension for the last 4 years. Patient has been on many dif ferent medications including Florinef and Midodine. Orthostatic blood pressures obtained reveal supine 145/67, sitting 110/60, and standing 87/46. * EKG reveals sinus mechanism with first degree AV block. ST depression noted in inferior leads and V3V6. * Laboratory data: WBC 7.4. Hemoglobin 8.1. Platelet count 73. Sodium 135. Potassium 4.6. BUN 47. Creatinine 2.38. Troponin negative 1. * Current home cardiac medications include simvastatin 40 mg at night and Midodrine 5mg TID. * Most recent echocardiogram obtained in January 2022 revealed ejection fraction 50- 55%, [id number] tricuspid regurgitation and mild mitral regurgitation 05/04/2023 Patient examined this morning at the bedside. Patient denies chest pain or pressure. He denies shortness of breath. He reports his dizziness has improved from yesterday. Patient remains orthostatic this morning. He is also hypertensive this morning with a systolic of 202. Echocardiogram completed revealing ejection fraction 50-55%, hypokinesis involving basilar inferior wall and inferior septum, aneurysmal intra-atrial septum. 05/05/2023 Patient examined this morning at the bedside. Patient denies chest pain or pressure. He denies shortness of breath. Patient reports mild improvement in his dizziness. He remains hypertensive this morning with a blood pressure of 203/85. 05/06/2023 Patient examined this morning at the bedside. Patient is sitting up on the side of the bed eating breakfast. He denies chest pain or pressure. Denies shortness of breath. At the time of examination he denies dizziness or lightheadedness. Patient remains hypertensive this morning. The patient states he has not been out of bed yet to ambulate. PHYSICAL EXAM: VITAL SIGNS: Reviewed. GENERAL: Well-developed in no acute distress. HEENT: Head is normocephalic. Pupils are equal, round. Sclerae anicteric. Mucous membranes of the mouth are moist. Neck supple. No JVD or thyromegaly LUNGS: Respirations even and unlabored. Lungs essentially clear to auscultation bilaterally. HEART: Regular rate and rhythm. S1 and S2 heard. Systolic murmur noted. ABDOMEN: Soft. Nondistended. Nontender. EXTREMITIES: Normal range of motion. No clubbing or cyanosis. Peripheral pulses intact. No lower extremity edema NEUROLOGIC: Awake and alert. Oriented x 3. ASSESSMENT: Bilateral knee pain Acute kidney injury Chronic severe orthostatic hypotension Dizziness Hyperlipidemia History of TIA Thrombocytopenia Anemia, etiology unknown PLAN: Continue current cardiac medications. Hold off on adding aspirin (due to CAD) secondary to thrombocytopenia and anemia Continue Norvasc, Midodrine, and Florinef. Daily orthostatic blood pressures JOON hose to bilateral lower extremities. Discussed this with nursing as we have asked nursing to place JOON hose on patient every day we have seen the patient and this has not been done. Further recommendations pending patient's course Nurse practitioner note has been reviewed by physician. Signing provider agrees with the documented findings, assessment, and plan of care. Objective - Vital Signs Vital signs: Vital Signs Temp 97.8 F 05/06/23 02:46 Pulse 76 05/06/23 07:46 Resp 16 05/06/23 07:46 BP 201/86 05/06/23 07:46 Pulse Ox 95 05/06/23 07:46 FiO2 Intake & Output 05/05/23 05/06/23 05/06/23 18:59 06:59 18:59 Intake Total 428 Output Total 445 1900 Balance -17 Intake: Oral 118 Blood Product 310 Rc As-1 Unit 310 [id number] Output: Urine 445 1900 Other: Voiding Method External Catheter External Catheter # Bowel Movements 1 1 - Labs CBC & Chem 7: 05/06/23 06:34 05/06/23 06:34 Labs: Abnormal Lab Results - Last 24 Hours (Table) 05/04/23 05/05/23 05/05/23 Range/Units 14:14 10:21 10:21 RBC (4.30-5.90) m/uL Hgb (13.0-17.5) gm/dL Hct (39.0-53.0) % RDW (11.5-15.5) % Plt Count (150-450) k/uL Retic Count 2.5 H (0.5-2.0) % Chloride (98-107) mmol/L BUN (9-20) mg/dL Creatinine (0.66-1.25) mg/dL Calcium (8.4-10.2) mg/dL RBC Folate (280 - 791) ng/mL IgM <35.0 L (40.0-280.0) mg/dL Crossmatch See Detail 05/05/23 05/05/23 05/06/23 Range/Units 10:21 10:21 06:34 RBC 2.26 L 2.61 L (4.30-5.90) m/uL Hgb 7.0 L 8.1 L (13.0-17.5) gm/dL Hct 21.4 L 23.9 L (39.0-53.0) % RDW 16.2 H (11.5-15.5) % Plt Count 107 L 116 L (150-450) k/uL Retic Count (0.5-2.0) % Chloride (98-107) mmol/L BUN (9-20) mg/dL Creatinine (0.66-1.25) mg/dL Calcium (8.4-10.2) mg/dL RBC Folate 1,470 H (280 - 791) ng/mL IgM (40.0-280.0) mg/dL Crossmatch 05/06/23 Range/Units 06:34 RBC (4.30-5.90) m/uL Hgb (13.0-17.5) gm/dL Hct (39.0-53.0) % RDW (11.5-15.5) % Plt Count (150-450) k/uL Retic Count (0.5-2.0) % Chloride 108 H (98-107) mmol/L BUN 36 H (9-20) mg/dL Creatinine 1.61 H (0.66-1.25) mg/dL Calcium 8.0 L (8.4-10.2) mg/dL RBC Folate (280 - 791) ng/mL IgM (40.0-280.0) mg/dL Crossmatch
[2023-05-06] MEDS: SODIUM FERRIC GLUCONAT-SUCROSE 125 MG in SODIUM CHLORIDE 0.9% 100 ML IVPB SCH (12:23)
--- NOTE | 2023-05-06 13:15 | P.PN ---
Subjective Patient is seen for follow-up for acute kidney injury. He has history of significant orthostatic hypotension and was admitted with history of falls and bilateral knee pain with increased weakness and dizziness. Patient is currently maintained on IV fluids. He is also maintained on midodrine and Florinef. Overall patient states he is feeling better. Serum creatinine staying at about 2.2 mg/dL. Previous creatinine as low as 0.9 on 04/15/2022. Hemoglobin was 6.7 g/dL. Status post 1 unit packed RBCs transfusion yesterday. Serum creatinine improved to 1.6 mg/dL today. Objective - Vital Signs Vital signs: Vital Signs Temp 97.8 F 05/06/23 02:46 Pulse 76 05/06/23 07:46 Resp 16 05/06/23 07:46 BP 176/68 05/06/23 12:20 Pulse Ox 95 05/06/23 07:46 FiO2 Intake & Output 05/05/23 05/06/23 05/06/23 18:59 06:59 18:59 Intake Total 428 Output Total 445 1900 Balance - Intake: Oral 118 Blood Product 310 Rc As-1 Unit 310 [id number] Output: Urine 445 1900 Other: Voiding Method External Catheter External Catheter # Bowel Movements 1 1 - Exam Patient is awake him a comfortable, no acute distress Alert oriented 3 Examination of the heart S1 and S2 Examination of the lungs bilateral breath sounds are heard Abdomen is soft nontender Examination of lower extremity shows no significant edema COIN TELLER exam grossly intact - Labs CBC & Chem 7: 05/06/23 06:34 05/06/23 06:34 Labs: Abnormal Lab Results - Last 24 Hours (Table) 05/04/23 05/05/23 05/05/23 Range/Units 14:14 10:21 10:21 RBC (4.30-5.90) m/uL Hgb (13.0-17.5) gm/dL Hct (39.0-53.0) % RDW (11.5-15.5) % Plt Count (150-450) k/uL Chloride (98-107) mmol/L BUN (9-20) mg/dL Creatinine (0.66-1.25) mg/dL Calcium (8.4-10.2) mg/dL RBC Folate 1,470 H (280 - 791) ng/mL IgM <35.0 L (40.0-280.0) mg/dL Crossmatch See Detail 05/06/23 05/06/23 Range/Units 06:34 06:34 RBC 2.61 L (4.30-5.90) m/uL Hgb 8.1 L (13.0-17.5) gm/dL Hct 23.9 L (39.0-53.0) % RDW 16.2 H (11.5-15.5) % Plt Count 116 L (150-450) k/uL Chloride 108 H (98-107) mmol/L BUN 36 H (9-20) mg/dL Creatinine 1.61 H (0.66-1.25) mg/dL Calcium 8.0 L (8.4-10.2) mg/dL RBC Folate (280 - 791) ng/mL IgM (40.0-280.0) mg/dL Crossmatch Assessment and Plan Assessment: 1. Acute kidney injury most likely related to hemodynamic instability and sever e orthostatic hypotension. UA shows 4+ protein and moderate blood. Need to rule out underlying acute GN. Baseline serologies negative thus far. No evidence of obstruction noted on ultrasound. Rule out urine retention. No nephrotoxic agents identified. 2. Severe orthostatic hypotension, check random cortisol level. Currently maintained on midodrine and Florinef 3. Status post fall 4. Bilateral knee effusions 5. Hyperkalemia associated with acute kidney injury, currently improved. No ur ine retention documented. Plan: Confirm with nursing staff regarding bladder scanning Continue with Florinef and midodrine Proceed with cosyntropin stimulation test as Cortisol was borderline
[2023-05-06] MEDS ORDERED: COSYNTROPIN 0.25 MG VIAL IVP ONE (15:00)
--- NOTE | 2023-05-06 16:36 | P.PN ---
Subjective Progress Note Date: 05/06/23 (delayed charting seen at 0905) Patient is an 80-year-old male with coronary artery disease status post CABG, AAA repair in 2020, hypertension, recurrent TIAs, and orthostatic hypotension who presented to the emergency department with worsening of his dizziness and lightheadedness and bilateral knee pain. In the ER he underwent extensive evaluation. EKG demonstrated normal sinus rhythm with an increased NM interval and mild ST segment depression, laboratory analysis was remarkable for hemoglobin 7.9 (baseline 9.5), INR 1.6, sodium 136, potassium 5.3, BUN 46, and creatinine 2.24. He was admitted and was started on IV fluids. Cardiology, nephrology, and orthopedics were consulted. He was noted to have significant orthostatic hypotension. He was also found to have bilateral knee effusions and underwent aspiration on 05/04/23. Nephrology recommended continue with Florinef and Midodrine as well as checking cortisol levels. He was found to have significant anemia. Imaging: CT chest abdomen and pelvis: No acute fracture, edema left upper abdomen, calcifications in the pulmonary pleura, aortobiiliac stent, cholelithiasis, chronic diverticulosis, metallic density in the left pelvis, indeterminate right renal cyst measuring 4 cm Renal ultrasound: Increased echogenicity consistent with medical renal disease, gallbladder is hypertrophic with large gallstones simple 1.7 cm renal cyst on the right Echocardiogram: Ejection fraction 50-55%, hypokinetic inferior septal wall, hypokinetic basilar segment, intra-atrial septum is aneurysmal. Patient seen and examined at bedside. He continues to have some lightheadedness when standing, it is not as a present when lying flat. I discussed with him that we needed to do a corticotropin stim test that this will require 3 separate blood draws as well as administration of IV medication. He denies any chest pain or shortness of breath. He denies any dark tarry stools, blood in his stool, blood in his urine, abnormal bloody noses. Vital signs reviewed General: nontoxic, no distress, appears at stated age Cardiovascular: S1S2 reg, no murmur, positive posterior tibial pulse bilateral, Lungs: CTA bilateral, no rhonchi, no rales , no accessory muscle use Abdominal: soft, nontender to palpation, no guarding, no appreciable organomegaly Ext: no gross muscle atrophy, no edema b/l lower extremities, no contractures Neuro: CN II-XI grossly intact, no focal neuro deficits Psych: Alert, oriented, appropriate affect Assessment/Plan: Anemia him about thrombocytopenia, iron deficiency -Baseline hemoglobin is from one year ago and is 10.2 - IV iron X 3 ordered by nephrology - s/p 1 unit pRBC - follow CBC - Retic, folate, and Vit B 12 all within normal - patient denies bleeding/blood in stool -Continue with oral iron - follow CBC Acute kidney injury Hyperkalemia, resolved Severe orthostatic hypotension and falls with resting hypertension Low random cortisol -Agree with nephrology that we should proceed with ACTH stim test -With significant resting hypertension increase Norvasc to 10 mg. Continue to follow blood pressures -Cardiology note reviewed: Holding off adding aspirin for coronary artery disease secondary thrombocytopenia and anemia. -Nephrology note reviewed: ACtH stim test -Continue with Florinef 0.2 mg daily and Midodrin 5 mg 3 times daily due to significant orthostatic component -Johnny hose -Continue to follow orthostatic blood pressures -IgG, IgA, ARCHIE, myeloperoxidase, double-stranded DNA, [id number] -Continue normal saline at 100 mL/h -Avoid additional nephrotoxic agents -Follow creatinine Bilateral knee pain secondary to effusions -Status post knee aspiration -PT/OT recommendations -Pain control Chronic: Lipidemia History of TIAs AAA status post repair Imaging: None review for review Data Review: Vitals reviewed from this morning pulse 75-80. Resting blood pressure 201/86 with standing blood pressure 138/52. He reports he continues to feel lightheaded. Labs reviewed and remarkable for hemoglobin 8.1, platelets 116, BUN 36, creatinine 1.61 (down from 2.2), B12 282, RBC folate 1470 DVT prophylaxis: Heparin Discussed with: Patient, nursing Anticipated discharge date: Pending Clinical Course Anticipated discharge place: [facility] This dictation was prepared using [employer] voice recognition software. Though every attempt is made to correct errors during dictation some may still exist. Objective - Vital Signs Vital signs: Vital Signs Temp 96.6 F L 05/06/23 14:00 Pulse 68 05/06/23 14:00 Resp 16 05/06/23 14:00 BP 171/70 05/06/23 14:00 Pulse Ox 98 05/06/23 14:00 FiO2 Intake & Output 05/05/23 05/06/23 05/06/23 18:59 06:59 18:59 Intake Total 428 118 Output Total 445 1900 200 Balance - Intake: Oral 118 118 Blood Product 310 Rc As-1 Unit 310 [id number] Output: Urine 445 1900 200 Other: Voiding Method External Catheter External Catheter # Bowel Movements 1 1 - Labs CBC & Chem 7: 05/06/23 06:34 05/06/23 06:34 Labs: Abnormal Lab Results - Last 24 Hours (Table) 05/05/23 05/06/23 05/06/23 Range/Units 10:21 06:34 06:34 RBC 2.61 L (4.30-5.90) m/uL Hgb 8.1 L (13.0-17.5) gm/dL Hct 23.9 L (39.0-53.0) % RDW 16.2 H (11.5-15.5) % Plt Count 116 L (150-450) k/uL Chloride 108 H (98-107) mmol/L BUN 36 H (9-20) mg/dL Creatinine 1.61 H (0.66-1.25) mg/dL Calcium 8.0 L (8.4-10.2) mg/dL RBC Folate 1,470 H (280 - 791) ng/mL
[2023-05-06] MEDS: ATORVASTATIN 20 MG TAB PO SCH (20:52)
[2023-05-07] MEDS: SODIUM CHLORIDE 0.9% 1,000 ML IV SCH (06:32)
[2023-05-07] MEDS: MIDODRINE 5 MG TAB PO SCH (06:32)
[2023-05-07 06:59] LABS: Anisocytosis Slight; HCT 23.4 % (39.0-53.0); HGB 8.2 gm/dL (13.0-17.5); MCH 31.7 pg (25.0-35.0); MCHC 34.9 g/dL (31.0-37.0); MCV 91.1 fL (80.0-100.0); Mean Platelet Volume 7.7; Platelet Count 133 k/uL (150-450); RBC 2.57 m/uL (4.30-5.90); WBC 5.8 k/uL (3.8-10.6)
[2023-05-07 07:14] LABS: African American GFR (CKD) 48 (>60 ml/min/1.73 sqM); Anion Gap 4 mmol/L; Blood Urea Nitrogen 35 mg/dL (9-20); Calcium 7.9 mg/dL (8.4-10.2); Carbon Dioxide 27 mmol/L (22-30); Chloride 108 mmol/L (98-107); Glucose 95 mg/dL (74-99); Non-African American GFR(CKD) 41 (>60 ml/min/1.73 sqM); Potassium 3.8 mmol/L (3.5-5.1); Sodium 139 mmol/L (137-145)
[2023-05-07 07:25] VITALS: BP 182/70; PULSE 68; RESP 16; TEMP 97.4
[2023-05-07] MEDS: HEPARIN SODIUM,PORCINE 5,000 UNIT/ML 1 ML VIAL SQ SCH (08:37)
[2023-05-07] MEDS: FERROUS SULFATE 325 MG TAB PO SCH (08:38)
[2023-05-07] MEDS: FLUDROCORTISONE 0.1 MG TAB PO SCH (08:38)
[2023-05-07] MEDS: SODIUM FERRIC GLUCONAT-SUCROSE 125 MG in SODIUM CHLORIDE 0.9% 100 ML IVPB SCH ×2 (08:38→09:02)
[2023-05-07] MEDS: SERTRALINE 50 MG TAB PO SCH (08:38)
[2023-05-07] MEDS ORDERED: amLODIPine 10 MG TAB PO SCH (09:00)
--- NOTE | 2023-05-07 09:12 | P.DS ---
Providers Date of admission: 05/03/23 08:47 Expected date of discharge: 05/07/23 Attending physician: Everardo Slater MD Consults: 05/03/23 08:23 Consult Physician Routine Consulting Provider: Xander Tamez Consult Reason/Comments: dizziness, orthostatic hypotension Do you want consulting provider notified?: Yes 05/03/23 09:16 Consult Physician Routine Consulting Provider: Connie Cedeño Consult Reason/Comments: bilat knee pain, difficulty ambulating, bilat knee effusion Do you want consulting provider notified?: Yes 05/03/23 09:38 Consult Physician Routine Consulting Provider: Carlie Cox Consult Reason/Comments: adri, oliguria Do you want consulting provider notified?: Yes Primary care physician: Physician Nonstaff Hospital Course: Discharge Diagnosis: Anemia iron deficiency, thromboctyopenia Acute kidney injury Hyperkalemia, resolved Severe orthostatic hypotension and falls with resting hypertension Bilateral knee pain secondary to effusions Right renal cyst Lipidemia History of TIAs AAA status post repair Hospital Course: Patient is an 80-year-old male with coronary artery disease status post CABG, AAA repair in 2020, hypertension, recurrent TIAs, and orthostatic hypotension who presented to the emergency department with worsening of his dizziness and lightheadedness and bilateral knee pain. In the ER he underwent extensive evaluation. EKG demonstrated normal sinus rhythm with an increased SD interval and mild ST segment depression, laboratory analysis was remarkable for hemoglobin 7.9 (baseline 9.5), INR 1.6, sodium 136, potassium 5.3, BUN 46, and creatinine 2.24. He was admitted and was started on IV fluids. Cardiology, nephrology, and orthopedics were consulted. He was noted to have significant orthostatic hypotension. He was also found to have bilateral knee effusions and underwent aspiration on 05/04/23. Nephrology recommended continue with Florinef and Midodrine as well as checking cortisol levels. He was found to have significant anemia and had 1 unit pRBC and then received IV iron. His Hgb remained stable and he had no signs of bleeding. His hgb remained stable. His BP lability improved slight and he was determined stable for discharge. Imaging: CT chest abdomen and pelvis: No acute fracture, edema left upper abdomen, calcifications in the pulmonary pleura, aortobiiliac stent, cholelithiasis, chronic diverticulosis, metallic density in the left pelvis, indeterminate right renal cyst measuring 4 cm Renal ultrasound: Increased echogenicity consistent with medical renal disease, gallbladder is hypertrophic with large gallstones simple 1.7 cm renal cyst on the right Echocardiogram: Ejection fraction 50-55%, hypokinetic inferior septal wall, hypokinetic basilar segment, intra-atrial septum is aneurysmal. Follow-up: target systolic BP of 160, Dr. Baldwin in 2 weeks, Iron studies in 6 weeks, CBC in 1 week, compression stockings, Dr. Cox in 3 weeks Patient seen and examined at bedside. Doing better, still having some dizziness when standing but getting slightly more tolerable. He is aware of need for follow-up on iron studies. Vital signs reviewed and stable. General: nontoxic, no distress, appears at stated age Cardiovascular: S1S2 reg, no murmur, positive posterior tibial pulse bilateral, Lungs: CTA bilateral, no rhonchi, no rales , no accessory muscle use Abdominal: soft, nontender to palpation, no guarding, no appreciable organomegaly Ext: no gross muscle atrophy, no edema b/l lower extremities, no contractures Neuro: CN II-XI grossly intact, no focal neuro deficits Psych: Alert, oriented, appropriate affect A total of 37 minutes of time were spent preparing this complex discharge summary. Patient was discharged on 05/07/23. This dictation was prepared using [employer] voice recognition software. Though every attempt is made to correct errors during dictation some may still exist. Patient Condition at Discharge: Good Plan - Discharge Summary New Discharge Prescriptions: New Ibuprofen [Motrin] 600 mg PO Q8HR PRN #20 tab PRN Reason: Pain Fludrocortisone [Florinef] 0.2 mg PO DAILY tab amLODIPine [Norvasc] 10 mg PO DAILY tab Continue Simvastatin 40 mg PO HS Sertraline HCl [Zoloft] 50 mg PO DAILY Ferrous Sulfate [Iron (65 MG Elemental)] 325 mg PO DAILY Cholecalciferol [Vitamin D3 (25 Mcg = 1000 Iu)] 25 mcg PO DAILY Midodrine [ProAmatine] 5 mg PO TID Ascorbic Acid [Vitamin C] 1,000 mg PO DAILY Multivit-Min/FA/Lycopen/Lutein [Centrum Silver Tablet] 1 tab PO DAILY Nitroglycerin Sl Tabs [Nitrostat] 0.4 mg SUBLINGUAL Q5M PRN PRN Reason: Chest Pain Discharge Medication List Sertraline HCl [Zoloft] 50 mg PO DAILY 01/28/20 [History] Simvastatin 40 mg PO HS 01/28/20 [History] Ferrous Sulfate [Iron (65 MG Elemental)] 325 mg PO DAILY 03/07/21 [History] Ascorbic Acid [Vitamin C] 1,000 mg PO DAILY 10/14/21 [History] Multivit-Min/FA/Lycopen/Lutein [Centrum Silver Tablet] 1 tab PO DAILY 10/14/21 [History] Cholecalciferol [Vitamin D3 (25 Mcg = 1000 Iu)] 25 mcg PO DAILY 01/22/22 [History] Ibuprofen [Motrin] 600 mg PO Q8HR PRN #20 tab 05/02/23 [Rx] Midodrine [ProAmatine] 5 mg PO TID 05/03/23 [History] Nitroglycerin Sl Tabs [Nitrostat] 0.4 mg SUBLINGUAL Q5M PRN 05/03/23 [History] Fludrocortisone [Florinef] 0.2 mg PO DAILY tab 05/07/23 [Rx] amLODIPine [Norvasc] 10 mg PO DAILY tab 05/07/23 [Rx] Follow up Appointment(s)/Referral(s): Pedro Macdonald MD [STAFF PHYSICIAN] - As Needed (Option for new primary care doctor ) Tyrone Castro MD [REFERRING] - As Needed (Option for new primary care doctor ) Oletaff,Physician [Primary Care Provider] - 1-2 days Landon Baldwin MD [STAFF PHYSICIAN] - 3 Weeks Carlie Cox MD [STAFF PHYSICIAN] - 3 Weeks Patient Instructions/Handouts: Knee Pain (ED) Activity/Diet/Wound Care/Special Instructions: Activity: as tolerated Fall precautions Diet: regular Special Instructions: Continue to adjust Blood pressure medications to a goal systolic of 160, it has been improving from systolic of 220. Repeat iron studies in 6 weeks, he received IC iron here and 1 unit pRBC, he was taking oral iron prior to admission and was still found to be iron deficient Compression stocking during the day when ambulating CBC in 1 week Discharge Disposition: TRANSFER TO SNF/ECF
--- NOTE | 2023-05-07 09:28 | P.PN ---
Subjective HISTORY OF PRESENT ILLNESS: This is a 88-year-old male with a past medical history significant for coronary artery disease with previous CABG, AAA with previous repair in 2020, hyperlipidemia, recurrent TIAs, and orthostatic hypotension. 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 We have been asked to see the patient in consultation for dizziness and orthostatic hypotension. Patient examined at the bedside. Patient initially presented to the hospital secondary to bilateral knee pain. Patient was found to have acute kidney injury with a creatinine of 2.24. He also reports feeling dizzy. The patient has a long-standing history of orthostatic hypotension for the last 4 years. Patient has been on many dif ferent medications including Florinef and Midodine. Orthostatic blood pressures obtained reveal supine 145/67, sitting 110/60, and standing 87/46. * EKG reveals sinus mechanism with first degree AV block. ST depression noted in inferior leads and V3V6. * Laboratory data: WBC 7.4. Hemoglobin 8.1. Platelet count 73. Sodium 135. Potassium 4.6. BUN 47. Creatinine 2.38. Troponin negative 1. * Current home cardiac medications include simvastatin 40 mg at night and Midodrine 5mg TID. * Most recent echocardiogram obtained in January 2022 revealed ejection fraction 50- 55%, [id number] tricuspid regurgitation and mild mitral regurgitation 05/04/2023 Patient examined this morning at the bedside. Patient denies chest pain or pressure. He denies shortness of breath. He reports his dizziness has improved from yesterday. Patient remains orthostatic this morning. He is also hypertensive this morning with a systolic of 202. Echocardiogram completed revealing ejection fraction 50-55%, hypokinesis involving basilar inferior wall and inferior septum, aneurysmal intra-atrial septum. 05/05/2023 Patient examined this morning at the bedside. Patient denies chest pain or pressure. He denies shortness of breath. Patient reports mild improvement in his dizziness. He remains hypertensive this morning with a blood pressure of 203/85. 05/06/2023 Patient examined this morning at the bedside. Patient is sitting up on the side of the bed eating breakfast. He denies chest pain or pressure. Denies shortness of breath. At the time of examination he denies dizziness or lightheadedness. Patient remains hypertensive this morning. The patient states he has not been out of bed yet to ambulate. 05/07/2023 Patient examined this morning at the bedside. He is sitting on the side of the bed eating breakfast. Patient currently denies chest pain or pressure. He denies shortness of breath. He denies dizziness or lightheadedness. Patient received JOON hose to his bilateral lower extremities yesterday. He states that he walked to the doorway yesterday without significant dizziness. Patient's blood pressure remains elevated although improved from yesterday. His Norvasc has been increased by primary medicine. Patient's orthostatic blood pressures are also improved. PHYSICAL EXAM: VITAL SIGNS: Reviewed. GENERAL: Well-developed in no acute distress. HEENT: Head is normocephalic. Pupils are equal, round. Sclerae anicteric. Mucous membranes of the mouth are moist. Neck supple. No JVD or thyromegaly LUNGS: Respirations even and unlabored. Lungs essentially clear to auscultation bilaterally. HEART: Regular rate and rhythm. S1 and S2 heard. Systolic murmur noted. ABDOMEN: Soft. Nondistended. Nontender. EXTREMITIES: Normal range of motion. No clubbing or cyanosis. Peripheral pulses intact. No lower extremity edema NEUROLOGIC: Awake and alert. Oriented x 3. ASSESSMENT: Bilateral knee pain Acute kidney injury Chronic severe orthostatic hypotension Dizziness Hyperlipidemia History of TIA Thrombocytopenia Anemia, etiology unknown PLAN: Continue current cardiac medications Increase activity today Patient may be discharged home this afternoon from a cardiac standpoint Patient is to follow up with Dr. Baldwin in 3 weeks Nurse practitioner note has been reviewed by physician. Signing provider agrees with the documented findings, assessment, and plan of care. Objective - Vital Signs Vital signs: Vital Signs Temp 97.4 F L 05/07/23 07:24 Pulse 68 05/07/23 07:24 Resp 16 05/07/23 07:24 BP 182/70 05/07/23 07:24 Pulse Ox 97 05/07/23 07:24 FiO2 Intake & Output 05/06/23 05/07/23 05/07/23 18:59 06:59 18:59 Intake Total 340 Output Total 200 Balance 140 Intake: Oral 340 Output: Urine 200 Other: Voiding Method External Catheter # Voids 1,350 # Bowel Movements 1 - Labs CBC & Chem 7: 05/07/23 06:07 05/07/23 06:07 Labs: Abnormal Lab Results - Last 24 Hours (Table) 05/05/23 05/07/23 05/07/23 Range/Units 10:21 06:07 06:07 RBC 2.57 L (4.30-5.90) m/uL Hgb 8.2 L (13.0-17.5) gm/dL Hct 23.4 L (39.0-53.0) % RDW 16.0 H (11.5-15.5) % Plt Count 133 L (150-450) k/uL Chloride 108 H (98-107) mmol/L BUN 35 H (9-20) mg/dL Creatinine 1.50 H (0.66-1.25) mg/dL Calcium 7.9 L (8.4-10.2) mg/dL RBC Folate 1,470 H (280 - 791) ng/mL
--- NOTE | 2023-05-08 11:32 | P.PN ---
Subjective Patient is seen for follow-up for acute kidney injury. He has history of significant orthostatic hypotension and was admitted with history of falls and bilateral knee pain with increased weakness and dizziness. Patient is currently maintained on IV fluids. He is also maintained on midodrine and Florinef. Overall patient states he is feeling better. Serum creatinine staying at about 2.2 mg/dL. Previous creatinine as low as 0.9 on 04/15/2022. Hemoglobin was 6.7 g/dL. Status post 1 unit packed RBCs transfusion yesterday. Serum creatinine improved to 1.5 mg/dL today. Cosyntropin test was negative. No adrenal insufficiency. 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 Acute kidney injury most likely related to hemodynamic instability and severe orthostatic hypotension. UA shows 4+ protein and moderate blood. Need to rule out underlying acute GN. Baseline serologies negative thus far. No evidence of obstruction noted on ultrasound. Rule out urine retention. No nephrotoxic agents identified. 2. Severe orthostatic hypotension, check random cortisol level. Currently maintained on midodrine and Florinef. Cosyntropin stim test was negative. 3. Status post fall 4. Bilateral knee effusions 5. Hyperkalemia associated with acute kidney injury, currently improved. No urine retention documented. Plan: Continue with Florinef and midodrine
== END 2023-05-07 10:57 | DRG 565 ==
LOC: EC 17:52 → 6NMEDSUR 21:37 → OBSVTOIN 05-03 08:47
PROVIDERS: ADMIT Internal Medicine; ATTEND Internal Medicine
PROC: 0S9C3ZX Drainage of Right Knee Joint, Percutaneous Approach, Diagnostic (ICD-10-PCS; 2023-05-04)
PROC: 0S9D3ZX Drainage of Left Knee Joint, Percutaneous Approach, Diagnostic (ICD-10-PCS; 2023-05-04)
PROC: 30233N1 Transfusion of Nonautologous Red Blood Cells into Peripheral Vein, Percutaneous Approach (ICD-10-PCS; principal; 2023-05-05)
DX: M25.462 Effusion, left knee (principal); E87.1 Hypo-osmolality and hyponatremia; I25.3 Aneurysm of heart; K80.10 Calculus of gallbladder with chronic cholecystitis without obstruction; N17.9 Acute kidney failure, unspecified; D50.9 Iron deficiency anemia, unspecified; D69.59 Other secondary thrombocytopenia; E78.5 Hyperlipidemia, unspecified; I95.1 Orthostatic hypotension; E87.5 Hyperkalemia; I25.10 Atherosclerotic heart disease of native coronary artery without angina pectoris; I44.0 Atrioventricular block, first degree; J44.9 Chronic obstructive pulmonary disease, unspecified; N28.1 Cyst of kidney, acquired; I08.1 Rheumatic disorders of both mitral and tricuspid valves; K57.90 Diverticulosis of intestine, part unspecified, without perforation or abscess without bleeding; I10 Essential (primary) hypertension; M19.90 Unspecified osteoarthritis, unspecified site; R34 Anuria and oliguria; S89.92XA Unspecified injury of left lower leg, initial encounter; R79.1 Abnormal coagulation profile; X50.1XXA Overexertion from prolonged static or awkward postures, initial encounter; Z87.891 Personal history of nicotine dependence; R29.6 Repeated falls; Z91.81 History of falling; Z79.82 Long term (current) use of aspirin; Z79.899 Other long term (current) drug therapy; Z28.21 Immunization not carried out because of patient refusal; Z96.653 Presence of artificial knee joint, bilateral; Z95.1 Presence of aortocoronary bypass graft; Z86.73 Personal history of transient ischemic attack (TIA), and cerebral infarction without residual deficits; Z86.79 Personal history of other diseases of the circulatory system
CPT/HCPCS: 71250; 74176; 76770; 80048; 80053; 81001; 82024; 82533; 82607; 82747; 83516; 83540; 83550; 83735; 84484; 85027; 85045; 85610; 86038; 86225; 86255; 86334; 86335; 86706; 86803; 86850; 86900; 86901; 86920; 87340; 93005; 93306; 96372; 99285

== ENCOUNTER → 2023-07-22 | Outpatient (CLI) | payer MEDICARE ==
--- NOTE | 2023-07-22 14:31 | CT ---
EXAMINATION TYPE: CT brain wo con DATE OF EXAM: 07/22/2023 COMPARISON: 01/22/2022 INDICATION: LIGHT HEADED DLP: 1108.4 mGycm, Automated exposure control for dose reduction was used. CONTRAST: None CT of the brain is performed utilizing 3 mm thick sections through the posterior fossa and 3 mm thick sections through the remaining calvarium. Study is performed within 24 hours of arrival to the hosp ital. No abnormal hyperdensity is present to suggest an acute intracranial hemorrhage. No mass lesion is evident. No acute infarcts are evident. Periventricular white matter hypodensity is present compatible with ch ronic appearing white matter ischemic changes. Ventricles and sulci are mildly prominent for the patient age. Paranasal sinuses and mastoid air cells within the [id number] are clear. IMPRESSION: 1. Periventricular white matter chronic ischemic type change with mild age-related atrophy. Finding s appear stable from comparison. 2. No acute intracranial process. Follow-up MRI can be performed as clinically indicated
== END | disposition home or self-care (01) ==
LOC: RADCTMAIN 13:45
PROVIDERS: ATTEND Internal Medicine
DX: I67.82 Cerebral ischemia (principal); G31.1 Senile degeneration of brain, not elsewhere classified; R41.3 Other amnesia
CPT/HCPCS: 70450

== ENCOUNTER 2023-08-04 09:25 | Observation (INO) | payer MEDICARE, OTHER ==
[2023-08-04] MEDS ORDERED: MECLIZINE 12.5 MG TAB PO STA (09:52)
[2023-08-04] MEDS ORDERED: SODIUM CHLORIDE 0.9% 1,000 ML IV STA (09:52)
[2023-08-04 10:08] LABS: Basophils % (A) 0 %; Eosinophils % (A) 0 %; HCT 33.2 % (39.0-53.0); HGB 11.4 gm/dL (13.0-17.5); Lymphocytes # (A) 0.7 k/uL (1.0-4.8); Lymphocytes % (A) 9 %; MCH 31.6 pg (25.0-35.0); MCHC 34.3 g/dL (31.0-37.0); MCV 92.3 fL (80.0-100.0); Mean Platelet Volume 8.4; Monocytes # (A) 0.2 k/uL (0-1.0); Monocytes % (A) 3 %; Neutrophils # (A) 6.1 k/uL (1.3-7.7); Neutrophils % (A) 86 %; Platelet Count 153 k/uL (150-450); RDW 14.6 % (11.5-15.5); WBC 7.2 k/uL (3.8-10.6)
--- NOTE | 2023-08-04 10:10 | ED ---
Dizziness HPI - General Chief Complaint: Dizziness Stated Complaint: Abd Pain Time Seen by Provider: 08/04/23 09:27 Source: patient, EMS, RN notes reviewed Mode of arrival: EMS Limitations: no limitations - History of Present Illness Initial Comments: This is an 88-year-old male who presents to the emergency department for dizziness and abdominal pain. States that he got up around 2 AM to use the restroom and started to feel very dizzy and lightheaded. He had difficulty getting off of the toilet and making it back to his bed. This has happened to him several times in the past, and states that they are unsure why. Dizziness is worse with movement and positional changes. Denies any substantial dizziness when sitting still. Additionally, he has had centralized abdominal pain for the last couple of days. Reports a history of aortic aneurysms with repair in 2020 at [facility]. Unsure if the pain feels similar. This does not radiate into his back. Unsure how he would describe the pain. Also reports associated nausea. Additionally, EMS noted that his blood pressure was elevated on arrival. Patient usually has a history of hypotension and takes Midodrine. He did take his Midodrine this morning and states that his blood pressure was approximately 128/76 before EMS arrived. Denies any headaches or visual changes at this time. MD Complaint: dizziness - Related Data Home Medications Medication Instructions Recorded Confirmed Sertraline HCl [Zoloft] 50 mg PO DAILY 01/28/20 08/04/23 Simvastatin 40 mg PO HS 01/28/20 08/04/23 Ferrous Sulfate [Iron (65 MG 325 mg PO DAILY 03/07/21 08/04/23 Elemental)] Multivit-Min/FA/Lycopen/Lutein 1 tab PO DAILY 10/14/21 08/04/23 [Centrum Silver Tablet] Nitroglycerin Sl Tabs [Nitrostat] 0.4 mg SUBLINGUAL Q5M PRN 05/03/23 08/04/23 Acetaminophen Tab [Tylenol] 650 mg PO Q6H PRN 08/04/23 08/04/23 Aspirin EC [Ecotrin Low Dose] 81 mg PO DAILY 08/04/23 08/04/23 Lutein 20 mg PO DAILY 08/04/23 08/04/23 Midodrine HCl [ProAmantine] 2.5 mg PO TID 08/04/23 08/04/23 Allergies Allergy/AdvReac Type Severity Reaction Status Date / Time No Known Allergies Allergy Verified 08/04/23 12:44 Review of Systems ROS Statement: Those systems with pertinent positive or pertinent negative responses have been documented in the HPI. ROS Other: All systems not noted in ROS Statement are negative. Past Medical History Past Medical History: Coronary Artery Disease (CAD), COPD, CVA/TIA, Eye Disorder, Hyperlipidemia, Osteoarthritis (OA) Additional Past Medical History / Comment(s): Anemia, idiopathic/orthostatic hypotension, macular degeneration, carpal tunnel syndrome, multiple mini strokes. occ. lightheadness., some sob., AAA with surgery (2020)., hospitalized 01/22/22 to 01/24/22 for hypotension and fall. History of Any Multi-Drug Resistant Organisms: None Reported Past Surgical History: Appendectomy, Coronary Bypass/CABG, Hernia Repair, Joint Replacement, Tonsillectomy Additional Past Surgical History / Comment(s): CABG X1 2001, vasectomy, umbilical/hiatal hernia repairs, bilateral knee replacements, pinched nerve in neck surgically repaired, abdominal aortic aneurysm repair-january 2021 Past Anesthesia/Blood Transfusion Reactions: No Reported Reaction Additional Past Anesthesia/Blood Transfusion Reaction / Comment(s): HX BLOOD TRANSFUSION JANUARY 2021 WITH AAA SURGERY-NO REACTION Past Psychological History: No Psychological Hx Reported Smoking Status: Former smoker Past Alcohol Use History: None Reported Past Drug Use History: None Reported - Past Family History Mother Family Medical History: Hyperlipidemia General Exam Limitations: no limitations General appearance: alert, in no apparent distress Head exam: Present: atraumatic, normocephalic, normal inspection Eye exam: Present: normal appearance, PERRL, EOMI. Absent: scleral icterus, conjunctival injection, periorbital swelling Respiratory exam: Present: normal lung sounds bilaterally. Absent: respiratory distress, wheezes, rales, rhonchi, stridor Cardiovascular Exam: Present: regular rate, normal rhythm, normal heart sounds. Absent: systolic murmur, diastolic murmur, rubs, gallop, clicks GI/Abdominal exam: Present: soft, tenderness (centralized), normal bowel sounds. Absent: distended Neurological exam: Present: alert, oriented X3, CN II-XII intact, other (HINTS exam negative) Expanded Cerebellar function: Finger to Nose: Normal Motor strength exam: RUE: 5, LUE: 5, RLE: 5, LLE: 5 Psychiatric exam: Present: normal affect, normal mood Skin exam: Present: warm, dry, intact, normal color. Absent: rash Course Vital Signs 08/04/23 08/04/23 08/04/23 09:30 10:55 11:55 Temperature 97.0 F L Pulse Rate 67 64 66 Respiratory 18 18 20 Rate Blood Pressure 201/94 194/93 192/105 O2 Sat by Pulse 100 99 99 Oximetry 08/04/23 08/04/23 08/04/23 12:43 14:00 15:18 Temperature Pulse Rate 70 70 67 Respiratory 18 18 18 Rate Blood Pressure 157/80 139/61 145/83 O2 Sat by Pulse 99 98 95 Oximetry 08/04/23 08/04/23 08/04/23 18:21 18:56 19:26 Temperature Pulse Rate 67 67 74 Respiratory 18 18 14 Rate Blood Pressure 198/91 185/104 129/63 O2 Sat by Pulse 99 98 Oximetry 08/04/23 08/04/23 19:41 21:13 Temperature 97.4 F L Pulse Rate 71 Respiratory 16 Rate Blood Pressure 119/84 O2 Sat by Pulse 97 Oximetry Medical Decision Making - Medical Decision Making This is an 88-year-old male who presents to the emergency department for dizziness. Was pt. sent in by a medical professional or institution? @ -No Did you speak to anyone other than the patient for history? @ -No Did you review nursing and triage notes? @ -Yes, and I agree, it is accurate with regards to the patient's symptoms. Were old charts reviewed? @ -No Differential Diagnosis? @ -Differential Dizziness: Benign paroxysmal positional Vertigo, Menieres disease, otitis media, acoustic neuroma, vertebrobasilar insufficiency, cerebellar stroke, encephalitis, hypovolemic, arrhythmia, coronary artery syndrome, anemia, this is not meant to be an all-inclusive list EKG interpreted by me (3pts min.)? @ -EKG interpreted by me demonstrating the following: Sinus rhythm. Ventricular rate 69 beats per minute, WV interval 320 ms, QRS duration 94 ms, QTC 444 ms. X-rays interpreted by me (1pt min.)? @ -Chest x-ray obtained. My interpretation identifies a density in the right upper lobe. CT interpreted by me (1pt min.)? @ -CT angiogram of the abdomen and pelvis obtained. My interpretation identifies no evidence of bowel wall thickening or free air. U/S interpreted by me (1pt. min.)? @ -Not obtained. What testing was considered but not performed? (CT, X-rays, U/S, labs)? Why? @ -None What meds were considered but not given? Why? @ -None Did you discuss the management of the patient with other professionals? @ -Dr. Jay spoke at length with Dr. Mcmullen, vascular surgery, regarding the patient's CTA findings and possible endovascular leak. She advised that this can likely just be monitored at this point without the need for any emergent intervention. I spoke with Dr. Macdonald, who accepts the patient for admission. Did you reconcile home meds? @ -No Was smoking cessation discussed for >3mins.? @ -No Was critical care preformed (if so, how long)? @ -No Were there social determinants of health that impacted care today? How? (Homelessness, low income, unemployed, alcoholism, drug addiction, transportation, low edu. Level, literacy, decrease access to med. care, penitentiary, rehab)? @ -No Was there de-escalation of care discussed even if they declined? (Discuss DNR or withdrawal of care, Hospice)? @ -No What co-morbidities impacted this encounter? (DM, HTN, Smoking, COPD, CAD, Cancer, CVA, Hep., AIDS, mental health diagnosis, sleep apnea, morbid obesity)? @ -CAD, COPD, hypotension Was patient admitted / discharged? @ -Admitted. Lab work obtained and found to be nonactionable. Urinalysis negative for signs of infection. Patient was not exhibiting any significant dizziness in the examination room when laying in bed. HINTS exam was negative and he had no neurological deficits. He was hypertensive on arrival with a BP of 201/94. He was given a dose of hydralazine, 10mg, and his pressure improved to 139/61 Chest x-ray obtained demonstrating a right upper lobe pulmonary nodule or mass. Given the acute onset abdominal pain and history of AAA repair, CTA of the abdomen and pelvis was obtained. This identified a subtle curvilinear density posteriorly just below the stent bifurcation on the aortobiliac endocvascular stent graft, and a subtle endoleak could not be excluded. 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 He was also found to have a hydropic gallbladder with a 2.3 cm gallstone and no surrounding inflammation. Case discussed with Dr. Jay, ED attending, who spoke at length with Dr. Mcmullen, vascular surgery. She advised that there would likely not need to be anything done with regards to the possib le subtle endoleak, however that finding cannot be ignored. She is willing to see the patient for consult as well for further evaluation. Given the acute onset hypertension with dizziness and possible endovascular leak, patient was admitted to medicine for further evaluation and management with vascular consult. Undiagnosed new problem with uncertain prognosis? @ -None Drug Therapy requiring intensive monitoring for toxicity (Heparin, Nitro, Insulin, Cardizem)? @ -None Were any procedures done? @ -None Diagnosis/symptom? @ -Hypertension, dizziness, abdominal pain Acute, or Chronic, or Acute on Chronic? @ -Acute Uncomplicated (without systemic symptoms) or Complicated (systemic symptoms)? @ -Complicated Side effects of treatment? @ -None Exacerbation, Progression, or Severe Exacerbation] @ -Not applicable Poses a threat to life or bodily function? @ -Yes, uncontrolled hypertension can lead to heart attacks and strokes. This case was discussed in detail with the attending ED physician, Dr. Jay. Presentation, findings, and treatment plan discussed in detail as well. - Lab Data Result diagrams: 08/04/23 15:20 08/04/23 15:20 Lab Results 08/04/23 08/04/23 08/04/23 Range/Units 09:57 09:57 09:57 WBC 7.2 (3.8-10.6) k/uL RBC 3.60 L (4.30-5.90) m/uL Hgb 11.4 L (13.0-17.5) gm/dL Hct 33.2 L (39.0-53.0) % MCV 92.3 (80.0-100.0) fL MCH 31.6 (25.0-35.0) pg MCHC 34.3 (31.0-37.0) g/dL RDW 14.6 (11.5-15.5) % Plt Count 153 (150-450) k/uL MPV 8.4 Neutrophils % 86 % Lymphocytes % 9 % Monocytes % 3 % Eosinophils % 0 % Basophils % 0 % Neutrophils # 6.1 (1.3-7.7) k/uL Lymphocytes # 0.7 L (1.0-4.8) k/uL Monocytes # 0.2 (0-1.0) k/uL Eosinophils # 0.0 (0-0.7) k/uL Basophils # 0.0 (0-0.2) k/uL Sodium 138 (137-145) mmol/L Potassium 3.9 (3.5-5.1) mmol/L Chloride 102 (98-107) mmol/L Carbon Dioxide 23 (22-30) mmol/L Anion Gap 13 mmol/L BUN 23 H (9-20) mg/dL Creatinine 0.97 (0.66-1.25) mg/dL Est GFR (CKD-EPI)AfAm 81 (>60 ml/min/1.73 sqM) Est GFR (CKD-EPI)NonAf 70 (>60 ml/min/1.73 sqM) Glucose 157 H (74-99) mg/dL Plasma Lactic Acid Nilay 1.3 (0.7-2.0) mmol/L Calcium 8.9 (8.4-10.2) mg/dL Total Bilirubin 0.6 (0.2-1.3) mg/dL AST 23 (17-59) U/L ALT 18 (4-49) U/L Alkaline Phosphatase 97 (38-126) U/L Troponin I (0.000-0.034) ng/mL Total Protein 6.9 (6.3-8.2) g/dL Albumin 4.0 (3.5-5.0) g/dL Urine Color Urine Appearance (Clear) Urine pH (5.0-8.0) Ur Specific Towner (1.001-1.035) Urine Protein (Negative) Urine Glucose (UA) (Negative) Urine Ketones (Negative) Urine Blood (Negative) Urine Nitrite (Negative) Urine Bilirubin (Negative) Urine Urobilinogen (<2.0) mg/dL Ur Leukocyte Esterase (Negative) Urine RBC (0-5) /hpf Urine WBC (0-5) /hpf Ur Squamous Epith Cells (0-4) /hpf Hyaline Casts (0-2) /lpf Urine Mucus (None) /hpf 08/04/23 08/04/23 Range/Units 09:57 11:46 WBC (3.8-10.6) k/uL RBC (4.30-5.90) m/uL Hgb (13.0-17.5) gm/dL Hct (39.0-53.0) % MCV (80.0-100.0) fL MCH (25.0-35.0) pg MCHC (31.0-37.0) g/dL RDW (11.5-15.5) % Plt Count (150-450) k/uL MPV Neutrophils % % Lymphocytes % % Monocytes % % Eosinophils % % Basophils % % Neutrophils # (1.3-7.7) k/uL Lymphocytes # (1.0-4.8) k/uL Monocytes # (0-1.0) k/uL Eosinophils # (0-0.7) k/uL Basophils # (0-0.2) k/uL Sodium (137-145) mmol/L Potassium (3.5-5.1) mmol/L Chloride (98-107) mmol/L Carbon Dioxide (22-30) mmol/L Anion Gap mmol/L BUN (9-20) mg/dL Creatinine (0.66-1.25) mg/dL Est GFR (CKD-EPI)AfAm (>60 ml/min/1.73 sqM) Est GFR (CKD-EPI)NonAf (>60 ml/min/1.73 sqM) Glucose (74-99) mg/dL Plasma Lactic Acid Nilay (0.7-2.0) mmol/L Calcium (8.4-10.2) mg/dL Total Bilirubin (0.2-1.3) mg/dL AST (17-59) U/L ALT (4-49) U/L Alkaline Phosphatase (38-126) U/L Troponin I 0.015 (0.000-0.034) ng/mL Total Protein (6.3-8.2) g/dL Albumin (3.5-5.0) g/dL Urine Color Colorless Urine Appearance Clear (Clear) Urine pH 6.0 (5.0-8.0) Ur Specific Towner 1.018 (1.001-1.035) Urine Protein 2+ H (Negative) Urine Glucose (UA) Negative (Negative) Urine Ketones Trace H (Negative) Urine Blood Negative (Negative) Urine Nitrite Negative (Negative) Urine Bilirubin Negative (Negative) Urine Urobilinogen <2.0 (<2.0) mg/dL Ur Leukocyte Esterase Negative (Negative) Urine RBC 3 (0-5) /hpf Urine WBC 1 (0-5) /hpf Ur Squamous Epith Cells <1 (0-4) /hpf Hyaline Casts 1 (0-2) /lpf Urine Mucus Rare H (None) /hpf - Radiology Data Radiology results: report reviewed, image reviewed Disposition Clinical Impression: Hypertension, Dizziness, Endoleak post endovascular aneurysm repair Disposition: ADMITTED IP TO THIS HOSP
[2023-08-04 10:31] LABS: ALT 18 U/L (4-49); AST 23 U/L (17-59); African American GFR (CKD) 81 (>60 ml/min/1.73 sqM); Alkaline Phosphatase 97 U/L (38-126); Anion Gap 13 mmol/L; Blood Urea Nitrogen 23 mg/dL (9-20); Calcium 8.9 mg/dL (8.4-10.2); Carbon Dioxide 23 mmol/L (22-30); Chloride 102 mmol/L (98-107); Glucose 157 mg/dL (74-99); Non-African American GFR(CKD) 70 (>60 ml/min/1.73 sqM); Potassium 3.9 mmol/L (3.5-5.1); Sodium 138 mmol/L (137-145); Total Bilirubin 0.6 mg/dL (0.2-1.3); Total Protein 6.9 g/dL (6.3-8.2)
--- NOTE | 2023-08-04 10:43 | XR ---
EXAMINATION TYPE: XR chest 2V DATE OF EXAM: 08/04/2023 COMPARISON: 01/22/2022 TECHNIQUE: PA and lateral views submitted. HISTORY: Dizziness FINDINGS: There is a nodular appearing density in the right upper lobe. Pulmonary mass in the differential diag nosis. Punctate pleural-based and calcified granuloma are noted. Underlying COPD with elevated right hemidiaphragm. There is a chronic grade 3 AC joint separation on the right with bilateral AC joint ar thropathy and glenohumeral joint arthropathy on the right. Postmedian sternotomy wires. Atherosclerot ic change aorta. Surgical clips seen in the epigastrium. IMPRESSION: 1. There is a lobulated right upper lobe pulmonary nodule or mass measuring 2 cm. 2. No acute infiltrate or overt failure.
[2023-08-04] MEDS ORDERED: hydrALAZINE HCL 20 MG/ML 1 ML VIAL IVP STA (11:45)
--- NOTE | 2023-08-04 11:48 | CT ---
EXAMINATION TYPE: CT angio abdomen pelvis DATE OF EXAM: 08/04/2023 COMPARISON: 05/02/2023 HISTORY: 88-year-old male Abdominal pain, History of AAA TECHNIQUE: Contiguous axial scanning of the abdomen and pelvis before and after administration of 100 ml Isovue 300 IV contrast. A delayed scan was also performed due to indwelling Tulsita biiliac endova scular stent graft. Coronal/sagittal reconstructions performed. 3-D reconstructions generated on a de dicated independent workstation. CT DLP: 1523.4 mGycm Automated exposure control for dose reduction was used. FINDINGS: Median sternotomy wires are present. Heart normal size without pericardial effusion. Hodge ry artery calcifications. Chronic pleural-parenchymal thickening and scarring at the posterior right base. No pleural effusion. The scan triggered early with IV contrast initially still within the right side of the heart. Because of this early triggering, an arterial phase scan could not be obtained. Surgical material at GE junction. There appears to be a tiny hiatal hernia. Unchanged calcification, likely calcified granuloma at the right hepatic dome. Portal venous system i s patent. No biliary ductal dilatation. Gallbladder hydropic measuring 5.8 cm wide. There is a 2.3 cm gallstone. No surrounding gallbladder i nflammation. Adrenal glands, kidneys, spleen, and atrophic pancreas show no gross abnormality. No dilated small bowel, free fluid, or free air. No mesenteric or retroperitoneal lymphadenopathy. Generalized colonic diverticulosis. Redundant sigmoid colon. No pericolonic inflammatory change. Scat tered mild stool. Aortobiiliac endovascular stent graft is redemonstrated. Mediastinal caliber 5.0 x 4.5 cm. This in co mparison to 4.9 x 4.4 cm, previously, not significantly changed. On postcontrast images, very subtle curvilinear density is noted posteriorly just below the stent bif urcation, axial image 43 and 47. Unable to exclude a subtle endoleak. Stented right common iliac artery remains mildly aneurysmal at 2.2 cm, unchanged. Ectatic right internal iliac artery at 1.4 cm is unchanged. Previous coiling within the left internal iliac artery with a large saccular aneurysm measuring 5.3 x 5.1 cm versus 5.1 x 5.0 cm, previously. On postcontrast images, there is contrast extending into thi s mostly thrombosed aneurysm. Bladder is urine distended. Prostate gland measures 5.4 cm wide. No abnormal fluid collection in the pelvis or pelvic lymphadenopathy. Bones: Moderate degenerative change of the hips. Degenerative bony ankylosis SI joints. Extensive DIS H is present throughout the visualized spine. IMPRESSION: 1. PREVIOUS ABDOMINAL AORTOBIILIAC ENDOVASCULAR STENT GRAFT. GRAND [place]AGE SAC CALIBER 5.0 X 4.5 CM (VERSUS 4.9 X 4.4 CM, PREVIOUSLY). FAIRLY STABLE IN THE INTERVAL. HOWEVER, ON POSTCONTRAST IMAGES, UNABLE TO EXCLUDE A SMALL ENDOLEAK. 2. PREVIOUS VASCULAR COILING IN THE REGION OF THE LEFT INTERNAL ILIAC ARTERY BUT WITH AN ADJACENT LAR GE SACCULAR ANEURYSM STABLE TO MINIMALLY LARGER AT 5.3 X 5.1 CM (VERSUS 5.1 X 5.0 CM, PREVIOUSLY). TH ERE SEEMS TO BE SOME CONTINUED CONTRAST/BLOOD FLOW INTO THIS ANEURYSM. 3. GENERALIZED COLONIC DIVERTICULOSIS WITHOUT ACUTE DIVERTICULITIS. 4. SURGICAL MATERIAL AT THE GE JUNCTION WITH A TINY HIATAL HERNIA. CORRELATE TO PATIENT'S PRIOR MEDINA RGERY. 5. HYDROPIC GALLBLADDER WITH A 2.3 CM GALLSTONE. NO SURROUNDING INFLAMMATION. HYDROPIC CHANGES LIKELY DUE TO FASTING STATE. CLINICALLY CORRELATE. EXTENSIVE DISH THROUGHOUT THE VISUALIZED SPINE.
[2023-08-04 11:57] LABS: Appearance,Urine Clear (Clear); Bilirubin,Urine Negative (Negative); Blood,Urine Negative (Negative); Color,Urine Colorless; Glucose,Urine (UA) Negative (Negative); Hyaline Casts,Urine 1 /lpf (0-2); Ketones,Urine Trace (Negative); Leukocyte Esterase,Urine Negative (Negative); Mucus,Urine Rare /hpf; Nitrite,Urine Negative (Negative); Protein,Urine 2+ (Negative); RBC,Urine 3 /hpf (0-5); Specific Gravity,Urine 1.018 (1.001-1.035); Squamous Epithelial Cell,Urine <1 /hpf (0-4); Urobilinogen,Urine <2.0 mg/dL (<2.0); WBC,Urine 1 /hpf (0-5)
[2023-08-04] MEDS ORDERED: NALOXONE 0.4 MG/ML 1 ML VIAL IV PRN (13:55)
[2023-08-04] MEDS ORDERED: ONDANSETRON 4 MG/2 ML VIAL IVP PRN (13:55)
[2023-08-04] MEDS ORDERED: ACETAMINOPHEN TAB 325 MG TAB PO PRN ×2 (13:55→14:52)
[2023-08-04] MEDS ORDERED: NITROGLYCERIN SL TABS 0.4 MG TAB SUBLINGUAL PRN (14:52)
--- NOTE | 2023-08-04 14:56 | P.HPIM ---
History of Present Illness H&P Date: 08/04/23 Chief Complaint: Orthostatic hypotension HISTORY OF PRESENT ILLNESS: This is an 88-year-old male with a previous medical history significant for coronary artery disease status post coronary artery bypass graft with VARELA to LAD 2001, idiopathic orthostatic hypertension, mixed hyperlipidemia, iron deficiency anemia, enlarged prostate, memory loss due to vascular dementia, anxiety and depressive disorder, macular degeneration, patient presented to the emergency department at [facility] today after he has had an episode of vertigo with the orthostatic hypotension that that led the patient after he woke up from sleep in the morning to fall onto the trejo to the left side he complained of increased nausea and vomiting and had headache he came to the emergency department for evaluation, initially he stated his blood pressure in the morning was 128/70 by the time EMS was called his blood pressure was 190/100 patient was brought into the emergency department at [facility], he was given treatment in the emergency department to bring his blood p ressure down, because of his elevated blood pressure initially ended up going for CT angiography of the abdomen and pelvis since the patient had a history of abdominal aortic aneurysm status post endovascular repair that was done by Dr. Gee at [facility] back in 2001, this is showed an evidence of previous abdominal aorto iliac endovascular stent graft with the pilot station aneurysm of 5.04.5 cm versus 4.94.4 cm previously appears to be fairly stable with possible endovascular leak, also there is a vascular coil in the region of the left internal iliac artery with a previous large saccular aneurysm stable at 5.310 5.1 cm versus 5.1 5.0 cm previously also there is generalized diverticulo sis without evidence of diverticulitis, there is also hydropic gallbladder with 2.3 cm gallstone without any evidence of surrounding inflammation patient was admitted to hospital for eval you should've ask her surgery and monitor the patient very closely. REVIEW OF SYSTEMS: Constitutional: No documented fever, no chills, no night sweats. No weight change. No weakness, fatigue or lethargy. No daytime sleepiness. HEENT: positive for headache. No blurred vision or double vision, no loss of vi rufino. No loss of Hearing, no ringing in the ears, positive for dizziness. No nasal drainage or congestion. No epistaxis. No sore throat. Lungs: No shortness of breath, no cough, no sputum production. No wheezing. Reports dyspnea with activity. Cardiovascular: No chest pain, no lower extremity edema. No palpitations. No paroxysmal nocturnal dyspnea. No orthopnea. No lightheadedness or dizziness. No syncopal episodes. Abdominal: Reports abdominal pain. positive for nausea, one episode of vomiting. No diarrhea. No constipation. No bloody or tarry stools reports loss of appetite. Genitourinary: No dysuria, increased frequency, urgency. No urinary retention. Musculoskeletal: No myalgias. No muscle weakness, positive for gait dysfunction, no frequent falls. positive for back pain. No neck pain. Integumentary: No wounds, no lesions. No rash or pruritus. No unusual bruisin g. No change in hair or nails. Neurologic: No aphasia. No facial droop. No change in mentation. No head injury. No headache. No paralysis. No paresthesia. Psychiatric: mild anxiety. No mood swings. Endocrine: No abnormal blood sugars. No weight change. PAST MEDICAL HISTORY: Coronary artery disease status post coronary artery bypass graft 1 with VARELA to 2001 Abdominal aortic aneurysm status post aortoiliac endovascular stent graft placement that was done by Dr. Gee at [facility] 2020 Orthostatic hypotension Mixed hyperlipidemia Iron deficiency anemia Enlarged prostate Memory loss due to vascular dementia Macular degeneration Osteoarthritis TIA COPD Macular degeneration Spondylosis of the lumbar spine. DISH PAST SURGICAL HISTORY: CABG 1 with VARELA to LAD 2001 Left knee replacement 1991 Right knee replacement 1995 Right inguinal hernia repair Fifth vertebra neck surgery 1989 Bilateral hernia repair Umbilical hernia repair 2019 Pneumothorax 1961 Colonoscopy 2012 Aortoiliac endovascular stent graft for abdominal aortic aneurysm [address] Gee at [facility] left internal iliac artery coil for saccular aneurysm. SOCIAL HISTORY: Patient used to smoke about pack every day since the age of 13 and quit in 1967, he denies any alcohol ingestion, he denies any drug use or abuse, he lives with his , FAMILY HISTORY: Father at age of 40 with a car accident mother at the age of 36 from unknown cause patient has one sister alive 90-year-old, patient has one son with goiter post thyroidectomy, patient has 3 daughters 1 with osteoarthritis and hypothyroidism. PHYSICAL EXAMINATION: General: 88-year-old male sitting up in bed in no apparent distress HEENT: Head is atraumatic, normocephalic, pupils were equal round reactive to light and recommendation, extraocular muscle movement were intact, sclera nonicteric, conjunctivae were pale, mucous membranes of the mouth are somewhat dry. Neck: Supple, no JVP, normal carotid upstroke bilaterally, no lymphadenopathy. Chest: Decreased breath sounds at the bases, few rhonchi, no expiratory wheezes, no chest wall tenderness, no intercostal retractions. Heart: First heart sound is normal, second heart sound is normal there is systolic ejection murmur 2/6 located in the left sternal border. Abdomen: Soft, nontender, nondistended, positive bowel sounds. Extremities: There is no edema no calf tenderness DP +1 bilaterally. Neurologic examination: Patient is awake alert and oriented x3, cranial nerves II-12 appear grossly intact, muscle power were 5 out of 5 in upper extremities and 5 out of 5 in bilateral lower extremities, deep tendon reflexes normal bilaterally. ASSESSMENT AND PLAN: 1. Orthostatic hypotension with presyncopal episode. And clear etiology, pat ient is to be maintained on Midrin 2.5 mg orally 3 times every day, monitor the patient very closely, patient does not appear to have any neuro deficits at this time, no evidence of any CVA/TIA at this point in time, we'll continue to monitor the patient very closely, we will hold off any computed tomography scan of the brain as the patient did receive CT angiography earlier today we will revisit in the next 24 hours if he continues to have issues. 2. Abdominal aortic aneurysm status post aortoiliac endovascular stent graft that was [place] in [address] Gee at [facility] there was some concern about endovascular leak the aneurysm appears to be stable this appears to be chronic at this point in time, patient does not have any significant symptoms with that. Vascular surgery to evaluate the patient for morning. 3. Mixed hyperlipidemia. Continue patient on simvastatin 40 mg orally once every day. 4. Coronary artery disease status post CABG 1 with VARELA to LAD in 2001 con tinue patient on simvastatin 20 mg once every day, aspirin 81 mg once every day. 5. Anxiety disorder. Continue patient on sertraline 50 mg once every day. 6. Memory loss with vascular dementia. Appears to be stable at this time patient did have a computed tomography scan of the brain without contrast that was done 07/22/2023 and did show small vessel disease. 7. Enlarged prostate. Monitor for urinary retention. 8. Iron deficiency anemia. Hemoglobin is stable at this time. Continue iron 325 mg once every day. 9. DVT prophylaxis. Heparin 5000 units subcutaneously every 12 hours. 10. GI prophylaxis. Continue patient on PPI. 11. Observation Past Medical History Past Medical History: Coronary Artery Disease (CAD), COPD, CVA/TIA, Eye Disorder, Hyperlipidemia, Osteoarthritis (OA) Additional Past Medical History / Comment(s): Anemia, idiopathic/orthostatic hypotension, macular degeneration, carpal tunnel syndrome, multiple mini strokes. occ. lightheadness., some sob., AAA with surgery (2020)., hospitalized 01/22/22 to 01/24/22 for hypotension and fall. History of Any Multi-Drug Resistant Organisms: None Reported Past Surgical History: Appendectomy, Coronary Bypass/CABG, Hernia Repair, Joint Replacement, Tonsillectomy Additional Past Surgical History / Comment(s): CABG X1 2001, vasectomy, umbilical/hiatal hernia repairs, bilateral knee replacements, pinched nerve in neck surgically repaired, abdominal aortic aneurysm repair-january 2021 Past Anesthesia/Blood Transfusion Reactions: No Reported Reaction Additional Past Anesthesia/Blood Transfusion Reaction / Comment(s): HX BLOOD TRANSFUSION JANUARY 2021 WITH AAA SURGERY-NO REACTION Past Psychological History: No Psychological Hx Reported Smoking Status: Former smoker Past Alcohol Use History: None Reported Past Drug Use History: None Reported - Past Family History Mother Family Medical History: Hyperlipidemia Medications and Allergies Home Medications Medication Instructions Recorded Confirmed Type Sertraline HCl [Zoloft] 50 mg PO DAILY 01/28/20 08/04/23 History Simvastatin 40 mg PO HS 01/28/20 08/04/23 History Ferrous Sulfate [Iron (65 MG 325 mg PO DAILY 03/07/21 08/04/23 History Elemental)] Multivit-Min/FA/Lycopen/Lutein 1 tab PO DAILY 10/14/21 08/04/23 History [Centrum Silver Tablet] Nitroglycerin Sl Tabs [Nitrostat] 0.4 mg SUBLINGUAL Q5M PRN 05/03/23 08/04/23 History Acetaminophen Tab [Tylenol] 650 mg PO Q6H PRN 08/04/23 08/04/23 History Aspirin EC [Ecotrin Low Dose] 81 mg PO DAILY 08/04/23 08/04/23 History Lutein 20 mg PO DAILY 08/04/23 08/04/23 History Midodrine HCl [ProAmantine] 2.5 mg PO TID 08/04/23 08/04/23 History Allergies Allergy/AdvReac Type Severity Reaction Status Date / Time No Known Allergies Allergy Verified 08/04/23 12:44 Physical Exam Vitals: Vital Signs Temp Pulse Resp BP Pulse Ox 08/04/23 12:43 70 18 157/80 99 08/04/23 11:55 66 20 192/105 99 08/04/23 10:55 64 18 194/93 99 08/04/23 09:30 97.0 F L 67 18 201/94 100 Intake and Output 08/03/23 08/04/23 08/04/23 22:59 06:59 14:59 Other: Weight 70.307 kg Results CBC & Chem 7: 08/04/23 09:57 08/04/23 09:57 Labs: Abnormal Lab Results - Last 24 Hours (Table) 08/04/23 08/04/23 08/04/23 Range/Units 09:57 09:57 11:46 RBC 3.60 L (4.30-5.90) m/uL Hgb 11.4 L (13.0-17.5) gm/dL Hct 33.2 L (39.0-53.0) % Lymphocytes # 0.7 L (1.0-4.8) k/uL BUN 23 H (9-20) mg/dL Glucose 157 H (74-99) mg/dL Urine Protein 2+ H (Negative) Urine Ketones Trace H (Negative) Urine Mucus Rare H (None) /hpf
[2023-08-04 15:36] LABS: Basophils % (A) 0 %; Eosinophils % (A) 0 %; HCT 31.8 % (39.0-53.0); HGB 10.9 gm/dL (13.0-17.5); Lymphocytes # (A) 1.1 k/uL (1.0-4.8); Lymphocytes % (A) 14 %; MCH 31.4 pg (25.0-35.0); MCHC 34.3 g/dL (31.0-37.0); MCV 91.6 fL (80.0-100.0); Mean Platelet Volume 7.5; Monocytes # (A) 0.5 k/uL (0-1.0); Monocytes % (A) 6 %; Neutrophils # (A) 6.3 k/uL (1.3-7.7); Neutrophils % (A) 79 %; Platelet Count 147 k/uL (150-450); RBC 3.47 m/uL (4.30-5.90); RDW 14.9 % (11.5-15.5)
[2023-08-04 15:55] LABS: ALT 16 U/L (4-49); AST 24 U/L (17-59); African American GFR (CKD) 83 (>60 ml/min/1.73 sqM); Albumin 3.8 g/dL (3.5-5.0); Alkaline Phosphatase 87 U/L (38-126); Anion Gap 8 mmol/L; Blood Urea Nitrogen 23 mg/dL (9-20); Calcium 8.4 mg/dL (8.4-10.2); Carbon Dioxide 25 mmol/L (22-30); Chloride 104 mmol/L (98-107); Glucose 114 mg/dL (74-99); Non-African American GFR(CKD) 72 (>60 ml/min/1.73 sqM); Potassium 3.8 mmol/L (3.5-5.1); Sodium 137 mmol/L (137-145); Total Bilirubin 0.6 mg/dL (0.2-1.3); Total Protein 6.5 g/dL (6.3-8.2)
[2023-08-04] MEDS: MIDODRINE 5 MG TAB PO SCH (17:20)
[2023-08-04] MEDS ORDERED: hydrALAZINE HCL 20 MG/ML 1 ML VIAL IVP PRN (18:45)
--- NOTE | 2023-08-04 20:19 | CT ---
EXAMINATION TYPE: CT brain wo con CT DLP: 1179.4 mGycm, Automated exposure control for dose reduction was used. DATE OF EXAM: 08/04/2023 7:57 PM COMPARISON: 07/22/2023 CLINICAL INDICATION:Male, 88 years old with history of Fall, hit back of head. No LOC and no blood th inner. TECHNIQUE: Brain: Axial CT images of the brain were obtained with coronal and sagittal reformats created and rev iewed. Contrast used: None. Oral contrast used: None. FINDINGS: Brain: Extra-axial spaces: No abnormal extra-axial fluid collections. Ventricular system: Dilatation in proportion to cerebral atrophy. Cerebral parenchyma: Cerebral atrophy. No acute intraparenchymal hemorrhage or mass effect. The donaldson -white junction is well differentiated. Scattered hypoattenuating areas are seen within the white mat ter. Cerebellum: Unremarkable. Mass effect: No evidence of midline shift. Intracranial vasculature: Atherosclerotic calcifications of the intracranial vessels. Soft tissues: Normal. Calvarium/osseous structures: No depressed skull fracture. Paranasal sinuses and mastoid air cells: Mild scattered paranasal sinus disease. Visualized orbits: Orbital contents are intact. IMPRESSION: 1. No acute intracranial process. 2. Nonspecific white matter changes, likely secondary to chronic small vessel ischemic disease.
[2023-08-04] MEDS: ATORVASTATIN 20 MG TAB PO SCH (21:11)
[2023-08-04] MEDS: HEPARIN SODIUM,PORCINE 5,000 UNIT/ML 1 ML VIAL SQ SCH (21:12)
[2023-08-05] MEDS: MIDODRINE 5 MG TAB PO SCH ×4 (03:59→21:30)
[2023-08-05] MEDS: PANTOPRAZOLE 40 MG TABLET PO SCH (06:00)
[2023-08-05 08:29] LABS: Basophils # (A) 0.02 X 10*3/uL (0.00-0.10); Basophils % (A) 0.3 %; Eosinophils # (A) 0.06 X 10*3/uL (0.04-0.35); Eosinophils % (A) 0.8 %; HCT 29.2 % (39.6-50.0); HGB 9.6 g/dL (13.0-17.0); Lymphocytes % (A) 24.2 %; MCH 30.1 pg (27.0-32.0); MCHC 32.9 g/dL (32.0-37.0); MCV 91.5 FL (80.0-97.0); Mean Platelet Volume 9.7 FL (9.5-12.2); Monocytes # (A) 0.49 X 10*3/uL (0.20-1.00); Monocytes % (A) 6.6 %; NRBC Per 100 WBC 0 X 10*3/uL (0.00-0.01); Neutrophils # (A) 5.06 X 10*3/uL (1.80-7.70); Neutrophils % (A) 67.8 %; Platelet Count 135 X 10*3/uL (140-440); RBC 3.19 X 10*6/uL (4.40-5.60); RDW 14.5 % (11.5-14.5); WBC 7.45 X 10*3/uL (4.50-10.00)
[2023-08-05 08:53] LABS: ALT 15 U/L (10-49); AST 17 U/L (14-35); Albumin 3.6 g/dL (3.8-4.9); Alkaline Phosphatase 83 U/L (41-126); BUN/Creat Ratio 18.73 Ratio (12.00-20.00); Blood Urea Nitrogen 20.6 mg/dL (9.0-27.0); Calcium 8.8 mg/dL (8.7-10.3); Carbon Dioxide 23.9 mmol/L (21.6-31.8); Chloride 106 mmol/L (96-109); Glucose 89 mg/dL (70-110); Potassium 3.7 mmol/L (3.5-5.5); Sodium 139 mmol/L (135-145); Total Bilirubin 0.4 mg/dL (0.3-1.2); Total Protein 5.6 g/dL (6.2-8.2)
[2023-08-05] MEDS ORDERED: NON FORMULARY DRUG (Lutein [Lutein] 20 MG Capsule) PO SCH (09:00)
[2023-08-05] MEDS: HEPARIN SODIUM,PORCINE 5,000 UNIT/ML 1 ML VIAL SQ SCH ×2 (09:10→21:36)
[2023-08-05] MEDS: MULTIVITAMINS, THERA 1 EACH TAB PO SCH (09:10)
[2023-08-05] MEDS: MECLIZINE 12.5 MG TAB PO SCH ×3 (09:10→21:35)
[2023-08-05] MEDS: ASPIRIN 81 MG PO SCH (09:11)
[2023-08-05] MEDS: LORATADINE 10 MG TAB PO SCH (09:11)
[2023-08-05] MEDS: FERROUS SULFATE 325 MG TAB PO SCH (09:11)
[2023-08-05] MEDS: amLODIPine 5 MG TAB PO SCH (09:11)
[2023-08-05] MEDS: SERTRALINE 50 MG TAB PO SCH (09:11)
--- NOTE | 2023-08-05 10:16 | P.CRDCN ---
History of Present Illness Consult date: 08/05/23 Consult reason: hypertension History of present illness: History of present illness: This is an 88-year-old male patient recently established with Dr. Jonathan Baldwin with past medical history of high orthostatic hypotension and chronic dizziness, hypertension history, abdominal aortic aneurysm status post repair, coronary artery disease, chronic kidney disease. The patient has had problems with dizziness for the past 4-5 years to the point that he had to quit golfing. He has been on midodrine and takes this as needed with parameters to hold for systolic blood pressure greater than 140. He states his blood pressure at home is usually running 107-115. Yesterday he had severe episode of dizziness. He states that he was in the bathroom on the toilet and he started feeling woozy all over when he stood up from the toilet. He leaned over and hit the wall but did not have a fall. He states he only experiences the dizziness when he moves and he usually sits down and puts his head down and symptoms are improved. He can do any activity sitting and moving his head including driving and he does not have symptoms. He denies having any palpitations with this. He states he has a little chest pain. Patient tried meclizine in the emergency room and he states it did not seem to help. When he presented to the hospital his blood pressure was 201/94 and this morning 129/63. Orthostatic vital signs were checked this morning which were negative the patient did experience dizziness with standing. Telemetry reviewed and patient had no significant arrhythmias. EKG sinus rhythm with first-degree block, PVCs Chest x-ray: Lobulated right upper lobe pulmonary nodule or mass 2 cm. No acute infiltrate or failure. CAT angiogram of the abdomen and pelvis revealed previous abdominal aortic iliac endovascular stent graft, previous vascular coiling left internal iliac artery and large saccular aneurysm stable. Generalized colonic diverticulosis. Prior hiatal hernia surgery. Hydropic gallbladder without inflammation. CAT scan of the brain no acute process. Hemoglobin 8.2, platelet count 133. Sodium 139, potassium 3.8, BUN 35 creatini ne 1.5. Home cardiac medications: Midodrine 2.5 mg 3 times daily with parameters, aspirin 81 mg daily, simvastatin 40 mg at bedtime, Nitrostat as needed Echocardiogram performed 05/03/2023 revealed normal LV function. Hypokinesis involving the basilar inferior wall and inferior septum, aneurysmal intra-atrial septum Review Of Systems: At the time of my evaluation: Constitutional: No fever, no chills. No weakness, fatigue or lethargy. EENT: No headache. + dizziness. Lungs: No shortness of breath, cough, no sputum production. No wheezing. Cardiovascular: No chest pain, no lower extremity edema. No palpitations. No paroxysmal nocturnal dyspnea. No orthopnea. + dizziness. No syncopal episodes. Abdominal: No abdominal pain. No nausea, vomiting. No diarrhea. No constipation. No bloody or tarry stools. Musculoskeletal: No myalgias. No muscle weakness, no frequent falls. Integumentary: No wounds. No rash. No unusual bruising. Neurologic: No aphasia. No facial droop. No change in mentation. Physical examination: Gen: This is an 88-year-old male. He is resting but appears to be comfortable. VS: reviewed HEENT: Head is atraumatic, normocephalic. Pupils equal, round. Sclerae is anicteric. NECK: Supple. No JVD. . LUNGS: Clear to auscultation. No wheezes or rhonchi. No intercostal retractions. HEART: Regular rate and rhythm. Short systolic murmur. ABDOMEN: Soft No tenderness. EXTREMITIES: No pedal edema. No calf tenderness. NEUROLOGICAL: Patient is awake, alert and oriented x3. Assessment: Chronic dizziness secondary to inner ear issue, no arrhythmia seen on telemetry, no orthostatic changes Hypertension History of orthostatic hypotension History of abdominal aortic aneurysm status post repair History of coronary artery disease with previous bypass surgery details are not available Plan: Start patient on amlodipine 5 mg daily if systolic blood pressure greater than 150 Continue midodrine with current parameters Start Zyrtec 10 mg daily and Antivert 3 times daily both scheduled for 3 days and monitor for symptoms. Patient is cleared for discharge from cardiology and may follow-up with Dr. Jonathan Baldwin in 2 weeks. Thank you kindly for this consultation. Nurse practitioner note has been reviewed, I agree with documented findings and plan of care. Patient was seen and examined. Past Medical History Past Medical History: Coronary Artery Disease (CAD), COPD, CVA/TIA, Eye Disorder, Hyperlipidemia, Osteoarthritis (OA) Additional Past Medical History / Comment(s): Anemia, idiopathic/orthostatic hypotension, macular degeneration, carpal tunnel syndrome, multiple mini strokes. occ. lightheadness., some sob., AAA with surgery (2020)., hospitalized 01/22/22 to 01/24/22 for hypotension and fall. History of Any Multi-Drug Resistant Organisms: None Reported Past Surgical History: Appendectomy, Coronary Bypass/CABG, Hernia Repair, Joint Replacement, Tonsillectomy Additional Past Surgical History / Comment(s): CABG X1 2001, vasectomy, umbilical/hiatal hernia repairs, bilateral knee replacements, pinched nerve in neck surgically repaired, abdominal aortic aneurysm repair-january 2021 Past Anesthesia/Blood Transfusion Reactions: No Reported Reaction Additional Past Anesthesia/Blood Transfusion Reaction / Comment(s): HX BLOOD TRANSFUSION JANUARY 2021 WITH AAA SURGERY-NO REACTION Past Psychological History: No Psychological Hx Reported Smoking Status: Former smoker Past Alcohol Use History: None Reported Additional Past Alcohol Use History / Comment(s): Quit smoking in 1967., HX OF 4 PPD. Past Drug Use History: None Reported - Past Family History Mother Family Medical History: Hyperlipidemia Medications and Allergies Home Medications Medication Instructions Recorded Confirmed Type Sertraline HCl [Zoloft] 50 mg PO DAILY 01/28/20 08/04/23 History Simvastatin 40 mg PO HS 01/28/20 08/04/23 History Ferrous Sulfate [Iron (65 MG 325 mg PO DAILY 03/07/21 08/04/23 History Elemental)] Multivit-Min/FA/Lycopen/Lutein 1 tab PO DAILY 10/14/21 08/04/23 History [Centrum Silver Tablet] Nitroglycerin Sl Tabs [Nitrostat] 0.4 mg SUBLINGUAL Q5M PRN 05/03/23 08/04/23 History Acetaminophen Tab [Tylenol] 650 mg PO Q6H PRN 08/04/23 08/04/23 History Aspirin EC [Ecotrin Low Dose] 81 mg PO DAILY 08/04/23 08/04/23 History Lutein 20 mg PO DAILY 08/04/23 08/04/23 History Midodrine HCl [ProAmantine] 2.5 mg PO TID 08/04/23 08/04/23 History Allergies Allergy/AdvReac Type Severity Reaction Status Date / Time No Known Allergies Allergy Verified 08/04/23 12:44 Physical Exam Vitals: Vital Signs Temp Pulse Pulse Resp BP BP Pulse Ox 08/05/23 07:00 97.9 F 76 14 169/98 97 08/05/23 02:10 16 08/05/23 02:00 98.2 F 70 16 147/72 97 08/04/23 21:13 71 16 119/84 97 08/04/23 19:41 97.4 F L 08/04/23 19:26 74 14 129/63 98 08/04/23 18:56 67 18 185/104 08/04/23 18:21 67 18 198/91 99 08/04/23 15:18 67 18 145/83 95 08/04/23 14:00 70 18 139/61 98 08/04/23 12:43 70 18 157/80 99 08/04/23 11:55 66 20 192/105 99 08/04/23 10:55 64 18 194/93 99 08/04/23 09:30 97.0 F L 67 18 201/94 100 Intake and Output 08/04/23 08/05/23 08/05/23 22:59 06:59 14:59 Output Total 200 Balance -200 Output: Urine 200 Other: Voiding Method Urinal # Voids 1 2 Weight 70.307 kg Results 08/05/23 05:35 08/05/23 05:35 Cardiac Enzymes 08/04/23 08/04/23 08/04/23 Range/Units 09:57 09:57 15:20 AST 23 24 (17-59) U/L Troponin I 0.015 (0.000-0.034) ng/mL CBC 08/04/23 08/04/23 Range/Units 09:57 15:20 WBC 7.2 8.0 (3.8-10.6) k/uL RBC 3.60 L 3.47 L (4.30-5.90) m/uL Hgb 11.4 L 10.9 L (13.0-17.5) gm/dL Hct 33.2 L 31.8 L (39.0-53.0) % Plt Count 153 147 L (150-450) k/uL Comprehensive Metabolic Panel 08/04/23 08/04/23 Range/Units 09:57 15:20 Sodium 138 137 (137-145) mmol/L Potassium 3.9 3.8 (3.5-5.1) mmol/L Chloride 102 104 (98-107) mmol/L Carbon Dioxide 23 25 (22-30) mmol/L BUN 23 H 23 H (9-20) mg/dL Creatinine 0.97 0.95 (0.66-1.25) mg/dL Glucose 157 H 114 H (74-99) mg/dL Calcium 8.9 8.4 (8.4-10.2) mg/dL AST 23 24 (17-59) U/L ALT 18 16 (4-49) U/L Alkaline Phosphatase 97 87 (38-126) U/L Total Protein 6.9 6.5 (6.3-8.2) g/dL Albumin 4.0 3.8 (3.5-5.0) g/dL Current Medications Generic Name Dose Route Start Last Admin Trade Name Freq PRN Reason Stop Dose Admin Aspirin 81 mg 08/05/23 09:00 Aspirin 81 Mg PO DAILY [facility] Atorvastatin Calcium 20 mg 08/04/23 21:00 08/04/23 21:11 Atorvastatin 20 Mg Tab PO 20 mg HS MARTÍN Administration Ferrous Sulfate 325 mg 08/05/23 09:00 Ferrous Sulfate 325 Mg Tab PO DAILY [facility] Heparin Sodium (Porcine) 5,000 unit 08/04/23 21:00 08/04/23 21:12 Heparin Sodium,Porcine 5,000 Unit/Ml 1 Ml Vial SQ 5,000 unit Q12HR MARTÍN Administration Hydralazine HCl 10 mg 08/04/23 18:45 08/04/23 18:55 Hydralazine Hcl 20 Mg/Ml 1 Ml Vial IVP 10 mg Q4HR PRN Administration Blood Pressure - High Midodrine 2.5 mg 08/04/23 16:00 08/05/23 03:59 Midodrine 5 Mg Tab PO Not Given TID [facility] Multivitamins 1 each 08/05/23 09:00 Multivitamins, Thera 1 Each Tab PO DAILY [facility] Naloxone HCl 0.2 mg 08/04/23 13:55 Naloxone 0.4 Mg/Ml 1 Ml Vial IV Q2M PRN Opioid Reversal Nitroglycerin 0.4 mg 08/04/23 14:52 Nitroglycerin Sl Tabs 0.4 Mg Tab SUBLINGUAL Q5M PRN Chest Pain Ondansetron HCl 4 mg 08/04/23 13:55 08/04/23 19:25 Ondansetron 4 Mg/2 Ml Vial IVP 4 mg Q8HR PRN Administration Nausea And Vomiting Pantoprazole Sodium 40 mg 08/05/23 07:30 08/05/23 06:00 Pantoprazole 40 Mg Tablet PO 40 mg [id number] MARTÍN Administration Sertraline HCl 50 mg 08/05/23 09:00 Sertraline 50 Mg Tab PO DAILY MARTÍN Intake and Output 08/04/23 08/05/23 08/05/23 22:59 06:59 14:59 Output Total 200 Balance -200 Output: Urine 200 Other: Voiding Method Urinal # Voids 1 2 Weight 70.307 kg 08/04/23 15:20 08/04/23 15:20
--- NOTE | 2023-08-05 10:33 | P.DS ---
Providers Date of admission: 08/04/23 13:01 Expected date of discharge: 08/05/23 Attending physician: Pedro Macdonald Consults: 08/04/23 13:55 Consult Physician Urgent Consulting Provider: Teodora Mcmullen Consult Reason/Comments: Abdominal pain, possible endovascular leak Do you want consulting provider notified?: Already Contacted 08/04/23 19:26 Consult Physician Routine Consulting Provider: Landon Baldwin Consult Reason/Comments: Hypertension Do you want consulting provider notified?: Yes Primary care physician: Pedro Macdonald [facility] Course: HISTORY OF PRESENT ILLNESS: This is an 88-year-old male with a previous medical history significant for coronary artery disease status post coronary artery bypass graft with VARELA to LAD 2001, idiopathic orthostatic hypertension, mixed hyperlipidemia, iron deficiency anemia, enlarged prostate, memory loss due to vascular dementia, anxiety and depressive disorder, macular degeneration, patient presented to the emergency department at [facility] today after he has had an episode of vertigo with the orthostatic hypotension that that led the patient after he woke up from sleep in the morning to fall onto the trejo to the left side he complained of increased nausea and vomiting and had headache he came to the emergency department for evaluation, initially he stated his blood pressure in the morning was 128/70 by the time EMS was called his blood pressure was 190/100 patient was brought into the emergency department at [facility], he was given treatment in the emergency department to bring his blood pressure down, because of his elevated blood pressure initially ended up going for CT angiography of the abdomen and pelvis since the patient had a history of abdominal aortic aneurysm status post endovascular repair that was done by Dr. Gee at [facility] back in 2001, this is showed an evidence of previous abdominal aorto iliac endovascular stent graft with the [place] aneurysm of 5.0 4.5 cm versus 4.94.4 cm previously appears to be fairly stable with possible endovascular leak, also there is a vascular coil in the region of the left internal iliac artery with a previous large saccular aneurysm stable at 5.310 5.1 cm versus 5.1 5.0 cm previously also there is generalized diverticulosis without evidence of diverticulitis, there is also hydropic gallbladder with 2.3 cm gallstone without any evidence of surrounding inflammation patient was admitted to hospital for eval you should've ask her surgery and monitor the patient very closely. 08/05: Patient has been seen by cardiology with the following recommendations. He goes patient was hypertensive upon arrival, amlodipine added to be used when systolic blood pressure greater than 151 time daily. Patient to continue on his current dose of midodrine and utilizes when blood pressure is less than 140. Zyrtec and meclizine have been ordered and to be scheduled for 3 days to see if this improves his symptoms. Patient was cleared for discharge by cardiology with plan to follow-up with Dr. Jonathan Baldwin in the office in 2 weeks. This morning, patient states he does not feel really any better. Orthostatic vital signs were negative. His blood pressure is 150/67. Heart rate has been running in the 60s and 70s. Pulse ox 90% on room air. CAT scan of the brain showed no acute intracranial process. Repeat blood work reveals WBC 7.4, hemoglobin 9.6 and platelet count 135. Electrolytes and renal function are normal. Liver function tests are normal. Glucose 89. DISCHARGE DIAGNOSES: 1. Orthostatic hypotension with presyncopal episode. 2. Abdominal aortic aneurysm status post aortoiliac endovascular stent graft that was [place] in [address] Gee at [facility] 3. Mixed hyperlipidemia. 4. Coronary artery disease status post CABG 1 with VARELA to LAD in 2001 5. Anxiety disorder. 6. Memory loss with vascular dementia. 7. Enlarged prostate. 8. Iron deficiency anemia. 9. Hypertension Greater than 35 minutes was utilized and coordinating patient's discharge. Impression and plan of care have been directed as dictated by the signing physician. Elizabeth Denise nurse practitioner acting as scribe for signing physician. Plan - Discharge Summary Discharge Rx Participant: No New Discharge Prescriptions: New Meclizine [Antivert] 12.5 mg PO TID #60 tab Loratadine [Claritin] 10 mg PO DAILY #30 tab amLODIPine [Norvasc] 5 mg PO DAILY #30 tab Continue Simvastatin 40 mg PO HS Sertraline HCl [Zoloft] 50 mg PO DAILY Ferrous Sulfate [Iron (65 MG Elemental)] 325 mg PO DAILY Aspirin EC [Ecotrin Low Dose] 81 mg PO DAILY Acetaminophen Tab [Tylenol] 650 mg PO Q6H PRN PRN Reason: Pain Or Fever > 100.5 Multivit-Min/FA/Lycopen/Lutein [Centrum Silver Tablet] 1 tab PO DAILY Nitroglycerin Sl Tabs [Nitrostat] 0.4 mg SUBLINGUAL Q5M PRN PRN Reason: Chest Pain Midodrine HCl [ProAmantine] 2.5 mg PO TID Lutein 20 mg PO DAILY Discharge Medication List Sertraline HCl [Zoloft] 50 mg PO DAILY 01/28/20 [History] Simvastatin 40 mg PO HS 01/28/20 [History] Ferrous Sulfate [Iron (65 MG Elemental)] 325 mg PO DAILY 03/07/21 [History] Multivit-Min/FA/Lycopen/Lutein [Centrum Silver Tablet] 1 tab PO DAILY 10/14/21 [History] Nitroglycerin Sl Tabs [Nitrostat] 0.4 mg SUBLINGUAL Q5M PRN 05/03/23 [History] Acetaminophen Tab [Tylenol] 650 mg PO Q6H PRN 08/04/23 [History] Aspirin EC [Ecotrin Low Dose] 81 mg PO DAILY 08/04/23 [History] Lutein 20 mg PO DAILY 08/04/23 [History] Midodrine HCl [ProAmantine] 2.5 mg PO TID 08/04/23 [History] Loratadine [Claritin] 10 mg PO DAILY #30 tab 08/05/23 [Rx] Meclizine [Antivert] 12.5 mg PO TID #60 tab 08/05/23 [Rx] amLODIPine [Norvasc] 5 mg PO DAILY #30 tab 08/05/23 [Rx] Follow up Appointment(s)/Referral(s): Pedro Macdonald MD [Primary Care Provider] - 1 Week Landon Baldwin MD [STAFF PHYSICIAN] - 2 Weeks Discharge Disposition: HOME SELF-CARE
--- NOTE | 2023-08-05 11:58 | P.GSCN ---
History of Present Illness Consult date: 08/05/23 Reason for Consult: Abdominal pain, possible endovascular leak Requesting physician: Luly Pennington History of present illness: This is a pleasant 80-year-old male who presented to the emergency department yesterday for complaints of dizziness and reportedly abdominal pain. Patient states that he primarily came in for dizziness and has a history of orthostatic hypotension. His past medical history includes coronary artery disease status post CABG, idiopathic orthostatic hypertension, mixed hyperlipidemia, iron deficiency anemia, BPH, and memory loss due to vascular dementia. Patient also has history of abdominal aortic aneurysm with endovascular repair done in [address] Gee down [facility]. He did have a CTA of the abdomen in the emergency department for abdominal pain. Reported possible endoleak, therefore vascular surgery was consulted. Initially Dr. Mcmullen was reached yesterday by phone and reviewed the images and told the emergency room physician that there was no acute findings and did not appear to be a endoleak and patient should follow-up with their vascular surgeon. However patient was admitted and vascular surgery was put on consult. He currently denies any abdominal pain, no nausea or vomiting. He is sitting up and eating his breakfast. States he had some dizziness yesterday when he got up to go to the bathroom which prompted him to come in for further evaluation. States he is feeling much better today. Denies any abdominal pain or back pain, no shortness of breath or chest pain. No reported nausea or vomiting. WBC 7.4 hemoglobin 9.6 platelet count 135,000 sodium 139 potassium 3.7 BUN 20.6 creatinine 1.1 total bilirubin 0.4 AST 17 and he'll T 15 alkaline phosphatase 83 Review of Systems A 14 point review systems was completed all pertinent positives and negatives as stated in the HPI. Past Medical History Past Medical History: Coronary Artery Disease (CAD), COPD, CVA/TIA, Eye Disorder, Hyperlipidemia, Osteoarthritis (OA) Additional Past Medical History / Comment(s): Anemia, idiopathic/orthostatic hypotension, macular degeneration, carpal tunnel syndrome, multiple mini strokes. occ. lightheadness., some sob., AAA with surgery (2020)., hospitalized 01/22/22 to 01/24/22 for hypotension and fall. History of Any Multi-Drug Resistant Organisms: None Reported Past Surgical History: Appendectomy, Coronary Bypass/CABG, Hernia Repair, Joint Replacement, Tonsillectomy Additional Past Surgical History / Comment(s): CABG X1 2001, vasectomy, umbilical/hiatal hernia repairs, bilateral knee replacements, pinched nerve in neck surgically repaired, abdominal aortic aneurysm repair-january 2021 Past Anesthesia/Blood Transfusion Reactions: No Reported Reaction Additional Past Anesthesia/Blood Transfusion Reaction / Comm: HX BLOOD TRANSFUSION JANUARY 2021 WITH AAA SURGERY-NO REACTION Past Psychological History: No Psychological Hx Reported Smoking Status: Former smoker Past Alcohol Use History: None Reported Additional Past Alcohol Use History / Comment(s): Quit smoking in 1967., HX OF 4 PPD. Past Drug Use History: None Reported - Past Family History Mother Family Medical History: Hyperlipidemia Medications and Allergies Home Medications Medication Instructions Recorded Confirmed Type Sertraline HCl [Zoloft] 50 mg PO DAILY 01/28/20 08/04/23 History Simvastatin 40 mg PO HS 01/28/20 08/04/23 History Ferrous Sulfate [Iron (65 MG 325 mg PO DAILY 03/07/21 08/04/23 History Elemental)] Multivit-Min/FA/Lycopen/Lutein 1 tab PO DAILY 10/14/21 08/04/23 History [Centrum Silver Tablet] Nitroglycerin Sl Tabs [Nitrostat] 0.4 mg SUBLINGUAL Q5M PRN 05/03/23 08/04/23 History Acetaminophen Tab [Tylenol] 650 mg PO Q6H PRN 08/04/23 08/04/23 History Aspirin EC [Ecotrin Low Dose] 81 mg PO DAILY 08/04/23 08/04/23 History Lutein 20 mg PO DAILY 08/04/23 08/04/23 History Midodrine HCl [ProAmantine] 2.5 mg PO TID 08/04/23 08/04/23 History Loratadine [Claritin] 10 mg PO DAILY #30 tab 08/05/23 Rx Meclizine [Antivert] 12.5 mg PO TID #60 tab 08/05/23 Rx amLODIPine [Norvasc] 5 mg PO DAILY #30 tab 08/05/23 Rx Allergies Allergy/AdvReac Type Severity Reaction Status Date / Time No Known Allergies Allergy Verified 08/04/23 12:44 Surgical - Exam Vital Signs Temp Pulse Resp BP Pulse Ox 97.0 F L 67 18 201/94 100 08/04/23 09:30 08/04/23 09:30 08/04/23 09:30 08/04/23 09:30 08/04/23 09:30 General appearance: The patient is alert, oriented, appears in no acute distress. HET: Head is normocephalic and atraumatic. Pupils are equal and reactive. Neck: Supple. Heart: Regular. Lungs: Equal expansion, normal respiratory effort. Abdomen: Soft, nontender, nondistended. Extremities: Normal skin color and turgor. No edema. Neurological: Alert and oriented. No focal deficits noted. Results - Labs 08/05/23 05:35 08/05/23 05:35 Abnormal Lab Results - Last 24 Hours (Table) 08/04/23 08/04/23 08/04/23 Range/Units 09:57 09:57 11:46 RBC 3.60 L (4.30-5.90) m/uL Hgb 11.4 L (13.0-17.5) gm/dL Hct 33.2 L (39.0-53.0) % Plt Count (150-450) k/uL Lymphocytes # 0.7 L (1.0-4.8) k/uL BUN 23 H (9-20) mg/dL Glucose 157 H (74-99) mg/dL Urine Protein 2+ H (Negative) Urine Ketones Trace H (Negative) Urine Mucus Rare H (None) /hpf 08/04/23 08/04/23 Range/Units 15:20 15:20 RBC 3.47 L (4.30-5.90) m/uL Hgb 10.9 L (13.0-17.5) gm/dL Hct 31.8 L (39.0-53.0) % Plt Count 147 L (150-450) k/uL Lymphocytes # (1.0-4.8) k/uL BUN 23 H (9-20) mg/dL Glucose 114 H (74-99) mg/dL Urine Protein (Negative) Urine Ketones (Negative) Urine Mucus (None) /hpf Diabetes panel 08/04/23 08/04/23 Range/Units 09:57 15:20 Sodium 138 137 (137-145) mmol/L Potassium 3.9 3.8 (3.5-5.1) mmol/L Chloride 102 104 (98-107) mmol/L Carbon Dioxide 23 25 (22-30) mmol/L BUN 23 H 23 H (9-20) mg/dL Creatinine 0.97 0.95 (0.66-1.25) mg/dL Glucose 157 H 114 H (74-99) mg/dL Calcium 8.9 8.4 (8.4-10.2) mg/dL AST 23 24 (17-59) U/L ALT 18 16 (4-49) U/L Alkaline Phosphatase 97 87 (38-126) U/L Total Protein 6.9 6.5 (6.3-8.2) g/dL Albumin 4.0 3.8 (3.5-5.0) g/dL Calcium panel 08/04/23 08/04/23 Range/Units 09:57 15:20 Calcium 8.9 8.4 (8.4-10.2) mg/dL Albumin 4.0 3.8 (3.5-5.0) g/dL Pituitary panel 08/04/23 08/04/23 Range/Units 09:57 15:20 Sodium 138 137 (137-145) mmol/L Potassium 3.9 3.8 (3.5-5.1) mmol/L Chloride 102 104 (98-107) mmol/L Carbon Dioxide 23 25 (22-30) mmol/L BUN 23 H 23 H (9-20) mg/dL Creatinine 0.97 0.95 (0.66-1.25) mg/dL Glucose 157 H 114 H (74-99) mg/dL Calcium 8.9 8.4 (8.4-10.2) mg/dL Adrenal panel 08/04/23 08/04/23 Range/Units 09:57 15:20 Sodium 138 137 (137-145) mmol/L Potassium 3.9 3.8 (3.5-5.1) mmol/L Chloride 102 104 (98-107) mmol/L Carbon Dioxide 23 25 (22-30) mmol/L BUN 23 H 23 H (9-20) mg/dL Creatinine 0.97 0.95 (0.66-1.25) mg/dL Glucose 157 H 114 H (74-99) mg/dL Calcium 8.9 8.4 (8.4-10.2) mg/dL Total Bilirubin 0.6 0.6 (0.2-1.3) mg/dL AST 23 24 (17-59) U/L ALT 18 16 (4-49) U/L Alkaline Phosphatase 97 87 (38-126) U/L Total Protein 6.9 6.5 (6.3-8.2) g/dL Albumin 4.0 3.8 (3.5-5.0) g/dL - Imaging Comments: CT angiogram abdomen and pelvis: Previous abdominal aortobiiliac endovascular stent graft. [place] sac caliber 5.05.5 cm (versus 4.94.4 cm, previously). Fairly stable in the interval. However on postcontrast images unable to exclude a small endoleak. Previous vascular coiling in the region of the left internal iliac artery but with an adjacent large saccular aneurysm stable to minimally larger at 5.3 x 5.1 cm (versus 5.1 x 5.0 cm, previously). There seems to be some continued contrast/blood flow into this aneurysm. Generalized colonic diverticulosis without acute diverticulitis. Surgical material at the [employer] with a tiny hiatal hernia. Correlate as to patient's prior surgery. Hydropic gallbladder with a 2.3 cm gallstone. No surrounding inflammation. Hydropic changes likely due to fasting state. Clinically correlate extensive. Throughout the visualized spine spine Assessment and Plan Assessment: 1. Dizziness 2. Abdominal pain, resolved 3. History of abdominal aortic aneurysm status post aortobiiliac stent graft done in [address] Gee [facility] 4. History of coronary artery disease status post CABG Plan: There is no indication for any acute vascular surgical intervention. CTA findings appear chronic. Patient has not had any follow-up with his vascular surgeon since his AAA repair, he states it is too far away. He would like to follow with a vascular surgeon within this area. He also states that he would likely not want any further surgical management for his abdominal aortic aneurysm at his age. Dr. Urena agreed to see patient in the office. Follow- up in 6 months for abdominal ultrasound. Thank you for this consultation, we will sign off at this time. The impression and plan of care has been dictated as directed. I performed a history and examination of this patient, discussed the same with the dictator. I agree with the dictator's note ,documented as a scribe. Any additional findings or plans will be noted.
--- NOTE | 2023-08-05 14:19 | P.PN ---
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, anxiety and depressive disorder, macular degeneration, patient presented to the emergency department at [facility] today after he has had an episode of vertigo with the orthostatic hypotension that that led the patient after he woke up from sleep in the morning to fall onto the trejo to the left side he complained of increased nausea and vomiting and had headache he came to the emergency department for evaluation, initially he stated his blood pressure in the morning was 128/70 by the time EMS was called his blood pressure was 190/100 patient was brought into the emergency department at [facility], he was given treatment in the emergency department to bring his blood pressure down, because of his elevated blood pressure initially ended up going for CT angiography of the abdomen and pelvis since the patient had a history of abdominal aortic aneurysm status post endovascular repair that was done by Dr. Gee at [facility] back in 2001, this is showed an evidence of previous abdominal aorto iliac endovascular stent graft with the igiugig aneurysm of 5.04.5 cm versus 4.94.4 cm previously appears to be fairly stable with possibl e endovascular leak, also there is a vascular coil in the region of the left internal iliac artery with a previous large saccular aneurysm stable at 5.310 5.1 cm versus 5.1 5.0 cm previously also there is generalized diverticulosis without evidence of diverticulitis, there is also hydropic gallbladder with 2.3 cm gallstone without any evidence of surrounding inflammation patient was admitted to hospital for eval you should've ask her surgery and monitor the patient very closely. 08/05: Patient has been seen by cardiology with the following recommendations. He goes patient was hypertensive upon arrival, amlodipine added to be used when systolic blood pressure greater than 151 time daily. Patient to continue on his current dose of midodrine and utilizes when blood pressure is less than 140. Zyrtec and meclizine have been ordered and to be scheduled for 3 days to see if this improves his symptoms. Patient was cleared for discharge by cardiology with plan to follow-up with Dr. Jonathan Baldwin in the office in 2 weeks. This morning, patient states he does not feel really any better. Orthostatic vital signs were negative. His blood pressure is 150/67. Heart rate has been running in the 60s and 70s. Pulse ox 90% on room air. CAT scan of the brain showed no acute intracranial process. Repeat blood work reveals WBC 7.4, hemoglobin 9.6 and platelet count 135. Electrolytes and renal function are normal. Liver function tests are normal. Glucose 89. Unfortunately, patient has significant dizziness and is unable to ambulate safely. We will add in a consult for PT and OT. REVIEW OF SYSTEMS: Constitutional: No documented fever, no chills, no night sweats. No weight change. No weakness, fatigue or lethargy. No daytime sleepiness. HEENT: positive for headache. No blurred vision or double vision, no loss of vision. No loss of Hearing, no ringing in the ears, positive for dizziness. No nasal drainage or congestion. No epistaxis. No sore throat. Lungs: No shortness of breath, no cough, no sputum production. No wheezing. Reports dyspnea with activity. Cardiovascular: No chest pain, no lower extremity edema. No palpitations. No paroxysmal nocturnal dyspnea. No orthopnea. No lightheadedness or dizziness. No syncopal episodes. Abdominal: Reports abdominal pain. positive for nausea, one episode of vomiting. No diarrhea. No constipation. No bloody or tarry stools reports loss of appetite. Genitourinary: No dysuria, increased frequency, urgency. No urinary retention. Musculoskeletal: No myalgias. No muscle weakness, positive for gait dysfunction, no frequent falls. positive for back pain. No neck pain. Integumentary: No wounds, no lesions. No rash or pruritus. No unusual bruising. No change in hair or nails. Neurologic: No aphasia. No facial droop. No change in mentation. No head injury. No headache. No paralysis. No paresthesia. Psychiatric: mild anxiety. No mood swings. Endocrine: No abnormal blood sugars. No weight change. PHYSICAL EXAMINATION: General: 88-year-old male sitting up in bed in no apparent distress HEENT: Head is atraumatic, normocephalic, pupils were equal round reactive to light and recommendation, extraocular muscle movement were intact, sclera nonicteric, conjunctivae were pale, mucous membranes of the mouth are somewhat dry. Neck: Supple, no JVP, normal carotid upstroke bilaterally, no lymphadenopathy. Chest: Decreased breath sounds at the bases, few rhonchi, no expiratory wheezes, no chest wall tenderness, no intercostal retractions. Heart: First heart sound is normal, second heart sound is normal there is systolic ejection murmur 2/6 located in the left sternal border. Abdomen: Soft, nontender, nondistended, positive bowel sounds. Extremities: There is no edema no calf tenderness DP +1 bilaterally. Neurologic examination: Patient is awake alert and oriented x3, cranial nerves II-12 appear grossly intact, muscle power were 5 out of 5 in upper extremities and 5 out of 5 in bilateral lower extremities, deep tendon reflexes normal bilaterally. ASSESSMENT AND PLAN: 1. Orthostatic hypotension with presyncopal episode. And clear etiology, patient is to be maintained on Midrin 2.5 mg orally 3 times every day, monitor the patient very closely, patient does not appear to have any neuro deficits at this time, no evidence of any CVA/TIA at this point in time, we'll continue to monitor the patient very closely, we will hold off any computed tomography scan of the brain as the patient did receive CT angiography earlier today we will revisit in the next 24 hours if he continues to have issues. Consult added with PT and OT. 2. Abdominal aortic aneurysm status post aortoiliac endovascular stent graft that was placed in [address] Gee at [facility] there was some concern about endovascular leak the aneurysm appears to be stable this appears to be chronic at this point in time, patient does not have any significant symptoms with that. Vascular surgery consult appreciated. Patient will plan to follow with local vascular surgeon in the future. 3. Hypertension. Patient is been seen by cardiology and started on amlodipine if blood pressure is greater than 150 systolic.. 4. Mixed hyperlipidemia. Continue patient on simvastatin 40 mg orally once every day. 5. Coronary artery disease status post CABG 1 with VARELA to LAD in 2001 continue patient on simvastatin 20 mg once every day, aspirin 81 mg once every day. 6. Anxiety disorder. Continue patient on sertraline 50 mg once every day. 7. Memory loss with vascular dementia. Appears to be stable at this time patient did have a computed tomography scan of the brain without contrast that was done 07/22/2023 and did show small vessel disease. 8. Enlarged prostate. Monitor for urinary retention. 9. Iron deficiency anemia. Hemoglobin is stable at this time. Continue iron 325 mg once every day. 10. DVT prophylaxis. Heparin 5000 units subcutaneously every 12 hours. 10. GI prophylaxis. Continue patient on PPI. Impression and plan of care have been directed as dictated by the signing physician. Elizabeth Denise nurse practitioner acting as scribe for signing physician. Objective - Vital Signs Vital signs: Vital Signs Temp 97.3 F L 08/05/23 14:05 Pulse 74 08/05/23 14:05 Resp 16 08/05/23 14:05 BP 173/82 08/05/23 14:05 Pulse Ox 96 08/05/23 14:05 FiO2 Intake & Output 08/04/23 08/05/23 08/05/23 18:59 06:59 18:59 Output Total 200 300 Balance -200 -300 Weight 70.307 kg 70.307 kg Output: Urine 200 300 Other: Voiding Method Urinal Urinal # Voids 2 2 - Labs CBC & Chem 7: 08/05/23 05:35 08/05/23 05:35 Labs: Abnormal Lab Results - Last 24 Hours (Table) 08/04/23 08/04/23 08/05/23 Range/Units 15:20 15:20 05:35 RBC 3.47 L 3.19 L (4.30-5.90) m/uL Hgb 10.9 L 9.6 L (13.0-17.5) gm/dL Hct 31.8 L 29.2 L (39.0-53.0) % Plt Count 147 L 135 L (150-450) k/uL BUN 23 H (9-20) mg/dL Glucose 114 H (74-99) mg/dL Total Protein (6.2-8.2) g/dL Albumin (3.8-4.9) g/dL 08/05/23 Range/Units 05:35 RBC (4.30-5.90) m/uL Hgb (13.0-17.5) gm/dL Hct (39.0-53.0) % Plt Count (150-450) k/uL BUN (9-20) mg/dL Glucose (74-99) mg/dL Total Protein 5.6 L (6.2-8.2) g/dL Albumin 3.6 L (3.8-4.9) g/dL
[2023-08-05] MEDS: ATORVASTATIN 20 MG TAB PO SCH (21:36)
[2023-08-06] MEDS: PANTOPRAZOLE 40 MG TABLET PO SCH (06:30)
[2023-08-06 08:17] VITALS: BP 180/81; PULSE 65; RESP 17; TEMP 98
[2023-08-06] MEDS: FERROUS SULFATE 325 MG TAB PO SCH (09:20)
[2023-08-06] MEDS: MULTIVITAMINS, THERA 1 EACH TAB PO SCH (09:20)
[2023-08-06] MEDS: ASPIRIN 81 MG PO SCH (09:20)
[2023-08-06] MEDS: LORATADINE 10 MG TAB PO SCH (09:20)
[2023-08-06] MEDS: amLODIPine 5 MG TAB PO SCH (09:20)
[2023-08-06] MEDS: SERTRALINE 50 MG TAB PO SCH (09:20)
[2023-08-06] MEDS: MECLIZINE 12.5 MG TAB PO SCH (09:21)
[2023-08-06] MEDS: HEPARIN SODIUM,PORCINE 5,000 UNIT/ML 1 ML VIAL SQ SCH (09:21)
[2023-08-06] MEDS: MIDODRINE 5 MG TAB PO SCH (09:21)
--- NOTE | 2023-08-06 09:56 | P.PN ---
Subjective Progress Note Date: 08/06/23 History of present illness: This is an 88-year-old male patient recently established with Dr. Jonathan Baldwin with past medical history of high orthostatic hypotension and chronic dizziness, hypertension history, abdominal aortic aneurysm status post repair, coronary artery disease, chronic kidney disease. The patient has had problems with dizziness for the past 4-5 years to the point that he had to quit golfing. He has been on midodrine and takes this as needed with parameters to hold for systolic blood pressure greater than 140. He states his blood pressure at home is usually running 107-115. Yesterday he had severe episode of dizziness. He states that he was in the bathroom on the toilet and he started feeling woozy all over when he stood up from the toilet. He leaned over and hit the wall but did not have a fall. He states he only experiences the dizziness when he moves and he usually sits down and puts his head down and symptoms are improved. He can do any activity sitting and moving his head including driving and he does not have symptoms. He denies having any palpitations with this. He states he has a little chest pain. Patient tried meclizine in the emergency room and he states it did not seem to help. When he presented to the hospital his blood pressure was 201/94 and this morning 129/63. Orthostatic vital signs were checked this morning which were negative the patient did experience dizziness with standing. Telemetry reviewed and patient had no significant arrhythmias. EKG sinus rhythm with first-degree block, PVCs Chest x-ray: Lobulated right upper lobe pulmonary nodule or mass 2 cm. No acute infiltrate or failure. CAT angiogram of the abdomen and pelvis revealed previous abdominal aortic iliac endovascular stent graft, previous vascular coiling left internal iliac artery and large saccular aneurysm stable. Generalized colonic diverticulosis. Prior hiatal hernia surgery. Hydropic gallbladder without inflammation. CAT scan of the brain no acute process. Hemoglobin 8.2, platelet count 133. Sodium 139, potassium 3.8, BUN 35 creatinine 1.5. Home cardiac medications: Midodrine 2.5 mg 3 times daily with parameters, aspirin 81 mg daily, simvastatin 40 mg at bedtime, Nitrostat as needed Echocardiogram performed 05/03/2023 revealed normal LV function. Hypokinesis involving the basilar inferior wall and inferior septum, aneurysmal intra-atrial septum 08/06 Patient is seen today in follow-up. Patient was started on Zyrtec, Antivert scheduled and amlodipine if blood pressures greater than 150. Patient has been up out of bed and ambulated and was feeling much improved today. Anticipate that he will be discharged home. His blood pressure is noted to be high this morning and will require amlodipine. Blood pressure is 180/81. Heart rate is in the 70s. No arrhythmias noted on telemetry. Physical examination: Gen: This is an 88-year-old male. He is resting and appears to be comfortable. VS: reviewed HEENT: Head is atraumatic, normocephalic. Pupils equal, round. Sclerae is anicteric. LUNGS: Clear to auscultation. No wheezes or rhonchi. No intercostal retractions. HEART: Regular rate and rhythm. Short systolic murmur. EXTREMITIES: No pedal edema. No calf tenderness. NEUROLOGICAL: Patient is awake, alert and oriented x3. Assessment: Chronic dizziness secondary to inner ear issue, no arrhythmia seen on telemetry, no orthostatic changes Hypertension History of orthostatic hypotension History of abdominal aortic aneurysm status post repair History of coronary artery disease with previous bypass surgery details are not available Plan: Continue patient on amlodipine 5 mg daily if systolic blood pressure greater than 150 Continue midodrine with current parameters Continue Zyrtec 10 mg daily and Antivert 3 times daily both scheduled for 3 days and monitor for symptoms. Patient is cleared for discharge from cardiology and may follow-up with Dr. Jonathan Baldwin in 2 weeks. Nurse practitioner note has been reviewed, I agree with documented findings and plan of care. Patient was seen and examined. Objective - Vital Signs Vital signs: Vital Signs Temp 98 F 08/06/23 07:15 Pulse 65 08/06/23 07:15 Resp 17 08/06/23 07:15 BP 180/81 08/06/23 07:15 Pulse Ox 96 08/06/23 07:15 FiO2 Intake & Output 08/05/23 08/06/23 08/06/23 18:59 06:59 18:59 Intake Total 358 240 Output Total 550 425 Balance -192 -425 240 Intake: Oral 358 240 Output: Urine 550 425 Other: Voiding Method Urinal Urinal # Voids 2 3 - Labs CBC & Chem 7: 08/05/23 05:35 08/05/23 05:35
== END 2023-08-06 14:47 | disposition home or self-care (01) ==
LOC: EC 09:25 → 6NMEDSUR 13:01
PROVIDERS: ADMIT Internal Medicine; ATTEND Internal Medicine
DX: I95.1 Orthostatic hypotension (principal); R10.9 Unspecified abdominal pain; I71.40 Abdominal aortic aneurysm, without rupture, unspecified; I25.10 Atherosclerotic heart disease of native coronary artery without angina pectoris; E78.2 Mixed hyperlipidemia; F41.9 Anxiety disorder, unspecified; J44.9 Chronic obstructive pulmonary disease, unspecified; N40.0 Benign prostatic hyperplasia without lower urinary tract symptoms; I12.9 Hypertensive chronic kidney disease with stage 1 through stage 4 chronic kidney disease, or unspecified chronic kidney disease; N18.9 Chronic kidney disease, unspecified; F01.50 Vascular dementia, unspecified severity, without behavioral disturbance, psychotic disturbance, mood disturbance, and anxiety; D50.9 Iron deficiency anemia, unspecified; Z86.73 Personal history of transient ischemic attack (TIA), and cerebral infarction without residual deficits; Z86.79 Personal history of other diseases of the circulatory system; Z87.891 Personal history of nicotine dependence; Z95.1 Presence of aortocoronary bypass graft; Z79.82 Long term (current) use of aspirin; Z79.899 Other long term (current) drug therapy
CPT/HCPCS: 96372 ×3; 96376; 96361; 96374; 96375; 99285; 36415; 93005; 97161; 97166; 80053 ×2; 83605; 84484; 85025 ×2; 81001; 71046; 70450; 74174; G0378 ×3; J0360; J1644 ×3; J2405; Q9967

== ENCOUNTER → 2023-08-20 | Outpatient (CLI) | payer MEDICARE, OTHER ==
[2023-08-20 13:41] LABS: African American GFR (CKD) 51 (>60 ml/min/1.73 sqM); Blood Urea Nitrogen 28 mg/dL (9-20); Non-African American GFR(CKD) 44 (>60 ml/min/1.73 sqM)
--- NOTE | 2023-08-20 14:39 | CT ---
Exam: CT Chest with contrast. Date: 08/20/2023. Comparison: Chest x-ray on 08/04/2023. History: Abnormal chest x-ray. Technique: CT examination of the chest was performed following the intravenous administration of 80 m L of Isovue-300. Coronal and sagittal reformats were performed. CT dose lowering techniques were use d, to include: automated exposure control, adjustment for patient size, and/or use of iterative recon struction. FINDINGS: Mediastinum and Natasha: There is no axillary, mediastinal or hilar lymphadenopathy. Pleural and Pericardial spaces: There are some scattered calcified pleural plaques seen bilaterally w hich may relate to prior asbestos exposure. Pleural thickening is seen posteriorly on the right side associated with some of the calcifications. Upper Abdomen: Gallstone is seen within the gallbladder. Partially visualized abdominal aortic endogr aft with the abdominal aorta showing a maximum diameter of 4.5 cm along its visualized portion. Cardiovascular: There is moderate vascular calcification and plaque seen throughout the thoracic aort a without evidence of aneurysmal dilation or dissection. There are severe diffuse coronary artery markie cifications. Pulmonary Artery: There are no central pulmonary arterial abnormalities. The examination was not per formed to evaluate for pulmonary embolism. Lung Parenchyma and Airways: There is no focal consolidation or suspicious pulmonary nodule identifie d. Bones: No fracture or aggressive osseous lesion. IMPRESSION: 1. Calcified pleural plaques may relate to prior asbestos exposure with some pleural thickening on th e right is likely part of the same process. PICC line 2. No suspicious pulmonary nodule or mass. 3. Severe coronary artery calcifications. 4. Cholelithiasis. 5. 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
== END | disposition home or self-care (01) ==
LOC: RADCTMAIN 12:49
PROVIDERS: ATTEND Internal Medicine
DX: R91.8 Other nonspecific abnormal finding of lung field (principal); J94.8 Other specified pleural conditions; I25.10 Atherosclerotic heart disease of native coronary artery without angina pectoris; K80.20 Calculus of gallbladder without cholecystitis without obstruction; I71.40 Abdominal aortic aneurysm, without rupture, unspecified; Z95.828 Presence of other vascular implants and grafts
CPT/HCPCS: 82565; 84520; 71260; 36415; Q9967

== ENCOUNTER 2023-09-23 11:08 | Emergency (ER) | payer MEDICARE, OTHER ==
--- NOTE | 2023-09-23 11:19 | ED ---
General Adult HPI - General Stated complaint: fall mid/lower back pain Time Seen by Provider: 09/23/23 11:17 Source: patient, RN notes reviewed Mode of arrival: ambulatory Limitations: no limitations - History of Present Illness Initial comments: 88-year-old male presents emergency Department with chief complaint of lower back, left flank pain. Patient states that he was walking states he exerted states he became lightheaded this is an ongoing issue over the last 4 years this is not new for him. He states he is here because of the pain is left-sided ribs, low back. He denies any head injury no loss conscious. Denies any blood thinners. - Related Data Home Medications Medication Instructions Recorded Confirmed Sertraline HCl [Zoloft] 50 mg PO DAILY 01/28/20 08/04/23 Simvastatin 40 mg PO HS 01/28/20 08/04/23 Ferrous Sulfate [Iron (65 MG 325 mg PO DAILY 03/07/21 08/04/23 Elemental)] Multivit-Min/FA/Lycopen/Lutein 1 tab PO DAILY 10/14/21 08/04/23 [Centrum Silver Tablet] Nitroglycerin Sl Tabs [Nitrostat] 0.4 mg SUBLINGUAL Q5M PRN 05/03/23 08/04/23 Acetaminophen Tab [Tylenol] 650 mg PO Q6H PRN 08/04/23 08/04/23 Aspirin EC [Ecotrin Low Dose] 81 mg PO DAILY 08/04/23 08/04/23 Lutein 20 mg PO DAILY 08/04/23 08/04/23 Midodrine HCl [ProAmantine] 2.5 mg PO TID 08/04/23 08/04/23 Previous Rx's Medication Instructions Recorded Loratadine [Claritin] 10 mg PO DAILY #30 tab 08/05/23 Meclizine [Antivert] 12.5 mg PO TID #60 tab 08/05/23 amLODIPine [Norvasc] 5 mg PO DAILY #30 tab 08/05/23 Allergies Allergy/AdvReac Type Severity Reaction Status Date / Time No Known Allergies Allergy Verified 09/23/23 13:21 Review of Systems ROS Statement: Those systems with pertinent positive or pertinent negative responses have been documented in the HPI. ROS Other: All systems not noted in ROS Statement are negative. Past Medical History Past Medical History: Coronary Artery Disease (CAD), COPD, CVA/TIA, Eye Disorder, Hyperlipidemia, Osteoarthritis (OA) Additional Past Medical History / Comment(s): Anemia, idiopathic/orthostatic hypotension, macular degeneration, carpal tunnel syndrome, multiple mini strok es. occ. lightheadness., some sob., AAA with surgery (2020)., hospitalized 01/22/22 to 01/24/22 for hypotension and fall. History of Any Multi-Drug Resistant Organisms: None Reported Past Surgical History: Appendectomy, Coronary Bypass/CABG, Hernia Repair, Joint Replacement, Tonsillectomy Additional Past Surgical History / Comment(s): CABG X1 2001, vasectomy, umbilical/hiatal hernia repairs, bilateral knee replacements, pinched nerve in neck surgically repaired, abdominal aortic aneurysm repair-january 2021 Past Anesthesia/Blood Transfusion Reactions: No Reported Reaction Additional Past Anesthesia/Blood Transfusion Reaction / Comment(s): HX BLOOD TRANSFUSION JANUARY 2021 WITH AAA SURGERY-NO REACTION Past Psychological History: No Psychological Hx Reported Smoking Status: Former smoker Past Alcohol Use History: None Reported Additional Past Alcohol Use History / Comment(s): Quit smoking in 1967., HX OF 4 PPD. Past Drug Use History: None Reported - Past Family History Mother Family Medical History: Hyperlipidemia General Exam - General Exam Comments Initial Comments: Visual Physical Exam Vital signs reviewed General: Well-appearing, nontoxic, no acute distress. Head: Normocephalic, atraumatic Eyes: PERRLA, EOMI ENT: Airway patent Chest: Nonlabored breathing Skin: No visual rash, normal skin tone Neuro: Alert and oriented 3 Musculoskeletal: No gross abnormalities Limitations: no limitations General appearance: alert, in no apparent distress Head exam: Present: atraumatic, normocephalic, normal inspection Neck exam: Present: normal inspection, full ROM Respiratory exam: Present: normal lung sounds bilaterally, chest wall tenderness. Absent: respiratory distress, wheezes, rales, rhonchi, stridor Cardiovascular Exam: Present: regular rate, normal rhythm, normal heart sounds. Absent: systolic murmur, diastolic murmur, rubs, gallop, clicks Extremities exam: Present: full ROM. Absent: tenderness Back exam: Present: full ROM, tenderness, paraspinal tenderness. Absent: vertebral tenderness Course Vital Signs 09/23/23 13:17 Temperature 98.0 F Pulse Rate 65 Respiratory 16 Rate Blood Pressure 111/67 O2 Sat by Pulse 99 Oximetry Medical Decision Making - Medical Decision Making I completed the quick note portion of this chart signed Richard Simeon PA-C Was pt. sent in by a medical professional or institution (MATTHEW Newton, TASSEL SNIPPER, urgent care, hospital, or residential...) When possible be specific @ -No Did you speak to anyone other than the patient for history (EMS, parent, family, police, friend...)? What history was obtained from this source @ -No Did you review nursing and triage notes (agree or disagree)? Why? @ -I reviewed and agree with nursing and triage notes Were old charts reviewed (outside hosp., previous admission, EMS record, old EKG, old radiological studies, urgent care reports/EKG's, residential records)? Report findings @ -No old charts were reviewed Differential Diagnosis (chest pain, altered mental status, abdominal pain women, abdominal pain men, vaginal bleeding, weakness, fever, dyspnea, syncope, headache, dizziness, GI bleed, back pain, seizure, CVA, palpatations, mental health, musculoskeletal)? @ -Fall, rib fracture, rib contusion, back pain EKG interpreted by me (3pts min.). @ -None X-rays interpreted by me (1pt min.). @ -[X-ray lumbar spine shows no acute fracture, malalignment or acute osseous lesion X-ray rib series shows no acute fracture, pneumothorax CT interpreted by me (1pt min.). @ -None done U/S interpreted by me (1pt. min.). @ -None done What testing was considered but not performed or refused? (CT, X-rays, U/S, labs)? Why? @ -None What meds were considered but not given or refused? Why? @ -None Did you discuss the management of the patient with other professionals (professionals i.e. MATTHEW Newton, TASSEL SNIPPER, lab, RT, psych nurse, licensed master social worker, immigration lawyer, teacher, sea air land officer, casework supervisor)? Give summary @ -No Was smoking cessation discussed for >3mins.? @ -No Was critical care preformed (if so, how long)? @ -No Were there social determinants of health that impacted care today? How? (Homelessness, low income, unemployed, alcoholism, drug addiction, transportation, low edu. Level, literacy, decrease access to med. care, [facility] [facility], rehab)? @ -No Was there de-escalation of care discussed even if they declined (Discuss DNR or withdrawal of care, Hospice)? DNR status @ -No What co-morbidities impacted this encounter? (DM, HTN, Smoking, COPD, CAD, Cancer, CVA, ARF, Chemo, Hep., AIDS, mental health diagnosis, sleep apnea, morbid obesity)? @ -None Was patient admitted / discharged? Hospital course, mention meds given and route, prescriptions, significant lab abnormalities, going to OR and other pertinent info. @ -Discharge patient had a fall x-rays were reviewed no acute fracture patient was discharged in stable condition. Undiagnosed new problem with uncertain prognosis? @ -No Drug Therapy requiring intensive monitoring for toxicity (Heparin, Nitro, Insulin, Cardizem)? @ -No Were any procedures done? @ -No Diagnosis/symptom? @ -Fall, rib contusion, back pain Acute, or Chronic, or Acute on Chronic? @ -Acute Uncomplicated (without systemic symptoms) or Complicated (systemic symptoms)? @ -Uncomplicated Side effects of treatment? @ -No Exacerbation, Progression, or Severe Exacerbation? @ -No Poses a threat to life or bodily function? How? (Chest pain, USA, [place], pneumonia, PE, COPD, DKA, ARF, appy, cholecystitis, CVA, Diverticulitis, Homicidal, Suicidal, threat to staff... and all critical care pts) @ -No Disposition Clinical Impression: Fall, Contusion of rib, Back pain Disposition: HOME SELF-CARE Condition: Stable Instructions (If sedation given, give patient instructions): Rib Contusion (ED) Additional Instructions: Please return to the Emergency Department if symptoms worsen or any other concerns. Is patient prescribed a controlled substance at d/c from ED?: No Referrals: Pedro Macdonald MD [Primary Care Provider] - 1-2 days Time of Disposition: 13:31
--- NOTE | 2023-09-23 13:00 | XR ---
EXAMINATION TYPE: XR lumbar spine 2 or 3V DATE OF EXAM: 09/23/2023 12:53 PM CLINICAL INDICATION:Male, 88 years old with history of pain; [facility] COMPARISON: None TECHNIQUE: XR lumbar spine 2 or 3V - Frontal, lateral and coned in L5-S1 lateral views of the spine. FINDINGS: No evidence of any acute osseous pathology. No evidence of loss of vertebral body height i s seen. There is straightened alignment of the lumbar vertebral bodies. Mild scattered disc space elaine rowing. Multilevel marginal osteophyte formation throughout the visualized spine. There is facet join t arthropathy throughout the spine. Scattered at least mild neural foraminal stenosis. Aortobiiliac s tent graft present. Embolization material in the pelvis. Surgical clips in the upper abdomen. IMPRESSION: 1. No acute fracture. 2. Moderate multilevel disc degeneration.
--- NOTE | 2023-09-23 13:02 | XR ---
EXAMINATION TYPE: XR ribs LT w pa chest xray DATE OF EXAM: 09/23/2023 12:53 PM CLINICAL INDICATION:Male, 88 years old with history of pain; COMPARISON: 08/04/2023 TECHNIQUE: XR ribs LT w pa chest xray; Frontal and oblique views of the ribs with frontal chest radio graph. FINDINGS: The ribs have a normal appearance. No evidence of fracture. Overall, the lungs are clear. The cardiac silhouette is normal in size. The remaining osseous structures are intact. IMPRESSION: No acute osseous pathology.
[2023-09-23 13:25] VITALS: BP 111/67; PULSE 65; RESP 16; TEMP 98
== END 2023-09-23 13:48 | disposition home or self-care (01) ==
LOC: EC 11:08
DX: S20.211A Contusion of right front wall of thorax, initial encounter (principal); M54.50 Low back pain, unspecified; I25.10 Atherosclerotic heart disease of native coronary artery without angina pectoris; J44.9 Chronic obstructive pulmonary disease, unspecified; E78.5 Hyperlipidemia, unspecified; M19.90 Unspecified osteoarthritis, unspecified site; Z79.82 Long term (current) use of aspirin; Z79.899 Other long term (current) drug therapy; Z87.891 Personal history of nicotine dependence; W18.30XA Fall on same level, unspecified, initial encounter; Y93.01 Activity, walking, marching and hiking
CPT/HCPCS: 72100; 99283

== ENCOUNTER 2024-12-19 11:30 | Emergency (ER) | payer MEDICARE, OTHER ==
--- NOTE | 2024-12-19 12:23 | ED ---
General Adult HPI - General Chief complaint: Dizziness Stated complaint: low bp Time Seen by Provider: 12/19/24 11:54 Source: patient, EMS, RN notes reviewed, old records reviewed Mode of arrival: EMS Limitations: no limitations - History of Present Illness Initial comments: 89-year-old male presents with low blood pressure, dizziness. Patient has hist ory of hypotension currently on midodrine 10 mg 3 times daily. He was seen by home care nursing and blood pressure was in the 80s he was sent to the emergency department for evaluation. Patient denies specific symptoms, no chest pain or abdominal pain. No significant vomiting or diarrhea. No fever. Patient states he does eat and drink well. - Related Data Home Medications Medication Instructions Recorded Confirmed Sertraline HCl [Zoloft] 50 mg PO DAILY 01/28/20 12/19/24 Simvastatin 40 mg PO HS 01/28/20 12/19/24 Aspirin EC [Ecotrin Low Dose] 81 mg PO HS 08/04/23 12/19/24 Ascorbic Acid [Vitamin C] 500 mg PO DAILY 10/23/24 12/19/24 Mv-Min/Folic/K1/Lycopen/Lutein 1 tab PO DAILY 10/23/24 12/19/24 [Centrum Silver Men Tablet] Cholecalciferol (Vitamin D3) 50 mcg PO DAILY 12/19/24 12/19/24 [Vitamin D3 (50 Mcg = 2000 Iu)] HYDROcodone/APAP 5-325MG [[place] 5] 1 tab PO Q6HR PRN 12/19/24 12/19/24 Lutein 5mg 1 tab PO DAILY 12/19/24 12/19/24 Midodrine [ProAmatine] 10 mg PO TID 12/19/24 12/19/24 Allergies Allergy/AdvReac Type Severity Reaction Status Date / Time No Known Allergies Allergy Verified 12/19/24 12:41 Review of Systems ROS Statement: Those systems with pertinent positive or pertinent negative responses have been documented in the HPI. ROS Other: All systems not noted in ROS Statement are negative. Past Medical History Past Medical History: Coronary Artery Disease (CAD), COPD, CVA/TIA, Eye Disorder, Hyperlipidemia, Osteoarthritis (OA) Additional Past Medical History / Comment(s): Anemia, idiopathic/orthostatic hypotension, macular degeneration, carpal tunnel syndrome, multiple mini strokes. occ. lightheadness., some sob., AAA with surgery (2020)., hospitalized 01/22/22 to 01/24/22 for hypotension and fall. orthostatic blood pressure History of Any Multi-Drug Resistant Organisms: None Reported Past Surgical History: Appendectomy, Coronary Bypass/CABG, Hernia Repair, Joint Replacement, Tonsillectomy Additional Past Surgical History / Comment(s): CABG X1 2001, vasectomy, umbilical/hiatal hernia repairs, bilateral knee replacements, pinched nerve in neck surgically repaired, abdominal aortic aneurysm repair-january 2021 Past Anesthesia/Blood Transfusion Reactions: No Reported Reaction Additional Past Anesthesia/Blood Transfusion Reaction / Comment(s): HX BLOOD TRANSFUSION JANUARY 2021 WITH AAA SURGERY-NO REACTION Past Psychological History: No Psychological Hx Reported Smoking Status: Former smoker Past Alcohol Use History: None Reported Past Drug Use History: None Reported - Past Family History Mother Family Medical History: Hyperlipidemia General Exam Limitations: no limitations General appearance: alert, in no apparent distress Head exam: Present: atraumatic, normocephalic Eye exam: Present: normal appearance, PERRL ENT exam: Present: mucous membranes dry Neck exam: Present: normal inspection. Absent: tenderness Respiratory exam: Present: normal lung sounds bilaterally. Absent: respiratory distress, wheezes Cardiovascular Exam: Present: regular rate, normal rhythm GI/Abdominal exam: Present: soft. Absent: distended, tenderness Extremities exam: Present: normal inspection, normal capillary refill Neurological exam: Present: alert, oriented X3, CN II-XII intact. Absent: motor sensory deficit Psychiatric exam: Present: normal affect, normal mood Skin exam: Present: warm, dry, intact Course Vital Signs 12/19/24 12/19/24 12/19/24 11:52 12:22 13:10 Temperature 98.0 F 98.1 F Pulse Rate 55 L 56 L Respiratory 17 18 16 Rate Blood Pressure 160/76 170/77 O2 Sat by Pulse 100 98 Oximetry Medical Decision Making - Medical Decision Making Was pt. sent in by a medical professional or institution (, PA, WAXING MACHINE OPERATOR, urgent care, hospital, or care home...) When possible be specific @ -No Did you speak to anyone other than the patient for history (EMS, parent, family, police, friend...)? What history was obtained from this source @ -Patient's daughter Did you review nursing and triage notes (agree or disagree)? Why? @ -I reviewed and agree with nursing and triage notes Were old charts reviewed (outside hosp., previous admission, EMS record, old EKG, old radiological studies, urgent care reports/EKG's, care home records)? Report findings @ -No old charts were reviewed Differential Weakness: Hypoglycemia, shock, sepsis, hyponatremia, anemia, infection, ID, ETOH, adverse medicine reaction, overdose, stroke, this is not meant to be an all-inclusive list. EKG interpreted by me (3pts min.). @ -Sinus bradycardia with a first-degree AV block rate of 55, CT interval 333, QRS duration 93, QTc [address] segment elevation. X-rays interpreted by me (1pt min.). @ -Chest x-ray shows no acute cardiopulmonary findings CT interpreted by me (1pt min.). @ -None done U/S interpreted by me (1pt. min.). @ -None done What testing was considered but not performed or refused? (CT, X-rays, U/S, labs)? Why? @ -None What meds were considered but not given or refused? Why? @ -None Did you discuss the management of the patient with other professionals (professionals i.e. , PA, WAXING MACHINE OPERATOR, lab, RT, psych nurse, forensic social worker, sulfur chloride operator, teacher, chief school finance officer, case manager specialist)? Give summary @ -No Was smoking cessation discussed for >3mins.? @ -No Was critical care preformed (if so, how long)? @ -No Were there social determinants of health that impacted care today? How? (Home lessness, low income, unemployed, alcoholism, drug addiction, transportation, low edu. Level, literacy, decrease access to med. care, skilled nursing, rehab)? @ -No Was there de-escalation of care discussed even if they declined (Discuss DNR or withdrawal of care, Hospice)? DNR status @ -No What co-morbidities impacted this encounter? (DM, HTN, Smoking, COPD, CAD, Cancer, CVA, ARF, Chemo, Hep., AIDS, mental health diagnosis, sleep apnea, morbid obesity)? @ -Hypotension, on midodrine Was patient admitted / discharged? . @ -89 yo male presenting with an episode of hypotension. Patient is normotensive or hypotensive while in the emergency department. I did obtain laboratory testing and EKG as well as chest x-ray. Workup is without significant abnormality at this time. Patient's blood pressure monitored over several hours without any episodes of hypotension. Patient will continue to monitor closely at home return with any new or worsening symptoms. Undiagnosed new problem with uncertain prognosis? @ -No Drug Therapy requiring intensive monitoring for toxicity (Heparin, Nitro, Insulin, Cardizem)? @ -No Were any procedures done? @ -No Diagnosis/symptom? @ -Hypotension, resolved Acute, or Chronic, or Acute on Chronic? @Acute on chronic Uncomplicated (without systemic symptoms) or Complicated (systemic symptoms)? @ -Default Side effects of treatment? @ -No Exacerbation, Progression, or Severe Exacerbation? @ -No Poses a threat to life or bodily function? How? (Chest pain, USA, ID, pneumonia, PE, COPD, DKA, ARF, appy, cholecystitis, CVA, Diverticulitis, Homicidal, Suicidal, threat to staff... and all critical care pts) @ -Low risk - Lab Data Result diagrams: 12/19/24 12:48 12/19/24 12:48 Lab Results 12/19/24 12/19/24 12/19/24 Range/Units 12:48 12:48 12:48 WBC 8.1 (3.8-10.6) k/uL RBC 3.75 L (4.30-5.90) m/uL Hgb 11.0 L (13.0-17.5) gm/dL Hct 35.0 L (39.0-53.0) % MCV 93.3 (80.0-100.0) fL MCH 29.4 (25.0-35.0) pg MCHC 31.5 (31.0-37.0) g/dL RDW 14.5 (11.5-15.5) % Plt Count 185 (150-450) k/uL MPV 8.1 Neutrophils % 81 % Lymphocytes % 12 % Monocytes % 4 % Eosinophils % 1 % Basophils % 0 % Neutrophils # 6.6 (1.3-7.7) k/uL Lymphocytes # 1.0 (1.0-4.8) k/uL Monocytes # 0.3 (0-1.0) k/uL Eosinophils # 0.1 (0-0.7) k/uL Basophils # 0.0 (0-0.2) k/uL PT 11.3 (10.0-12.5) sec INR 1.0 (<1.2) APTT 22.5 (22.0-30.0) sec Sodium 137 (137-145) mmol/L Potassium 4.6 (3.5-5.1) mmol/L Chloride 102 (98-107) mmol/L Carbon Dioxide 28 (22-30) mmol/L Anion Gap 7 mmol/L BUN 27 H (9-20) mg/dL Creatinine 1.29 H (0.66-1.25) mg/dL Est GFR (CKD-EPI)AfAm 57 (>60 ml/min/1.73 sqM) Est GFR (CKD-EPI)NonAf 49 (>60 ml/min/1.73 sqM) Glucose 100 H (74-99) mg/dL Calcium 9.0 (8.4-10.2) mg/dL Magnesium 2.1 (1.6-2.3) mg/dL Total Bilirubin 0.4 (0.2-1.3) mg/dL AST 22 (17-59) U/L ALT 16 (4-49) U/L Alkaline Phosphatase 110 (38-126) U/L Troponin I (0.000-0.034) ng/mL Total Protein 6.8 (6.3-8.2) g/dL Albumin 3.9 (3.5-5.0) g/dL 12/19/24 Range/Units 12:48 WBC (3.8-10.6) k/uL RBC (4.30-5.90) m/uL Hgb (13.0-17.5) gm/dL Hct (39.0-53.0) % MCV (80.0-100.0) fL MCH (25.0-35.0) pg MCHC (31.0-37.0) g/dL RDW (11.5-15.5) % Plt Count (150-450) k/uL MPV Neutrophils % % Lymphocytes % % Monocytes % % Eosinophils % % Basophils % % Neutrophils # (1.3-7.7) k/uL Lymphocytes # (1.0-4.8) k/uL Monocytes # (0-1.0) k/uL Eosinophils # (0-0.7) k/uL Basophils # (0-0.2) k/uL PT (10.0-12.5) sec INR (<1.2) APTT (22.0-30.0) sec Sodium (137-145) mmol/L Potassium (3.5-5.1) mmol/L Chloride (98-107) mmol/L Carbon Dioxide (22-30) mmol/L Anion Gap mmol/L BUN (9-20) mg/dL Creatinine (0.66-1.25) mg/dL Est GFR (CKD-EPI)AfAm (>60 ml/min/1.73 sqM) Est GFR (CKD-EPI)NonAf (>60 ml/min/1.73 sqM) Glucose (74-99) mg/dL Calcium (8.4-10.2) mg/dL Magnesium (1.6-2.3) mg/dL Total Bilirubin (0.2-1.3) mg/dL AST (17-59) U/L ALT (4-49) U/L Alkaline Phosphatase (38-126) U/L Troponin I <0.012 (0.000-0.034) ng/mL Total Protein (6.3-8.2) g/dL Albumin (3.5-5.0) g/dL Disposition Clinical Impression: Dizziness Disposition: HOME SELF-CARE Condition: Fair Instructions (If sedation given, give patient instructions): Dizziness (ED) Is patient prescribed a controlled substance at d/c from ED?: No Referrals: Pedro Macdonald MD [Primary Care Provider] - 1-2 days Time of Disposition: 14:15
[2024-12-19 12:24] VITALS: TEMP 98.1
[2024-12-19 12:58] LABS: Basophils % (A) 0 %; Eosinophils # (A) 0.1 k/uL (0-0.7); Eosinophils % (A) 1 %; Lymphocytes % (A) 12 %; MCH 29.4 pg (25.0-35.0); MCHC 31.5 g/dL (31.0-37.0); MCV 93.3 fL (80.0-100.0); Mean Platelet Volume 8.1; Monocytes # (A) 0.3 k/uL (0-1.0); Monocytes % (A) 4 %; Neutrophils # (A) 6.6 k/uL (1.3-7.7); Neutrophils % (A) 81 %; Platelet Count 185 k/uL (150-450); RBC 3.75 m/uL (4.30-5.90); RDW 14.5 % (11.5-15.5); WBC 8.1 k/uL (3.8-10.6)
[2024-12-19 13:07] LABS: ALT 16 U/L (4-49); AST 22 U/L (17-59); African American GFR (CKD) 57 (>60 ml/min/1.73 sqM); Albumin 3.9 g/dL (3.5-5.0); Alkaline Phosphatase 110 U/L (38-126); Anion Gap 7 mmol/L; Blood Urea Nitrogen 27 mg/dL (9-20); Carbon Dioxide 28 mmol/L (22-30); Chloride 102 mmol/L (98-107); Glucose 100 mg/dL (74-99); Magnesium 2.1 mg/dL (1.6-2.3); Non-African American GFR(CKD) 49 (>60 ml/min/1.73 sqM); Potassium 4.6 mmol/L (3.5-5.1); Sodium 137 mmol/L (137-145); Total Bilirubin 0.4 mg/dL (0.2-1.3); Total Protein 6.8 g/dL (6.3-8.2)
[2024-12-19 13:09] LABS: Partial Thromboplastin Time 22.5 sec (22.0-30.0); Prothrombin Time 11.3 sec (10.0-12.5)
[2024-12-19] MEDS: SODIUM CHLORIDE 0.9% 500 ML 500 ML IV STA (13:18)
--- NOTE | 2024-12-19 13:39 | XR ---
EXAMINATION TYPE: XR chest 2V DATE OF EXAM: 12/19/2024 CLINICAL INDICATION: Male, 89 years old with history of syncope, TECHNIQUE: Frontal and lateral views of the chest are obtained. COMPARISON: Chest CT October 23, 2024 FINDINGS: There is right basilar linear scarring and/or atelectasis. Left lung is clear. Overlying sternal wires are redemonstrated. The cardiac silhouette size remains within normal limits . Degenerative changes right glenohumeral joint again seen. Numerous surgical clips in the epigastric region are redemonstrated. IMPRESSION: Chronic changes without suspicious acute pulmonary process. [facility], , 12/19/2024 1:37 PM
[2024-12-19 15:00] VITALS: BP 212/94; PULSE 61; RESP 17
[2024-12-19 15:19] LABS: Appearance,Urine Clear (Clear); Bilirubin,Urine Negative (Negative); Blood,Urine Negative (Negative); Color,Urine Yellow; Glucose,Urine (UA) Negative (Negative); Ketones,Urine Negative (Negative); Leukocyte Esterase,Urine Negative (Negative); Nitrite,Urine Negative (Negative); PH, Urine 5.5 (5.0-8.0); Protein,Urine Trace (Negative); Specific Gravity,Urine 1.017 (1.001-1.035); Urobilinogen,Urine <2.0 mg/dL (<2.0)
== END 2024-12-19 15:15 | disposition home or self-care (01) ==
LOC: EC 11:30
DX: R42 Dizziness and giddiness (principal); I95.9 Hypotension, unspecified; Z86.73 Personal history of transient ischemic attack (TIA), and cerebral infarction without residual deficits; Z87.891 Personal history of nicotine dependence
CPT/HCPCS: 36415; 71046; 80053; 81003; 83735; 84484; 85025; 85610; 85730; 93005; 99284